=== PATIENT | male | born 1950 | race Caucasian/White ===

== ENCOUNTER 2016-04-26 08:10 | Inpatient (IN) | payer OTHER ==
[2016-04-26] VITALS (9 sets, daily range): BP systolic 84–108; BP diastolic 45–77; PULSE 81–93; TEMP 36.4–36.7; O2SAT 97–100; Ht 180.3 cm; Wt 78.5 kg
[~2016-04-26] VITALS: Ht 180.3 cm; Wt 78.5 kg
[~2016-04-26 08:10] MED LIST: AMOX500T PO; ASCOPOW PO; ASPI81TA28 PO; CARV3.122 PO; DOCU100C31 PO; ESCI10TA17 PO; FERRPOW47 PO; FRS/40 PO; GABA-112 PO; LACT1POW; LISI-461 PO; MORP15TA19 PO; MULT-506 PO; NVLGI7030 SC; PANT40TA PO; RIVA1TAB4 PO; ZINC1CAP PO; [UNRECOGNIZED DRUG - CODE] SQ
[2016-04-26] MEDS ORDERED: SODIUM CHLORIDE 0.9% 1000ML 500 ML IV ONE ×2 (08:19)
[2016-04-26] MEDS ORDERED: PIPERACILLIN/TAZOBACTAM 4.5 GM/100ML D5W IV STA (08:19)
[2016-04-26] MEDS ORDERED: VANCOMYCIN 1GM/270ML NSS IV STA (08:19)
--- NOTE | 2016-04-26 08:34 | EMERGENCY ROOM VISIT NOTE ---
History Report prepared by [place]: Ayse Duque Under the Supervision of: Dr. Kennedy Brewer M.D. First contact with patient: 08:11 Stated Complaint: RESPIRATORY/LETHARGIC History of Present Illness The patient is a 65 year old male who presents to the Emergency Room with complaints of a persistent low oxygen saturation that began this morning. Per nursing staff, the patient arrives via ALS from [facility]. They note that the patient recently had a right above the knee amputation and that is the reason for his rehab at [facility]. Nursing staff reports that the patient has been lethargic, but denies the patient having any fever. Per Dr. Landry, the patient was vomiting yesterday. He notes that when evaluated this morning, the patient appeared somnolent and somewhat lethargic. Dr. Landry states that the patient's oxygen saturation was low, so he was concerned for aspiration pneumonia. Per records, the patient is on Xarelto. The history is limited secondary to altered mental status. Source of History: transfer records, nursing staff, other (Dr. Landry) History Limited By: AMS Onset: this morning Position: other (global) Quality: other (low oxygen saturation) Timing: other (persistent) Associated Symptoms: + vomiting Note: Associated Symptoms: lethargic, somnolent Review of Systems The ROS is unobtainable secondary to altered mental status. Past Medical & Surgical Medical Problems: (1) Atrial fibrillation (2) Chronic anemia (3) Chronic renal disease (4) Congestive heart failure (5) Diabetes (6) Diabetic neuropathy (7) Hypertension Surgical Problems: (1) History of right above knee amputation (2) S/P vascular bypass Family History No pertinent family history stated. Social History Smoking Status: Former Smoker Drug Use: none Marital Status: Occupation Status: disabled Current/Historical Medications Scheduled Ascorbic Acid (Ascorbic Acid Cassave), 500 MG PO DAILY Aspirin (Aspirin Ec), 81 MG PO DAILY Carvedilol (Coreg), 1 TAB PO BID Collagenase (Santyl), 1 APPLN TOP DAILY Darbepoetin (Aranesp Albumin Free), SQ WK Docusate Sodium (Docusate Sodium), 1 CAP PO BID Escitalopram (Lexapro), 10 MG PO DAILY Ferrous Sulfate (Kp Ferrous Sulfate), 1 TAB PO TIDM Furosemide (Lasix), 40 MG PO BID Gabapentin (Neurontin), 100 MG PO TID Insulin Aspart (Novolog Flexpen), SC UD Insulin Lispro 75/25 (Humalog Mix 75/25), 18 UNITS SC QAM Insulin Lispro 75/25 (Humalog Mix 75/25), 15 UNITS SC QPM Lactobacillus Acidophilus (Lactinex), 1 TAB PO TIDM Lisinopril (Zestril), 10 MG PO DAILY Morphine Cont Rel (Ms Contin), 15 MG PO Q12 Multivitamins/Minerals (Mvi With Minerals), 1 TAB PO DAILY Ondasetron Odt (Zofran Odt), 4 MG SL Q6H Pantoprazole (Protonix), 40 MG PO DAILY Zinc Sulfate (Zinc Sulfate), 220 MG PO DAILY Scheduled PRN Acetaminophen Tab (Tylenol), 650 MG PO Q4 PRN for Pain Oxycodone Ir (Roxicodone Ir), 5 MG PO Q6 PRN for Moderate Pain Rivaroxaban (Xarelto), 20 MG PO DAILY PRN for QPM Saline (Sodium Chloride), 2 SPRAYS SHANNON QID PRN for DRYNESS Senna/Docusate Sod (Senokot S), 1 TAB PO Q24H PRN for Constipation Allergies Coded Allergies: No Known Allergies (Unverified , 04/23/16) Physical Exam Vital Signs Date Time Temp Pulse Resp B/P Pulse Ox O2 Delivery O2 Flow Rate FiO2 04/26/16 09:15 91 20 97/37 100 Nasal Cannula 6.0 04/26/16 09:03 95 17 65/38 100 Nasal Cannula 04/26/16 08:39 98 17 88/42 98 Nasal Cannula 6.0 04/26/16 08:38 99 Nasal Cannula 6.0 04/26/16 08:26 37.1 101 21 62/41 77 Room Air 04/26/16 08:19 101 Physical Exam GENERAL: Patient is in no acute distress. HEENT: No acute trauma, normocephalic atraumatic, mucous membranes dry, no nasal congestion, no scleral icterus. NECK: No stridor, no adenopathy, no meningismus, trachea is midline. LUNGS: Clear to auscultation bilaterally when listening anteriorly, no wheeze, no rhonchi, breath sounds equal. HEART: Without murmurs gallops or rubs, regular rate and rhythm. ABDOMEN: Soft, nontender, bowel sounds positive, no hernias, no peritonitis. EXTREMITIES: Right above the knee amputation with sharon still in place, no signs of erythema to suggest infection. Left lower extremity has several areas of skin break down and ulceration over the lateral and posterior foot. There is some erythema and redness to the distal leg. There is some warmth present. NEUROLOGIC: Somnolent but arouses to voice, somewhat confused, moving all extremities SKIN: No rash, no jaundice, no diaphoresis. Medical Decision & Procedures ER Provider Diagnostic Interpretation: X-ray results as stated below per interpretation by me and the radiologist: CHEST ONE VIEW PORTABLE HISTORY: Sepsis COMPARISON: None. FINDINGS: No pneumothorax right basilar densities.. Moderate right pleural effusion. The heart is mildly enlarged. There is interstitial and vascular thickening suggestive of mild congestive change. Probable trace left pleural effusion. IMPRESSION: 1. Moderate right pleural effusion and a trace left pleural effusion. 2. Cardiomegaly with mild congestive change. 3. Right basilar densities favor compressive atelectasis from the pleural fluid. Electronically signed by: Juarez Galvin M.D. 04/26/2016 9:06 AM Dictated Date/Time: 04/26/2016 9:04 AM Laboratory Results 04/26/16 08:25 Red Blood Count 3.11, Mean Corpuscular Volume 83.0, Mean Corpuscular Hemoglobin 26.4, Mean Corpuscular Hemoglobin Concent 31.8, Mean Platelet Volume 10.6, Neutrophils (%) (Auto) 81.4, Lymphocytes (%) (Auto) 12.0, Monocytes (%) (Auto) 5.5, Eosinophils (%) (Auto) 0.5, Basophils (%) (Auto) 0.2, Neutrophils # (Auto) 11.30, Lymphocytes # (Auto) 1.66, Monocytes # (Auto) 0.76, Eosinophils # (Auto) 0.07, Basophils # (Auto) 0.03 04/26/16 08:25 Test 04/26/16 08:25 04/26/16 08:26 04/26/16 08:31 04/26/16 08:35 White Blood Count 13.88 K/uL (4.8-10.8) Red Blood Count 3.11 M/uL (4.7-6.1) Hemoglobin 8.2 g/dL (14.0-18.0) Hematocrit 25.8 % (42-52) Mean Corpuscular Volume 83.0 fL (80-100) Mean Corpuscular Hemoglobin 26.4 pg (25-34) Mean Corpuscular Hemoglobin Concent 31.8 g/dl (32-36) Platelet Count 410 K/uL (130-400) Mean Platelet Volume 10.6 fL (7.4-10.4) Neutrophils (%) (Auto) 81.4 % Lymphocytes (%) (Auto) 12.0 % Monocytes (%) (Auto) 5.5 % Eosinophils (%) (Auto) 0.5 % Basophils (%) (Auto) 0.2 % Neutrophils # (Auto) 11.30 K/uL (1.4-6.5) Lymphocytes # (Auto) 1.66 K/uL (1.2-3.4) Monocytes # (Auto) 0.76 K/uL (0.11-0.59) Eosinophils # (Auto) 0.07 K/uL (0-0.5) Basophils # (Auto) 0.03 K/uL (0-0.2) RDW Standard Deviation 59.8 fL (36.4-46.3) RDW Coefficient of Variation 19.8 % (11.5-14.5) Immature Granulocyte % (Auto) 0.4 % Immature Granulocyte # (Auto) 0.06 K/uL (0.00-0.02) Polychromasia 1+ Anisocytosis PRESENT Prothrombin Time 19.2 SECONDS (9.0-12.0) Prothromb Time International Ratio 1.8 (0.9-1.1) Activated Partial Thromboplast Time 39.1 SECONDS (21.0-31.0) Partial Thromboplastin Ratio 1.5 Est Creatinine Clear Calc Drug Dose 35.8 ml/min Estimated GFR () 36.6 Estimated GFR (Non- 31.6 BUN/Creatinine Ratio 38.6 (10-20) Calcium Level 8.5 mg/dl (8.5-10.1) Magnesium Level 2.1 mg/dl (1.8-2.4) Total Bilirubin 0.6 mg/dl (0.2-1) Aspartate Amino Transf (AST/SGOT) 33 U/L (15-37) Alanine Aminotransferase (ALT/SGPT) 13 U/L (12-78) Alkaline Phosphatase 130 U/L (45-117) Total Protein 7.2 gm/dl (6.4-8.2) Albumin 2.1 gm/dl (3.4-5.0) Globulin 5.1 gm/dl (2.5-4.0) Albumin/Globulin Ratio 0.4 (0.9-2) Thyroid Stimulating Hormone (TSH) 3.700 uIu/ml (0.300-4.500) Bedside Lactic Acid Venous 1.48 mmol/L (0.90-1.70) Bedside Hemoglobin 9.5 g/dl (14.0-18.0) Bedside Hematocrit 28 % (42-52) Bedside Sodium 131 mEq/L (135-144) Bedside Potassium 5.8 mEq/L (3.3-5.0) Bedside Chloride 94 mEq/L (101-112) Bedside Total CO2 28 mEq/l (24-31) Anion Gap 17.0 mmol/L (16-25) Bedside Blood Urea Nitrogen 78 mg/dl (7-18) Bedside Creatinine 2.0 mg/dl (0.6-1.3) Bedside Glucose (other) 148 mg/dl (70-99) Bedside Ionized Calcium (Marisabel) 1.07 mmol/l (1.12-1.32) Urine Color YELLOW Urine Appearance CLEAR (CLEAR) Urine pH 5.0 (4.5-7.5) Urine Specific [place] 1.005 (1.000-1.030) Urine Protein NEG (NEG) Urine Glucose (UA) NEG (NEG) Urine Ketones NEG (NEG) Urine Occult Blood NEG (NEG) Urine Nitrite NEG (NEG) Urine Bilirubin NEG (NEG) Urine Urobilinogen NEG (NEG) Urine Leukocyte Esterase NEG (NEG) Urine WBC (Auto) 0 /hpf (0-5) Urine RBC (Auto) 0-4 /hpf (0-4) Urine Hyaline Casts (Auto) 1-5 /lpf (0-5) Urine Epithelial Cells (Auto) 0-5 /lpf (0-5) Urine Bacteria (Auto) NEG (NEG) Laboratory results reviewed by me. Medications Administered Medications (Trade) Dose Ordered Sig/Abhijit Route Start Time Stop Time Status Last Admin Dose Admin Sodium Chloride 500 ml @ 999 mls/hr Q31M ONCE IV 04/26/16 08:19 04/26/16 08:49 DC 04/26/16 08:25 999 MLS/HR Sodium Chloride (Nss 1000ml) 500 ml @ 999 mls/hr Q31M ONCE IV 04/26/16 08:19 04/26/16 08:49 DC 04/26/16 08:17 999 MLS/HR Piperacillin Sod/ Tazobactam Sod (Zosyn Iv) 4.5 gm ONE STAT IV 04/26/16 08:19 04/26/16 08:23 DC 04/26/16 08:41 4.5 GM Vancomycin HCl 1 gm 1 gm ONE STAT IV 04/26/16 08:19 04/26/16 08:23 DC 04/26/16 09:02 1 GM Sodium Chloride 1,000 ml @ 999 mls/hr Q1H1M STAT IV 04/26/16 09:15 04/26/16 10:15 DC 04/26/16 08:50 999 MLS/HR Sodium Chloride (Nss 1000ml) 1,000 ml @ 999 mls/hr Q1H1M STAT IV 04/26/16 09:15 04/26/16 10:15 DC 04/26/16 09:15 999 MLS/HR ECG Indication: SOB/dyspnea (low oxygen saturation) Rate (beats per minute): 94 Rhythm: atrial fibrillation (vs junctional tachycardia) Findings: ST depression (Anterior, laterally), no ectopy ED Course 0815: The patient was evaluated in room B11B. A complete history and physical exam was performed. 0819: Ordered Vancomycin HCl 1 gm IV, Zosyn IV 4.5 gm IV, Sodium Chloride 500 ml @ 999 mls/hr IV, Sodium Chloride 500 ml @ 999 mls/hr IV. 0914: I reevaluated the patient and he is more awake and feeling better. He is currently receiving his third liter of fluid. The patient will be evaluated for further treatment. 0915: Ordered Sodium Chloride 1000 ml @ 999 mls/hr IV, Sodium Chloride 1000 ml @ 999 mls/hr IV. 0917: I discussed the patients case with Dr. Palomo, Intensive Care. She states that she has nothing to add, and states that I should consult the hospitalist. 0936: I discussed the patients case with Dr. Jarrett [facility]. She is going to evaluate the patient for further treatment. Medical Decision The patient is a 65 year old male who presents to the ED with complaints of a low oxygen saturation. Differential diagnoses considered include sepsis, cellulitis, osteomyelitis, bacteremia, aspiration pneumonia, electrolyte imbalance, dehydration, anemia, UTI.. There is a mild leukocytosis which would be consistent with infection. The patient is anemic but this appears baseline looking back at testing sent with him from [facility]. There is evidence for acute renal failure with dehydration. Sodium slightly low. There was no hepatitis. The patient appeared to be in a euthyroid state. INR was elevated at 1.8. Urinalysis does not show infection. Chest x-ray shows a possible pneumonia or atelectasis at the right base. Blood cultures are pending. Lactic acid level was not elevated making severe sepsis less likely. EKG shows what seems to be A. fib versus a junctional rhythm. There were some ST depressions in the anterior and lateral leads, there were no old EKGs to use for comparison. Cardiac enzyme testing does show a mild troponin elevation-this could be consistent with cardiac strain/injury. The patient was aggressively managed. He was hypotensive and hypoxic. He was somewhat somnolent. The patient received around 3 L of IV saline. With this treatment, his blood pressure is now improved. He received IV Zosyn and IV vancomycin. The patient is more awake and interactive since treatment. He is doing well, he looks improved. Admission/observation is warranted. I am concerned about a possible left lower x-ray cellulitis causing his presentation. Aspiration pneumonia is a consideration as well. Further care in the hospital is warranted. I talked with the patient and his family. I spoke with case management. The on-call hospitalist was consulted. Consults Time Called: 915 Consulting Physician: Dr. Palomo, Intensive Care Returned Call: [phone] I discussed the patients case with Dr. Palomo, Intensive Care. She states that she has nothing to add, and states that I should consult the hospitalist. Additional Consults: Time Called: [phone] Consulted Physician: Leslie Henry Returned Call: [phone] Additional Comments: I discussed the patients case with Leslie Henry. She is going to evaluate the patient for further treatment. Impression Primary Impression: Sepsis Additional Impressions: Hypotension Change in mental status Critical Care I have personally spent greater than 35 minutes of critical care time in the direct management of this patient. This includes bedside care, interpretation of diagnostic studies, and testing, discussion with consultants, patient, and family members, and other required patient management activities. This 35 minutes is in excess of all separately billable procedures. Scribe Attestation The scribe's documentation has been prepared under my direction and personally reviewed by me in its entirety. I confirm that the note above accurately reflects all work, treatment, procedures, and medical decision making performed by me. Departure Information Dispostion Being Evaluated By Hospitalist Referrals Kd Hair M.D. (PCP) Problem Qualifiers
[2016-04-26 08:46] LABS: ISTAT HEMOGLOBIN 9.5 g/dl (14.0-18.0); ISTAT IONIZED CALCIUM 1.07 mmol/l (1.12-1.32)
[2016-04-26 08:49] LABS: HEMATOCRIT 25.8 % (42-52); MEAN CORPUSCULAR HEMOGLOBIN 26.4 pg (25-34); MEAN CORPUSCULAR HGB CONC 31.8 g/dl (32-36); MEAN PLATELET VOLUME 10.6 fL (7.4-10.4); PLATELET COUNT 410 K/uL (130-400); RED BLOOD COUNT 3.11 M/uL (4.7-6.1); WHITE BLOOD COUNT 13.88 K/uL (4.8-10.8)
--- NOTE | 2016-04-26 09:07 | DIAGNOSTIC IMAGING REPORT ---
CHEST ONE VIEW PORTABLE HISTORY: Sepsis COMPARISON: None. FINDINGS: No pneumothorax right basilar densities.. Moderate right pleural effusion. The heart is mildly enlarged. There is interstitial and vascular thickening suggestive of mild congestive change. Probable trace left pleural effusion. IMPRESSION: 1. Moderate right pleural effusion and a trace left pleural effusion. 2. Cardiomegaly with mild congestive change. 3. Right basilar densities favor compressive atelectasis from the pleural fluid. Electronically signed by: Juarez Galvin M.D. 04/26/2016 9:06 AM Dictated Date/Time: 04/26/2016 9:04 AM
[2016-04-26 09:10] LABS: BUN/CREATININE RATIO 38.6 (10-20); CALCIUM 8.5 mg/dl (8.5-10.1); CREATININE 2.1 mg/dl (0.60-1.40); MAGNESIUM 2.1 mg/dl (1.8-2.4); POTASSIUM 5.6 mmol/L (3.5-5.1)
[2016-04-26 09:11] LABS: URINE APPEARANCE CLEAR (CLEAR); URINE BILIRUBIN NEG (NEG); URINE COLOR YELLOW; URINE EPITHELIAL CELL AUTO 0-5 /lpf (0-5); URINE NITRITE NEG (NEG); URINE SPECIFIC GRAVITY 1.005 (1.000-1.030); UROBILINOGEN NEG (NEG); ZZURINE CULT IF INDIC CATH NO
[2016-04-26 09:11] LABS: INR 1.8 (0.9-1.1); PARTIAL THROMBOPLASTIN RATIO 1.5; PROTHROMBIN TIME (PATIENT) 19.2 SECONDS (9.0-12.0)
[2016-04-26 09:14] LABS: MANUAL MICROSCOPIC REQUIRED? NO; REVIEW REQ? NO
[2016-04-26 09:14] LABS: ANISOCYTOSIS PRESENT; BASO % 0.2 %; BASO ABS # 0.03 K/uL (0-0.2); COMPLETE YES; EOS % 0.5 %; IG% 0.4 %; LYMPH ABS # 1.66 K/uL (1.2-3.4); MONO % 5.5 %; NEUT % 81.4 %; POLYCHROMASIA 1+
[2016-04-26] MEDS ORDERED: SODIUM CHLORIDE 0.9% 1000ML 1,000 ML IV STA ×2 (09:15)
[2016-04-26] MEDS ORDERED: RIVA1TAB PO (09:18)
[2016-04-26] MEDS ORDERED: SNTO30 TOP (09:18)
[2016-04-26] MEDS ORDERED: OXYC1TAB3 PO (09:18)
[2016-04-26] MEDS ORDERED: ONDA4TAB10 SL (09:18)
[2016-04-26] MEDS ORDERED: SENN-65 PO (09:18)
[2016-04-26] MEDS ORDERED: MULT-513 PO (09:18)
[2016-04-26] MEDS ORDERED: ACET325T96 PO (09:18)
[2016-04-26] MEDS ORDERED: SALI0.6549 NAE (09:18)
[2016-04-26 09:22] LABS: ALB/GLOB RATIO 0.4 (0.9-2); THYROID STIMULATING HORMONE 3.7 uIu/ml (0.300-4.500)
[2016-04-26] MEDS ORDERED: LCTX PO (09:29)
[2016-04-26] MEDS ORDERED: FERR1TAB13 PO (09:29)
[2016-04-26] MEDS ORDERED: NVLGI/PEN SC (09:33)
[2016-04-26] MEDS ORDERED: HMLI7525 SC ×2 (09:33)
[2016-04-26] MEDS ORDERED: ACETAMINOPHEN 325 MG TAB PO PRN (10:15)
[2016-04-26] MEDS ORDERED: DEXTROSE 50% 50 ML SYR IV PRN (10:15)
[2016-04-26] MEDS ORDERED: NITROGLYCERIN 0.4 MG SL PER TAB CHARGE SL PRN (10:15)
[2016-04-26] MEDS ORDERED: SODIUM CHLORIDE 0.65% NA SOLN 45 ML (OCEAN) NAE PRN (10:15)
[2016-04-26] MEDS ORDERED: GLUCOSE 40% GEL 15 GM TUBE PO PRN (10:15)
[2016-04-26] MEDS ORDERED: POLYETHYLENE (MIRALAX) 17 GM PACK PO PRN (10:15)
[2016-04-26] MEDS ORDERED: GLUCAGON FOR INJ 1 MG VIAL SQ PRN (10:15)
[2016-04-26] MEDS ORDERED: GLUCOSE 10 TABS/TUBE PO PRN (10:15)
[2016-04-26] MEDS ORDERED: ONDANSETRON INJ 2 MG/ML 2 ML VIAL IV PRN (10:15)
[2016-04-26] MEDS ORDERED: VANCOMYCIN CONSULT ACTIVE PRN (10:43)
[2016-04-26] MEDS: INSULIN ASPART 100 UNITS/ML 3 ML PEN SC SCH ×3 (11:00→21:00)
[2016-04-26] MEDS ORDERED: PIPERACILL/TAZOBAC CONSULT ACTIVE PRN (11:00)
--- NOTE | 2016-04-26 11:03 | History and Physical ---
History & Physical Date & Time of Service: Apr 26, 2016 at 10:43 Chief Complaint: Respiratory/Lethargic Primary Care Physician: No Doctor, Assigned History of Present Illness Source: patient, [facility] (records), other (brother) The patient is a 65 year old male with multiple co morbidities, chronically ill , was recently admitted to [facility] from [place], [place] after his recent Right AKA as he had no one to take care of him in [place] and just has 2 brothers in this area, [place]. Patient is a very poor historian and brothers do not known much about his health. Most of his history obtained from medical records and recent wound care visit on 04/23/16. PMH included: CHF, Systolic with EF 15%, Atrial fibrillation on Xarelto, Severe PVD with Right below knee amputation 2 months ago, followed by AKA in 1 month, DM uncontrolled with retinopathy, neuropathy, causing right eye blindness years ago, CKD (Baseline : 1.0 ? not sure), Anemia of chronic disease, COPD, ex smoker , ambulatory dysfunction, debility. Per [facility] records, patient was admitted there on 04/16/16, was at his baseline till 04/23/16 when developed nausea, vomiting- multiple episodes. Today , noted to be hypoxic dropping his saturation, more lethargic- change in mental status and thus brought to ED for evaluation. On my evaluation, patient is lethargic, but arousable and oriented to place, person, knows his . C/o right leg pain at site of amputation. Did have 2 episodes of vomiting today AM, no nausea, abdominal pain associated with it. Does have cough with some sputum x 2 days, no SOB, leg swelling, localized weakness, headaches, numbness, chest pain. In ED, afebrile, BP was 62/41 on arrival, responded to IV Fluids (2 litres so far and 3rd litre going on) --> BP now 100/40s, on 6 L -97%, 80s pulse- NSR BP stable now. Labs - WBC 13k, Hb 8.2, K 5.8, Na 128-->131, Creatinine 2.10, Trop 0.782, Alb 2.1, Lactic acid 1.48, INR 1.8 CXR- Moderate Rt pleural effusion, trace left pleural effusion, mild congestion per reading, but clinically dry. EKG - T wave inversion in I, ST depression in V3-V6, no prior EKG for comparison. Will admit him for acute hypoxic respiratory failure, likely secondary to pneumonia, aspiration, possible sepsis, nausea/vomiting leading to volume depletion/hypotension in setting of CHF on lasix, AMAURI- pre renal for further management. Past Medical/Surgical History Medical Problems: (1) Atrial fibrillation Status: Chronic (2) Chronic anemia Status: Chronic (3) Chronic renal disease Status: Chronic (4) Congestive heart failure Status: Resolved (5) Diabetes Status: Chronic (6) Diabetic neuropathy Status: Chronic (7) Hypertension Status: Chronic Surgical Problems: (1) History of right above knee amputation Status: Resolved (2) S/P vascular bypass Status: Resolved Social History Smoking Status: Former Smoker Drug Use: none Marital Status: Occupational Status: disabled Allergies Coded Allergies: No Known Allergies (Unverified , 04/23/16) Home Medications Scheduled Ascorbic Acid (Ascorbic Acid Cassave), 500 MG PO DAILY Aspirin (Aspirin Ec), 81 MG PO DAILY Carvedilol (Coreg), 1 TAB PO BID Collagenase (Santyl), 1 APPLN TOP DAILY Darbepoetin (Aranesp Albumin Free), SQ WK Docusate Sodium (Docusate Sodium), 1 CAP PO BID Escitalopram (Lexapro), 10 MG PO DAILY Ferrous Sulfate (Kp Ferrous Sulfate), 1 TAB PO TIDM Furosemide (Lasix), 40 MG PO BID Gabapentin (Neurontin), 100 MG PO TID Insulin Aspart (Novolog Flexpen), SC UD Insulin Lispro 75/25 (Humalog Mix 75/25), 18 UNITS SC QAM Insulin Lispro 75/25 (Humalog Mix 75/25), 15 UNITS SC QPM Lactobacillus Acidophilus (Lactinex), 1 TAB PO TIDM Lisinopril (Zestril), 10 MG PO DAILY Morphine Cont Rel (Ms Contin), 15 MG PO Q12 Multivitamins/Minerals (Mvi With Minerals), 1 TAB PO DAILY Ondasetron Odt (Zofran Odt), 4 MG SL Q6H Pantoprazole (Protonix), 40 MG PO DAILY Zinc Sulfate (Zinc Sulfate), 220 MG PO DAILY Scheduled PRN Acetaminophen Tab (Tylenol), 650 MG PO Q4 PRN for Pain Oxycodone Ir (Roxicodone Ir), 5 MG PO Q6 PRN for Moderate Pain Rivaroxaban (Xarelto), 20 MG PO DAILY PRN for QPM Saline (Sodium Chloride), 2 SPRAYS SHANNON QID PRN for DRYNESS Senna/Docusate Sod (Senokot S), 1 TAB PO Q24H PRN for Constipation Review of Systems Constitutional: + fatigue, + weight loss, No chills, No fever Eyes: + problem reported (right eye blindness) ENT: + dental problems (No teeth (couldnt tolerate denture)), No nasal symptoms , No sore throat, No unusual epistaxis Respiratory: + cough, + sputum, No hemoptysis, No shortness of breath, No wheezing Cardiovascular: No chest pain, No edema, No orthopnea, No palpitations Abdomen: + nausea, + vomiting, No GI bleeding, No constipation, No diarrhea, No pain Musculoskeletal: No joint pain Genitourinary - Male: No dysuria, No hematuria, No urinary frequency Neurologic: No numbness/tingling, No paralysis, No vertigo, No weakness Psychiatric: No anxiety Endocrine: + fatigue, No excessive thirst, No excessive urination Integumentary: No rash Physical Exam Vital Signs Date Time Temp Pulse Resp B/P Pulse Ox O2 Delivery O2 Flow Rate FiO2 04/26/16 10:21 89 04/26/16 10:20 86 18 105/61 97 Nasal Cannula 6.0 04/26/16 09:15 91 20 97/37 100 Nasal Cannula 6.0 04/26/16 09:03 95 17 65/38 100 Nasal Cannula 04/26/16 08:39 98 17 88/42 98 Nasal Cannula 6.0 04/26/16 08:38 99 Nasal Cannula 6.0 04/26/16 08:26 37.1 101 21 62/41 77 Room Air 04/26/16 08:19 101 General Appearance: + pertinent finding (Lethargic, Chronically ill appearing, oriented x place, person) Eyes: + pertinent finding (Right eye blindness; Left eye- normal vision) ENT: hearing grossly normal Neck: supple, no JVD Respiratory/Chest: chest non-tender, no respiratory distress, no accessory muscle use, + decreased breath sounds Cardiovascular: regular rate, rhythm, no edema Abdomen/GI: normal bowel sounds, non tender, soft Genitourinary - Male: normal male genitalia Extremities/Musculoskelatal: + pertinent finding (Right AKA, Eliza +, No redness, discharge or signs of infection noted, No edema) Skin: + pertinent finding (Left heel eschar + No signs of infection) Diagnostics Laboratory Results Results Past 24 Hours Test 04/26/16 08:25 04/26/16 08:26 04/26/16 08:31 04/26/16 08:35 Range/Units White Blood Count 13.88 4.8-10.8 K/uL Red Blood Count 3.11 4.7-6.1 M/uL Hemoglobin 8.2 14.0-18.0 g/dL Hematocrit 25.8 42-52 % Mean Corpuscular Volume 83.0 80-100 fL Mean Corpuscular Hemoglobin 26.4 25-34 pg Mean Corpuscular Hemoglobin Concent 31.8 32-36 g/dl Platelet Count 410 130-400 K/uL Mean Platelet Volume 10.6 7.4-10.4 fL Neutrophils (%) (Auto) 81.4 % Lymphocytes (%) (Auto) 12.0 % Monocytes (%) (Auto) 5.5 % Eosinophils (%) (Auto) 0.5 % Basophils (%) (Auto) 0.2 % Neutrophils # (Auto) 11.30 1.4-6.5 K/uL Lymphocytes # (Auto) 1.66 1.2-3.4 K/uL Monocytes # (Auto) 0.76 0.11-0.59 K/uL Eosinophils # (Auto) 0.07 0-0.5 K/uL Basophils # (Auto) 0.03 0-0.2 K/uL RDW Standard Deviation 59.8 36.4-46.3 fL RDW Coefficient of Variation 19.8 11.5-14.5 % Immature Granulocyte % (Auto) 0.4 % Immature Granulocyte # (Auto) 0.06 0.00-0.02 K/uL Polychromasia 1+ Anisocytosis PRESENT Prothrombin Time 19.2 9.0-12.0 SECONDS Prothromb Time International Ratio 1.8 0.9-1.1 Activated Partial Thromboplast Time 39.1 21.0-31.0 SECONDS Partial Thromboplastin Ratio 1.5 Sodium Level 128 136-145 mmol/L Potassium Level 5.6 3.5-5.1 mmol/L Chloride Level 92 98-107 mmol/L Carbon Dioxide Level 27 21-32 mmol/L Anion Gap 9.0 17.0 16-25 mmol/L Blood Urea Nitrogen 81 7-18 mg/dl Creatinine 2.10 0.60-1.40 mg/dl Est Creatinine Clear Calc Drug Dose 35.8 ml/min Estimated GFR () 36.6 Estimated GFR (Non- 31.6 BUN/Creatinine Ratio 38.6 10-20 Random Glucose 136 70-99 mg/dl Calcium Level 8.5 8.5-10.1 mg/dl Magnesium Level 2.1 1.8-2.4 mg/dl Total Bilirubin 0.6 0.2-1 mg/dl Aspartate Amino Transf (AST/SGOT) 33 15-37 U/L Alanine Aminotransferase (ALT/SGPT) 13 12-78 U/L Alkaline Phosphatase 130 45-117 U/L Troponin I 0.782 0-0.045 ng/ml Total Protein 7.2 6.4-8.2 gm/dl Albumin 2.1 3.4-5.0 gm/dl Globulin 5.1 2.5-4.0 gm/dl Albumin/Globulin Ratio 0.4 0.9-2 Thyroid Stimulating Hormone (TSH) 3.700 0.300-4.500 uIu/ml Bedside Lactic Acid Venous 1.48 0.90-1.70 mmol/L Bedside Hemoglobin 9.5 14.0-18.0 g/dl Bedside Hematocrit 28 42-52 % Bedside Sodium 131 135-144 mEq/L Bedside Potassium 5.8 3.3-5.0 mEq/L Bedside Chloride 94 101-112 mEq/L Bedside Total CO2 28 24-31 mEq/l Bedside Blood Urea Nitrogen 78 7-18 mg/dl Bedside Creatinine 2.0 0.6-1.3 mg/dl Bedside Glucose (other) 148 70-99 mg/dl Bedside Ionized Calcium (Marisabel) 1.07 1.12-1.32 mmol/l Urine Color YELLOW Urine Appearance CLEAR CLEAR Urine pH 5.0 4.5-7.5 Urine Specific Knox 1.005 1.000-1.030 Urine Protein NEG NEG Urine Glucose (UA) NEG NEG Urine Ketones NEG NEG Urine Occult Blood NEG NEG Urine Nitrite NEG NEG Urine Bilirubin NEG NEG Urine Urobilinogen NEG NEG Urine Leukocyte Esterase NEG NEG Urine WBC (Auto) 0 0-5 /hpf Urine RBC (Auto) 0-4 0-4 /hpf Urine Hyaline Casts (Auto) 1-5 0-5 /lpf Urine Epithelial Cells (Auto) 0-5 0-5 /lpf Urine Bacteria (Auto) NEG NEG Microbiology Results 04/26/16 Blood Culture, Received Pending 04/26/16 Blood Culture, Received Pending Diagnostic Radiology EKG reviewed- NSR, T wave inversion in Lead I, ST depression in V3-V6 (No prior EKG available for comparison) CXR reviewed- Moderate Right pleural effusion, Left pleural effusion- trace, mild congestion Impression Assessment and Plan Patient with multiple co morbidities, from [place], recently admitted to [facility] after a recent Right AKA 1 month ago in [place] as lived alone and only support he had was 2 brothers in this area. Was sent from [place] for hypoxia, nausea /vomiting x 2 days. ASSESSMENT / PLAN : ACUTE HYPOXIC RESPIRATORY FAILURE : Probable Aspiration pneumonia with recent episodes of nausea/vomiting at x 2 days with B/L Right > Left pleural effusions, hx of COPD, Chronic CHF, Systolic -On 6 L -100%, not in respiratory distress -CXR- Moderate right pleural effusion, trace left pleural effusion, mild congestion (clinically dry) -Incentive spirometry, ABGs ordered POSSIBLE SEPSIS SECONDARY TO PROBABLE ASPIRATION PNEUMONIA -Presented with hypoxia, BP 60s, HR 100s, WBC 13k, Normal lactic acid -S/P IV Vancomycin, IV Zosyn in ED -S/P IV Fluids x 2 L (3rd litre going on). Would avoid IVF as BP stabilized, CHF - EF only 15% -Speech evaluation ordered -Work up - UA neg, Blood cx x 2- pending, CXR- no clear pneumonia, but with aspiration it may not show up right away, No signs of infection of would ulcer- left heel or surgical site Right AKA, eliza + -Monitor closely HYPOTENSION- Improved Likely secondary to volume depletion secondary to inadequate PO intake, Nausea/ Vomiting x 2 days at [facility] and being on lasix for CHF systolic -Responded to IVF- 2 L , 3rd getting now. No more IVF due to CHF with EF 15% -Continue with Coreg 3.125 mg BID with holding parameters, Hold Lisinopril -Monitor closely AMAURI ON CKD -Unknown baseline, but per ED physician known to have baseline of 1.0 -Likely secondary to volume depletion, pre renal -S/P IVF -Monitor HYPERKALEMIA Likely secondary to AMAURI /Lisinopril -Will give Nebs, Insulin 10 units, No EKG changes -Will repeat BMP in 4 hours. ELEVATED TROPONIN Likely demand ischemia secondary to above. No cardiac symptoms per patient Trop-0.782, EKG- Twave inversion in I, ST depression in V3-V6 - no prior EKG for comparison -On ASA, Coreg, Lisinopril (held) -Will trend trop, EKG repeat, Echocardiogram and cardiology consult given EKG changes, multiple cardiac risk factors/history ATRIAL FIBRILLATION, Now NSR -On coreg 3.125 mg PO BID at home- With holding parameters- continue -On xarelto -Echo ordered as none in records CHRONIC CHF, SYSTOLIC WITH EF 15% Per records- [facility]. -Cautious about fluid resuscitation -Hold lasix 40 mg bid. On coreg, Lisinopril at home -Echo ordered SEVERE PERIPHERAL VASCULAR DISEASE RECENT RIGHT BELOW KNEE AMPUTATION FOLLOWED BY ABOVE KNEE AMPUTATION 1 Month ago in [place] Has hx of vascular surgery including balloon angioplasty in past- no records available -Still has eliza - Right AKA site. Eliza +, no signs of infection -On ASA, Not on statin DM-IDDM, WITH COMPLICATIONS- Neuropathy/Retinopathy with right eye blindness -HBA1C ordered -ANGE, Desean Bland -On Gabapentin -Pharmacy consulted COPD -No signs of COPD exacerbation , no wheezing -Continue with nebulizers ANEMIA OF CHRONIC DISEASE HB 8.2, No baseline available -No signs of active GI bleeding -Monitor H & H HYPERTENSION -Mx for hypotension as above PAIN MX -On MS Contin 15 mg q BID, Oxycodone 5 mg prn - home meds-hold due to change in mental status -Likely on it secondary to recent surgeries DEPRESSION -On Escitalopram DVT PROPHYLAXIS High risk, on xarelto GI PROPHYLAXIS\ Protonix daily CODE STATUS- DNR/DNI per brother /patient No advance directives, but verbally confirms that his brother Kraig or 2nd brother make medical decisions on his behalf if he cannot DISPOSITION Prognosis : guarded, high risk of deterioration and low risk of transfer to ICU if deteriorates Brothers aware Discussed at length about his clinical status with poor prognosis. Understands. TOTAL TIME SPENT IN ADMISSION -- 55 MINUTES Level of Care Telemetry Advanced Directives Existing Advance Directive: No Existing Living Will: No Existing Health Care Proxy: Yes (Brother -Kraig per patient) VTE Prophylaxis VTE Risk Assessment Done? Y/N: Yes Risk Level: High Given or contraindicated: Other Anticoagulation (Xarelto) Social Service Consult Lives in [facility] ([facility]
[2016-04-26] MEDS ORDERED: INSULIN HUMAN REGULAR IV ONE (11:30)
[2016-04-26] MEDS ORDERED: DEXTROSE 50% 50 ML SYR IV ONE (11:30)
[2016-04-26] MEDS ORDERED: VANCOMYCIN INJ 900 MG in SODIUM CHLORIDE 0.9% 250ML 250 ML IV SCH (12:00)
[2016-04-26] MEDS: ALBUT/IPRATROP 3MG/0.5MG NEB 3 ML VIAL INH SCH ×2 (12:00→21:11)
[2016-04-26] MEDS ORDERED: ALBUT/IPRATROP 3MG/0.5MG NEB 3 ML VIAL INH PRN (12:30)
[2016-04-26] MEDS ORDERED: SODIUM POLYST. SULF SUSP 15G/60ML PO ONE (12:30)
--- NOTE | 2016-04-26 12:45 | Pharmacy Progress Note ---
Pharmacy Antibiotic Consult Date of Service: Apr 26, 2016. Pharmacy Dosing Scope Pharmacy is consulted to initiate vancomycin and Zosyn IV dosing therapy, order appropriate labs and adjust drug dose/frequency. Subjective The patient is a 65 year old male admitted on Apr 26, 2016 at 10:14. Patient with multiple co morbidities, from [place], recently admitted to [facility] after a recent Right AKA 1 month ago in [place]. He was sent from [place] for hypoxia, nausea/ vomiting x 2 days. He is ordered vanco/Zosyn for probable asp pnx and possible sepsis; hx of COPD, DM, CHF. Objective Height (Feet): 5 Height (Inches): 11.00 Weight (Kilograms): 75.000 Lab Results (24hrs): Laboratory Tests Test 04/26/16 08:25 BUN/Creatinine Ratio 38.6 Blood Urea Nitrogen 81 mg/dl Creatinine 2.10 mg/dl White Blood Count 13.88 K/uL Red Blood Count 3.11 M/uL Hemoglobin 8.2 g/dL Hematocrit 25.8 % Mean Corpuscular Volume 83.0 fL Mean Corpuscular Hemoglobin 26.4 pg Mean Corpuscular Hemoglobin Concent 31.8 g/dl Platelet Count 410 K/uL Mean Platelet Volume 10.6 fL Neutrophils (%) (Auto) 81.4 % Lymphocytes (%) (Auto) 12.0 % Monocytes (%) (Auto) 5.5 % Eosinophils (%) (Auto) 0.5 % Basophils (%) (Auto) 0.2 % Neutrophils # (Auto) 11.30 K/uL Lymphocytes # (Auto) 1.66 K/uL Monocytes # (Auto) 0.76 K/uL Eosinophils # (Auto) 0.07 K/uL Basophils # (Auto) 0.03 K/uL Micro Results: Blood cx x 2 are ordered. Assessment & Plan Vancomycin: * Modified loading dose: 1000 mg IV X 1 dose in ED plus 900mg on admission to make ~25mg/kg load, then: * 1150 mg IV every 24 hours (15mg/kg), based on CrCl today. Baseline SCr 1.0 per ED physician, so will adjust dose if improvement in renal fx. * Goal trough level estimate: between 15 - 20 mcg/mL * Trough level has been ordered for: 04/28 prior to 1200 dose Zosyn: * Zosyn 4.5gm x 1 in ED, then 3.375gm IV q 8h (extended infusion) for CrCl > 20ml/min. Pharmacy will continue to follow and will adjust dose/frequency as necessary. Thank you
[2016-04-26] MEDS ORDERED: PERFLUTREN LIPID MICROSPHERE (DEFINITY) IV ONE (12:47)
[2016-04-26] MEDS: PIPERACILL/TAZOBAC IV 3.375 GM in DEXTROSE 5% 100ML 100 ML IV SCH ×2 (12:49→21:48)
--- NOTE | 2016-04-26 13:56 | ECHOCARDIOGRAM REPORT ---
*NOTICE TO RECEIVING REPUBLICAN AGENCY This information is strictly Confidential and protected under [place] law. [place] law prohibits you from making any further disclosure of this information unless further disclosure is expressly permitted by the written consent of the person to whom it pertains or is authorized by law. A general authorization for the release of medical or other information is not sufficient for this purpose. Hospital accepts no responsibility if the information is made available to any other person, INCLUDING THE PATIENT. Interpretation Summary * Name: KERLINE THOMAS Study Date: 04/26/2016 01:12 PM BP: 105/61 mmHg * Patient Location: .2T\S\E222\S\1 HR: 89 * : 1950 (M/d/yyyy) Gender: Male Height: 70 in * Age: 65 yrs Ethnicity: CA Weight: 165 lb * Ordering Physician: Tammi Jarrett. * [facility] [place] [facility] * Performed By: Whitney Sherman RDCS * * Reason For Study: CHF with known EF 15%, elevated troponin * BSA: 1.9 m2 * The study was technically adequate. * There is no comparison study available. * -- Conclusions -- * Left ventricular systolic function is severely reduced. * Ejection Fraction = 20-25%. * The apical septum is dyskinetic. * The basal anteroseptum is thinned and akinetic. * Otherwise severe global hypokinesis. * The right ventricle is borderline dilated. * The right ventricular systolic function is reduced as assessed by tricuspid annular plane systolic excursion (TAPSE) (TAPSE <1.6 cm). * Aortic valve sclerosis moderate, without significant aortic valvular stenosis. * There is mild mitral regurgitation. * There is trace tricuspid regurgitation. * The estimated systolic PAP is 42mmHg. * Dilated inferior vena cava with reduced collapsability with sniff indicates an elevated right atrial pressure of 15 mmHg Procedure Details * A complete two-dimensional transthoracic echocardiogram was performed (2D, M-mode, Doppler and color flow Doppler). * A contrast injection of Definity was performed to improve assessment for apical thrombus. * Contrast was injected into an intravenous site in the right arm. * One vial of Definity ultrasound contrast was diluted in normal saline to a total volume of 10 ml. A total of '3' ml of solution was administered during imaging. * Lot # [id number] of Definity utilized for procedure. * Expiration date MAR 18. * The attending nurse who injected the contrast agent was Ana Paula Gan RN. Left Ventricle * The left ventricle is normal in size. * There is moderate concentric left ventricular hypertrophy. * Left ventricular systolic function is severely reduced. * Ejection Fraction = 20-25%. * The apical septum is dyskinetic. The basal anteroseptum is thinned and akinetic. Otherwise severe global hypokinesis. Right Ventricle * The right ventricle is borderline dilated. * The right ventricular systolic function is mildly reduced. * The right ventricular systolic function is reduced as assessed by tricuspid annular plane systolic excursion (TAPSE) (TAPSE <1.6 cm). Atria * The left atrium is mildly dilated. * The right atrium is mildly dilated. Mitral Valve * There is moderate mitral annular calcification. * The mitral valve leaflets appear thickened, but open well. * The posterior leaflet is tethered with decreased mobility. * There is no mitral valve stenosis. * There is mild mitral regurgitation. Tricuspid Valve * The tricuspid valve is not well visualized. * There is no tricuspid stenosis. * There is trace tricuspid regurgitation. * The estimated systolic PAP is 42mmHg. Aortic Valve * Aortic valve sclerosis moderate, without significant aortic valvular stenosis. * The aortic valve is trileaflet. * There is no significant aortic regurgitation. Pulmonic Valve * The pulmonary valve is not well seen, but the Doppler examination is normal without significant regurgitation or stenosis. Great Vessels * The aortic root is normal size. Pericardium/Pleural * There is no pericardial effusion. Great Vessels * Dilated inferior vena cava with reduced collapsability with sniff indicates an elevated right atrial pressure of 15 mmHg Left Ventricular Diastolic Function * Diastolic dysfunction, Grade II (pseudonormalization pattern). MMode 2D Measurements and Calculations IVSd 1.5 cm LVIDd 4.8 cm LVIDs 4.2 cm LVPWd 1.5 cm IVS/LVPW 1.0 FS 12.0 % EDV(Teich) 105.6 ml ESV(Teich) 78.1 ml EF(Teich) 26.0 % EDV(cubed) 108.1 ml ESV(cubed) 73.6 ml EF(cubed) 31.9 % LV mass(C)d 295.9 grams LV mass(C)dI 153.8 grams/m\S\2 SV(Teich) 27.5 ml SI(Teich) 14.3 ml/m\S\2 SV(cubed) 34.5 ml SI(cubed) 17.9 ml/m\S\2 Ao root diam 3.3 cm Ao root area 8.4 cm\S\2 ACS 0.95 cm LA dimension 4.0 cm LA/Ao 1.2 LVOT diam 1.7 cm LVOT area 2.3 cm\S\2 LVAd ap4 30.6 cm\S\2 LVLd ap4 7.7 cm EDV(MOD-sp4) 101.1 ml EDV(sp4-el) 103.8 ml LVAs ap4 25.2 cm\S\2 LVLs ap4 6.9 cm ESV(MOD-sp4) 74.9 ml ESV(sp4-el) 78.2 ml EF(MOD-sp4) 25.9 % EF(sp4-el) 24.7 % LVAd ap2 28.8 cm\S\2 LVLd ap2 7.6 cm EDV(MOD-sp2) 92.7 ml EDV(sp2-el) 92.5 ml LVAs ap2 25.5 cm\S\2 LVLs ap2 7.6 cm ESV(MOD-sp2) 71.3 ml ESV(sp2-el) 72.3 ml EF(MOD-sp2) 23.0 % EF(sp2-el) 21.8 % LVLd %diff -0.56 % EDV(MOD-bp) 97.4 ml LVLs %diff 10.1 % ESV(MOD-bp) 75.5 ml EF(MOD-bp) 22.5 % SV(MOD-sp4) 26.2 ml SI(MOD-sp4) 13.6 ml/m\S\2 SV(MOD-sp2) 21.3 ml SI(MOD-sp2) 11.1 ml/m\S\2 SV(MOD-bp) 21.9 ml SI(MOD-bp) 11.4 ml/m\S\2 SV(sp4-el) 25.6 ml SI(sp4-el) 13.3 ml/m\S\2 SV(sp2-el) 20.2 ml SI(sp2-el) 10.5 ml/m\S\2 Doppler Measurements and Calculations MV E max aleah 129.4 cm/sec MV dec time 0.17 sec Ao V2 max 120.4 cm/sec Ao max PG 5.8 mmHg Ao max PG (full) 3.1 mmHg KECIA(V,A) 1.6 cm\S\2 KECIA(V,D) 1.6 cm\S\2 LV V1 max PG 2.7 mmHg LV V1 max 81.4 cm/sec MR max aleah 286.0 cm/sec MR max PG 32.7 mmHg MR mean aleah 235.0 cm/sec MR mean PG 24.0 mmHg MR VTI 95.5 cm PA V2 max 56.6 cm/sec PA max PG 1.3 mmHg PA acc slope 239.0 cm/sec\S\2 PA acc time 0.13 sec TR max aleah 260.0 cm/sec PA pr(Accel) 18.6 mmHg
[2016-04-26] MEDS: LACTOBACILLUS ACIDOPHILUS (FLORANEX) TAB PO SCH (15:36)
[2016-04-26] MEDS: FERROUS SULFATE 325 MG TAB PO SCH (15:36)
[2016-04-26] MEDS: GABAPENTIN 100 MG CAP PO SCH ×2 (15:37→21:48)
--- NOTE | 2016-04-26 16:21 | CARDIOLOGY CONSULTATION ---
DATE OF CONSULTATION: 04/26/2016 REFERRING PHYSICIAN: Dr. Tammi Jarrett. REASON FOR CONSULTATION: Cardiomyopathy, shortness of breath, hypoxia, paroxysmal atrial fibrillation, peripheral vascular disease. CHIEF COMPLAINT ON ADMISSION: Respiratory insufficiency, lethargy. HISTORY OF PRESENT ILLNESS: Mr. Zapien is a complex 65-year-old gentleman with multiple complex medical issues listed below. He is currently residing at [facility]; however, lives in [place], [place]. He had a recent above the knee amputation performed and due to family in the area, he was transferred for postsurgical care and rehabilitation. He is an extremely poor historian. There is no family at the bedside. Most history is gleaned from the medical chart; however, the patient can answer some questions. Overnight, the patient developed episodes of nausea and multiple vomiting episodes. Today, he was noted to be hypoxic, dropping his oxygen saturations and more lethargic. The change in mental status reported by staff at [facility]. In the Emergency Department, the patient was found to be arousable and oriented to place and person. He knows his date of and complains of right leg discomfort near the site of his above the knee amputation. No recurrent vomiting since admission. Chest x-ray concerning for aspiration. The patient was found to be volume depleted and received 3 liters of normal saline. He was initially hypotensive, which has improved. His creatinine is elevated above baseline per review of records. Currently, the patient is resting comfortably. He denies chest discomfort or shortness of breath. Denies a history of coronary artery disease or cerebrovascular accident. 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 No orthopnea at this time. He is hemodynamically stable and satting appropriately with supplemental oxygen. Telemetry reveals sinus rhythm. Offers no other complaints at this time. REVIEW OF SYSTEMS: The pertinent positive noted above. A comprehensive 10-system review was attempted; however, patient is a poor historian. The review is otherwise negative. PAST MEDICAL HISTORY: 1. Cardiomyopathy -- undetermined etiology, the patient denies history of ischemic heart disease or stenting. 2. Paroxysmal atrial fibrillation, currently sinus rhythm. 3. Chronic anemia. 4. Chronic renal disease. 5. Diabetes. 6. Diabetic neuropathy. 7. Diabetic retinopathy. 8. Hypertension. 9. Peripheral vascular disease. PAST SURGICAL HISTORY: 1. Recent right-sided above the knee amputation. 2. History of vascular bypass, undetermined. SOCIAL HISTORY: Former heavy tobacco use, he is . Currently disabled and lives with his 88-year-old girlfriend. ALLERGIES: No known drug allergies. CURRENT OUTPATIENT MEDICATIONS: 1. Aspirin 81 mg daily. 2. Carvedilol 3.125 mg twice daily. 3. Colace twice daily. 4. Lexapro 10 mg daily. 5. Ferrous sulfate 3 times daily. 6. Lasix 40 mg twice daily. 7. Neurontin 100 mg 3 times daily. 8. Insulin sliding scale. 9. Lispro 75/25 18 units in the morning, 15 units at night. 10. Lisinopril 10 mg daily. 11. Protonix 40 mg daily. 12. Xarelto 20 mg daily. 13. Oxycodone 5 mg q. 6 as needed. 14. Tylenol 650 q. 4 as needed. ECG ON ADMISSION: Sinus rhythm with anterolateral T-wave abnormalities, consider ischemia, no prior ECGs available for review. Chest x-ray on admission: Right-sided pleural effusion with right basilar density. LABORATORY DATA: Initial troponin 0.782. Sodium 131, potassium is 5.8, chloride is 94, CO2 is 28, BUN is 78, creatinine 2.10. TSH 3.700. INR is 1.8. White blood cell count is 13.8, hemoglobin is 8.2, platelet count is 410. Telemetry reveals sinus rhythm. PHYSICAL EXAMINATION: VITAL SIGNS: Temperature is 36.5 degrees centigrade, pulse is 90 beats per minute and regular, respiratory rate is 20 breaths per minute, blood pressure is 108/77. SaO2 is 99% on 6 liters. GENERAL: Chronically ill, no acute distress, poor historian. HEENT: Mucous membranes dry. No scleral icterus. Conjunctivae pink. NECK: Supple without JVD or HJR. No carotid bruit. HEART: Regular with a normal S1 and S2. There is a 1-2/6 systolic ejection murmur heard best at the right second intercostal space without radiation. LUNGS: Demonstrate diminished breath sounds at the right base, otherwise no rales, rhonchi or wheeze as examined anteriorly. ABDOMEN: Soft and nontender. No rebound or guarding. EXTREMITIES: Warm and dry. There is a right-sided above the knee amputation. There is +1 left lower extremity edema. NEUROLOGIC: Demonstrates no focal motor deficit; however, cannot be completely assessed due to patient's inability to cooperate. FINAL IMPRESSION: 1. Complex 65-year-old patient admitted through the Emergency Department with lethargy and hypoxemia related to likely aspiration event. 2. The patient clinically volume depleted/dehydrated status post intravenous normal saline x3 liters. 3. Chronic systolic heart failure with underlying cardiomyopathy of undetermined etiology and ejection fraction of 20-25%. 4. Peripheral vascular disease status post recent right-sided above the knee amputation. 5. Acute renal insufficiency superimposed on chronic kidney disease secondary to dehydration. 6. Hyperkalemia secondary to acute renal insufficiency and LEVON inhibitor use. 7. Elevated troponin, likely type 2 event (demand ischemia) secondary to above. 8. History of paroxysmal atrial fibrillation, currently sinus rhythm and chronically anticoagulated with Xarelto. 9. Chronic anemia. 10. 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 11. Former heavy tobacco use. PLAN AND RECOMMENDATIONS: Continue low dose beta-sukhwinder therapy cautiously, carvedilol 3.125 mg twice daily. LEVON inhibitor will be held at this time due to renal insufficiency and hyperkalemia. I would not add further intravenous fluid at this time, given patient's underlying severe cardiomyopathy. Repeat basic metabolic panel and serum potassium level as ordered per the internal medicine service. Trend cardiac enzymes x3 sets. Repeat resting 2D transthoracic echo confirmed the presence of severe cardiomyopathy, no significant valvular disease. We will continue oral anticoagulation with Xarelto, antibiotics per the internal medicine service. Hold diuretic therapy at this time. We will await arrival of records from patient's medical professional in [place]. Further recommendations pending review of those records and clinical course. Thank you for allowing me to take part in the care of your patient.
[2016-04-26] MEDS ORDERED: INSULIN LISPRO 75% / 25% SC SCH (16:45)
[2016-04-26] MEDS ORDERED: RIVAROXABAN 10 MG TAB PO SCH (16:45)
[2016-04-26] MEDS: RIVAROXABAN TAB 15 MG TAB PO SCH (16:57)
[2016-04-26 17:36] LABS: BUN/CREATININE RATIO 42.1 (10-20); CALCIUM 7.5 mg/dl (8.5-10.1); CREATININE 1.8 mg/dl (0.60-1.40); POTASSIUM 4.6 mmol/L (3.5-5.1)
[2016-04-26] MEDS: ACETAMINOPHEN 325 MG TAB PO PRN (17:48)
[2016-04-26] MEDS ORDERED: HEPARIN SOD 5000 UNIT/0.5 ML CARP SQ SCH (21:00)
[2016-04-26] MEDS ORDERED: MoRPHine SULFATE CR 15 MG TAB (MS CONTIN) PO SCH (21:00)
[2016-04-26] MEDS: DOCUSATE SODIUM 100 MG CAP PO SCH (21:48)
[2016-04-26] MEDS: CARVEDILOL 3.125 MG TAB PO SCH (21:51)
[2016-04-27] VITALS (16 sets, daily range): BP systolic 84–151; BP diastolic 45–75; PULSE 74–97; TEMP 36.5–36.8; O2SAT 92–100
[2016-04-27] MEDS ORDERED: SODIUM CHLORIDE 0.9% 500ML 500 ML IV SCH (00:45)
[2016-04-27] MEDS: PIPERACILL/TAZOBAC IV 3.375 GM in DEXTROSE 5% 100ML 100 ML IV SCH ×3 (05:33→22:35)
[2016-04-27 06:31] LABS: HEMATOCRIT 24.4 % (42-52); MEAN CELL VOLUME 82.4 fL (80-100); MEAN CORPUSCULAR HEMOGLOBIN 26.4 pg (25-34); MEAN PLATELET VOLUME 10.1 fL (7.4-10.4); PLATELET COUNT 338 K/uL (130-400); RED BLOOD COUNT 2.96 M/uL (4.7-6.1); WHITE BLOOD COUNT 11.82 K/uL (4.8-10.8)
[2016-04-27 07:02] LABS: BUN/CREATININE RATIO 40.3 (10-20); CALCIUM 7.5 mg/dl (8.5-10.1); CREATININE 1.7 mg/dl (0.60-1.40); POTASSIUM 4.2 mmol/L (3.5-5.1)
[2016-04-27 07:09] LABS: ESTIMATED AVERAGE GLUCOSE 128 mg/dl; HA1C FLAG Normal (Normal)
[2016-04-27 07:14] LABS: ALB/GLOB RATIO 0.4 (0.9-2); CHOLESTEROL/HDL RATIO 5.3
[2016-04-27] MEDS: ALBUT/IPRATROP 3MG/0.5MG NEB 3 ML VIAL INH SCH ×4 (07:26→19:39)
[2016-04-27] MEDS ORDERED: INSULIN LISPRO 75% / 25% SC SCH (07:30)
[2016-04-27] MEDS: FERROUS SULFATE 325 MG TAB PO SCH ×3 (07:51→16:19)
[2016-04-27] MEDS: GABAPENTIN 100 MG CAP PO SCH ×3 (07:51→20:36)
[2016-04-27] MEDS: DOCUSATE SODIUM 100 MG CAP PO SCH ×2 (07:51→20:36)
[2016-04-27] MEDS: LACTOBACILLUS ACIDOPHILUS (FLORANEX) TAB PO SCH ×3 (07:52→16:19)
[2016-04-27] MEDS: ASPIRIN 81 MG ECTAB PO SCH (07:52)
[2016-04-27] MEDS: PANTOprazole SOD 40 MG TAB PO SCH (07:52)
[2016-04-27] MEDS: CEROVITE ADV FORMULA TAB PO SCH (07:52)
[2016-04-27] MEDS: CARVEDILOL 3.125 MG TAB PO SCH ×2 (07:52→20:37)
[2016-04-27] MEDS: ZINC SULFATE 220 MG CAP PO SCH (07:53)
[2016-04-27] MEDS: COLLAGENASE OINT 30 GM TUBE EXT SCH (07:54)
[2016-04-27] MEDS: INSULIN ASPART 100 UNITS/ML 3 ML PEN SC SCH ×5 (07:58→20:43)
[2016-04-27] MEDS: ESCITALOPRAM OXALATE 10 MG TAB PO SCH (08:26)
[2016-04-27] MEDS ORDERED: VANCOMYCIN TROUGH SCH (11:30)
--- NOTE | 2016-04-27 11:31 | Progress Note ---
Internal Med Progress Note Date of Service: Apr 27, 2016. Provider Documentation: SUBJECTIVE: Patient is doing much better than yesterday. Mental status- improved- Awake, alert oriented x 3 today. Tolerating PO well without aspiration signs No more nausea, vomiting since in hospital. Cough + no sputum Denies any chest pain, SOB, fever, chills, abdominal pain, Leg swelling. Tele- No events OBJECTIVE: Vital Signs-as noted below Exam: General Appearance: + pertinent finding (Chronically ill appearing, awake, alert, oriented x time, place, person) Eyes: + pertinent finding (Right eye blindness; Left eye- normal vision) ENT: hearing grossly normal Neck: supple, no JVD Respiratory/Chest: chest non-tender, no respiratory distress, no accessory muscle use, + decreased breath sounds Cardiovascular: regular rate, rhythm, no edema Abdomen/GI: normal bowel sounds, non tender, soft Genitourinary - Male: normal male genitalia Extremities/Musculoskelatal: + pertinent finding (Right AKA, [place] +, No redness, discharge or signs of infection noted, No edema) Skin: + pertinent finding (Left heel eschar + 2 small ulcers- No signs of infection) Lab data as noted below. ASSESSMENT & PLAN: Assessment and Plan Patient with multiple co morbidities, from [place], recently admitted to [facility] after a recent Right AKA 1 month ago in [place] as lived alone and only support he had was 2 brothers in this area. Was sent from OR for hypoxia, nausea /vomiting x 2 days. ACUTE HYPOXIC RESPIRATORY FAILURE : Resolved Probable Aspiration pneumonia with recent episodes of nausea/vomiting at x 2 days with B/L Right > Left pleural effusions, hx of COPD, Chronic CHF, Systolic -On 6 L -100% on admission with no respiratory distress --> On RA now 95% -CXR- Moderate right pleural effusion, trace left pleural effusion, mild congestion (but was clinically dry) -Incentive spirometry encouraged POSSIBLE SEPSIS SECONDARY TO PROBABLE ASPIRATION PNEUMONIA : Improving -Presented with hypoxia, BP 60s, HR 100s, WBC 13k, Normal lactic acid -S/P IV Vancomycin, IV Zosyn in ED. Continue with IV Vanco/Zosyn today (Day 2) and than re evaluate tomorrow after cultures back to narrow down as patient is already improving and should avoid more fluids due to severe cardiomyopathy -S/P IV Fluids x 3 L. No more IVF as BP stable, CHF - EF only 20% -Passed swallow evaluation and tolerating PO well. So likely vomiting caused aspiration -Work up - UA neg, Blood cx x 2- pending, CXR- no clear pneumonia, but with aspiration it may not show up right away, No signs of infection of would ulcer- left heel or surgical site Right AKA, eliza + HYPOTENSION- Resolved Likely secondary to volume depletion secondary to inadequate PO intake, Nausea/ Vomiting x 2 days at [facility] and being on lasix for CHF systolic -Responded to IVF - 3 L. No more IVF due to CHF with EF 20% -Continue with Coreg 3.125 mg BID with holding parameters, Hold Lisinopril, lasix -Monitor closely AMAURI ON CKD (per records) - Improving -Unknown baseline, but per ED physician known to have baseline of 1.0 -Likely secondary to volume depletion, pre renal -S/P IVF. Will continue to hold lasix, but will give a dose of IV lasix with blood today . May consider re starting lasix PO in AM -Monitor ANEMIA OF CHRONIC DISEASE HB 8.2, No baseline available--> today 7.8 -Will transfuse 1 unit today with IV Lasix 40 mg -No signs of active GI bleeding -Monitor H & H ELEVATED TROPONIN Likely Demand ischemia secondary to above. No cardiac symptoms per patient Trop-0.782--1.800, 1.780, EKG- T wave inversion in I, ST depression in V3-V6 - no prior EKG for comparison -Have very limited history from past, denies any CAD, but had cardiac arrest some time in past -On ASA, Coreg, Lisinopril (held) -Echo-EF 20-25%, Apical septum dyskinetic, Basal anteroseptum thin and akinetic , Severe global hypokinesis, RV borderline dilated, Rt ventricular function reduced, Aortic sclerosis with no significant stenosis, Mild M R, Systolic PAP 42 mm Left ventricular systolic function is severely reduced. Lipid panel - normal range ATRIAL FIBRILLATION, Now NSR -On coreg 3.125 mg PO BID at home- With holding parameters- continue -On xarelto -Echo as above CHRONIC CHF, SYSTOLIC WITH EF 20% Per records- [facility]. -Cautious about fluid resuscitation -Hold lasix 40 mg bid. On coreg, Lisinopril at home. Plan is to give IV lasix one dose with blood today and may need to restart PO lasix from tomorrow. Monitor closely for signs of fluid overload. -Echo as above- 20=25% SEVERE PERIPHERAL VASCULAR DISEASE RECENT RIGHT BELOW KNEE AMPUTATION FOLLOWED BY ABOVE KNEE AMPUTATION 1 Month ago in [place] Has hx of vascular surgery including balloon angioplasty in past- no records available -Still has eliza - Right AKA site. Eliza + (likely will need these removed) , no signs of infection -On ASA, Not on statin (Lipid panel - within limits) S/P HYPERKALEMIA - Resolved Likely secondary to AMAURI /Lisinopril -S/P Kayexelate x 1 dose on 04/26/16 DM-IDDM, WITH COMPLICATIONS- Neuropathy/Retinopathy with right eye blindness -HBA1C 6.1 -ISS, Accuchecks, Lantus -On Gabapentin COPD -No signs of COPD exacerbation , no wheezing -Continue with nebulizer HYPERTENSION -Mx for hypotension as above PAIN MX -On MS Contin 15 mg q BID, Oxycodone 5 mg prn - home meds - hold due to change in mental status -Likely on it secondary to recent surgeries DEPRESSION -On Escitalopram DVT PROPHYLAXIS High risk, on xarelto GI PROPHYLAXIS Protonix daily CODE STATUS- DNR/DNI per brother /patient No advance directives, but verbally confirms that his brother Kraig or 2nd brother make medical decisions on his behalf if he cannot MEDICAL RECORDS: Patient was not following up regularly with his PCP. Does not remember PCP name , hospital he was admitted at,. name of hospital in which surgery was done or surgeon name Will try to get records with little information we have DISPOSITION PT/OT Plan will be [facility] after discharge Brother JARRED Vital Signs: Date Time Temp Pulse Resp B/P Pulse Ox O2 Delivery O2 Flow Rate FiO2 04/27/16 11:18 90 14 92 Room Air 04/27/16 11:16 36.5 74 18 116/75 95 Room Air 04/27/16 08:00 Room Air 04/27/16 07:26 86 14 98 Nasal Cannula 2.0 04/27/16 07:22 36.5 86 19 104/61 98 Nasal Cannula 2.0 04/27/16 06:08 87 104/64 04/27/16 05:05 Nasal Cannula 2.0 04/27/16 05:04 82 95/54 04/27/16 04:00 Nasal Cannula 2.0 04/27/16 03:48 36.8 89 20 93/58 94 Nasal Cannula 2.0 04/27/16 02:49 83 113/58 04/27/16 01:51 93 134/75 04/27/16 01:51 Nasal Cannula 2.0 04/27/16 00:25 83 84/45 100 2.0 04/26/16 23:45 85 84/45 04/26/16 23:32 Nasal Cannula 2.0 04/26/16 23:10 36.4 84 16 90/51 99 Nasal Cannula 2.0 04/26/16 21:52 86 90/55 04/26/16 21:11 82 14 100 Nasal Cannula 3.0 04/26/16 20:00 Nasal Cannula 3.0 04/26/16 19:17 36.7 83 17 97/60 98 Nasal Cannula 3.0 04/26/16 16:02 97 Room Air 3.0 04/26/16 15:10 36.7 81 18 107/73 98 Nasal Cannula 3.0 Lab Results: Results Past 24 Hours Test 04/26/16 11:41 04/26/16 14:13 04/26/16 15:51 04/26/16 16:15 Range/Units Bedside Glucose 167 220 70-99 mg/dl Troponin I 1.800 0-0.045 ng/ml Sodium Level 132 136-145 mmol/L Potassium Level 4.6 3.5-5.1 mmol/L Chloride Level 98 98-107 mmol/L Carbon Dioxide Level 28 21-32 mmol/L Anion Gap 6.0 3-11 mmol/L Blood Urea Nitrogen 76 7-18 mg/dl Creatinine 1.80 0.60-1.40 mg/dl Est Creatinine Clear Calc Drug Dose 42.2 ml/min Estimated GFR () 44.2 Estimated GFR (Non- 38.1 BUN/Creatinine Ratio 42.1 10-20 Random Glucose 200 70-99 mg/dl Calcium Level 7.5 8.5-10.1 mg/dl Test 04/26/16 19:52 04/26/16 20:07 04/27/16 05:56 04/27/16 06:44 Range/Units Bedside Glucose 174 93 70-99 mg/dl Troponin I 1.780 0-0.045 ng/ml White Blood Count 11.82 4.8-10.8 K/uL Red Blood Count 2.96 4.7-6.1 M/uL Hemoglobin 7.8 14.0-18.0 g/dL Hematocrit 24.4 42-52 % Mean Corpuscular Volume 82.4 80-100 fL Mean Corpuscular Hemoglobin 26.4 25-34 pg Mean Corpuscular Hemoglobin Concent 32.0 32-36 g/dl RDW Standard Deviation 59.4 36.4-46.3 fL RDW Coefficient of Variation 19.6 11.5-14.5 % Platelet Count 338 130-400 K/uL Mean Platelet Volume 10.1 7.4-10.4 fL Nucleated RBC Absolute Count (auto) 0.02 0-0 K/uL Nucleated Red Blood Cells % 0.1 % Sodium Level 137 136-145 mmol/L Potassium Level 4.2 3.5-5.1 mmol/L Chloride Level 101 98-107 mmol/L Carbon Dioxide Level 26 21-32 mmol/L Anion Gap 10.0 3-11 mmol/L Blood Urea Nitrogen 69 7-18 mg/dl Creatinine 1.70 0.60-1.40 mg/dl Est Creatinine Clear Calc Drug Dose 44.7 ml/min Estimated GFR () 47.3 Estimated GFR (Non- 40.8 BUN/Creatinine Ratio 40.3 10-20 Random Glucose 84 70-99 mg/dl Estimated Average Glucose 128 mg/dl Hemoglobin A1c 6.1 4.5-5.6 % Calcium Level 7.5 8.5-10.1 mg/dl Magnesium Level 2.0 1.8-2.4 mg/dl Total Bilirubin 0.5 0.2-1 mg/dl Aspartate Amino Transf (AST/SGOT) 16 15-37 U/L Alanine Aminotransferase (ALT/SGPT) 11 12-78 U/L Alkaline Phosphatase 106 45-117 U/L Total Protein 5.6 6.4-8.2 gm/dl Albumin 1.6 3.4-5.0 gm/dl Globulin 4.0 2.5-4.0 gm/dl Albumin/Globulin Ratio 0.4 0.9-2 Triglycerides Level 99 0-150 mg/dl Cholesterol Level 96 0-200 mg/dl HDL Cholesterol 18 mg/dl LDL Cholesterol, Calculated 58 mg/dl VLDL Cholesterol, Calculated 20 mg/dl Cholesterol/HDL Ratio 5.3 Test 04/27/16 11:08 Range/Units Bedside Glucose 89 70-99 mg/dl Microbiology Results 04/26/16 MRSA DNA Surveillance Screen - Final, Complete Specimen Positive for MRSA by DNA Probe
[2016-04-27] MEDS ORDERED: FUROSEMIDE INJ 40 MG in SYRINGE 0 ML IV SCH (12:00)
[2016-04-27] MEDS ORDERED: VANCOMYCIN INJ 1,150 MG in SODIUM CHLORIDE 0.9% 250ML 250 ML IV SCH (12:00)
--- NOTE | 2016-04-27 12:09 | Cardiology Follow-Up ---
Subjective General Date of Service: Apr 27, 2016. Pt evaluation today including: conversation w/ patient, physical exam, chart review, lab review, review of studies, review of inpatient medication list History of Present Illness Patient awakens to voice, but continuously falls asleep. Denies acute complaints. Full ROS unreliable. Allergies Coded Allergies: No Known Allergies (Unverified , 04/23/16) Social History Smoking Status: Former Smoker Hx Alcohol Use - Type And Amou: No Hx Substance Use - Type And Am: No Problem List Medical Problems: (1) Change in mental status Status: Acute (2) Hypotension Status: Acute (3) Sepsis Status: Acute Review of Systems Respiratory: + see HPI Cardiac: + see HPI Physical Exam Vital Signs Last Vital Signs Documentation Date Time Temp Pulse Resp B/P Pulse Ox O2 Delivery O2 Flow Rate FiO2 04/27/16 08:00 Room Air 04/27/16 07:26 86 14 98 2.0 04/27/16 07:22 36.5 104/61 Physical Exam Constitutional: Level of Distress: NAD, chronically ill Psychiatric: Mental Status: lethargic Head: normocephalic Neck: supple Lungs: Auscultation: no wheezing, no rales/crackles, deminished air movement Cardiovascular: Heart Auscultation: RRR, normal S1, normal S2, no murmurs Abdomen: Bowel Sounds: normal Inspection & Palpation: soft, non-distended Extremities: edema (trace left LE, AKA right ) Assessment and Plan Assessment and Plan FINAL IMPRESSION: 1. Lethargy - multifactorial -blood cultures pending 2. Dehydration 3. Chronic systolic heart failure with underlying cardiomyopathy of undetermined etiology and ejection fraction of 20-25%. -echo wiht global hypokinesis, EF 20% 4. Peripheral vascular disease status post recent right-sided above the knee amputation. 5. Acute renal insufficiency superimposed on chronic kidney disease secondary to dehydration. 6. Hyperkalemia secondary to acute renal insufficiency and LEVON inhibitor use. 7. Elevated troponin, likely type 2 event (demand ischemia) secondary to above. 8. History of paroxysmal atrial fibrillation, currently sinus rhythm and chronically anticoagulated with Xarelto. 9. Chronic anemia. 10. 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 11. Former heavy tobacco use. PLAN AND RECOMMENDATIONS: Renal function improving with IV hydration. Potassium improved. Monitor anemia. Awaiting records from [place] health care providers. Continue low dose beta sukhwinder - carvedilol. LEVON on hold. Continue Xarelto for anticoagulation given history of afib. Case discussed with Dr. Frankel. Will follow. Cardiology Attending Physician: Patient seen and examined at the bedside. More alert today. No CP or SOB. SR on telemetry. Family present today. PE: VSS. GEN: NAD, chronically ill. Heart: Regular, normal S1S2. Lungs: clear anteriorly. No wheeze. Abd: soft, NT, ND, no rebound or guarding. Ext: Right AKA, Trace LLE edema. A/P: Agree with above [place]-C history, physical exam, assessment and plan. Await records from physician in [place]. Continue lower dose xarelto with reduced GFR. Hold diuretics today. Repeat BMP in AM. José Miguel Frankel DO, [facility] Laboratory Results Last 24 Hours Test 04/26/16 11:41 04/26/16 14:13 04/26/16 15:51 04/26/16 16:15 Bedside Glucose 167 mg/dl 220 mg/dl Troponin I 1.800 ng/ml Sodium Level 132 mmol/L Potassium Level 4.6 mmol/L Chloride Level 98 mmol/L Carbon Dioxide Level 28 mmol/L Anion Gap 6.0 mmol/L Blood Urea Nitrogen 76 mg/dl Creatinine 1.80 mg/dl Est Creatinine Clear Calc Drug Dose 42.2 ml/min Estimated GFR () 44.2 Estimated GFR (Non- 38.1 BUN/Creatinine Ratio 42.1 Random Glucose 200 mg/dl Calcium Level 7.5 mg/dl Test 04/26/16 19:52 04/26/16 20:07 04/27/16 05:56 04/27/16 06:44 Bedside Glucose 174 mg/dl 93 mg/dl Troponin I 1.780 ng/ml White Blood Count 11.82 K/uL Red Blood Count 2.96 M/uL Hemoglobin 7.8 g/dL Hematocrit 24.4 % Mean Corpuscular Volume 82.4 fL Mean Corpuscular Hemoglobin 26.4 pg Mean Corpuscular Hemoglobin Concent 32.0 g/dl RDW Standard Deviation 59.4 fL RDW Coefficient of Variation 19.6 % Platelet Count 338 K/uL Mean Platelet Volume 10.1 fL Nucleated RBC Absolute Count (auto) 0.02 K/uL Nucleated Red Blood Cells % 0.1 % Sodium Level 137 mmol/L Potassium Level 4.2 mmol/L Chloride Level 101 mmol/L Carbon Dioxide Level 26 mmol/L Anion Gap 10.0 mmol/L Blood Urea Nitrogen 69 mg/dl Creatinine 1.70 mg/dl Est Creatinine Clear Calc Drug Dose 44.7 ml/min Estimated GFR () 47.3 Estimated GFR (Non- 40.8 BUN/Creatinine Ratio 40.3 Random Glucose 84 mg/dl Estimated Average Glucose 128 mg/dl Hemoglobin A1c 6.1 % Calcium Level 7.5 mg/dl Magnesium Level 2.0 mg/dl Total Bilirubin 0.5 mg/dl Aspartate Amino Transf (AST/SGOT) 16 U/L Alanine Aminotransferase (ALT/SGPT) 11 U/L Alkaline Phosphatase 106 U/L Total Protein 5.6 gm/dl Albumin 1.6 gm/dl Globulin 4.0 gm/dl Albumin/Globulin Ratio 0.4 Triglycerides Level 99 mg/dl Cholesterol Level 96 mg/dl HDL Cholesterol 18 mg/dl LDL Cholesterol, Calculated 58 mg/dl VLDL Cholesterol, Calculated 20 mg/dl Cholesterol/HDL Ratio 5.3
--- NOTE | 2016-04-27 12:18 | Clinical Documentation Query ---
QUERY 1 OF [address] ZAMUDIO, In your clinical opinion is this patient being managed for: ( + ) Metabolic encephalopathy --resolved ( ) Other explanation of clinical findings (Please Explain) ( ) Unable to determine (Please Define) ( ) Need to Discuss ( ) Not Agree The medical record reflects the following clinical findings, treatment, and risk factors. Clinical Indicators: 65 yo male presenting with somnolence/altered mental status. Documentation reflects that pt's mental status improved. O2 sat 77% on RA, Na 128, Cr 2.1, WBC 13.88. Treatment: IV fluids with boluses, IV vancomycin, IV zosyn, O2 support, blood cultures Risk Factors: possible sepsis due to aspiration pneumonia, acute respiratory failure, AMAURI QUERY 2 OF 2 In your clinical opinion is this patient being managed for: ( + ) Hyponatremia ( ) Other explanation of clinical findings (Please Explain) ( ) Unable to determine (Please Define) ( ) Need to Discuss ( ) Not Agree The medical record reflects the following clinical findings, treatment, and risk factors. Clinical Indicators: Initial Na 128 which has improved to 137. Treatment:IV NSS boluses, serial PRP's Risk Factors: possible sepsis due to aspiration pneumonia, AMAURI, nausea and vomiting episodes, dehydration Please clarify and document your clinical opinion in the progress notes and discharge summary. Terms such as "probable", "suspected", "likely", "questionable", "possible", or "still to be ruled out" are acceptable. IF IN AGREEMENT, YOU MUST DOCUMENT ABOVE DIAGNOSTIC STATEMENT IN DAILY PROGRESS NOTES AND DISCHARGE SUMMARY. This document is not part of the patient's record. Thank You, Herminia Kirby, RN [phone]
[2016-04-27] MEDS: RIVAROXABAN TAB 15 MG TAB PO SCH (16:19)
[2016-04-27] MEDS: ACETAMINOPHEN 325 MG TAB PO PRN (20:41)
[2016-04-28] VITALS (11 sets, daily range): BP systolic 123–151; BP diastolic 52–83; PULSE 86–105; TEMP 36.5–37.1; O2SAT 92–98
[2016-04-28] MEDS ORDERED: NURSING VERBAL MED ORDER ONE (03:45)
[2016-04-28] MEDS: OXYCODONE HCL IR 5 MG TAB (IMMEDIATE RELEASE) PO PRN ×2 (03:48→21:58)
[2016-04-28] MEDS ORDERED: VANCOMYCIN TROUGH SCH ×2 (05:30→11:30)
[2016-04-28] MEDS: PIPERACILL/TAZOBAC IV 3.375 GM in DEXTROSE 5% 100ML 100 ML IV SCH ×3 (05:46→22:01)
[2016-04-28 06:00] LABS: HEMATOCRIT 25.8 % (42-52); MEAN CELL VOLUME 80.6 fL (80-100); MEAN CORPUSCULAR HEMOGLOBIN 25.6 pg (25-34); MEAN CORPUSCULAR HGB CONC 31.8 g/dl (32-36); MEAN PLATELET VOLUME 9.9 fL (7.4-10.4); PLATELET COUNT 358 K/uL (130-400); WHITE BLOOD COUNT 10.68 K/uL (4.8-10.8)
[2016-04-28] MEDS ORDERED: VANCOMYCIN INJ 1,150 MG in SODIUM CHLORIDE 0.9% 250ML 250 ML IV SCH (06:00)
[2016-04-28 06:35] LABS: BUN/CREATININE RATIO 40.4 (10-20); CALCIUM 7.7 mg/dl (8.5-10.1); CREATININE 1.4 mg/dl (0.60-1.40); POTASSIUM 4.1 mmol/L (3.5-5.1)
[2016-04-28] MEDS: ALBUT/IPRATROP 3MG/0.5MG NEB 3 ML VIAL INH SCH ×3 (07:20→16:00)
[2016-04-28] MEDS: INSULIN ASPART 100 UNITS/ML 3 ML PEN SC SCH ×4 (08:21→21:53)
[2016-04-28] MEDS: CEROVITE ADV FORMULA TAB PO SCH (08:27)
[2016-04-28] MEDS: ESCITALOPRAM OXALATE 10 MG TAB PO SCH (08:28)
[2016-04-28] MEDS: PANTOprazole SOD 40 MG TAB PO SCH (08:28)
[2016-04-28] MEDS: CARVEDILOL 3.125 MG TAB PO SCH ×2 (08:28→22:00)
[2016-04-28] MEDS: FERROUS SULFATE 325 MG TAB PO SCH ×3 (08:28→16:11)
[2016-04-28] MEDS: LACTOBACILLUS ACIDOPHILUS (FLORANEX) TAB PO SCH ×3 (08:28→16:11)
[2016-04-28] MEDS: ASPIRIN 81 MG ECTAB PO SCH (08:28)
[2016-04-28] MEDS: COLLAGENASE OINT 30 GM TUBE EXT SCH (08:29)
[2016-04-28] MEDS: GABAPENTIN 100 MG CAP PO SCH ×3 (08:29→21:59)
[2016-04-28] MEDS: ZINC SULFATE 220 MG CAP PO SCH (08:30)
[2016-04-28] MEDS: DOCUSATE SODIUM 100 MG CAP PO SCH ×2 (09:00→22:01)
--- NOTE | 2016-04-28 09:44 | Pharmacy Progress Note ---
Pharmacy Antibiotic Prog Note Date of Service: Apr 28, 2016. Subjective: The patient is currently receiving vancomycin 1150 mg IV every 18 hours. The patient is currently on day # 3 of IV therapy. Objective: Height (Feet): 5 Height (Inches): 11.00 Weight (Kilograms): 74.800 Levels: Item Value Date Time Vancomycin Level Trough 15.7 mcg/ml 04/28/16 0541 Lab Results (24hrs): Laboratory Tests Test 04/28/16 05:41 BUN/Creatinine Ratio 40.4 Blood Urea Nitrogen 57 mg/dl Creatinine 1.40 mg/dl White Blood Count 10.68 K/uL Micro Results: RUN DATE: 04/26/16 [facility] PAGE 1 RUN TIME: 1936 Specimen Inquiry PATIENT: MARTHAROCK Onofre LOC: Carlos U # : [id number] AGE/SX: 65/M ROOM: 22 REG : 04/26/[address]: Pooja. Jarrett S : 1950 BED: 1 DIS : STATUS: ADM IN TLOC: SPEC #: [id number] MEL: 04/26/16 STATUS: ERA SHELDON #: [id number] RECD: 04/26/[address]: Pooja. Jarrett S SOURCE: NASAL ENTR: 04/26/[address]: Mera Palomo MD [facility]: Rock Frankel , No Doctor, Assigned ORDERED: MRSA DNA COMMENTS: Has Specimen Been Obtained/Collected? Y Procedure Result Verified Site MRSA DNA (NASAL SWAB) Final 04/26/16 Specimen Positive for MRSA by DNA Probe RESULTS WERE ALSO CALLED TO [facility] CONTROL ANSWERING MACHINE ON 04/26/16 BY GEOVANNA. Assessment & Plan: Patient is improving significantly. His white count continues to improve and his kidney function improves. This drug level is: Therapeutic BUT IT PRIOR TO 2nd DOSE ON CURRENT REGIMEN Change to vancomycin 1150 mg IV every 14 hours. (Changed the frequency of dosing because the patient's kidney function continues to improve. His half- life now reflects 14.1 hr and an elimination constant 0.049 hr-1). Goal peak level estimate: between 35 - 40 mcg/mL. Goal trough level estimate: between 15 - 20 mcg/mL (sepsis secondary to pulmonary source). Trough has been ordered for: prior to 1400 dose. Pharmacy will continue to follow and will adjust dose/frequency as necessary. Thank you
--- NOTE | 2016-04-28 10:51 | Progress Note ---
Medicine Progress Note Date & Time of Visit: Apr 28, 2016 at 10:39. Subjective seen resting in bed alert, oriented x 3, bright states he feels "a little bit better", "a little bit worse" cough improving, no dyspnea/chest pain feels "needles" on the left foot tolerating diet well no other symptoms Objective Last 8 Hrs Date Time Temp Pulse Resp B/P Pulse Ox O2 Delivery O2 Flow Rate FiO2 04/28/16 08:00 Room Air 04/28/16 07:48 36.6 92 20 149/83 98 Room Air 04/28/16 07:33 92 14 95 Room Air 04/28/16 04:09 92 Room Air 04/28/16 03:28 36.5 86 21 133/71 97 Room Air Physical Exam: General- oriented x 3, not in distress, speaks in sentences with no effort Head- atraumatic Eyes- (+) right eye blindness ENT- oropharynx clear Neck- supple, no JVD, no adenopathy Lungs- clear breath sounds bilaterally, no rales/wheezes Heart- normal rate, regular rhythm; no murmur Abdomen- normal bowel sounds, soft, nontender Extremities- s/p R AKA: wound healing well, no edema/warmth/discharge Left Foot: (+) open ulcer on the 5th metatarsal plantar region- scant yellow discharge; (+) eschar on the lateral plantar aspect and hindfoot Neuro- alert, oriented x 3; right eye blindness, no other gross focal deficits Skin- warm & dry Laboratory Results: Last 24 Hours Test 04/27/16 11:08 04/27/16 15:45 04/27/16 16:22 04/27/16 16:50 Bedside Glucose 89 mg/dl 58 mg/dl 57 mg/dl 73 mg/dl Test 04/27/16 20:01 04/28/16 05:41 04/28/16 06:43 Bedside Glucose 158 mg/dl 177 mg/dl White Blood Count 10.68 K/uL Red Blood Count 3.20 M/uL Hemoglobin 8.2 g/dL Hematocrit 25.8 % Mean Corpuscular Volume 80.6 fL Mean Corpuscular Hemoglobin 25.6 pg Mean Corpuscular Hemoglobin Concent 31.8 g/dl RDW Standard Deviation 57.6 fL RDW Coefficient of Variation 19.4 % Platelet Count 358 K/uL Mean Platelet Volume 9.9 fL Sodium Level 136 mmol/L Potassium Level 4.1 mmol/L Chloride Level 101 mmol/L Carbon Dioxide Level 26 mmol/L Anion Gap 9.0 mmol/L Blood Urea Nitrogen 57 mg/dl Creatinine 1.40 mg/dl Est Creatinine Clear Calc Drug Dose 54.2 ml/min Estimated GFR () 59.8 Estimated GFR (Non- 51.6 BUN/Creatinine Ratio 40.4 Random Glucose 155 mg/dl Calcium Level 7.7 mg/dl Vancomycin Level Trough 15.7 mcg/ml Assessment & Plan 65 year old male with history of Cardiomyopathy EF 15%, A fib on Xarelto, Severe PVD s/p recent Right TKA, DM, CKD, AOCD Was sent from [place] for hypoxia, nausea/vomiting x 2 days. POSSIBLE SEPTIC SHOCK SECONDARY TO PNEUMONIA, RIGHT LOWER LOBE- ASPIRATION VS. COMMUNITY ACQUIRED R/O LEFT FOOT ULCER INFECTION HISTORY OF RECENT RIGHT FOOT OSTEOMYELITIS S/P R AKA - BP stable after IV fluids - afebrile, leukocytosis resolved Blood cultures: negative MRSA Nasal swab: positive - on Vanco and ZOsyn Day 3 will consult ID Speech Therapy evaluated patient, resumed diet ACUTE HYPOXIC RESPIRATORY FAILURE, likely from PNEUMONIA : Resolved -On 6 L -100% on admission with no respiratory distress --> On RA now 99% -CXR- Moderate right pleural effusion, trace left pleural effusion, mild congestion (but was clinically dry) - management as noted above -Incentive spirometry encouraged HYPOTENSION- Resolved Likely secondary to volume depletion secondary to inadequate PO intake, Nausea/ Vomiting, being on lasix for CHF systolic -Continue with Coreg 3.125 mg BID with holding parameters, Hold Lisinopril, lasix -Monitor closely AMAURI ON CKD, Resolved -Likely secondary to volume depletion, pre renal -S/P IVF -Lasix and Lisinopril on hold -Monitor ANEMIA OF CHRONIC DISEASE - Hg 9 as of 04/02/16 per outpatient records - Hg 7.8 given 1 unit of PRBC Hg 8.2 today -No signs of active GI bleeding -Monitor H & H ELEVATED TROPONIN Likely Demand ischemia secondary to above. No cardiac symptoms per patient Trop-0.782--1.800, 1.780, EKG- T wave inversion in I, ST depression in V3-V6 - no prior EKG for comparison -On ASA, Coreg, Lisinopril (held) -Echo-EF 20-25%, Apical septum dyskinetic, Basal anteroseptum thin and akinetic , Severe global hypokinesis, RV borderline dilated, Rt ventricular function reduced, Aortic sclerosis with no significant stenosis, Mild M R, Systolic PAP 42 mm Left ventricular systolic function is severely reduced. Lipid panel - normal range - cardiology consulted ATRIAL FIBRILLATION, Now NSR -On coreg 3.125 mg PO BID -On xarelto -Echo as above CHRONIC CHF, SYSTOLIC WITH EF 20% -Hold lasix 40 mg bid. On coreg, Lisinopril at home. 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 -HBA1C 6.1 -ISS, Accuchecks, Lantus -On Gabapentin - Pharm consult COPD -No signs of COPD exacerbation , no wheezing -Continue with nebulizer HYPERTENSION -Mx for hypotension as above PAIN MX -On MS Contin 15 mg q BID, Oxycodone 5 mg prn - home meds - hold due to change in mental status -Likely on it secondary to recent surgeries DEPRESSION -On Escitalopram DVT PROPHYLAXIS High risk, on xarelto GI PROPHYLAXIS Protonix daily CODE STATUS- DNR/DNI per brother /patient No advance directives, but verbally confirms that his brother Kraig or 2nd brother make medical decisions on his behalf if he cannot MEDICAL RECORDS: Patient was not following up regularly with his PCP. Does not remember PCP name , hospital he was admitted at,. name of hospital in which surgery was done or surgeon name Will try to get records with little information we have DISPOSITION PT/OT Plan will be [facility] after discharge Current Inpatient Medications: Current Inpatient Medications Medications (Trade) Dose Ordered Sig/Abhijit Route Start Time Stop Time Status Last Admin Dose Admin Acetaminophen (Tylenol Tab) 650 mg Q4 PRN PO 04/26/16 10:15 05/26/16 10:14 04/27/16 20:41 650 MG Aspirin (Ecotrin Tab) 81 mg DAILY PO 04/27/16 09:00 05/27/16 08:59 04/28/16 08:28 81 MG Carvedilol (Coreg Tab) 3.125 mg BID PO 04/26/16 21:00 05/26/16 20:59 04/28/16 08:28 3.125 MG Collagenase (Santyl Oint) 1 appln DAILY EXT 04/27/16 09:00 05/27/16 08:59 04/28/16 08:29 1 APPLN Docusate Sodium (coLACE CAP) 100 mg BID PO 04/26/16 21:00 05/26/16 20:59 04/27/16 20:36 100 MG Escitalopram Oxalate (Lexapro Tab) 10 mg DAILY PO 04/27/16 09:00 05/27/16 08:59 04/28/16 08:28 10 MG Gabapentin (Neurontin Cap) 100 mg TID PO 04/26/16 14:00 05/26/16 13:59 04/28/16 08:29 100 MG Insulin Human Lispro (humaLOG MIX 75/ 25) 15 units QDD SC 04/26/16 16:45 05/26/16 16:44 Future Hold 04/26/16 16:56 15 UNITS Insulin Human Lispro (humaLOG MIX 75/ 25) 18 units QDB SC 04/27/16 07:30 05/27/16 07:29 04/27/16 08:26 18 UNITS Lactobacillus Acidophilus (Floranex Tab) 1 tab TIDM PO 04/26/16 16:45 05/26/16 16:44 04/28/16 08:28 1 TAB Morphine Sulfate (Oramorph Sr Tab) 15 mg Q12 PO 04/26/16 21:00 05/10/16 20:59 Future Hold Multivitamins/ Minerals (Multivitamin W/ Minerals Tab) 1 tab DAILY PO 04/27/16 09:00 05/27/16 08:59 04/28/16 08:27 1 TAB Oxycodone HCl (Roxicodone Immediate Rel Tab) 5 mg Q6 PRN PO 04/26/16 10:15 05/10/16 10:14 Future hold 04/28/16 03:48 5 MG Pantoprazole Sodium (Protonix Tab) 40 mg DAILY PO 04/27/16 09:00 05/27/16 08:59 04/28/16 08:28 40 MG Sodium Chloride ([place] Nasal [place]) 2 sprays QID PRN HSANNON 04/26/16 10:15 05/26/16 10:14 Senna/Docusate Sodium (Senokot S Tab) 1 tab Q24H PRN PO 04/26/16 10:15 05/26/16 10:14 Zinc Sulfate (Zinc Sulfate Cap) 220 mg DAILY PO 04/27/16 09:00 05/27/16 08:59 04/28/16 08:30 220 MG Ferrous Sulfate 325 mg 325 mg TIDM PO 04/26/16 16:45 05/26/16 16:44 04/28/16 08:28 325 MG Piperacillin Sod/ Tazobactam Sod/ Dextrose (Zosyn Iv/D5 100ml) 115 ml @ 28.75 mls/ hr Q8 IV 04/26/16 14:00 05/06/16 13:59 04/28/16 05:46 28.75 MLS/HR Vancomycin HCl (Consult) 1 ea UD PRN N/A 04/26/16 10:43 05/26/16 10:42 Ondansetron HCl (Zofran Inj) 4 mg Q6H PRN IV 04/26/16 10:15 05/26/16 10:14 Nitroglycerin (Nitrostat Tab) 0.4 mg UD PRN SL 04/26/16 10:15 05/26/16 10:14 Polyethylene (Miralax Powder Packet) 17 gm DAILY PRN PO 04/26/16 10:15 05/26/16 10:14 Insulin Aspart (novoLOG ASPART) SLIDING SCALE If C... ACHS SC 04/26/16 11:00 05/26/16 10:59 04/26/16 16:15 2 UNITS Glucose (Glucose 40% Gel) 15-30 GRAMS 15 GRAMS... UD PRN PO 04/26/16 10:15 05/26/16 10:14 Glucose (Glucose Chew Tab) 4-8 Tablets 4 Tabl... UD PRN PO 04/26/16 10:15 05/26/16 10:14 Dextrose (Dextrose 50% 50ML Syringe) 25-50ML OF 50% DW IV FOR... UD PRN IV 04/26/16 10:15 05/26/16 10:14 Glucagon (Glucagon Inj) 1 mg UD PRN SQ 04/26/16 10:15 05/26/16 10:14 Piperacillin Sod/ Tazobactam Sod (Consult) 1 ea UD PRN N/A 04/26/16 11:00 05/26/16 10:59 Albuterol/ Ipratropium (Duoneb) 3 ml QIDR INH 04/26/16 12:00 05/26/16 11:59 04/28/16 07:20 3 ML Albuterol/ Ipratropium (Duoneb) 3 ml Q2H PRN INH 04/26/16 12:30 05/26/16 12:29 Rivaroxaban 15 mg 15 mg QDD PO 04/26/16 16:45 05/26/16 16:44 04/27/16 16:19 15 MG Vancomycin HCl/ Sodium Chloride (Vancomycin Inj/ Nss 250ml) 273 ml @ 125 mls/hr Q14H IV 04/28/16 20:00 05/02/16 23:59 Miscellaneous Information (Consult Glycemic Management Pharmacy) 1 ea NOW STAT N/A 04/28/16 10:06 04/28/16 10:07 UNV
--- NOTE | 2016-04-28 10:57 | Medical Consult ---
Consultation Date of Consultation: Apr 28, 2016. Attending Physician: Zachary Wooten MD Reason for Consultation: sepsis, aspiration versus healthcare associated pneumonia History of Present Illness History was obtained from medical record review including wound care note, [facility] records, and other reports. Patient unable to provide adequate history. 65-year-old male with longstanding poorly controlled diabetes mellitus with complications of neuropathy, nephropathy, and severe peripheral arterial disease , who recently underwent right AKA. He was sent to rehab but developed 1 day history of severe nausea and vomiting, and then developed acute hypoxia with respiratory distress and was transferred to the hospital for admission. Chest x -ray, read by me, shows possibility of early aspiration type pneumonia.Patient has been started on broad-spectrum antibiotics with vancomycin and Zosyn. Thus far cultures have been negative. Patient has been afebrile in the hospital, respiratory status has improved. Past Medical/Surgical History Medical Problems: (1) Change in mental status Status: Acute (2) Hypotension Status: Acute (3) Sepsis Status: Acute Medical Problems: (1) Atrial fibrillation (2) Chronic anemia (3) Chronic renal disease (4) Congestive heart failure (5) Diabetes (6) Diabetic neuropathy (7) Hypertension Surgical Problems: (1) History of right above knee amputation (2) S/P vascular bypass Family History Not obtainable Social History Smoking Status: Former Smoker Drug Use: none Marital Status: Occupation Status: disabled Allergies Coded Allergies: No Known Allergies (Unverified , 04/23/16) Current Inpatient Medications Current Inpatient Medications Medications (Trade) Dose Ordered Sig/Abhijit Route Start Time Stop Time Status Last Admin Dose Admin Acetaminophen (Tylenol Tab) 650 mg Q4 PRN PO 04/26/16 10:15 05/26/16 10:14 04/27/16 20:41 650 MG Aspirin (Ecotrin Tab) 81 mg DAILY PO 04/27/16 09:00 05/27/16 08:59 04/28/16 08:28 81 MG Carvedilol (Coreg Tab) 3.125 mg BID PO 04/26/16 21:00 05/26/16 20:59 04/28/16 08:28 3.125 MG Collagenase (Santyl Oint) 1 appln DAILY EXT 04/27/16 09:00 05/27/16 08:59 04/28/16 08:29 1 APPLN Docusate Sodium (coLACE CAP) 100 mg BID PO 04/26/16 21:00 05/26/16 20:59 04/27/16 20:36 100 MG Escitalopram Oxalate (Lexapro Tab) 10 mg DAILY PO 04/27/16 09:00 05/27/16 08:59 04/28/16 08:28 10 MG Gabapentin (Neurontin Cap) 100 mg TID PO 04/26/16 14:00 05/26/16 13:59 04/28/16 08:29 100 MG Insulin Human Lispro (humaLOG MIX 75/ 25) 15 units QDD SC 04/26/16 16:45 05/26/16 16:44 Future Hold 04/26/16 16:56 15 UNITS Insulin Human Lispro (humaLOG MIX 75/ 25) 18 units QDB SC 04/27/16 07:30 05/27/16 07:29 04/27/16 08:26 18 UNITS Lactobacillus Acidophilus (Floranex Tab) 1 tab TIDM PO 04/26/16 16:45 05/26/16 16:44 04/28/16 08:28 1 TAB Morphine Sulfate (Oramorph Sr Tab) 15 mg Q12 PO 04/26/16 21:00 05/10/16 20:59 Future Hold Multivitamins/ Minerals (Multivitamin W/ Minerals Tab) 1 tab DAILY PO 04/27/16 09:00 05/27/16 08:59 04/28/16 08:27 1 TAB Oxycodone HCl (Roxicodone Immediate Rel Tab) 5 mg Q6 PRN PO 04/26/16 10:15 05/10/16 10:14 Future hold 04/28/16 03:48 5 MG Pantoprazole Sodium (Protonix Tab) 40 mg DAILY PO 04/27/16 09:00 05/27/16 08:59 04/28/16 08:28 40 MG Sodium Chloride ([place] Nasal [place]) 2 sprays QID PRN SHANNON 04/26/16 10:15 05/26/16 10:14 Senna/Docusate Sodium (Senokot S Tab) 1 tab Q24H PRN PO 04/26/16 10:15 05/26/16 10:14 Zinc Sulfate (Zinc Sulfate Cap) 220 mg DAILY PO 04/27/16 09:00 05/27/16 08:59 04/28/16 08:30 220 MG Ferrous Sulfate 325 mg 325 mg TIDM PO 04/26/16 16:45 05/26/16 16:44 04/28/16 08:28 325 MG Piperacillin Sod/ Tazobactam Sod/ Dextrose (Zosyn Iv/D5 100ml) 115 ml @ 28.75 mls/ hr Q8 IV 04/26/16 14:00 05/06/16 13:59 04/28/16 05:46 28.75 MLS/HR Vancomycin HCl (Consult) 1 ea UD PRN N/A 04/26/16 10:43 05/26/16 10:42 Ondansetron HCl (Zofran Inj) 4 mg Q6H PRN IV 04/26/16 10:15 05/26/16 10:14 Nitroglycerin (Nitrostat Tab) 0.4 mg UD PRN SL 04/26/16 10:15 05/26/16 10:14 Polyethylene (Miralax Powder Packet) 17 gm DAILY PRN PO 04/26/16 10:15 05/26/16 10:14 Insulin Aspart (novoLOG ASPART) SLIDING SCALE If C... ACHS SC 04/26/16 11:00 05/26/16 10:59 04/26/16 16:15 2 UNITS Glucose (Glucose 40% Gel) 15-30 GRAMS 15 GRAMS... UD PRN PO 04/26/16 10:15 05/26/16 10:14 Glucose (Glucose Chew Tab) 4-8 Tablets 4 Tabl... UD PRN PO 04/26/16 10:15 05/26/16 10:14 Dextrose (Dextrose 50% 50ML Syringe) 25-50ML OF 50% DW IV FOR... UD PRN IV 04/26/16 10:15 05/26/16 10:14 Glucagon (Glucagon Inj) 1 mg UD PRN SQ 04/26/16 10:15 05/26/16 10:14 Piperacillin Sod/ Tazobactam Sod (Consult) 1 ea UD PRN N/A 04/26/16 11:00 05/26/16 10:59 Albuterol/ Ipratropium (Duoneb) 3 ml QIDR INH 04/26/16 12:00 05/26/16 11:59 04/28/16 07:20 3 ML Albuterol/ Ipratropium (Duoneb) 3 ml Q2H PRN INH 04/26/16 12:30 05/26/16 12:29 Rivaroxaban 15 mg 15 mg QDD PO 04/26/16 16:45 05/26/16 16:44 04/27/16 16:19 15 MG Vancomycin HCl/ Sodium Chloride (Vancomycin Inj/ Nss 250ml) 273 ml @ 125 mls/hr Q14H IV 04/28/16 20:00 05/02/16 23:59 Miscellaneous Information (Consult Glycemic Management Pharmacy) 1 ea NOW STAT N/A 04/28/16 10:06 04/28/16 10:07 UNV Review of Systems Not obtainable Physical Exam Date Time Temp Pulse Resp B/P Pulse Ox O2 Delivery O2 Flow Rate FiO2 04/28/16 08:00 Room Air 04/28/16 07:48 36.6 92 20 149/83 98 Room Air 04/28/16 07:33 92 14 95 Room Air 04/28/16 04:09 92 Room Air 04/28/16 03:28 36.5 86 21 133/71 97 Room Air 04/28/16 00:06 36.6 86 24 128/64 98 Room Air 04/28/16 00:00 92 Room Air 04/27/16 20:16 36.7 90 18 151/67 98 Room Air 04/27/16 20:00 92 Room Air 04/27/16 19:40 97 14 92 Room Air 04/27/16 16:25 92 14 93 Room Air 04/27/16 16:08 36.5 90 16 90/55 98 Room Air 04/27/16 16:00 Room Air 04/27/16 15:44 90 98 04/27/16 12:00 Room Air 04/27/16 11:18 90 14 92 Room Air 04/27/16 11:16 36.5 74 18 116/75 95 Room Air General Appearance: no apparent distress, + thin, + pertinent finding ( chronically ill-appearing) Head: normocephalic, atraumatic Eyes: normal inspection, EOMI, sclerae normal ENT: normal ENT inspection, pharynx normal Neck: supple, no adenopathy, thyroid normal, trachea midline Respiratory/Chest: chest non-tender, no respiratory distress, no accessory muscle use, + decreased breath sounds, + rales Cardiovascular: regular rate, rhythm, no gallop, no murmur Abdomen/GI: normal bowel sounds, non tender, soft, no organomegaly Back: normal inspection, no CVA tenderness Extremities/Musculoskelatal: no calf tenderness, + slow capillary refill, + pertinent finding (right AKA) Neurologic/Psych: alert, + pertinent finding (oriented person, place) Skin: normal color, no rash, + pertinent finding (left heel eschar with some erythema) Lymphatic: no adenopathy Laboratory Results RUN DATE: 04/28/16 [facility] PAGE 1 RUN TIME: 722 Specimen Inquiry PATIENT: KERLINE THOMAS LOC: Carlos # : [id number] AGE/SX: 65/M [facility]OM[facility] REG : 04/26/[address]: Pooja. Jarrett S : 1950 BED: 1 DIS : STATUS: ADM IN TLOC: SPEC #: [id number] MEL: 04/26/16 STATUS: RES REQ #: [id number] RECD: 04/26/[address]: Kennedy Brewer M.D. SOURCE: BLOOD ENTR: 04/26/[address] [facility] [address]: Kd Hair M.D. [facility]: ORDERED: BLOOD CULTURE Procedure Result Verified Site BLD CULT Preliminary 04/28/16 NO GROWTH TO DATE. Last 24 Hours Test 04/27/16 11:08 04/27/16 15:45 04/27/16 16:22 04/27/16 16:50 Bedside Glucose 89 mg/dl 58 mg/dl 57 mg/dl 73 mg/dl Test 04/27/16 20:01 04/28/16 05:41 04/28/16 06:43 Bedside Glucose 158 mg/dl 177 mg/dl White Blood Count 10.68 K/uL Red Blood Count 3.20 M/uL Hemoglobin 8.2 g/dL Hematocrit 25.8 % Mean Corpuscular Volume 80.6 fL Mean Corpuscular Hemoglobin 25.6 pg Mean Corpuscular Hemoglobin Concent 31.8 g/dl RDW Standard Deviation 57.6 fL RDW Coefficient of Variation 19.4 % Platelet Count 358 K/uL Mean Platelet Volume 9.9 fL Sodium Level 136 mmol/L Potassium Level 4.1 mmol/L Chloride Level 101 mmol/L Carbon Dioxide Level 26 mmol/L Anion Gap 9.0 mmol/L Blood Urea Nitrogen 57 mg/dl Creatinine 1.40 mg/dl Est Creatinine Clear Calc Drug Dose 54.2 ml/min Estimated GFR () 59.8 Estimated GFR (Non- 51.6 BUN/Creatinine Ratio 40.4 Random Glucose 155 mg/dl Calcium Level 7.7 mg/dl Vancomycin Level Trough 15.7 mcg/ml Patient Name: KERLINE THOMAS Unit Number: [id number] Dictated: 04/26/16903 Transcribed: 04/26/16903 [employer] Printed Date/Time: [~ rep prt dt]/[~ rep prt tm] [~ rep ct labl] - [~ rep ct ivnm] [facility] [place] [address] Dictated: 04/26/16903 Transcribed: 04/26/16903 [place] Printed Date/Time: [~ rep prt dt]/[~ rep prt tm] [~ rep ct labl] - [~ rep ct ivnm] CHEST ONE VIEW PORTABLE HISTORY: Sepsis COMPARISON: None. FINDINGS: No pneumothorax right basilar densities.. Moderate right pleural effusion. The heart is mildly enlarged. There is interstitial and vascular thickening suggestive of mild congestive change. Probable trace left pleural effusion. IMPRESSION: 1. Moderate right pleural effusion and a trace left pleural effusion. 2. Cardiomegaly with mild congestive change. 3. Right basilar densities favor compressive atelectasis from the pleural fluid. Electronically signed by: Juarez Galvin M.D. 04/26/2016 9:06 AM Dictated Date/Time: 04/26/2016 9:04 AM The status of this report is Signed. Draft = Not yet reviewed or approved by Radiologist. Signed = Reviewed and approved by Radiologist. <AttendingPhy></AttendingPhy> <FamilyPhy>No Doctor, Assigned</FamilyPhy> < PrimaryPhy>No Doctor, Assigned</PrimaryPhy> <UnitNumber>[id number]</UnitNumber> <VisitNumber>[id number]</VisitNumber> <PatientName>KERLINE THOMAS</ PatientName> <DateOfBirth>1950</DateOfBirth> <Location>C.ED[facility]</Location> < ServiceDate>04/26/16</ServiceDate> <MNE>ESINDI</MNE> <OrderingPhy>Kennedy Brewer M.D.</OrderingPhy> <OrderingPhyMNE>f rep ord dr giang</OrderingPhyMNE> < DictatingPhyMNE>f rep dict dr giang</DictatingPhyMNE> <CCListMNE>f rep ct mne</ CCListMNE> <AdmittingPhyMNE>f pt admit dr giang</AdmittingPhyMNE> <AttendingPhyMNE >f pt attend dr giang</AttendingPhyMNE> <ConsultingPhyMNE>f pt consult dr giang</ConsultingPhyMNE> <FamilyPhyMNE>f pt fam dr giang</FamilyPhyMNE> <OtherPhyMNE>f pt other dr giang</OtherPhyMNE> < PrimaryPhyMNE>f pt prim care dr giang</PrimaryPhyMNE> <ReferringPhyMNE>f pt referring dr giang</ReferringPhyMNE> Assessment & Plan 65 yo with DM with neuropathy, severe PAD s/p right AKA now worsening hypoxia and possible pneumonia with HCAP and aspiration types possible. Also with possible early infection around left heel wound. For now, vancomycin and Zosyn appropriate pending final culture results and f/u CXR. Wound care seeing patient. Will follow.
[2016-04-28] MEDS ORDERED: PHARMACY GLYCEMIC MGMT CONSULT PRN (12:45)
--- NOTE | 2016-04-28 13:15 | Pharmacy Progress Note ---
Glycemic Control Intl Consult Date of Service Apr 28, 2016. Scope Glycemic Pharmacist consulted by Dr Wooten on 04/28/16 for glycemic control and to write orders per [facility] inpatient glycemic control protocol Objective Weight (Kilograms): 74.800 Accuchecks BSG (last 24hrs): Test 04/27/16 15:45 04/27/16 16:22 04/27/16 16:50 04/27/16 20:01 Bedside Glucose 58 mg/dl (70-99) 57 mg/dl (70-99) 73 mg/dl (70-99) 158 mg/dl (70-99) Test 04/28/16 05:41 04/28/16 06:43 04/28/16 11:07 Random Glucose 155 mg/dl (70-99) Bedside Glucose 177 mg/dl (70-99) 199 mg/dl (70-99) Laboratory Data (last 24hrs) Test 04/28/16 05:41 Anion Gap 9.0 mmol/L BUN/Creatinine Ratio 40.4 Blood Urea Nitrogen 57 mg/dl Creatinine 1.40 mg/dl Potassium Level 4.1 mmol/L Sodium Level 136 mmol/L White Blood Count 10.68 K/uL HbA1c Test 04/27/16 05:56 Hemoglobin A1c 6.1 % (4.5-5.6) H Recent Pertinent Medications Outpatient Anti-diabetic Regimen: * Humalog Mix 75/25 * 18 units SQ in the AM * 15 units SQ in the PM * NovoLog sliding scale * A1c = 6.1 % 04/2016 The patient is currently receiving: * Basal insulin: Humalog Mix 75/25 18 units in the AM, 15 units with dinner * Correctional Insulin: NovoLog Correction per scale AC/HS Goal Range: Low 120 mg/dL - High 180 mg/dL Correction Factor: 25 mg/dL/unit * Prandial insulin: provided by mixed insulin Risk Factors for Insulin Resistance: * Infection: vancomycin and piperacillin/tazobactam for sepsis secondary to pneumonia * Diet: AHA/T2DM/Low Na Assessment & Plan ASSESSMENT: * ADA & AACE recommend a goal blood sugar range 140-180 mg/dl for the majority of critically ill & non-critically ill patients. However, more stringent targets may be selected in individual cases. 04/28/16 * Mr Zapien has been admitted with sepsis 2/2 pneumonia and n/v prior to admission. For this reason, and likely that he is eating less than as an outpatient, his mixed insulin has caused some hypoglycemic episodes. * discontinued mixed insulin as they are not idea for glycemic control while admitted to the hospital * begin basal/bolus insulin with Lantus/NovoLog * A1c shows great control as an outpatient * Sepsis and IV antibiotics may alter insulin sensitivity both secondary to acuity of illness but also because they are mixed in dextrose * Unsure of PO intake at this time * NovoLog with carb ratio should help us determine PO intake PLAN FOR INPATIENT GLYCEMIC CONTROL: * Discontinue Humalog 75/25 insulin at this time * Give Lantus 10 units SQ x1 dose now for BSG 199mg/dL * hesitate to schedule doses since the patient had hypoglycemia in the last 24 hours * Continue NovoLog AC and HS * add 02:00 Accu-check * Correction factor: 30mg/dL/unit * Carb ratio: 1 unit per 10g of CHO consumed * Goal range: 140-180mg/dL per ADA recommendations * A1c - current * added to discharge instructions * Please note that the plan above was derived based on current level of insulin resistance and hospital stress. These recommendations are appropriate for inpatient admission only. Plan of care upon discharge will need to be reassessed to avoid potential outpatient hypo/hyperglycemia. Thank you.
[2016-04-28] MEDS ORDERED: LANTUS PER UNIT CHARGE SQ SCH (13:30)
--- NOTE | 2016-04-28 14:57 | Cardiology Follow-Up ---
Subjective General Date of Service: Apr 28, 2016. Chief Complaint: weakness Pt evaluation today including: conversation w/ patient, physical exam, chart review, lab review, review of studies, conversation w/ customer sales consultant, review of inpatient medication list History of Present Illness Patient much more awake/alert today. Eating lunch. Denies complaints. Feeling better. States he did see cardiology group in [facility] or [place]. Unsure of name of group/hospital. Unsure if he had cardiac cath. They did discuss defib, but not placed. He denies chest pain or SOB. Cough improving. No edema. No palpitations. Allergies Coded Allergies: No Known Allergies (Unverified , 04/23/16) Social History Smoking Status: Former Smoker Hx Alcohol Use - Type And Amou: No Hx Substance Use - Type And Am: No Problem List Medical Problems: (1) Change in mental status Status: Acute (2) Hypotension Status: Acute (3) Sepsis Status: Acute Review of Systems Respiratory: + cough, No dyspnea at rest, No shortness of breath, No sputum, No wheezing Cardiac: No PND, No chest pain, No edema, No orthopnea, No palpitations Physical Exam Vital Signs Last Vital Signs Documentation Date Time Temp Pulse Resp B/P Pulse Ox O2 Delivery O2 Flow Rate FiO2 04/28/16 12:00 Room Air 04/28/16 11:38 36.8 88 20 141/70 98 04/27/16 07:26 2.0 Physical Exam Constitutional: Level of Distress: NAD, chronically ill Psychiatric: Mental Status: active & alert Orientation: to time, to place, to person Head: normocephalic Neck: supple Lungs: Auscultation: no wheezing, no rales/crackles, deminished air movement Cardiovascular: Heart Auscultation: RRR, normal S1, normal S2, no murmurs Abdomen: Bowel Sounds: normal Inspection & Palpation: soft, non-distended Extremities: edema (trace left LE, AKA right ) Assessment and Plan Assessment and Plan FINAL IMPRESSION: 1. Lethargy - multifactorial -blood cultures negative -improved today 2. Dehydration - hold diuretics today. 3. Chronic systolic heart failure with underlying cardiomyopathy of undetermined etiology and ejection fraction of 20-25%. -echo with global hypokinesis, EF 20% -received prior hospital records from [place] - no cardiac records included. Diagnosis of cardiomyopathy in 09/2015. No reports of cardiac cath. 4. Peripheral vascular disease status post recent right-sided above the knee amputation. 5. Acute renal insufficiency superimposed on chronic kidney disease secondary to dehydration. 6. Hyperkalemia secondary to acute renal insufficiency and LEVON inhibitor use. 7. Elevated troponin, likely type 2 event (demand ischemia) secondary to above. 8. History of paroxysmal atrial fibrillation, currently rates and chronically anticoagulated with Xarelto. 9. Chronic anemia. 10. 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 11. Former heavy tobacco use. PLAN AND RECOMMENDATIONS: Renal function improving with IV hydration. Potassium improved. Monitor anemia. Awaiting records from [place] health care providers. Still need cardio records. Continue low dose beta sukhwinder - carvedilol. LEVON on hold. Will likely resume once renal function improved. Continue Xarelto for anticoagulation given history of afib. Rates appropriately controlled. Case discussed with Dr. Frankel. Will follow. Cardiology Attending Physician: Patient seen and examined at the bedside. More alert today. No CP or SOB. SR on telemetry. Some medical records are available for review. There is history of extensive lower extremity angiography and revascularization procedures. I do not see history of cardiac catheterization or CAD. Appears cardiomyopathy was diagnosed this summer 2015. PE: VSS. GEN: NAD, chronically ill. Mucous membranes are dry. Heart: Regular, normal S1S2. Lungs: clear anteriorly. No wheeze. Abd: soft, NT, ND, no rebound or guarding. Ext: Right AKA, Trace LLE edema. A/P: Agree with above PA-C history, physical exam, assessment and plan. Continue evidence base heart failure medical therapy including beta sukhwinder. Plan to restart LEVON inhibitor during hospitalization. Xarelto will be increased to 20 mg daily now that his GFR has recovered (>50) Hold diuretics today. Repeat BMP in AM. José Miguel Frankel DO, [facility] Laboratory Results Last 24 Hours Test 04/27/16 15:45 04/27/16 16:22 04/27/16 16:50 04/27/16 20:01 Bedside Glucose 58 mg/dl 57 mg/dl 73 mg/dl 158 mg/dl Test 04/28/16 05:41 04/28/16 06:43 04/28/16 11:07 White Blood Count 10.68 K/uL Red Blood Count 3.20 M/uL Hemoglobin 8.2 g/dL Hematocrit 25.8 % Mean Corpuscular Volume 80.6 fL Mean Corpuscular Hemoglobin 25.6 pg Mean Corpuscular Hemoglobin Concent 31.8 g/dl RDW Standard Deviation 57.6 fL RDW Coefficient of Variation 19.4 % Platelet Count 358 K/uL Mean Platelet Volume 9.9 fL Sodium Level 136 mmol/L Potassium Level 4.1 mmol/L Chloride Level 101 mmol/L Carbon Dioxide Level 26 mmol/L Anion Gap 9.0 mmol/L Blood Urea Nitrogen 57 mg/dl Creatinine 1.40 mg/dl Est Creatinine Clear Calc Drug Dose 54.2 ml/min Estimated GFR () 59.8 Estimated GFR (Non- 51.6 BUN/Creatinine Ratio 40.4 Random Glucose 155 mg/dl Calcium Level 7.7 mg/dl Vancomycin Level Trough 15.7 mcg/ml Bedside Glucose 177 mg/dl 199 mg/dl
[2016-04-28] MEDS: RIVAROXABAN 20 MG TAB PO SCH (16:50)
[2016-04-28] MEDS: BOOST GLUCOSE CONTROL PO SCH (16:50)
[2016-04-28] MEDS: IPRATROPIUM BROMIDE/ALBUTEROL respimat INH INH SCH ×2 (17:00→21:58)
[2016-04-28] MEDS: METRONIDAZOLE 500 MG TAB PO SCH (19:49)
[2016-04-28] MEDS: VANCOMYCIN INJ 1,150 MG in SODIUM CHLORIDE 0.9% 250ML 250 ML IV SCH (20:08)
[2016-04-29] MEDS ORDERED: INSULIN ASPART 100 UNITS/ML 3 ML PEN SC SCH (02:00)
[2016-04-29 03:44] VITALS: BP 124/72; PULSE 92; TEMP 37.3; O2SAT 91
[2016-04-29] MEDS: PIPERACILL/TAZOBAC IV 3.375 GM in DEXTROSE 5% 100ML 100 ML IV SCH ×3 (06:16→22:01)
[2016-04-29] MEDS: OXYCODONE HCL IR 5 MG TAB (IMMEDIATE RELEASE) PO PRN ×3 (06:16→20:25)
[2016-04-29] MEDS: METRONIDAZOLE 500 MG TAB PO SCH ×3 (06:16→22:01)
[2016-04-29] MEDS: BOOST GLUCOSE CONTROL PO SCH ×2 (07:38→16:58)
[2016-04-29] MEDS: ESCITALOPRAM OXALATE 10 MG TAB PO SCH (07:39)
[2016-04-29] MEDS: LACTOBACILLUS ACIDOPHILUS (FLORANEX) TAB PO SCH ×3 (07:39→16:03)
[2016-04-29] MEDS: FERROUS SULFATE 325 MG TAB PO SCH ×3 (07:39→16:03)
[2016-04-29] MEDS: ASPIRIN 81 MG ECTAB PO SCH (07:39)
[2016-04-29] MEDS: CEROVITE ADV FORMULA TAB PO SCH (07:39)
[2016-04-29] MEDS: GABAPENTIN 100 MG CAP PO SCH ×3 (07:40→20:24)
[2016-04-29] MEDS: CARVEDILOL 3.125 MG TAB PO SCH ×2 (07:40→20:24)
[2016-04-29] MEDS: COLLAGENASE OINT 30 GM TUBE EXT SCH (07:41)
[2016-04-29] MEDS: ZINC SULFATE 220 MG CAP PO SCH (07:41)
[2016-04-29] MEDS: PANTOprazole SOD 40 MG TAB PO SCH (07:41)
[2016-04-29] MEDS: IPRATROPIUM BROMIDE/ALBUTEROL respimat INH INH SCH ×4 (07:41→20:23)
[2016-04-29 07:52] VITALS: BP 124/63; PULSE 89; TEMP 36.9; O2SAT 99
[2016-04-29] MEDS: DOCUSATE SODIUM 100 MG CAP PO SCH ×2 (08:52→20:24)
[2016-04-29] MEDS: INSULIN ASPART 100 UNITS/ML 3 ML PEN SC SCH ×4 (08:52→20:23)
[2016-04-29] MEDS: VANCOMYCIN INJ 1,150 MG in SODIUM CHLORIDE 0.9% 250ML 250 ML IV SCH ×2 (09:12→20:04)
[2016-04-29 09:15] LABS: BUN/CREATININE RATIO 39.5 (10-20); CALCIUM 7.9 mg/dl (8.5-10.1)
[2016-04-29 09:22] LABS: HEMATOCRIT 24.4 % (42-52); MEAN CELL VOLUME 80.3 fL (80-100); MEAN CORPUSCULAR HEMOGLOBIN 25.3 pg (25-34); MEAN CORPUSCULAR HGB CONC 31.6 g/dl (32-36); MEAN PLATELET VOLUME 10.4 fL (7.4-10.4); PLATELET COUNT 405 K/uL (130-400); RED BLOOD COUNT 3.04 M/uL (4.7-6.1); WHITE BLOOD COUNT 13.31 K/uL (4.8-10.8)
[2016-04-29] MEDS ORDERED: LISINOPRIL 5 MG TAB PO ONE (10:24)
--- NOTE | 2016-04-29 10:36 | Cardiology Follow-Up ---
Subjective General Date of Service: Apr 29, 2016. Chief Complaint: weakness Pt evaluation today including: conversation w/ patient, physical exam, chart review, lab review, review of studies, review of inpatient medication list History of Present Illness Patient feeling ok this AM. Out of bed. Awaiting therapy. Denies chest pain or SOB. No dizziness, syncope or near syncope. No orthopnea, PND or LE edema. Allergies Coded Allergies: No Known Allergies (Unverified , 04/23/16) Social History Smoking Status: Former Smoker Hx Alcohol Use - Type And Amou: No Hx Substance Use - Type And Am: No Problem List Medical Problems: (1) Change in mental status Status: Acute (2) Hypotension Status: Acute (3) Sepsis Status: Acute Review of Systems Respiratory: No cough, No dyspnea at rest, No hemoptysis, No shortness of breath, No sputum, No wheezing Cardiac: No PND, No chest pain, No edema, No orthopnea, No palpitations Physical Exam Vital Signs Last Vital Signs Documentation Date Time Temp Pulse Resp B/P Pulse Ox O2 Delivery O2 Flow Rate FiO2 04/29/16 07:52 36.9 89 18 124/63 99 04/29/16 04:00 Room Air 04/27/16 07:26 2.0 Physical Exam Constitutional: Level of Distress: NAD, chronically ill Psychiatric: Mental Status: active & alert Orientation: to time, to place, to person Head: normocephalic Neck: supple Lungs: Auscultation: no wheezing, no rales/crackles, deminished air movement Cardiovascular: Heart Auscultation: RRR, normal S1, normal S2, no murmurs Abdomen: Bowel Sounds: normal Inspection & Palpation: soft, non-distended Extremities: edema (trace left LE, AKA right ) Assessment and Plan Assessment and Plan FINAL IMPRESSION: 1. Lethargy - multifactorial -blood cultures negative -improved today 2. Dehydration - improved. 3. Chronic systolic heart failure with underlying cardiomyopathy of undetermined etiology and ejection fraction of 20-25%. -echo with global hypokinesis, EF 20% -received prior hospital records from [place] - no cardiac records included. Diagnosis of cardiomyopathy in 09/2015. No reports of cardiac cath. 4. Peripheral vascular disease status post recent right-sided above the knee amputation. 5. Acute renal insufficiency superimposed on chronic kidney disease secondary to dehydration. - Improved 6. Hyperkalemia secondary to acute renal insufficiency and LEVON inhibitor use.- Improved 7. Elevated troponin, likely type 2 event (demand ischemia) secondary to above. 8. History of paroxysmal atrial fibrillation, currently rates and chronically anticoagulated with Xarelto. 9. Chronic anemia. 10. 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 11. Former heavy tobacco use. 12. C. Diff + PLAN AND RECOMMENDATIONS: Renal function improved and appears back at baseline Resume lisinopril at 5 mg daily (was previously on 10 mg, but intermittent hypotension noted during hospital stay). Potassium improved. Monitor anemia. Awaiting records from [place] health care providers. Still need cardio records. Patient unsure of physical therapy director group or location in [place]. Having trouble securing records. Continue low dose beta sukhwinder - carvedilol. Will likely resume low dose diuretic as hospital course progresses. Continue Xarelto for anticoagulation given history of afib. Rates appropriately controlled. Case discussed with Dr. Frankel. Will follow. Cardiology Attending Physician: Patient seen and examined at the bedside. More alert today. Sitting in chair. No CP or SOB. Feeling better. +diarrhea. +C-difficile. PE: VSS. GEN: NAD, chronically ill. Mucous membranes are dry. Heart: Regular, normal S1S2. Lungs: clear anteriorly. No wheeze. Abd: soft, NT, ND, no rebound or guarding. Ext: Right AKA, Trace LLE edema. A/P: Agree with above PA-C history, physical exam, assessment and plan. Continue evidence base heart failure medical therapy including beta sukhwinder. Restart LEVON inhibitor at reduced dose today. Continue Xarelto 20 mg daily. Hold diuretics today. Repeat BMP in AM. José Miguel Frankel DO, [facility] Laboratory Results Last 24 Hours Test 04/28/16 11:07 04/28/16 16:05 04/28/16 21:02 04/29/16 02:17 Bedside Glucose 199 mg/dl 159 mg/dl 135 mg/dl 110 mg/dl Test 04/29/16 06:08 04/29/16 06:27 04/29/16 06:28 White Blood Count 13.31 K/uL Red Blood Count 3.04 M/uL Hemoglobin 7.7 g/dL Hematocrit 24.4 % Mean Corpuscular Volume 80.3 fL Mean Corpuscular Hemoglobin 25.3 pg Mean Corpuscular Hemoglobin Concent 31.6 g/dl RDW Standard Deviation 56.5 fL RDW Coefficient of Variation 19.3 % Platelet Count 405 K/uL Mean Platelet Volume 10.4 fL Nucleated RBC Absolute Count (auto) 0.02 K/uL Nucleated Red Blood Cells % 0.1 % Creatinine 1.00 mg/dl 1.00 mg/dl Est Creatinine Clear Calc Drug Dose 76.3 ml/min 76.3 ml/min Estimated GFR () 89.9 89.9 Estimated GFR (Non- 77.5 77.5 Bedside Glucose 91 mg/dl Sodium Level 138 mmol/L Potassium Level 4.0 mmol/L Chloride Level 103 mmol/L Carbon Dioxide Level 24 mmol/L Anion Gap 11.0 mmol/L Blood Urea Nitrogen 40 mg/dl BUN/Creatinine Ratio 39.5 Random Glucose 81 mg/dl Calcium Level 7.9 mg/dl
--- NOTE | 2016-04-29 11:07 | Progress Note ---
Medicine Progress Note Date & Time of Visit: Apr 29, 2016 at 11:01. Subjective patient seen sitting up in bedside chair states he feels ok overall had 2 loose BMs today, non bloody, no abdominal pain/fever/chills no cough denies chest pain, dyspnea, dizziness, nausea no other symptoms Objective Last 8 Hrs Date Time Temp Pulse Resp B/P Pulse Ox O2 Delivery O2 Flow Rate FiO2 04/29/16 08:00 Room Air 04/29/16 07:52 36.9 89 18 124/63 99 04/29/16 04:00 Room Air 04/29/16 03:44 37.3 92 17 124/72 91 Room Air Physical Exam: General- oriented x 3, not in distress, speaks in sentences with no effort Eyes- (+) right eye blindness Neck-no JVD, no adenopathy Lungs- decreased breath sounds right base, clear breath sounds left, no rales/ wheezes Heart- normal rate, regular rhythm; no murmur Abdomen- normal bowel sounds, soft, nontender Extremities- s/p R AKA: wound healing well, no edema/warmth/discharge Left Foot: (+) open ulcer on the 5th metatarsal plantar region- scant yellow discharge; (+) eschar on the lateral plantar aspect and hindfoot Neuro- alert, oriented x 3; right eye blindness, no other gross focal deficits Skin- warm & dry Laboratory Results: Last 24 Hours Test 04/28/16 11:07 04/28/16 16:05 04/28/16 21:02 04/29/16 02:17 Bedside Glucose 199 mg/dl 159 mg/dl 135 mg/dl 110 mg/dl Test 04/29/16 06:08 04/29/16 06:27 04/29/16 06:28 White Blood Count 13.31 K/uL Red Blood Count 3.04 M/uL Hemoglobin 7.7 g/dL Hematocrit 24.4 % Mean Corpuscular Volume 80.3 fL Mean Corpuscular Hemoglobin 25.3 pg Mean Corpuscular Hemoglobin Concent 31.6 g/dl RDW Standard Deviation 56.5 fL RDW Coefficient of Variation 19.3 % Platelet Count 405 K/uL Mean Platelet Volume 10.4 fL Nucleated RBC Absolute Count (auto) 0.02 K/uL Nucleated Red Blood Cells % 0.1 % Creatinine 1.00 mg/dl 1.00 mg/dl Est Creatinine Clear Calc Drug Dose 76.3 ml/min 76.3 ml/min Estimated GFR () 89.9 89.9 Estimated GFR (Non- 77.5 77.5 Bedside Glucose 91 mg/dl Sodium Level 138 mmol/L Potassium Level 4.0 mmol/L Chloride Level 103 mmol/L Carbon Dioxide Level 24 mmol/L Anion Gap 11.0 mmol/L Blood Urea Nitrogen 40 mg/dl BUN/Creatinine Ratio 39.5 Random Glucose 81 mg/dl Calcium Level 7.9 mg/dl Date/Time Source Procedure Growth Status 04/28/16 14:20 Stool C.difficile Toxin B Gene (PCR) - Final Positive for C. difficile toxin B gene Complete Assessment & Plan 65 year old male with history of Cardiomyopathy EF 15%, A fib on Xarelto, Severe PVD s/p recent Right TKA, DM, CKD, AOCD Was sent from [place] for hypoxia, nausea/vomiting x 2 days. POSSIBLE SEPTIC SHOCK SECONDARY TO PNEUMONIA, RIGHT LOWER LOBE- ASPIRATION VS. COMMUNITY ACQUIRED R/O LEFT FOOT ULCER INFECTION HISTORY OF RECENT RIGHT FOOT OSTEOMYELITIS S/P R AKA - BP stable after IV fluids - remains afebrile, leukocytosis resolved Blood cultures: negative MRSA Nasal swab: positive - on Vanco and ZOsyn Day 4 further antibiotic recommendations per ID, appreciate the input ACUTE HYPOXIC RESPIRATORY FAILURE, likely from PNEUMONIA : Resolved -On 6 L -100% on admission with no respiratory distress --> On RA now 99% -CXR- Moderate right pleural effusion, trace left pleural effusion, mild congestion (but was clinically dry) - management as noted above -Incentive spirometry encouraged HYPOTENSION- Resolved Likely secondary to volume depletion secondary to inadequate PO intake, Nausea/ Vomiting, being on lasix for CHF systolic -Continue with Coreg 3.125 mg BID with holding parameters Hold lasix -Monitor closely AMAURI ON CKD, Resolved -Likely secondary to volume depletion, pre renal -S/P IVF - hold lasix -Monitor ANEMIA OF CHRONIC DISEASE - Hg 9 as of 04/02/16 per outpatient records - Hg 7.8 given 1 unit of PRBC Hg 8.2 --> 7.7 -- repeat Hg at 2pm check anemia panel change to protonix IV BID ELEVATED TROPONIN Likely Demand ischemia secondary to above. No cardiac symptoms per patient Trop-0.782--1.800, 1.780, EKG- T wave inversion in I, ST depression in V3-V6 - no prior EKG for comparison -On ASA, Coreg, Lisinopril (held) -Echo-EF 20-25%, Apical septum dyskinetic, Basal anteroseptum thin and akinetic , Severe global hypokinesis, RV borderline dilated, Rt ventricular function reduced, Aortic sclerosis with no significant stenosis, Mild M R, Systolic PAP 42 mm Left ventricular systolic function is severely reduced. Lipid panel - normal range - cardiology consulted ATRIAL FIBRILLATION, Now NSR -On coreg 3.125 mg PO BID -On xarelto -Echo as above CHRONIC CHF, SYSTOLIC WITH EF 20% -Hold lasix 40 mg bid. - On coreg, Lisinopril at home. 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 -HBA1C 6.1 -ISS, Accuchecks, Lantus -On Gabapentin - Pharm consult COPD -No signs of COPD exacerbation , no wheezing -Continue with nebulizer HYPERTENSION -Mx for hypotension as above PAIN MX -On MS Contin 15 mg q BID, Oxycodone 5 mg prn - home meds - hold due to change in mental status -Likely on it secondary to recent surgeries DEPRESSION -On Escitalopram DVT PROPHYLAXIS High risk, on xarelto GI PROPHYLAXIS Protonix CODE STATUS- DNR/DNI per brother /patient No advance directives, but verbally confirms that his brother Kraig or 2nd brother make medical decisions on his behalf if he cannot MEDICAL RECORDS: Patient was not following up regularly with his PCP. Does not remember PCP name , hospital he was admitted at,. name of hospital in which surgery was done or surgeon name Will try to get records with little information we have DISPOSITION PT/OT Plan will be [facility] after discharge Current Inpatient Medications: Current Inpatient Medications Medications (Trade) Dose Ordered Sig/Abhijit Route Start Time Stop Time Status Last Admin Dose Admin Acetaminophen (Tylenol Tab) 650 mg Q4 PRN PO 04/26/16 10:15 05/26/16 10:14 04/27/16 20:41 650 MG Aspirin (Ecotrin Tab) 81 mg DAILY PO 04/27/16 09:00 05/27/16 08:59 04/29/16 07:39 81 MG Carvedilol (Coreg Tab) 3.125 mg BID PO 04/26/16 21:00 05/26/16 20:59 04/29/16 07:40 3.125 MG Collagenase (Santyl Oint) 1 appln DAILY EXT 04/27/16 09:00 05/27/16 08:59 04/29/16 07:41 1 APPLN Docusate Sodium (coLACE CAP) 100 mg BID PO 04/26/16 21:00 05/26/16 20:59 04/27/16 20:36 100 MG Escitalopram Oxalate (Lexapro Tab) 10 mg DAILY PO 04/27/16 09:00 05/27/16 08:59 04/29/16 07:39 10 MG Gabapentin (Neurontin Cap) 100 mg TID PO 04/26/16 14:00 05/26/16 13:59 04/29/16 07:40 100 MG Lactobacillus Acidophilus (Floranex Tab) 1 tab TIDM PO 04/26/16 16:45 05/26/16 16:44 04/29/16 07:39 1 TAB Morphine Sulfate (Oramorph Sr Tab) 15 mg Q12 PO 04/26/16 21:00 05/10/16 20:59 Future Hold Multivitamins/ Minerals (Multivitamin W/ Minerals Tab) 1 tab DAILY PO 04/27/16 09:00 05/27/16 08:59 04/29/16 07:39 1 TAB Oxycodone HCl (Roxicodone Immediate Rel Tab) 5 mg Q6 PRN PO 04/26/16 10:15 05/10/16 10:14 Future hold 04/29/16 06:16 5 MG Pantoprazole Sodium (Protonix Tab) 40 mg DAILY PO 04/27/16 09:00 05/27/16 08:59 04/29/16 07:41 40 MG Sodium Chloride ([place] Nasal [place]) 2 sprays QID PRN SHANNON 04/26/16 10:15 05/26/16 10:14 Senna/Docusate Sodium (Senokot S Tab) 1 tab Q24H PRN PO 04/26/16 10:15 05/26/16 10:14 Zinc Sulfate (Zinc Sulfate Cap) 220 mg DAILY PO 04/27/16 09:00 05/27/16 08:59 04/29/16 07:41 220 MG Ferrous Sulfate 325 mg 325 mg TIDM PO 04/26/16 16:45 05/26/16 16:44 04/29/16 07:39 325 MG Piperacillin Sod/ Tazobactam Sod/ Dextrose (Zosyn Iv/D5 100ml) 115 ml @ 28.75 mls/ hr Q8 IV 04/26/16 14:00 05/06/16 13:59 04/29/16 06:16 28.75 MLS/HR Vancomycin HCl (Consult) 1 ea UD PRN N/A 04/26/16 10:43 05/26/16 10:42 Ondansetron HCl (Zofran Inj) 4 mg Q6H PRN IV 04/26/16 10:15 05/26/16 10:14 Nitroglycerin (Nitrostat Tab) 0.4 mg UD PRN SL 04/26/16 10:15 05/26/16 10:14 Polyethylene (Miralax Powder Packet) 17 gm DAILY PRN PO 04/26/16 10:15 05/26/16 10:14 Insulin Aspart (novoLOG ASPART) SLIDING SCALE If C... ACHS SC 04/26/16 11:00 05/26/16 10:59 04/29/16 08:52 4 UNITS Glucose (Glucose 40% Gel) 15-30 GRAMS 15 GRAMS... UD PRN PO 04/26/16 10:15 05/26/16 10:14 Glucose (Glucose Chew Tab) 4-8 Tablets 4 Tabl... UD PRN PO 04/26/16 10:15 05/26/16 10:14 Dextrose (Dextrose 50% 50ML Syringe) 25-50ML OF 50% DW IV FOR... UD PRN IV 04/26/16 10:15 05/26/16 10:14 Glucagon (Glucagon Inj) 1 mg UD PRN SQ 04/26/16 10:15 05/26/16 10:14 Piperacillin Sod/ Tazobactam Sod (Consult) 1 ea UD PRN N/A 04/26/16 11:00 05/26/16 10:59 Albuterol/ Ipratropium 3 ml 3 ml Q2H PRN INH 04/26/16 12:30 05/26/16 12:29 Vancomycin HCl/ Sodium Chloride (Vancomycin Inj/ Nss 250ml) 273 ml @ 125 mls/hr Q14H IV 04/28/16 20:00 05/02/16 23:59 04/29/16 09:12 125 MLS/HR Miscellaneous Information (Consult Glycemic Management Pharmacy) [facility] [place] PRN N/A 04/28/16 12:45 05/28/16 12:44 Enteral Nutritional Formula (Boost Glucose Control) 1 can BIDM PO 04/28/16 16:45 05/28/16 16:44 04/29/16 07:38 1 CAN Rivaroxaban (Xarelto Tab) 20 mg QDD PO 04/28/16 16:45 05/28/16 16:44 04/28/16 16:50 20 MG Albuterol/ Ipratropium (Combivent Respimat Inh) 1 puffs QID INH 04/28/16 17:00 05/28/16 16:59 04/29/16 07:41 1 PUFFS Metronidazole (Flagyl Tab) 500 mg Q8 PO 04/28/16 19:00 05/12/16 18:59 04/29/16 06:16 500 MG Lisinopril (Zestril Tab) 5 mg QAM PO 04/30/16 09:00 05/30/16 08:59
[2016-04-29 11:55] VITALS: BP 131/62; PULSE 76; TEMP 36.8; O2SAT 98
--- NOTE | 2016-04-29 12:16 | Pharmacy Progress Note ---
Glycemic Control: Progress Nt Date of Service Apr 29, 2016. Scope Glycemic Pharmacist consulted by Dr Wooten on 04/28/16 for glycemic control and to write orders per [facility] inpatient glycemic control protocol. Objective Accuchecks BSG (last 24hrs): Test 04/28/16 16:05 04/28/16 21:02 04/29/16 02:17 04/29/16 06:27 Bedside Glucose 159 mg/dl (70-99) 135 mg/dl (70-99) 110 mg/dl (70-99) 91 mg/dl (70-99) Test 04/29/16 06:28 04/29/16 11:09 Random Glucose 81 mg/dl (70-99) Bedside Glucose 147 mg/dl (70-99) Laboratory Data (last 24hrs) Test 04/29/16 06:08 04/29/16 06:28 Creatinine 1.00 mg/dl 1.00 mg/dl White Blood Count 13.31 K/uL Anion Gap 11.0 mmol/L BUN/Creatinine Ratio 39.5 Blood Urea Nitrogen 40 mg/dl Potassium Level 4.0 mmol/L Sodium Level 138 mmol/L HbA1c: Test 04/27/16 05:56 Hemoglobin A1c 6.1 % (4.5-5.6) H Recent Pertinent Medications Outpatient Anti-diabetic Regimen: * Humalog Mix 75/25 * 18 units SQ in the AM * 15 units SQ in the PM * NovoLog sliding scale * A1c = 6.1 % 04/2016 The patient is currently receiving: * Basal insulin: Humalog Mix 75/25 --> discontinued. Lantus 10 units SQ x1 dose given 04/28 * Correctional Insulin: NovoLog Correction per scale AC/HS Goal Range: Low 140 mg/dL - High 180 mg/dL Correction Factor: 30 mg/dL/unit * Prandial insulin: 1 unit per every 10 g of CHO consumed Risk Factors for Insulin Resistance: * Infection: vancomycin and piperacillin/tazobactam for sepsis secondary to pneumonia, metronidazole PO for C. difficile * Diet: AHA/T2DM/Low Na - clears Assessment & Plan ASSESSMENT: * ADA & AACE recommend a goal blood sugar range 140-180 mg/dl for the majority of critically ill & non-critically ill patients. However, more stringent targets may be selected in individual cases. 04/28/16 * Mr Zapien has been admitted with sepsis 2/2 pneumonia and n/v prior to admission. For this reason, and likely that he is eating less than as an outpatient, his mixed insulin has caused some hypoglycemic episodes. * discontinued mixed insulin as they are not idea for glycemic control while admitted to the hospital * begin basal/bolus insulin with Lantus/NovoLog * A1c shows great control as an outpatient * Sepsis and IV antibiotics may alter insulin sensitivity both secondary to acuity of illness but also because they are mixed in dextrose * Unsure of PO intake at this time * NovoLog with carb ratio should help us determine PO intake 04/29/16 * BSGs well controlled over the last 24 hours with 19 units of insulin administered (range from 135-199mg/dL) * Fasting below goal range today * hold off on any AM Lantus * standing order for Lantus this PM if BSG is >140mg/dL * NovoLog parameters appear to be providing appropriate coverage * no change PLAN FOR INPATIENT GLYCEMIC CONTROL: * Hold Lantus this AM * Lantus 5 units if BSG is > 140mg/dL tonight * Continue NovoLog AC and HS * Correction factor: 30mg/dL/unit * Carb ratio: 1 unit per 10g of CHO consumed * Goal range: 140-180mg/dL per ADA recommendations * A1c - current * added to discharge instructions RECOMMENDATIONS FOR DISCHARGE: * Likely, Mr. Zapien can continue his home regimen at discharge * Please note that the plan above was derived based on current level of insulin resistance and hospital stress. These recommendations are appropriate for inpatient admission only. Plan of care upon discharge will need to be reassessed to avoid potential outpatient hypo/hyperglycemia. Thank you.
--- NOTE | 2016-04-29 12:57 | Clinical Documentation Query ---
CLINICAL DOCUMENTATION QUERY Dr. OVALLE, In your clinical opinion is this patient being managed for: ( ) C diff colitis ( ) Other explanation of clinical findings (Please Explain) ( ) Unable to determine (Please Define) ( ) Need to Discuss ( ) Not Agree The medical record reflects the following clinical findings, treatment, and risk factors. Clinical Indicators: Nursing progress note 04/28 indicates the pt was + for C diff. Treatment: po flagyl Risk Factors: ongoing antibiotic treatment, recent hx osteomyelitis, pneumonia Please clarify and document your clinical opinion in the progress notes and discharge summary. Terms such as "probable", "suspected", "likely", "questionable", "possible", or "still to be ruled out" are acceptable. IF IN AGREEMENT, YOU MUST DOCUMENT ABOVE DIAGNOSTIC STATEMENT IN DAILY PROGRESS NOTES AND DISCHARGE SUMMARY. This document is not part of the patient's record. Thank You, Herminia Kirby, RN [phone]
[2016-04-29 14:27] LABS: HEMATOCRIT 25.8 % (42-52)
[2016-04-29 15:43] VITALS: BP 134/62; PULSE 84; TEMP 37.2; O2SAT 95
[2016-04-29] MEDS: RIVAROXABAN 20 MG TAB PO SCH (16:04)
--- NOTE | 2016-04-29 17:13 | Infectious Disease Progress Nt ---
Progress Note Date of Service Apr 29, 2016. Subjective Pt evaluation today including: conversation w/ patient, physical exam, chart review, lab review, review of studies, conversation w/ family consultant, review of inpatient medication list Patient states that he feels well and offers no new complaints today. Remains afebrile. Cultures remain negative to date. All Other Systems: Reviewed and Negative Medications Current Inpatient Medications Medications (Trade) Dose Ordered Sig/Abhijit Route Start Time Stop Time Status Last Admin Dose Admin Acetaminophen (Tylenol Tab) 650 mg Q4 PRN PO 04/26/16 10:15 05/26/16 10:14 04/27/16 20:41 650 MG Aspirin (Ecotrin Tab) 81 mg DAILY PO 04/27/16 09:00 05/27/16 08:59 04/29/16 07:39 81 MG Carvedilol (Coreg Tab) 3.125 mg BID PO 04/26/16 21:00 05/26/16 20:59 04/29/16 07:40 3.125 MG Collagenase (Santyl Oint) 1 appln DAILY EXT 04/27/16 09:00 05/27/16 08:59 04/29/16 07:41 1 APPLN Docusate Sodium (coLACE CAP) 100 mg BID PO 04/26/16 21:00 05/26/16 20:59 04/27/16 20:36 100 MG Escitalopram Oxalate (Lexapro Tab) 10 mg DAILY PO 04/27/16 09:00 05/27/16 08:59 04/29/16 07:39 10 MG Gabapentin (Neurontin Cap) 100 mg TID PO 04/26/16 14:00 05/26/16 13:59 04/29/16 13:25 100 MG Lactobacillus Acidophilus (Floranex Tab) 1 tab TIDM PO 04/26/16 16:45 05/26/16 16:44 04/29/16 16:03 1 TAB Morphine Sulfate (Oramorph Sr Tab) 15 mg Q12 PO 04/26/16 21:00 05/10/16 20:59 Future Hold Multivitamins/ Minerals (Multivitamin W/ Minerals Tab) 1 tab DAILY PO 04/27/16 09:00 05/27/16 08:59 04/29/16 07:39 1 TAB Oxycodone HCl (Roxicodone Immediate Rel Tab) 5 mg Q6 PRN PO 04/26/16 10:15 05/10/16 10:14 Future hold 04/29/16 12:12 5 MG Sodium Chloride (Gandy Nasal [place]) 2 sprays QID PRN SHANNON 04/26/16 10:15 05/26/16 10:14 Senna/Docusate Sodium (Senokot S Tab) 1 tab Q24H PRN PO 04/26/16 10:15 05/26/16 10:14 Zinc Sulfate (Zinc Sulfate Cap) 220 mg DAILY PO 04/27/16 09:00 05/27/16 08:59 04/29/16 07:41 220 MG Ferrous Sulfate 325 mg 325 mg TIDM PO 04/26/16 16:45 05/26/16 16:44 04/29/16 16:03 325 MG Piperacillin Sod/ Tazobactam Sod/ Dextrose (Zosyn Iv/D5 100ml) 115 ml @ 28.75 mls/ hr Q8 IV 04/26/16 14:00 05/06/16 13:59 04/29/16 13:25 28.75 MLS/HR Vancomycin HCl (Consult) 1 ea UD PRN N/A 04/26/16 10:43 05/26/16 10:42 Ondansetron HCl (Zofran Inj) 4 mg Q6H PRN IV 04/26/16 10:15 05/26/16 10:14 Nitroglycerin (Nitrostat Tab) 0.4 mg UD PRN SL 04/26/16 10:15 05/26/16 10:14 Polyethylene (Miralax Powder Packet) 17 gm DAILY PRN PO 04/26/16 10:15 05/26/16 10:14 Insulin Aspart (novoLOG ASPART) SLIDING SCALE If C... ACHS SC 04/26/16 11:00 05/26/16 10:59 04/29/16 11:42 7 UNITS Glucose (Glucose 40% Gel) 15-30 GRAMS 15 GRAMS... UD PRN PO 04/26/16 10:15 05/26/16 10:14 Glucose (Glucose Chew Tab) 4-8 Tablets 4 Tabl... UD PRN PO 04/26/16 10:15 05/26/16 10:14 Dextrose (Dextrose 50% 50ML Syringe) 25-50ML OF 50% DW IV FOR... UD PRN IV 04/26/16 10:15 05/26/16 10:14 Glucagon (Glucagon Inj) 1 mg UD PRN SQ 04/26/16 10:15 05/26/16 10:14 Piperacillin Sod/ Tazobactam Sod (Consult) 1 ea UD PRN N/A 04/26/16 11:00 05/26/16 10:59 Albuterol/ Ipratropium (Duoneb) 3 ml Q2H PRN INH 04/26/16 12:30 05/26/16 12:29 Miscellaneous Information (Consult Glycemic Management Pharmacy) 1 ea UD PRN N/A 04/28/16 12:45 05/28/16 12:44 Enteral Nutritional Formula (Boost Glucose Control) 1 can BIDM PO 04/28/16 16:45 05/28/16 16:44 04/29/16 16:58 1 CAN Rivaroxaban (Xarelto Tab) 20 mg QDD PO 04/28/16 16:45 05/28/16 16:44 04/29/16 16:04 20 MG Albuterol/ Ipratropium (Combivent Respimat Inh) 1 puffs QID INH 04/28/16 17:00 05/28/16 16:59 04/29/16 16:04 1 PUFFS Metronidazole (Flagyl Tab) 500 mg Q8 PO 04/28/16 19:00 05/12/16 18:59 04/29/16 13:25 500 MG Lisinopril 5 mg 5 mg QAM PO 04/30/16 09:00 05/30/16 08:59 Pantoprazole Sodium/Syringe (Protonix Inj/ Syringe) 10 ml @ 5 mls/min DAILY@09,21 IV 04/29/16 21:00 05/29/16 20:59 Insulin Glargine SEE PROTOCOL PM SC 04/29/16 21:00 05/29/16 20:59 Vancomycin HCl/ Sodium Chloride (Vancomycin Inj/ Nss 250ml) 273 ml @ 125 mls/hr Q12H IV 04/29/16 20:00 05/02/16 23:59 Objective Vital Signs Date Time Temp Pulse Resp B/P Pulse Ox O2 Delivery O2 Flow Rate FiO2 04/29/16 16:00 Room Air 04/29/16 15:43 37.2 84 18 134/62 95 04/29/16 12:00 Room Air 04/29/16 11:55 36.8 76 18 131/62 98 04/29/16 08:00 Room Air 04/29/16 07:52 36.9 89 18 124/63 99 04/29/16 04:00 Room Air 04/29/16 03:44 37.3 92 17 124/72 91 Room Air 04/29/16 00:00 Room Air 04/28/16 23:46 37.1 102 20 143/71 95 Room Air 04/28/16 20:00 Room Air 04/28/16 20:00 36.8 105 24 151/72 96 Room Air Physical Exam General Appearance: WD/WN, no apparent distress, + obese Eyes: normal inspection, sclerae normal ENT: normal ENT inspection, pharynx normal Neck: supple, no adenopathy, trachea midline Respiratory/Chest: chest non-tender, lungs clear, normal breath sounds, no respiratory distress Cardiovascular: regular rate, rhythm, no gallop, no murmur Abdomen: normal bowel sounds, non tender, soft, no organomegaly Extremities: non-tender, no calf tenderness Neurologic/Psychiatric: alert, oriented x 3 Skin: normal color, no rash Lymphatic: no adenopathy Laboratory Results Last 24 Hours Test 04/28/16 21:02 04/29/16 02:17 04/29/16 06:08 04/29/16 06:27 Bedside Glucose 135 mg/dl 110 mg/dl 91 mg/dl White Blood Count 13.31 K/uL Red Blood Count 3.04 M/uL Hemoglobin 7.7 g/dL Hematocrit 24.4 % Mean Corpuscular Volume 80.3 fL Mean Corpuscular Hemoglobin 25.3 pg Mean Corpuscular Hemoglobin Concent 31.6 g/dl RDW Standard Deviation 56.5 fL RDW Coefficient of Variation 19.3 % Platelet Count 405 K/uL Mean Platelet Volume 10.4 fL Nucleated RBC Absolute Count (auto) 0.02 K/uL Nucleated Red Blood Cells % 0.1 % Creatinine 1.00 mg/dl Est Creatinine Clear Calc Drug Dose 76.3 ml/min Estimated GFR () 89.9 Estimated GFR (Non- 77.5 Test 04/29/16 06:28 04/29/16 11:09 04/29/16 14:10 04/29/16 16:16 Sodium Level 138 mmol/L Potassium Level 4.0 mmol/L Chloride Level 103 mmol/L Carbon Dioxide Level 24 mmol/L Anion Gap 11.0 mmol/L Blood Urea Nitrogen 40 mg/dl Creatinine 1.00 mg/dl Est Creatinine Clear Calc Drug Dose 76.3 ml/min Estimated GFR () 89.9 Estimated GFR (Non- 77.5 BUN/Creatinine Ratio 39.5 Random Glucose 81 mg/dl Calcium Level 7.9 mg/dl Bedside Glucose 147 mg/dl 154 mg/dl Hemoglobin 8.5 g/dL Hematocrit 25.8 % Assessment and Plan 65 yo with DM with neuropathy, severe PAD s/p right AKA now worsening hypoxia and possible pneumonia with HCAP and aspiration types possible. Also with possible early infection around left heel wound. For now, vancomycin and Zosyn appropriate pending final culture results and f/u CXR. Wound care seeing patient. Will follow.
[2016-04-29 19:41] VITALS: BP 156/69; PULSE 94; TEMP 36.7; O2SAT 98
[2016-04-29] MEDS: PANTOprazole INJ 40 MG in SYRINGE 0 ML IV SCH (20:24)
[2016-04-29] MEDS: ACETAMINOPHEN 325 MG TAB PO PRN (20:25)
[2016-04-29] MEDS: INSULIN GLARGINE SOLOSTAR 100 UNITS/ML 3 ML PEN SC SCH (21:00)
[2016-04-29 23:37] VITALS: BP 124/68; PULSE 86; TEMP 36.9; O2SAT 95
[2016-04-30] MEDS: OXYCODONE HCL IR 5 MG TAB (IMMEDIATE RELEASE) PO PRN ×3 (02:58→23:17)
[2016-04-30 04:20] VITALS: BP 137/68; PULSE 81; TEMP 36.8; O2SAT 95
[2016-04-30] MEDS: METRONIDAZOLE 500 MG TAB PO SCH (05:27)
[2016-04-30] MEDS: PIPERACILL/TAZOBAC IV 3.375 GM in DEXTROSE 5% 100ML 100 ML IV SCH ×2 (05:27→14:24)
[2016-04-30] MEDS: INSULIN ASPART 100 UNITS/ML 3 ML PEN SC SCH ×4 (07:00→22:13)
[2016-04-30 07:46] VITALS: BP 134/73; PULSE 93; TEMP 36.7; O2SAT 95
[2016-04-30 07:52] LABS: BASO % 0.3 %; BASO ABS # 0.04 K/uL (0-0.2); EOS % 3.1 %; HEMATOCRIT 26.2 % (42-52); IG% 0.3 %; LYMPH % 16.9 %; MEAN CELL VOLUME 80.4 fL (80-100); MEAN CORPUSCULAR HEMOGLOBIN 25.5 pg (25-34); MEAN CORPUSCULAR HGB CONC 31.7 g/dl (32-36); MEAN PLATELET VOLUME 9.7 fL (7.4-10.4); MONO % 6.4 %; PLATELET COUNT 384 K/uL (130-400); RED BLOOD COUNT 3.26 M/uL (4.7-6.1); WHITE BLOOD COUNT 13.05 K/uL (4.8-10.8)
[2016-04-30 08:29] LABS: BUN/CREATININE RATIO 28.6 (10-20); CALCIUM 7.7 mg/dl (8.5-10.1); CREATININE 0.96 mg/dl (0.60-1.40); POTASSIUM 3.7 mmol/L (3.5-5.1)
[2016-04-30 08:35] LABS: FERRITIN 64.4 ng/ml (8.0-388.0)
[2016-04-30] MEDS: DOCUSATE SODIUM 100 MG CAP PO SCH ×2 (09:00→21:00)
[2016-04-30] MEDS: GABAPENTIN 100 MG CAP PO SCH ×3 (09:37→22:09)
[2016-04-30] MEDS: ASPIRIN 81 MG ECTAB PO SCH (09:37)
[2016-04-30] MEDS: LACTOBACILLUS ACIDOPHILUS (FLORANEX) TAB PO SCH ×3 (09:37→16:16)
[2016-04-30] MEDS: FERROUS SULFATE 325 MG TAB PO SCH ×3 (09:37→16:16)
[2016-04-30] MEDS: ZINC SULFATE 220 MG CAP PO SCH (09:38)
[2016-04-30] MEDS: CEROVITE ADV FORMULA TAB PO SCH (09:38)
[2016-04-30] MEDS: ESCITALOPRAM OXALATE 10 MG TAB PO SCH (09:38)
[2016-04-30] MEDS: LISINOPRIL 5 MG TAB PO SCH (09:38)
[2016-04-30] MEDS: CARVEDILOL 3.125 MG TAB PO SCH (09:39)
[2016-04-30] MEDS: IPRATROPIUM BROMIDE/ALBUTEROL respimat INH INH SCH ×4 (09:39→22:07)
[2016-04-30] MEDS: PANTOprazole INJ 40 MG in SYRINGE 0 ML IV SCH ×2 (09:39→22:12)
[2016-04-30] MEDS: COLLAGENASE OINT 30 GM TUBE EXT SCH (09:39)
[2016-04-30] MEDS: VANCOMYCIN INJ 1,150 MG in SODIUM CHLORIDE 0.9% 250ML 250 ML IV SCH ×2 (09:39→22:07)
[2016-04-30] MEDS: BOOST GLUCOSE CONTROL PO SCH ×2 (09:40→16:51)
[2016-04-30 09:54] LABS: COMPLETE YES; ECHINOCYTES 1+; POLYCHROMASIA 1+
--- NOTE | 2016-04-30 10:34 | Pharmacy Progress Note ---
Glycemic Control: Progress Nt Date of Service Apr 30, 2016. Scope Glycemic Pharmacist consulted by Dr Wooten on 04/28/16 for glycemic control and to write orders per [facility] inpatient glycemic control protocol. Objective Accuchecks BSG (last 24hrs): Test 04/29/16 11:09 04/29/16 16:16 04/29/16 20:22 04/30/16 06:49 Bedside Glucose 147 mg/dl (70-99) 154 mg/dl (70-99) 144 mg/dl (70-99) 108 mg/dl (70-99) Test 04/30/16 07:25 Random Glucose 92 mg/dl (70-99) Laboratory Data (last 24hrs) Test 04/30/16 07:25 Anion Gap 10.0 mmol/L BUN/Creatinine Ratio 28.6 Blood Urea Nitrogen 28 mg/dl Creatinine 0.96 mg/dl Potassium Level 3.7 mmol/L Sodium Level 140 mmol/L White Blood Count 13.05 K/uL Red Blood Count 3.26 M/uL Hemoglobin 8.3 g/dL Hematocrit 26.2 % Mean Corpuscular Volume 80.4 fL Mean Corpuscular Hemoglobin 25.5 pg Mean Corpuscular Hemoglobin Concent 31.7 g/dl Platelet Count 384 K/uL Mean Platelet Volume 9.7 fL Neutrophils (%) (Auto) 73.0 % Lymphocytes (%) (Auto) 16.9 % Monocytes (%) (Auto) 6.4 % Eosinophils (%) (Auto) 3.1 % Basophils (%) (Auto) 0.3 % Neutrophils # (Auto) 9.54 K/uL Lymphocytes # (Auto) 2.20 K/uL Monocytes # (Auto) 0.83 K/uL Eosinophils # (Auto) 0.40 K/uL Basophils # (Auto) 0.04 K/uL HbA1c: Test 04/27/16 05:56 Hemoglobin A1c 6.1 % (4.5-5.6) H Recent Pertinent Medications Outpatient Anti-diabetic Regimen: * Humalog Mix 75/25 * 18 units SQ in the AM * 15 units SQ in the PM * NovoLog sliding scale * A1c = 6.1 % 04/2016 The patient is currently receiving: * Basal insulin: Humalog Mix 75/25 --> discontinued. Lantus 5 units SQ q PM if BSG is >140mg/dL * Correctional Insulin: NovoLog Correction per scale AC/HS Goal Range: Low 140 mg/dL - High 180 mg/dL Correction Factor: 30 mg/dL/unit * Prandial insulin: 1 unit per every 10 g of CHO consumed Risk Factors for Insulin Resistance: * Infection: vancomycin and piperacillin/tazobactam for sepsis secondary to pneumonia, metronidazole PO for C. difficile * Diet: AHA/T2DM/Low Na - clears Assessment & Plan ASSESSMENT: * ADA & AACE recommend a goal blood sugar range 140-180 mg/dl for the majority of critically ill & non-critically ill patients. However, more stringent targets may be selected in individual cases. 04/28/16 * Mr Zapien has been admitted with sepsis 2/2 pneumonia and n/v prior to admission. For this reason, and likely that he is eating less than as an outpatient, his mixed insulin has caused some hypoglycemic episodes. * discontinued mixed insulin as they are not idea for glycemic control while admitted to the hospital * begin basal/bolus insulin with Lantus/NovoLog * A1c shows great control as an outpatient * Sepsis and IV antibiotics may alter insulin sensitivity both secondary to acuity of illness but also because they are mixed in dextrose * Unsure of PO intake at this time * NovoLog with carb ratio should help us determine PO intake 04/29/16 * BSGs well controlled over the last 24 hours with 19 units of insulin administered (range from 135-199mg/dL) * Fasting below goal range today * hold off on any AM Lantus * standing order for Lantus this PM if BSG is >140mg/dL * NovoLog parameters appear to be providing appropriate coverage * no change 04/30/16 * Mr. Zapien received 16 units of insulin yesterday with BSGs ranging from 81- 154mg/dL * Fasting BSG 108 and 92mg/dL this AM (POC, PRP, respectively) * though below goal, higher than yesterday's fasting and BSG elevated pre- lunch - continue same Lantus dose * No change to NovoLog PLAN FOR INPATIENT GLYCEMIC CONTROL: * Lantus 5 units SQ q PM * hold if BSG is below 140mg/dL * Continue NovoLog AC and HS * Correction factor: 30mg/dL/unit * Carb ratio: 1 unit per 10g of CHO consumed * Goal range: 140-180mg/dL per ADA recommendations * A1c - current * added to discharge instructions RECOMMENDATIONS FOR DISCHARGE: * Likely, Mr. Zapien can continue his home regimen at discharge * Please note that the plan above was derived based on current level of insulin resistance and hospital stress. These recommendations are appropriate for inpatient admission only. Plan of care upon discharge will need to be reassessed to avoid potential outpatient hypo/hyperglycemia. Thank you.
--- NOTE | 2016-04-30 11:52 | Cardiology Follow-Up ---
Subjective General Date of Service: Apr 30, 2016. Chief Complaint: weakness Pt evaluation today including: conversation w/ patient, physical exam, chart review, lab review, review of studies, review of inpatient medication list History of Present Illness Patient sitting up in chair, feeling ok this AM. Primary complaint is right stump pain. Denies chest pain or SOB. No dizziness, palpitations, syncope or near syncope Allergies Coded Allergies: No Known Allergies (Unverified , 04/23/16) Social History Smoking Status: Former Smoker Hx Alcohol Use - Type And Amou: No Hx Substance Use - Type And Am: No Problem List Medical Problems: (1) Change in mental status Status: Acute (2) Hypotension Status: Acute (3) Sepsis Status: Acute Review of Systems Respiratory: No cough, No dyspnea at rest, No hemoptysis, No shortness of breath, No sputum, No wheezing Cardiac: No PND, No chest pain, No edema, No orthopnea, No palpitations Physical Exam Vital Signs Last Vital Signs Documentation Date Time Temp Pulse Resp B/P Pulse Ox O2 Delivery O2 Flow Rate FiO2 04/30/16 08:00 Room Air 04/30/16 07:46 36.7 93 20 134/73 95 04/27/16 07:26 2.0 Physical Exam Constitutional: Level of Distress: NAD, chronically ill Psychiatric: Mental Status: active & alert Orientation: to time, to place, to person Head: normocephalic Neck: supple Lungs: Auscultation: no wheezing, no rales/crackles, deminished air movement Cardiovascular: Heart Auscultation: RRR, normal S1, normal S2, no murmurs Abdomen: Bowel Sounds: normal Inspection & Palpation: soft, non-distended Extremities: edema (trace left LE, AKA right ) Assessment and Plan Assessment and Plan FINAL IMPRESSION: 1. Lethargy - multifactorial -blood cultures negative -improved today 2. Dehydration - improved. 3. Chronic systolic heart failure with underlying cardiomyopathy of undetermined etiology and ejection fraction of 20-25%. -echo with global hypokinesis, EF 20% -received prior hospital records from [place] - no cardiac records included. Diagnosis of cardiomyopathy in 09/2015. No reports of cardiac cath. 4. Peripheral vascular disease status post recent right-sided above the knee amputation. 5. Acute renal insufficiency superimposed on chronic kidney disease secondary to dehydration. - Improved 6. Hyperkalemia secondary to acute renal insufficiency and LEVON inhibitor use.- Improved 7. Elevated troponin, likely type 2 event (demand ischemia) secondary to above. 8. History of paroxysmal atrial fibrillation, currently well controlled rates and chronically anticoagulated with Xarelto. 9. Chronic anemia. 10. 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 11. Former heavy tobacco use. 12. C. Diff + 13. Non sustained VT noted on telemetry - 5 beat run at 4:39 AM PLAN AND RECOMMENDATIONS: Renal function improved and appears back at baseline lisinopril resumed at 5 mg daily (was previously on 10 mg, but intermittent hypotension noted during hospital stay). Electrolytes stable Increase carvedilol to 6.25 mg BID due to non sustained Vt on monitor. Still need cardio records. Patient unsure of case worker group or location in [place]. Having trouble securing records. Will likely resume low dose diuretic as hospital course progresses. Continue Xarelto for anticoagulation given history of afib. Rates appropriately controlled. Case discussed with Dr. Frankel. Will follow. Cardiology Attending Physician: Patient seen and examined at the bedside. More alert today. Sitting in chair. No CP or SOB. Feeling better. Diarrhea slowing down. +C-difficile. PE: VSS. GEN: NAD, chronically ill. Mucous membranes are dry. Heart: Regular, normal S1S2. Lungs: clear anteriorly. No wheeze. Abd: soft, NT, ND, no rebound or guarding. Ext: Right AKA, Trace LLE edema. A/P: Agree with above PA-C history, physical exam, assessment and plan. Titrate carvedilol to 6.25mg twice daily. Continue evidence base heart failure medical therapy including beta sukhwinder. Continue LEVON inhibitor at reduced dose today with plans to ultimately resume 10mg daily. Continue Xarelto 20 mg daily. Hold diuretics. Repeat BMP in AM. José Miguel Frankel DO, [facility] Laboratory Results Last 24 Hours Test 04/29/16 14:10 04/29/16 16:16 04/29/16 17:10 04/29/16 20:22 Hemoglobin 8.5 g/dL Hematocrit 25.8 % Bedside Glucose 154 mg/dl 144 mg/dl Stool Occult Blood POSITIVE Test 04/30/16 06:49 04/30/16 07:25 Bedside Glucose 108 mg/dl White Blood Count 13.05 K/uL Red Blood Count 3.26 M/uL Hemoglobin 8.3 g/dL Hematocrit 26.2 % Mean Corpuscular Volume 80.4 fL Mean Corpuscular Hemoglobin 25.5 pg Mean Corpuscular Hemoglobin Concent 31.7 g/dl Platelet Count 384 K/uL Mean Platelet Volume 9.7 fL Neutrophils (%) (Auto) 73.0 % Lymphocytes (%) (Auto) 16.9 % Monocytes (%) (Auto) 6.4 % Eosinophils (%) (Auto) 3.1 % Basophils (%) (Auto) 0.3 % Neutrophils # (Auto) 9.54 K/uL Lymphocytes # (Auto) 2.20 K/uL Monocytes # (Auto) 0.83 K/uL Eosinophils # (Auto) 0.40 K/uL Basophils # (Auto) 0.04 K/uL RDW Standard Deviation 57.3 fL RDW Coefficient of Variation 19.4 % Immature Granulocyte % (Auto) 0.3 % Immature Granulocyte # (Auto) 0.04 K/uL Polychromasia 1+ Echinocytes 1+ Sodium Level 140 mmol/L Potassium Level 3.7 mmol/L Chloride Level 104 mmol/L Carbon Dioxide Level 26 mmol/L Anion Gap 10.0 mmol/L Blood Urea Nitrogen 28 mg/dl Creatinine 0.96 mg/dl Est Creatinine Clear Calc Drug Dose 79.5 ml/min Estimated GFR () 94.4 Estimated GFR (Non- 81.5 BUN/Creatinine Ratio 28.6 Random Glucose 92 mg/dl Calcium Level 7.7 mg/dl Iron Level 14 mcg/dl Total Iron Binding Capacity 165 mcg/dl Transferrin 125 mg/dl Transferrin % Saturation 8 % Ferritin 64.4 ng/ml Vitamin B12 Level 946 pg/mL Folate 22.99 ng/mL
[2016-04-30] MEDS ORDERED: CARVEDILOL 3.125 MG TAB PO ONE (11:53)
[2016-04-30 12:00] VITALS: BP 143/77; PULSE 91; TEMP 36.7; O2SAT 96
--- NOTE | 2016-04-30 12:00 | Progress Note ---
Medicine Progress Note Date & Time of Visit: Apr 30, 2016 at 11:54. Subjective seen sitting up in bedside chair in good spirits diarrhea and abdominal pain improving no melena/hematochezia would like diet to be advanced denies dyspnea, cough, chest pain no foot pain no other symptoms Objective Last 8 Hrs Date Time Temp Pulse Resp B/P Pulse Ox O2 Delivery O2 Flow Rate FiO2 04/30/16 08:00 Room Air 04/30/16 07:46 36.7 93 20 134/73 95 Room Air 04/30/16 04:20 36.8 81 18 137/68 95 Room Air 04/30/16 04:00 Room Air Physical Exam: General- oriented x 3, not in distress, speaks in sentences with no effort Eyes- (+) right eye blindness Neck-no JVD, no adenopathy Lungs- clear breath sounds bilaterally no rales/wheezes Heart- normal rate, regular rhythm; no murmur Abdomen- normal bowel sounds, soft, nontender Extremities- s/p R AKA: wound healing well, no edema/warmth/discharge Left Foot: (+) open ulcer on the 5th metatarsal plantar region- mild bleeding, no discharge; (+) eschar on the lateral plantar aspect and hindfoot Neuro- alert, oriented x 3; right eye blindness, no other gross focal deficits Skin- warm & dry Laboratory Results: Last 24 Hours Test 04/29/16 14:10 04/29/16 16:16 04/29/16 17:10 04/29/16 20:22 Hemoglobin 8.5 g/dL Hematocrit 25.8 % Bedside Glucose 154 mg/dl 144 mg/dl Stool Occult Blood POSITIVE Test 04/30/16 06:49 04/30/16 07:25 Bedside Glucose 108 mg/dl White Blood Count 13.05 K/uL Red Blood Count 3.26 M/uL Hemoglobin 8.3 g/dL Hematocrit 26.2 % Mean Corpuscular Volume 80.4 fL Mean Corpuscular Hemoglobin 25.5 pg Mean Corpuscular Hemoglobin Concent 31.7 g/dl Platelet Count 384 K/uL Mean Platelet Volume 9.7 fL Neutrophils (%) (Auto) 73.0 % Lymphocytes (%) (Auto) 16.9 % Monocytes (%) (Auto) 6.4 % Eosinophils (%) (Auto) 3.1 % Basophils (%) (Auto) 0.3 % Neutrophils # (Auto) 9.54 K/uL Lymphocytes # (Auto) 2.20 K/uL Monocytes # (Auto) 0.83 K/uL Eosinophils # (Auto) 0.40 K/uL Basophils # (Auto) 0.04 K/uL RDW Standard Deviation 57.3 fL RDW Coefficient of Variation 19.4 % Immature Granulocyte % (Auto) 0.3 % Immature Granulocyte # (Auto) 0.04 K/uL Polychromasia 1+ Echinocytes 1+ Sodium Level 140 mmol/L Potassium Level 3.7 mmol/L Chloride Level 104 mmol/L Carbon Dioxide Level 26 mmol/L Anion Gap 10.0 mmol/L Blood Urea Nitrogen 28 mg/dl Creatinine 0.96 mg/dl Est Creatinine Clear Calc Drug Dose 79.5 ml/min Estimated GFR () 94.4 Estimated GFR (Non- 81.5 BUN/Creatinine Ratio 28.6 Random Glucose 92 mg/dl Calcium Level 7.7 mg/dl Iron Level 14 mcg/dl Total Iron Binding Capacity 165 mcg/dl Transferrin 125 mg/dl Transferrin % Saturation 8 % Ferritin 64.4 ng/ml Vitamin B12 Level 946 pg/mL Folate 22.99 ng/mL Assessment & Plan 65 year old male with history of Cardiomyopathy EF 15%, A fib on Xarelto, Severe PVD s/p recent Right TKA, DM, CKD, AOCD Was sent from [place] for hypoxia, nausea/vomiting x 2 days. POSSIBLE SEPTIC SHOCK SECONDARY TO PNEUMONIA, RIGHT LOWER LOBE- ASPIRATION VS. COMMUNITY ACQUIRED R/O LEFT FOOT ULCER INFECTION HISTORY OF RECENT RIGHT FOOT OSTEOMYELITIS S/P R AKA - BP stable after IV fluids - remains afebrile, leukocytosis resolved Blood cultures: negative MRSA Nasal swab: positive - on Vanco and ZOsyn Day 5 further antibiotic recommendations per ID, appreciate the input ACUTE HYPOXIC RESPIRATORY FAILURE, likely from PNEUMONIA : Resolved -On 6 L -100% on admission with no respiratory distress --> On RA now 99% -CXR- Moderate right pleural effusion, trace left pleural effusion, mild congestion (but was clinically dry) - management as noted above AMAURI ON CKD, Resolved -Likely secondary to volume depletion, pre renal -S/P IVF - hold lasix - Monitor ANEMIA OF CHRONIC DISEASE - Hg 9 as of 04/02/16 per outpatient records - Hg remaining stable ~8 FOBT positive but also has C diff Colitis - Iron Low - monitor Hg continue protonix IV BID for now on Iron supplement C Diff colitis - diarrhea improving - continue Flagyl Day 3 ATRIAL FIBRILLATION -- Now NSR -On coreg 3.125 mg PO BID -On xarelto -Echo as above CHRONIC CHF, SYSTOLIC WITH EF 20% - lasix 40 mg bid on HOLD - On coreg, Lisinopril at home. - compensated at present ELEVATED TROPONIN Likely Demand ischemia secondary to above. No cardiac symptoms per patient Trop-0.782--1.800, 1.780, EKG- T wave inversion in I, ST depression in V3-V6 - no prior EKG for comparison -On ASA, Coreg, Lisinopril (held) -Echo-EF 20-25%, Apical septum dyskinetic, Basal anteroseptum thin and akinetic , Severe global hypokinesis, RV borderline dilated, Rt ventricular function reduced, Aortic sclerosis with no significant stenosis, Mild M R, Systolic PAP 42 mm Left ventricular systolic function is severely reduced. 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 -HBA1C 6.1 -ISS, Accuchecks, Lantus - Pharm consult COPD -No signs of COPD exacerbation , no wheezing -Continue with nebulizer HYPERTENSION -Mx for hypotension as above PAIN MX -On MS Contin 15 mg q BID, Oxycodone 5 mg prn - home meds - hold due to change in mental status -Likely on it secondary to recent surgeries DEPRESSION -On Escitalopram DVT PROPHYLAXIS High risk, on xarelto GI PROPHYLAXIS Protonix CODE STATUS- DNR/DNI per brother /patient No advance directives, but verbally confirms that his brother Kraig or 2nd brother make medical decisions on his behalf if he cannot DISPOSITION PT/OT Plan will be [facility] after discharge Current Inpatient Medications: Current Inpatient Medications Medications (Trade) Dose Ordered Sig/Abhijit Route Start Time Stop Time Status Last Admin Dose Admin Acetaminophen (Tylenol Tab) 650 mg Q4 PRN PO 04/26/16 10:15 05/26/16 10:14 04/29/16 20:25 650 MG Aspirin (Ecotrin Tab) 81 mg DAILY PO 04/27/16 09:00 05/27/16 08:59 04/30/16 09:37 81 MG Carvedilol (Coreg Tab) 3.125 mg BID PO 04/26/16 21:00 05/26/16 20:59 04/30/16 09:39 3.125 MG Collagenase (Santyl Oint) 1 appln DAILY EXT 04/27/16 09:00 05/27/16 08:59 04/30/16 09:39 1 APPLN Docusate Sodium (coLACE CAP) 100 mg BID PO 04/26/16 21:00 05/26/16 20:59 04/29/16 20:24 100 MG Escitalopram Oxalate (Lexapro Tab) 10 mg DAILY PO 04/27/16 09:00 05/27/16 08:59 04/30/16 09:38 10 MG Gabapentin (Neurontin Cap) 100 mg TID PO 04/26/16 14:00 05/26/16 13:59 04/30/16 09:37 100 MG Lactobacillus Acidophilus (Floranex Tab) 1 tab TIDM PO 04/26/16 16:45 05/26/16 16:44 04/30/16 09:37 1 TAB Morphine Sulfate (Oramorph Sr Tab) 15 mg Q12 PO 04/26/16 21:00 05/10/16 20:59 Future Hold Multivitamins/ Minerals (Multivitamin W/ Minerals Tab) 1 tab DAILY PO 04/27/16 09:00 05/27/16 08:59 04/30/16 09:38 1 TAB Oxycodone HCl (Roxicodone Immediate Rel Tab) 5 mg Q6 PRN PO 04/26/16 10:15 05/10/16 10:14 Future hold 04/30/16 09:38 5 MG Sodium Chloride ([place] Nasal [place]) 2 sprays QID PRN SHANNON 04/26/16 10:15 05/26/16 10:14 Senna/Docusate Sodium (Senokot S Tab) 1 tab Q24H PRN PO 04/26/16 10:15 05/26/16 10:14 Zinc Sulfate (Zinc Sulfate Cap) 220 mg DAILY PO 04/27/16 09:00 05/27/16 08:59 04/30/16 09:38 220 MG Ferrous Sulfate 325 mg 325 mg TIDM PO 04/26/16 16:45 05/26/16 16:44 04/30/16 09:37 325 MG Piperacillin Sod/ Tazobactam Sod/ Dextrose (Zosyn Iv/D5 100ml) 115 ml @ 28.75 mls/ hr Q8 IV 04/26/16 14:00 05/06/16 13:59 04/30/16 05:27 28.75 MLS/HR Vancomycin HCl (Consult) 1 ea UD PRN N/A 04/26/16 10:43 05/26/16 10:42 Ondansetron HCl (Zofran Inj) 4 mg Q6H PRN IV 04/26/16 10:15 05/26/16 10:14 04/30/16 11:49 4 MG Nitroglycerin (Nitrostat Tab) 0.4 mg UD PRN SL 04/26/16 10:15 05/26/16 10:14 Polyethylene (Miralax Powder Packet) 17 gm DAILY PRN PO 04/26/16 10:15 05/26/16 10:14 Insulin Aspart (novoLOG ASPART) SLIDING SCALE If C... ACHS SC 04/26/16 11:00 05/26/16 10:59 04/29/16 11:42 7 UNITS Glucose (Glucose 40% Gel) 15-30 GRAMS 15 GRAMS... UD PRN PO 04/26/16 10:15 05/26/16 10:14 Glucose (Glucose Chew Tab) 4-8 Tablets 4 Tabl... UD PRN PO 04/26/16 10:15 05/26/16 10:14 Dextrose (Dextrose 50% 50ML Syringe) 25-50ML OF 50% DW IV FOR... UD PRN IV 04/26/16 10:15 05/26/16 10:14 Glucagon (Glucagon Inj) 1 mg UD PRN SQ 04/26/16 10:15 05/26/16 10:14 Piperacillin Sod/ Tazobactam Sod (Consult) 1 ea UD PRN N/A 04/26/16 11:00 05/26/16 10:59 Albuterol/ Ipratropium (Duoneb) 3 ml Q2H PRN INH 04/26/16 12:30 05/26/16 12:29 Miscellaneous Information (Consult Glycemic Management Pharmacy) 1 ea UD PRN N/A 04/28/16 12:45 05/28/16 12:44 Enteral Nutritional Formula (Boost Glucose Control) 1 can BIDM PO 04/28/16 16:45 05/28/16 16:44 04/30/16 09:40 1 CAN Rivaroxaban (Xarelto Tab) 20 mg QDD PO 04/28/16 16:45 05/28/16 16:44 04/29/16 16:04 20 MG Albuterol/ Ipratropium (Combivent Respimat Inh) 1 puffs QID INH 04/28/16 17:00 05/28/16 16:59 04/30/16 09:39 1 PUFFS Metronidazole (Flagyl Tab) 500 mg Q8 PO 04/28/16 19:00 05/12/16 18:59 04/30/16 05:27 500 MG Lisinopril 5 mg 5 mg QAM PO 04/30/16 09:00 05/30/16 08:59 04/30/16 09:38 5 MG Pantoprazole Sodium/Syringe (Protonix Inj/ Syringe) 10 ml @ 5 mls/min DAILY@09,21 IV 04/29/16 21:00 05/29/16 20:59 04/30/16 09:39 5 MLS/MIN Insulin Glargine SEE PROTOCOL PM SC 04/29/16 21:00 05/29/16 20:59 Future Hold 04/29/16 21:00 5 UNIT Vancomycin HCl/ Sodium Chloride (Vancomycin Inj/ Nss 250ml) 273 ml @ 125 mls/hr Q12H IV 04/29/16 20:00 05/02/16 23:59 04/30/16 09:39 125 MLS/HR
[2016-04-30] MEDS ORDERED: VANCOMYCIN TROUGH SCH (13:30)
--- NOTE | 2016-04-30 15:52 | DIAGNOSTIC IMAGING REPORT ---
CHEST ONE VIEW PORTABLE CLINICAL HISTORY: Hypotension, sepsis, abnormal chest x-ray. COMPARISON STUDY: 04/26/2016 FINDINGS: The heart remains enlarged. There is resolving pulmonary vascular congestion. There is a persistent right pleural effusion with right basilar atelectasis/consolidation. There are persistent airspace opacities at the left medial lung base.[ IMPRESSION: 1. Resolving pulmonary vascular congestion 2. Persistent right pleural effusion with persistent right basilar airspace opacities likely atelectatic 3. Persistent left basilar airspace opacities Electronically signed by: Adolfo Sims M.D. 04/30/2016 3:51 PM Dictated Date/Time: 04/30/2016 3:50 PM
[2016-04-30 16:00] VITALS: BP 149/93; PULSE 94; TEMP 36.7; O2SAT 98
[2016-04-30] MEDS: RIVAROXABAN 20 MG TAB PO SCH (16:16)
[2016-04-30] MEDS: RASPBERRY SYRUP 5 ML UDP PO SCH ×2 (16:17→22:10)
[2016-04-30] MEDS: VANCOMYCIN HCL 125 MG/2.5ML SOLN PO SCH ×2 (16:17→22:10)
[2016-04-30 18:48] VITALS: BP 124/72; PULSE 91; TEMP 37; O2SAT 97
--- NOTE | 2016-04-30 21:03 | Infectious Disease Progress Nt ---
Progress Note Date of Service Apr 30, 2016. Subjective Pt evaluation today including: conversation w/ patient, physical exam, chart review, lab review, review of studies, conversation w/ data management consultant, review of inpatient medication list Denies any new complaints. Feeling better. No fever. Tolerating antibiotic without apparent difficulty. All Other Systems: Reviewed and Negative Medications Current Inpatient Medications Medications (Trade) Dose Ordered Sig/Abhijit Route Start Time Stop Time Status Last Admin Dose Admin Acetaminophen (Tylenol Tab) 650 mg Q4 PRN PO 04/26/16 10:15 05/26/16 10:14 04/29/16 20:25 650 MG Aspirin (Ecotrin Tab) 81 mg DAILY PO 04/27/16 09:00 05/27/16 08:59 04/30/16 09:37 81 MG Collagenase (Santyl Oint) 1 appln DAILY EXT 04/27/16 09:00 05/27/16 08:59 04/30/16 09:39 1 APPLN Docusate Sodium (coLACE CAP) 100 mg BID PO 04/26/16 21:00 05/26/16 20:59 04/29/16 20:24 100 MG Escitalopram Oxalate (Lexapro Tab) 10 mg DAILY PO 04/27/16 09:00 05/27/16 08:59 04/30/16 09:38 10 MG Gabapentin (Neurontin Cap) 100 mg TID PO 04/26/16 14:00 05/26/16 13:59 04/30/16 14:26 100 MG Lactobacillus Acidophilus (Floranex Tab) 1 tab TIDM PO 04/26/16 16:45 05/26/16 16:44 04/30/16 16:16 1 TAB Morphine Sulfate (Oramorph Sr Tab) 15 mg Q12 PO 04/26/16 21:00 05/10/16 20:59 Future Hold Multivitamins/ Minerals (Multivitamin W/ Minerals Tab) 1 tab DAILY PO 04/27/16 09:00 05/27/16 08:59 04/30/16 09:38 1 TAB Oxycodone HCl (Roxicodone Immediate Rel Tab) 5 mg Q6 PRN PO 04/26/16 10:15 05/10/16 10:14 Future hold 04/30/16 09:38 5 MG Sodium Chloride ([place] Nasal [place]) 2 sprays QID PRN SHANNON 04/26/16 10:15 05/26/16 10:14 Senna/Docusate Sodium (Senokot S Tab) 1 tab Q24H PRN PO 04/26/16 10:15 05/26/16 10:14 Zinc Sulfate (Zinc Sulfate Cap) 220 mg DAILY PO 04/27/16 09:00 05/27/16 08:59 04/30/16 09:38 220 MG Ferrous Sulfate 325 mg 325 mg TIDM PO 04/26/16 16:45 05/26/16 16:44 04/30/16 16:16 325 MG Piperacillin Sod/ Tazobactam Sod/ Dextrose (Zosyn Iv/D5 100ml) 115 ml @ 28.75 mls/ hr Q8 IV 04/26/16 14:00 05/06/16 13:59 04/30/16 14:24 28.75 MLS/HR Vancomycin HCl (Consult) 1 ea UD PRN N/A 04/26/16 10:43 05/26/16 10:42 Ondansetron HCl (Zofran Inj) 4 mg Q6H PRN IV 04/26/16 10:15 05/26/16 10:14 04/30/16 11:49 4 MG Nitroglycerin (Nitrostat Tab) 0.4 mg UD PRN SL 04/26/16 10:15 05/26/16 10:14 Polyethylene (Miralax Powder Packet) 17 gm DAILY PRN PO 04/26/16 10:15 05/26/16 10:14 Insulin Aspart (novoLOG ASPART) SLIDING SCALE If C... ACHS SC 04/26/16 11:00 05/26/16 10:59 04/30/16 17:14 7 UNITS Glucose (Glucose 40% Gel) 15-30 GRAMS 15 GRAMS... UD PRN PO 04/26/16 10:15 05/26/16 10:14 Glucose (Glucose Chew Tab) 4-8 Tablets 4 Tabl... UD PRN PO 04/26/16 10:15 05/26/16 10:14 Dextrose (Dextrose 50% 50ML Syringe) 25-50ML OF 50% DW IV FOR... UD PRN IV 04/26/16 10:15 05/26/16 10:14 Glucagon (Glucagon Inj) 1 mg UD PRN SQ 04/26/16 10:15 05/26/16 10:14 Piperacillin Sod/ Tazobactam Sod (Consult) 1 ea UD PRN N/A 04/26/16 11:00 05/26/16 10:59 Albuterol/ Ipratropium (Duoneb) 3 ml Q2H PRN INH 04/26/16 12:30 05/26/16 12:29 Miscellaneous Information (Consult Glycemic Management Pharmacy) 1 ea UD PRN N/A 04/28/16 12:45 05/28/16 12:44 Enteral Nutritional Formula (Boost Glucose Control) 1 can BIDM PO 04/28/16 16:45 05/28/16 16:44 04/30/16 16:51 1 CAN Rivaroxaban (Xarelto Tab) 20 mg QDD PO 04/28/16 16:45 05/28/16 16:44 04/30/16 16:16 20 MG Albuterol/ Ipratropium (Combivent Respimat Inh) 1 puffs QID INH 04/28/16 17:00 05/28/16 16:59 04/30/16 16:16 1 PUFFS Lisinopril 5 mg 5 mg QAM PO 04/30/16 09:00 05/30/16 08:59 04/30/16 09:38 5 MG Pantoprazole Sodium/Syringe (Protonix Inj/ Syringe) 10 ml @ 5 mls/min DAILY@09,21 IV 04/29/16 21:00 05/29/16 20:59 04/30/16 09:39 5 MLS/MIN Insulin Glargine SEE PROTOCOL PM SC 04/29/16 21:00 05/29/16 20:59 Future hold 04/29/16 21:00 5 UNIT Vancomycin HCl/ Sodium Chloride (Vancomycin Inj/ Nss 250ml) 273 ml @ 125 mls/hr Q12H IV 04/29/16 20:00 05/02/16 23:59 04/30/16 09:39 125 MLS/HR Carvedilol (Coreg Tab) 6.25 mg BID PO 04/30/16 21:00 05/30/16 20:59 Vancomycin HCl (Vancomycin Oral Soln) 125 mg QID PO 04/30/16 17:00 05/14/16 16:59 04/30/16 16:17 125 MG Raspberry (Raspberry Syrup 5ml Cup) 5 ml QID PO 04/30/16 17:00 05/14/16 16:59 04/30/16 16:17 5 ML Objective Vital Signs Date Time Temp Pulse Resp B/P Pulse Ox O2 Delivery O2 Flow Rate FiO2 04/30/16 18:48 37.0 91 20 124/72 97 Room Air 04/30/16 16:00 Room Air 04/30/16 16:00 36.7 94 18 149/93 98 Room Air 04/30/16 15:55 Room Air 04/30/16 12:00 Room Air 04/30/16 12:00 Room Air 04/30/16 12:00 36.7 91 18 143/77 96 Room Air 04/30/16 08:00 Room Air 04/30/16 07:46 36.7 93 20 134/73 95 Room Air 04/30/16 04:20 36.8 81 18 137/68 95 Room Air 04/30/16 04:00 Room Air 04/30/16 00:00 Room Air 04/29/16 23:37 36.9 86 18 124/68 95 Room Air Physical Exam General Appearance: WD/WN, no apparent distress Eyes: normal inspection, sclerae normal ENT: normal ENT inspection, pharynx normal Neck: supple, no adenopathy, trachea midline Respiratory/Chest: chest non-tender, lungs clear, normal breath sounds, no respiratory distress Cardiovascular: regular rate, rhythm, no gallop, no murmur Abdomen: normal bowel sounds, non tender, soft, no organomegaly Extremities: non-tender, no calf tenderness Neurologic/Psychiatric: alert, oriented x 3 Skin: normal color, no rash, + pertinent finding ( Left foot lateral ulceration) Lymphatic: no adenopathy Laboratory Results Last 24 Hours Test 04/30/16 06:49 04/30/16 07:25 04/30/16 12:12 04/30/16 15:36 Bedside Glucose 108 mg/dl 175 mg/dl 201 mg/dl White Blood Count 13.05 K/uL Red Blood Count 3.26 M/uL Hemoglobin 8.3 g/dL Hematocrit 26.2 % Mean Corpuscular Volume 80.4 fL Mean Corpuscular Hemoglobin 25.5 pg Mean Corpuscular Hemoglobin Concent 31.7 g/dl Platelet Count 384 K/uL Mean Platelet Volume 9.7 fL Neutrophils (%) (Auto) 73.0 % Lymphocytes (%) (Auto) 16.9 % Monocytes (%) (Auto) 6.4 % Eosinophils (%) (Auto) 3.1 % Basophils (%) (Auto) 0.3 % Neutrophils # (Auto) 9.54 K/uL Lymphocytes # (Auto) 2.20 K/uL Monocytes # (Auto) 0.83 K/uL Eosinophils # (Auto) 0.40 K/uL Basophils # (Auto) 0.04 K/uL RDW Standard Deviation 57.3 fL RDW Coefficient of Variation 19.4 % Immature Granulocyte % (Auto) 0.3 % Immature Granulocyte # (Auto) 0.04 K/uL Polychromasia 1+ Echinocytes 1+ Sodium Level 140 mmol/L Potassium Level 3.7 mmol/L Chloride Level 104 mmol/L Carbon Dioxide Level 26 mmol/L Anion Gap 10.0 mmol/L Blood Urea Nitrogen 28 mg/dl Creatinine 0.96 mg/dl Est Creatinine Clear Calc Drug Dose 79.5 ml/min Estimated GFR () 94.4 Estimated GFR (Non- 81.5 BUN/Creatinine Ratio 28.6 Random Glucose 92 mg/dl Calcium Level 7.7 mg/dl Iron Level 14 mcg/dl Total Iron Binding Capacity 165 mcg/dl Transferrin 125 mg/dl Transferrin % Saturation 8 % Ferritin 64.4 ng/ml Vitamin B12 Level 946 pg/mL Folate 22.99 ng/mL Test 04/30/16 20:15 Bedside Glucose 194 mg/dl Assessment and Plan 65 yo with DM with neuropathy, severe PAD s/p right AKA now worsening hypoxia and possible pneumonia with HCAP and aspiration types possible. Also with possible early infection around left heel wound. For now, vancomycin and Zosyn appropriate pending final culture results and f/u CXR. Wound care seeing patient. Will follow.
[2016-04-30] MEDS: CARVEDILOL 6.25 MG TAB PO SCH (22:09)
[2016-04-30] MEDS: INSULIN GLARGINE SOLOSTAR 100 UNITS/ML 3 ML PEN SC SCH (22:14)
[2016-04-30] MEDS: ACETAMINOPHEN 325 MG TAB PO PRN (23:17)
[2016-04-30 23:18] VITALS: BP 130/79; PULSE 95; TEMP 36.7; O2SAT 97
[2016-05-01] VITALS (7 sets, daily range): BP systolic 115–139; BP diastolic 65–76; PULSE 86–91; TEMP 36.4–36.7; O2SAT 95–100
[2016-05-01] MEDS: PIPERACILL/TAZOBAC IV 3.375 GM in DEXTROSE 5% 100ML 100 ML IV SCH ×4 (00:38→22:03)
[2016-05-01] MEDS: OXYCODONE HCL IR 5 MG TAB (IMMEDIATE RELEASE) PO PRN ×2 (05:39→20:47)
[2016-05-01] MEDS: BOOST GLUCOSE CONTROL PO SCH ×2 (07:30→16:26)
[2016-05-01] MEDS ORDERED: VANCOMYCIN TROUGH SCH (07:30)
[2016-05-01 08:13] LABS: BASO % 0.2 %; BASO ABS # 0.03 K/uL (0-0.2); EOS % 2.8 %; HEMATOCRIT 27.2 % (42-52); IG% 0.4 %; LYMPH % 18.7 %; LYMPH ABS # 2.41 K/uL (1.2-3.4); MEAN CELL VOLUME 80.2 fL (80-100); MEAN CORPUSCULAR HEMOGLOBIN 25.1 pg (25-34); MEAN CORPUSCULAR HGB CONC 31.3 g/dl (32-36); MEAN PLATELET VOLUME 9.4 fL (7.4-10.4); MONO % 6.6 %; NEUT % 71.3 %; PLATELET COUNT 426 K/uL (130-400); RED BLOOD COUNT 3.39 M/uL (4.7-6.1); WHITE BLOOD COUNT 12.89 K/uL (4.8-10.8)
[2016-05-01] MEDS: INSULIN ASPART 100 UNITS/ML 3 ML PEN SC SCH ×4 (08:29→20:40)
[2016-05-01] MEDS: INSULIN GLARGINE SOLOSTAR 100 UNITS/ML 3 ML PEN SC SCH (08:30)
[2016-05-01 08:45] LABS: CALCIUM 7.7 mg/dl (8.5-10.1); POTASSIUM 3.6 mmol/L (3.5-5.1)
[2016-05-01] MEDS: LACTOBACILLUS ACIDOPHILUS (FLORANEX) TAB PO SCH ×3 (08:59→16:28)
[2016-05-01] MEDS: LISINOPRIL 5 MG TAB PO SCH (09:00)
[2016-05-01] MEDS: ASPIRIN 81 MG ECTAB PO SCH (09:00)
[2016-05-01] MEDS: DOCUSATE SODIUM 100 MG CAP PO SCH ×2 (09:00→20:41)
[2016-05-01] MEDS: CEROVITE ADV FORMULA TAB PO SCH (09:00)
[2016-05-01] MEDS: FERROUS SULFATE 325 MG TAB PO SCH ×3 (09:01→16:28)
[2016-05-01] MEDS: GABAPENTIN 100 MG CAP PO SCH ×3 (09:01→20:46)
[2016-05-01] MEDS: ESCITALOPRAM OXALATE 10 MG TAB PO SCH (09:01)
[2016-05-01] MEDS: CARVEDILOL 6.25 MG TAB PO SCH ×2 (09:02→20:46)
[2016-05-01] MEDS: ZINC SULFATE 220 MG CAP PO SCH (09:02)
[2016-05-01] MEDS: RASPBERRY SYRUP 5 ML UDP PO SCH ×4 (09:03→20:46)
[2016-05-01] MEDS: VANCOMYCIN HCL 125 MG/2.5ML SOLN PO SCH ×4 (09:06→20:46)
[2016-05-01] MEDS: COLLAGENASE OINT 30 GM TUBE EXT SCH (09:08)
[2016-05-01] MEDS: PANTOprazole INJ 40 MG in SYRINGE 0 ML IV SCH (09:08)
[2016-05-01] MEDS: IPRATROPIUM BROMIDE/ALBUTEROL respimat INH INH SCH ×4 (09:08→20:46)
[2016-05-01 09:43] LABS: COMPLETE YES; HYPOCHROMIA PRESENT
--- NOTE | 2016-05-01 10:12 | Pharmacy Progress Note ---
Glycemic Control: Progress Nt Date of Service May 01, 2016. Scope Glycemic Pharmacist consulted by Dr [] on [date] for glycemic control and to write orders per [facility] inpatient glycemic control protocol. Objective Accuchecks BSG (last 24hrs): Test 04/30/16 12:12 04/30/16 15:36 04/30/16 20:15 05/01/16 06:58 Bedside Glucose 175 mg/dl (70-99) 201 mg/dl (70-99) 194 mg/dl (70-99) 171 mg/dl (70-99) Test 05/01/16 07:40 Random Glucose 144 mg/dl (70-99) Laboratory Data (last 24hrs) Test 05/01/16 07:40 Anion Gap 9.0 mmol/L BUN/Creatinine Ratio 22.0 Blood Urea Nitrogen 22 mg/dl Creatinine 1.00 mg/dl Potassium Level 3.6 mmol/L Sodium Level 137 mmol/L White Blood Count 12.89 K/uL Red Blood Count 3.39 M/uL Hemoglobin 8.5 g/dL Hematocrit 27.2 % Mean Corpuscular Volume 80.2 fL Mean Corpuscular Hemoglobin 25.1 pg Mean Corpuscular Hemoglobin Concent 31.3 g/dl Platelet Count 426 K/uL Mean Platelet Volume 9.4 fL Neutrophils (%) (Auto) 71.3 % Lymphocytes (%) (Auto) 18.7 % Monocytes (%) (Auto) 6.6 % Eosinophils (%) (Auto) 2.8 % Basophils (%) (Auto) 0.2 % Neutrophils # (Auto) 9.19 K/uL Lymphocytes # (Auto) 2.41 K/uL Monocytes # (Auto) 0.85 K/uL Eosinophils # (Auto) 0.36 K/uL Basophils # (Auto) 0.03 K/uL HbA1c: Test 04/27/16 05:56 Hemoglobin A1c 6.1 % (4.5-5.6) H Recent Pertinent Medications Outpatient Anti-diabetic Regimen: * Humalog Mix 75/25 * 18 units SQ in the AM * 15 units SQ in the PM * NovoLog sliding scale * A1c = 6.1 % 04/2016 The patient is currently receiving: * Basal insulin: Humalog Mix 75/25 --> discontinued. Lantus 5 units SQ q PM if BSG is >140mg/dL * Correctional Insulin: NovoLog Correction per scale AC/HS Goal Range: Low 140 mg/dL - High 180 mg/dL Correction Factor: 30 mg/dL/unit * Prandial insulin: 1 unit per every 10 g of CHO consumed Risk Factors for Insulin Resistance: * Infection: vancomycin and piperacillin/tazobactam for sepsis secondary to pneumonia, vancomycin PO for C. difficile * Diet: AHA/T2DM/Low Na Assessment & Plan ASSESSMENT: * ADA & AACE recommend a goal blood sugar range 140-180 mg/dl for the majority of critically ill & non-critically ill patients. However, more stringent targets may be selected in individual cases. 04/28/16 * Mr Zapien has been admitted with sepsis 2/2 pneumonia and n/v prior to admission. For this reason, and likely that he is eating less than as an outpatient, his mixed insulin has caused some hypoglycemic episodes. * discontinued mixed insulin as they are not idea for glycemic control while admitted to the hospital * begin basal/bolus insulin with Lantus/NovoLog * A1c shows great control as an outpatient * Sepsis and IV antibiotics may alter insulin sensitivity both secondary to acuity of illness but also because they are mixed in dextrose * Unsure of PO intake at this time * NovoLog with carb ratio should help us determine PO intake 04/29/16 * BSGs well controlled over the last 24 hours with 19 units of insulin administered (range from 135-199mg/dL) * Fasting below goal range today * hold off on any AM Lantus * standing order for Lantus this PM if BSG is >140mg/dL * NovoLog parameters appear to be providing appropriate coverage * no change 04/30/16 * Mr. Zapien received 16 units of insulin yesterday with BSGs ranging from 81- 154mg/dL * Fasting BSG 108 and 92mg/dL this AM (POC, PRP, respectively) * though below goal, higher than yesterday's fasting and BSG elevated pre- lunch - continue same Lantus dose * No change to NovoLog 05/01/16 * Rock received 13 units of insulin yesterday with BSGs ranging from 92-201mg/ dL (slight higher than yesterday) * noted that no carbs consumed with breakfast/lunch yesterday * Rise in BSGs throughout the day and drop in BSGs overnight * change dosing of Lantus from PM to AM * increase dose as fasting is much higher than the prior two days (likely Humalog has completely worn off) PLAN FOR INPATIENT GLYCEMIC CONTROL: * Lantus SQ q AM * BSG below 140mg/dL - give 5 units * BSG above 140mg/dL - give 10 units * Continue NovoLog AC and HS * Correction factor: 30mg/dL/unit * Carb ratio: 1 unit per 10g of CHO consumed * Goal range: 140-180mg/dL per ADA recommendations * A1c - current * added to discharge instructions RECOMMENDATIONS FOR DISCHARGE: * Likely, Mr. Zapien can continue his home regimen at discharge * Please note that the plan above was derived based on current level of insulin resistance and hospital stress. These recommendations are appropriate for inpatient admission only. Plan of care upon discharge will need to be reassessed to avoid potential outpatient hypo/hyperglycemia. Thank you.
--- NOTE | 2016-05-01 11:06 | Cardiology Follow-Up ---
Subjective General Date of Service: May 01, 2016. Chief Complaint: weakness Pt evaluation today including: conversation w/ patient, physical exam, chart review, lab review, review of studies, review of inpatient medication list History of Present Illness Patient feeling ok. Didn't sleep well. Tired this AM. Denies chest pain or SOB. Diarrhea improving. Denies palpitations or dizziness. Allergies Coded Allergies: No Known Allergies (Unverified , 04/23/16) Social History Smoking Status: Former Smoker Hx Alcohol Use - Type And Amou: No Hx Substance Use - Type And Am: No Problem List Medical Problems: (1) Change in mental status Status: Acute (2) Hypotension Status: Acute (3) Sepsis Status: Acute Review of Systems Respiratory: No cough, No dyspnea at rest, No dyspnea on exertion, No hemoptysis, No shortness of breath, No sputum, No wheezing Cardiac: No PND, No chest pain, No edema, No orthopnea, No palpitations Physical Exam Vital Signs Last Vital Signs Documentation Date Time Temp Pulse Resp B/P Pulse Ox O2 Delivery O2 Flow Rate FiO2 05/01/16 10:30 36.4 86 18 119/65 97 Room Air 04/27/16 07:26 2.0 Physical Exam Constitutional: Level of Distress: NAD, chronically ill Psychiatric: Mental Status: active & alert Orientation: to time, to place, to person Head: normocephalic Neck: supple Lungs: Auscultation: no wheezing, no rales/crackles, deminished air movement Cardiovascular: Heart Auscultation: RRR, normal S1, normal S2, no murmurs Abdomen: Bowel Sounds: normal Inspection & Palpation: soft, non-distended Extremities: edema (trace left LE, AKA right ) Assessment and Plan Assessment and Plan FINAL IMPRESSION: 1. Lethargy - multifactorial -blood cultures negative -improved 2. Dehydration - improved. 3. Chronic systolic heart failure with underlying cardiomyopathy of undetermined etiology and ejection fraction of 20-25%. -echo with global hypokinesis, EF 20% -received prior hospital records from [place] - no cardiac records included. Diagnosis of cardiomyopathy in 09/2015. No reports of cardiac cath. 4. Peripheral vascular disease status post recent right-sided above the knee amputation. 5. Acute renal insufficiency superimposed on chronic kidney disease secondary to dehydration. - Improved 6. Hyperkalemia secondary to acute renal insufficiency and LEVON inhibitor use.- Improved 7. Elevated troponin, likely type 2 event (demand ischemia) secondary to above. 8. History of paroxysmal atrial fibrillation/flutter, currently well controlled rates and chronically anticoagulated with Xarelto. 9. Chronic anemia. 10. 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 11. Former heavy tobacco use. 12. C. Diff + 13. Non sustained VT noted on telemetry - 5 beat run at 4:39 AM - No recurrence PLAN AND RECOMMENDATIONS: Renal function improved and appears back at baseline. lisinopril resumed at 5 mg daily (was previously on 10 mg, but intermittent hypotension noted during hospital stay). Electrolytes stable Carvedilol to 6.25 mg BID due to non sustained Vt on monitor. No recurrence. Still need cardio records. Patient unsure of housing manager group or location in [place]. Having trouble securing records. Will likely resume low dose diuretic as hospital course progresses. Continue Xarelto for anticoagulation given history of afib/flutter. Rates appropriately controlled. Monitor anemia given +FOBT on anticoagulation. Case discussed with Dr. Frankel. Will follow. Cardiology Attending Physician: Patient seen and examined at the bedside. More alert today. Sitting in chair. Family present at bedside. No CP or SOB. Feeling better. Rate controlled atrial flutter on telemetry. PE: VSS. GEN: NAD, chronically ill. Mucous membranes are dry. Heart: Irregular , normal S1S2. Lungs: clear anteriorly. No wheeze. Abd: soft, NT, ND, no rebound or guarding. Ext: Right AKA, Trace LLE edema. A/P: Agree with above PA-C history, physical exam, assessment and plan. Add low dose statin today. Continue carvedilol to 6.25mg twice daily. Continue LEVON inhibitor at reduced dose today with plans to ultimately resume 10mg daily. Continue Xarelto 20 mg daily. Hold diuretics today, however, will likely resume during hospitalization. José Miguel Frankel DO, [facility] Laboratory Results Last 24 Hours Test 04/30/16 12:12 04/30/16 15:36 04/30/16 20:15 05/01/16 06:58 Bedside Glucose 175 mg/dl 201 mg/dl 194 mg/dl 171 mg/dl Test 05/01/16 07:40 White Blood Count 12.89 K/uL Red Blood Count 3.39 M/uL Hemoglobin 8.5 g/dL Hematocrit 27.2 % Mean Corpuscular Volume 80.2 fL Mean Corpuscular Hemoglobin 25.1 pg Mean Corpuscular Hemoglobin Concent 31.3 g/dl Platelet Count 426 K/uL Mean Platelet Volume 9.4 fL Neutrophils (%) (Auto) 71.3 % Lymphocytes (%) (Auto) 18.7 % Monocytes (%) (Auto) 6.6 % Eosinophils (%) (Auto) 2.8 % Basophils (%) (Auto) 0.2 % Neutrophils # (Auto) 9.19 K/uL Lymphocytes # (Auto) 2.41 K/uL Monocytes # (Auto) 0.85 K/uL Eosinophils # (Auto) 0.36 K/uL Basophils # (Auto) 0.03 K/uL RDW Standard Deviation 57.0 fL RDW Coefficient of Variation 19.2 % Immature Granulocyte % (Auto) 0.4 % Immature Granulocyte # (Auto) 0.05 K/uL Hypochromasia PRESENT Sodium Level 137 mmol/L Potassium Level 3.6 mmol/L Chloride Level 105 mmol/L Carbon Dioxide Level 23 mmol/L Anion Gap 9.0 mmol/L Blood Urea Nitrogen 22 mg/dl Creatinine 1.00 mg/dl Est Creatinine Clear Calc Drug Dose 76.3 ml/min Estimated GFR () 89.9 Estimated GFR (Non- 77.5 BUN/Creatinine Ratio 22.0 Random Glucose 144 mg/dl Calcium Level 7.7 mg/dl Vancomycin Level Trough 30.7 mcg/ml
[2016-05-01] MEDS ORDERED: ATORVASTATIN 20 MG TAB PO ONE (11:51)
--- NOTE | 2016-05-01 16:15 | Pharmacy Progress Note ---
Pharmacy Antibiotic Prog Note Date of Service: May 01, 2016. Subjective: The patient is currently receiving vancomycin, zosyn and flagyl The patient is currently on day # 6 of IV therapy. Objective: Height (Feet): 5 Height (Inches): 11.00 Weight (Kilograms): 78.000 Levels: Item Value Date Time Vancomycin Level Trough 30.7 mcg/ml 05/01/16 0740 Lab Results (24hrs): Laboratory Tests Test 05/01/16 07:40 BUN/Creatinine Ratio 22.0 Blood Urea Nitrogen 22 mg/dl Creatinine 1.00 mg/dl White Blood Count 12.89 K/uL Red Blood Count 3.39 M/uL Hemoglobin 8.5 g/dL Hematocrit 27.2 % Mean Corpuscular Volume 80.2 fL Mean Corpuscular Hemoglobin 25.1 pg Mean Corpuscular Hemoglobin Concent 31.3 g/dl Platelet Count 426 K/uL Mean Platelet Volume 9.4 fL Neutrophils (%) (Auto) 71.3 % Lymphocytes (%) (Auto) 18.7 % Monocytes (%) (Auto) 6.6 % Eosinophils (%) (Auto) 2.8 % Basophils (%) (Auto) 0.2 % Neutrophils # (Auto) 9.19 K/uL Lymphocytes # (Auto) 2.41 K/uL Monocytes # (Auto) 0.85 K/uL Eosinophils # (Auto) 0.36 K/uL Basophils # (Auto) 0.03 K/uL Assessment & Plan: Patient on vancomycin and zosyn for possible pneumonia. Also on flagyl po for C diff infection. ID is following the patient. Of note patient with right AKA Vancomycin: * Trough level this am was supratherapeutic at ~30 mcg/ml (goal 15-20 mcg/ml) * Will hold doses today and get a random level in the am to assist with further dosing. * Estimated level tomorrow am still > 15 mcg/ml * Scr remains stable today, Scr 1.0 mg/dL (CrCl ~76 ml/min) Pharmacy will continue to follow and will adjust dose/frequency as necessary. Thank you
[2016-05-01] MEDS: RIVAROXABAN 20 MG TAB PO SCH (16:28)
--- NOTE | 2016-05-01 19:18 | Progress Note ---
Medicine Progress Note Date & Time of Visit: May 01, 2016 at 19:15. Subjective resting in bed in good spirits denies dyspnea, cough leg pain well controlled still has diarrhea but less no abdominal pain no other symptoms Objective Last 8 Hrs Date Time Temp Pulse Resp B/P Pulse Ox O2 Delivery O2 Flow Rate FiO2 05/01/16 16:00 Room Air 05/01/16 15:17 36.7 91 18 133/67 97 Room Air 05/01/16 12:01 36.4 86 18 119/65 97 Room Air 05/01/16 12:00 Room Air Physical Exam: General- oriented x 3, not in distress, speaks in sentences with no effort Eyes- (+) right eye blindness Neck-no JVD, no adenopathy Lungs- clear breath sounds bilaterally no rales/wheezes Heart- normal rate, regular rhythm; no murmur Abdomen- normal bowel sounds, soft, nontender Extremities- s/p R AKA: wound healing well, no edema/warmth/discharge Left Foot: (+) open ulcer on the 5th metatarsal plantar region- mild bleeding, no discharge; (+) eschar on the lateral plantar aspect and hindfoot Neuro- alert, oriented x 3; right eye blindness, no other gross focal deficits Skin- warm & dry Laboratory Results: Last 24 Hours Test 04/30/16 20:15 05/01/16 06:58 05/01/16 07:40 05/01/16 11:13 Bedside Glucose 194 mg/dl 171 mg/dl 122 mg/dl White Blood Count 12.89 K/uL Red Blood Count 3.39 M/uL Hemoglobin 8.5 g/dL Hematocrit 27.2 % Mean Corpuscular Volume 80.2 fL Mean Corpuscular Hemoglobin 25.1 pg Mean Corpuscular Hemoglobin Concent 31.3 g/dl Platelet Count 426 K/uL Mean Platelet Volume 9.4 fL Neutrophils (%) (Auto) 71.3 % Lymphocytes (%) (Auto) 18.7 % Monocytes (%) (Auto) 6.6 % Eosinophils (%) (Auto) 2.8 % Basophils (%) (Auto) 0.2 % Neutrophils # (Auto) 9.19 K/uL Lymphocytes # (Auto) 2.41 K/uL Monocytes # (Auto) 0.85 K/uL Eosinophils # (Auto) 0.36 K/uL Basophils # (Auto) 0.03 K/uL RDW Standard Deviation 57.0 fL RDW Coefficient of Variation 19.2 % Immature Granulocyte % (Auto) 0.4 % Immature Granulocyte # (Auto) 0.05 K/uL Hypochromasia PRESENT Sodium Level 137 mmol/L Potassium Level 3.6 mmol/L Chloride Level 105 mmol/L Carbon Dioxide Level 23 mmol/L Anion Gap 9.0 mmol/L Blood Urea Nitrogen 22 mg/dl Creatinine 1.00 mg/dl Est Creatinine Clear Calc Drug Dose 76.3 ml/min Estimated GFR () 89.9 Estimated GFR (Non- 77.5 BUN/Creatinine Ratio 22.0 Random Glucose 144 mg/dl Calcium Level 7.7 mg/dl Vancomycin Level Trough 30.7 mcg/ml Test 05/01/16 16:25 Bedside Glucose 83 mg/dl Assessment & Plan 65 year old male with history of Cardiomyopathy EF 15%, A fib on Xarelto, Severe PVD s/p recent Right TKA, DM, CKD, AOCD Was sent from [place] for hypoxia, nausea/vomiting x 2 days. POSSIBLE SEPTIC SHOCK SECONDARY TO PNEUMONIA, RIGHT LOWER LOBE- ASPIRATION VS. COMMUNITY ACQUIRED R/O LEFT FOOT ULCER INFECTION HISTORY OF RECENT RIGHT FOOT OSTEOMYELITIS S/P R AKA - BP stable after IV fluids - remains afebrile, leukocytosis resolved Blood cultures: negative MRSA Nasal swab: positive - on Vanco and ZOsyn Day 6 further antibiotic recommendations per ID, appreciate the input ACUTE HYPOXIC RESPIRATORY FAILURE, likely from PNEUMONIA : Resolved -On 6 L -100% on admission with no respiratory distress --> On RA now 99% -CXR- Moderate right pleural effusion, trace left pleural effusion, mild congestion (but was clinically dry) - management as noted above AMAURI ON CKD, Resolved -Likely secondary to volume depletion, pre renal -S/P IVF - hold lasix - Monitor ANEMIA OF CHRONIC DISEASE - Hg 9 as of 04/02/16 per outpatient records - Hg remaining stable ~8 FOBT positive but also has C diff Colitis - Iron Low - monitor Hg continue protonix daily on Iron supplement C Diff colitis - diarrhea improving - on Vanco PO ATRIAL FIBRILLATION -- Now NSR -On coreg 3.125 mg PO BID -On xarelto -Echo as above CHRONIC CHF, SYSTOLIC WITH EF 20% - lasix 40 mg bid on HOLD - On coreg, Lisinopril at home. - compensated at present ELEVATED TROPONIN Likely Demand ischemia secondary to above. No cardiac symptoms per patient Trop-0.782--1.800, 1.780, EKG- T wave inversion in I, ST depression in V3-V6 - no prior EKG for comparison -On ASA, Coreg, Lisinopril (held) -Echo-EF 20-25%, Apical septum dyskinetic, Basal anteroseptum thin and akinetic , Severe global hypokinesis, RV borderline dilated, Rt ventricular function reduced, Aortic sclerosis with no significant stenosis, Mild M R, Systolic PAP 42 mm Left ventricular systolic function is severely reduced. Lipid panel - normal range - cardiology consulted SEVERE PERIPHERAL VASCULAR DISEASE LEFT FOOT ULCER, ESCHAR RECENT RIGHT BELOW KNEE AMPUTATION FOLLOWED BY ABOVE KNEE AMPUTATION 1 Month ago in [place] Has hx of vascular surgery including balloon angioplasty/stent LLE - sharon removed ID consulted re: L foot wound -On ASA, statin started DM-IDDM, WITH COMPLICATIONS- Neuropathy/Retinopathy with right eye blindness -HBA1C 6.1 -ISS, Accuchecks, Lantus - Pharm consult COPD -No signs of COPD exacerbation , no wheezing -Continue with nebulizer HYPERTENSION -Mx for hypotension as above PAIN MX -On MS Contin 15 mg q BID, Oxycodone 5 mg prn - home meds - hold due to change in mental status -Likely on it secondary to recent surgeries DEPRESSION -On Escitalopram DVT PROPHYLAXIS High risk, on xarelto GI PROPHYLAXIS Protonix CODE STATUS- DNR/DNI per brother /patient No advance directives, but verbally confirms that his brother Kraig or 2nd brother make medical decisions on his behalf if he cannot DISPOSITION PT/OT Plan will be [facility] after discharge Current Inpatient Medications: Current Inpatient Medications Medications (Trade) Dose Ordered Sig/Abhijit Route Start Time Stop Time Status Last Admin Dose Admin Acetaminophen (Tylenol Tab) 650 mg Q4 PRN PO 04/26/16 10:15 05/26/16 10:14 04/30/16 23:17 650 MG Aspirin (Ecotrin Tab) 81 mg DAILY PO 04/27/16 09:00 05/27/16 08:59 05/01/16 09:00 81 MG Collagenase (Santyl Oint) 1 appln DAILY EXT 04/27/16 09:00 05/27/16 08:59 05/01/16 09:08 1 APPLN Docusate Sodium (coLACE CAP) 100 mg BID PO 04/26/16 21:00 05/26/16 20:59 04/29/16 20:24 100 MG Escitalopram Oxalate (Lexapro Tab) 10 mg DAILY PO 04/27/16 09:00 05/27/16 08:59 05/01/16 09:01 10 MG Gabapentin (Neurontin Cap) 100 mg TID PO 04/26/16 14:00 05/26/16 13:59 05/01/16 14:00 100 MG Lactobacillus Acidophilus (Floranex Tab) 1 tab TIDM PO 04/26/16 16:45 05/26/16 16:44 05/01/16 16:28 1 TAB Morphine Sulfate (Oramorph Sr Tab) 15 mg Q12 PO 04/26/16 21:00 05/10/16 20:59 Future Hold Multivitamins/ Minerals (Multivitamin W/ Minerals Tab) 1 tab DAILY PO 04/27/16 09:00 05/27/16 08:59 05/01/16 09:00 1 TAB Oxycodone HCl (Roxicodone Immediate Rel Tab) 5 mg Q6 PRN PO 04/26/16 10:15 05/10/16 10:14 Future hold 05/01/16 05:39 5 MG Sodium Chloride ([place] Nasal [place]) 2 sprays QID PRN SHANNON 04/26/16 10:15 05/26/16 10:14 Senna/Docusate Sodium (Senokot S Tab) 1 tab Q24H PRN PO 04/26/16 10:15 05/26/16 10:14 Zinc Sulfate (Zinc Sulfate Cap) 220 mg DAILY PO 04/27/16 09:00 05/27/16 08:59 05/01/16 09:02 220 MG Ferrous Sulfate 325 mg 325 mg TIDM PO 04/26/16 16:45 05/26/16 16:44 05/01/16 16:28 325 MG Piperacillin Sod/ Tazobactam Sod/ Dextrose (Zosyn Iv/D5 100ml) 115 ml @ 28.75 mls/ hr Q8 IV 04/26/16 14:00 05/06/16 13:59 05/01/16 14:00 28.75 MLS/HR Vancomycin HCl (Consult) 1 ea UD PRN N/A 04/26/16 10:43 05/26/16 10:42 Ondansetron HCl (Zofran Inj) 4 mg Q6H PRN IV 04/26/16 10:15 05/26/16 10:14 04/30/16 11:49 4 MG Nitroglycerin (Nitrostat Tab) 0.4 mg UD PRN SL 04/26/16 10:15 05/26/16 10:14 Polyethylene (Miralax Powder Packet) 17 gm DAILY PRN PO 04/26/16 10:15 05/26/16 10:14 Insulin Aspart (novoLOG ASPART) SLIDING SCALE If C... ACHS SC 04/26/16 11:00 05/26/16 10:59 05/01/16 17:28 4 UNITS Glucose (Glucose 40% Gel) 15-30 GRAMS 15 GRAMS... UD PRN PO 04/26/16 10:15 05/26/16 10:14 Glucose (Glucose Chew Tab) 4-8 Tablets 4 Tabl... UD PRN PO 04/26/16 10:15 05/26/16 10:14 Dextrose (Dextrose 50% 50ML Syringe) 25-50ML OF 50% DW IV FOR... UD PRN IV 04/26/16 10:15 05/26/16 10:14 Glucagon (Glucagon Inj) 1 mg UD PRN SQ 04/26/16 10:15 05/26/16 10:14 Piperacillin Sod/ Tazobactam Sod (Consult) 1 ea UD PRN N/A 04/26/16 11:00 05/26/16 10:59 Albuterol/ Ipratropium (Duoneb) 3 ml Q2H PRN INH 04/26/16 12:30 05/26/16 12:29 Miscellaneous Information (Consult Glycemic Management Pharmacy) 1 ea UD PRN N/A 04/28/16 12:45 05/28/16 12:44 Enteral Nutritional Formula (Boost Glucose Control) 1 can BIDM PO 04/28/16 16:45 05/28/16 16:44 05/01/16 16:26 1 CAN Rivaroxaban (Xarelto Tab) 20 mg QDD PO 04/28/16 16:45 05/28/16 16:44 05/01/16 16:28 20 MG Albuterol/ Ipratropium (Combivent Respimat Inh) 1 puffs QID INH 04/28/16 17:00 05/28/16 16:59 05/01/16 16:28 1 PUFFS Lisinopril 5 mg 5 mg QAM PO 04/30/16 09:00 05/30/16 08:59 05/01/16 09:00 5 MG Pantoprazole Sodium/Syringe (Protonix Inj/ Syringe) 10 ml @ 5 mls/min DAILY@ IV 04/29/16 21:00 05/29/16 20:59 05/01/16 09:08 5 MLS/MIN Carvedilol (Coreg Tab) 6.25 mg BID PO 04/30/16 21:00 05/30/16 20:59 05/01/16 09:02 6.25 MG Vancomycin HCl (Vancomycin Oral Soln) 125 mg QID PO 04/30/16 17:00 05/14/16 16:59 05/01/16 16:28 125 MG Raspberry (Raspberry Syrup 5ml Cup) 5 ml QID PO 04/30/16 17:00 05/14/16 16:59 05/01/16 16:28 5 ML Insulin Glargine (Lantus Solostar Pen) SEE PROTOCOL QAM SC 05/01/16 09:00 05/31/16 08:59 05/01/16 08:30 10 UNIT Atorvastatin Calcium (Lipitor Tab) 20 mg QAM PO 05/02/16 09:00 06/01/16 08:59 Metronidazole (Flagyl Tab) 500 mg TID PO 05/01/16 21:00 05/15/16 20:59
--- NOTE | 2016-05-01 20:00 | Infectious Disease Progress Nt ---
Progress Note Date of Service May 01, 2016. Subjective Pt evaluation today including: conversation w/ patient, physical exam, chart review, lab review, review of studies, conversation w/ sap pp consultant, review of inpatient medication list patient offers no new complaints today. Diarrhea improving. Remains afebrile. All Other Systems: Reviewed and Negative Medications Current Inpatient Medications Medications (Trade) Dose Ordered Sig/Abhijit Route Start Time Stop Time Status Last Admin Dose Admin Acetaminophen (Tylenol Tab) 650 mg Q4 PRN PO 04/26/16 10:15 05/26/16 10:14 04/30/16 23:17 650 MG Aspirin (Ecotrin Tab) 81 mg DAILY PO 04/27/16 09:00 05/27/16 08:59 05/01/16 09:00 81 MG Collagenase (Santyl Oint) 1 appln DAILY EXT 04/27/16 09:00 05/27/16 08:59 05/01/16 09:08 1 APPLN Docusate Sodium (coLACE CAP) 100 mg BID PO 04/26/16 21:00 05/26/16 20:59 04/29/16 20:24 100 MG Escitalopram Oxalate (Lexapro Tab) 10 mg DAILY PO 04/27/16 09:00 05/27/16 08:59 05/01/16 09:01 10 MG Gabapentin (Neurontin Cap) 100 mg TID PO 04/26/16 14:00 05/26/16 13:59 05/01/16 14:00 100 MG Lactobacillus Acidophilus (Floranex Tab) 1 tab TIDM PO 04/26/16 16:45 05/26/16 16:44 05/01/16 16:28 1 TAB Morphine Sulfate (Oramorph Sr Tab) 15 mg Q12 PO 04/26/16 21:00 05/10/16 20:59 Future Hold Multivitamins/ Minerals (Multivitamin W/ Minerals Tab) 1 tab DAILY PO 04/27/16 09:00 05/27/16 08:59 05/01/16 09:00 1 TAB Oxycodone HCl (Roxicodone Immediate Rel Tab) 5 mg Q6 PRN PO 04/26/16 10:15 05/10/16 10:14 Future hold 05/01/16 05:39 5 MG Sodium Chloride ([place] Nasal [place]) 2 sprays QID PRN SHANNON 04/26/16 10:15 05/26/16 10:14 Senna/Docusate Sodium (Senokot S Tab) 1 tab Q24H PRN PO 04/26/16 10:15 05/26/16 10:14 Zinc Sulfate (Zinc Sulfate Cap) 220 mg DAILY PO 04/27/16 09:00 05/27/16 08:59 05/01/16 09:02 220 MG Ferrous Sulfate 325 mg 325 mg TIDM PO 04/26/16 16:45 05/26/16 16:44 05/01/16 16:28 325 MG Piperacillin Sod/ Tazobactam Sod/ Dextrose (Zosyn Iv/D5 100ml) 115 ml @ 28.75 mls/ hr Q8 IV 04/26/16 14:00 05/06/16 13:59 05/01/16 14:00 28.75 MLS/HR Vancomycin HCl (Consult) 1 ea UD PRN N/A 04/26/16 10:43 05/26/16 10:42 Ondansetron HCl (Zofran Inj) 4 mg Q6H PRN IV 04/26/16 10:15 05/26/16 10:14 04/30/16 11:49 4 MG Nitroglycerin (Nitrostat Tab) 0.4 mg UD PRN SL 04/26/16 10:15 05/26/16 10:14 Polyethylene (Miralax Powder Packet) 17 gm DAILY PRN PO 04/26/16 10:15 05/26/16 10:14 Insulin Aspart (novoLOG ASPART) SLIDING SCALE If C... ACHS SC 04/26/16 11:00 05/26/16 10:59 05/01/16 17:28 4 UNITS Glucose (Glucose 40% Gel) 15-30 GRAMS 15 GRAMS... UD PRN PO 04/26/16 10:15 05/26/16 10:14 Glucose (Glucose Chew Tab) 4-8 Tablets 4 Tabl... UD PRN PO 04/26/16 10:15 05/26/16 10:14 Dextrose (Dextrose 50% 50ML Syringe) 25-50ML OF 50% DW IV FOR... UD PRN IV 04/26/16 10:15 05/26/16 10:14 Glucagon (Glucagon Inj) 1 mg UD PRN SQ 04/26/16 10:15 05/26/16 10:14 Piperacillin Sod/ Tazobactam Sod (Consult) 1 ea UD PRN N/A 04/26/16 11:00 05/26/16 10:59 Albuterol/ Ipratropium (Duoneb) 3 ml Q2H PRN INH 04/26/16 12:30 05/26/16 12:29 Miscellaneous Information (Consult Glycemic Management Pharmacy) 1 ea UD PRN N/A 04/28/16 12:45 05/28/16 12:44 Enteral Nutritional Formula (Boost Glucose Control) 1 can BIDM PO 04/28/16 16:45 05/28/16 16:44 05/01/16 16:26 1 CAN Rivaroxaban (Xarelto Tab) 20 mg QDD PO 04/28/16 16:45 05/28/16 16:44 05/01/16 16:28 20 MG Albuterol/ Ipratropium (Combivent Respimat Inh) 1 puffs QID INH 04/28/16 17:00 05/28/16 16:59 05/01/16 16:28 1 PUFFS Lisinopril (Zestril Tab) 5 mg QAM PO 04/30/16 09:00 05/30/16 08:59 05/01/16 09:00 5 MG Carvedilol (Coreg Tab) 6.25 mg BID PO 04/30/16 21:00 05/30/16 20:59 05/01/16 09:02 6.25 MG Vancomycin HCl (Vancomycin Oral Soln) 125 mg QID PO 04/30/16 17:00 05/14/16 16:59 05/01/16 16:28 125 MG Raspberry (Raspberry Syrup 5ml Cup) 5 ml QID PO 04/30/16 17:00 05/14/16 16:59 05/01/16 16:28 5 ML Insulin Glargine (Lantus Solostar Pen) SEE PROTOCOL QAM SC 05/01/16 09:00 05/31/16 08:59 05/01/16 08:30 10 UNIT Atorvastatin Calcium 20 mg 20 mg QAM PO 05/02/16 09:00 06/01/16 08:59 Pantoprazole Sodium/Syringe (Protonix Inj/ Syringe) 10 ml @ 5 mls/min DAILY IV 05/02/16 09:00 06/01/16 08:59 Objective Vital Signs Date Time Temp Pulse Resp B/P Pulse Ox O2 Delivery O2 Flow Rate FiO2 05/01/16 19:39 36.6 88 20 139/73 100 Room Air 05/01/16 16:00 Room Air 05/01/16 15:17 36.7 91 18 133/67 97 Room Air 05/01/16 12:01 36.4 86 18 119/65 97 Room Air 05/01/16 12:00 Room Air 05/01/16 10:30 36.4 86 18 119/65 97 Room Air 05/01/16 08:03 36.7 88 18 133/76 96 Room Air 05/01/16 08:00 Room Air 05/01/16 04:20 36.7 86 18 115/69 95 Room Air 05/01/16 04:00 Room Air 05/01/16 00:00 Room Air 04/30/16 23:18 36.7 95 20 130/79 97 Room Air 04/30/16 20:00 Room Air Physical Exam General Appearance: WD/WN, no apparent distress Eyes: sclerae normal ENT: normal ENT inspection, pharynx normal Neck: supple, trachea midline Respiratory/Chest: chest non-tender, lungs clear, normal breath sounds Cardiovascular: regular rate, rhythm, no gallop, no murmur Abdomen: normal bowel sounds, non tender, soft, no organomegaly Extremities: non-tender, no calf tenderness Neurologic/Psychiatric: alert, oriented x 3 Skin: normal color, no rash, + pertinent finding ( AKA site and foot ulcers healing) Lymphatic: no adenopathy Laboratory Results Last 24 Hours Test 04/30/16 20:15 05/01/16 06:58 05/01/16 07:40 05/01/16 11:13 Bedside Glucose 194 mg/dl 171 mg/dl 122 mg/dl White Blood Count 12.89 K/uL Red Blood Count 3.39 M/uL Hemoglobin 8.5 g/dL Hematocrit 27.2 % Mean Corpuscular Volume 80.2 fL Mean Corpuscular Hemoglobin 25.1 pg Mean Corpuscular Hemoglobin Concent 31.3 g/dl Platelet Count 426 K/uL Mean Platelet Volume 9.4 fL Neutrophils (%) (Auto) 71.3 % Lymphocytes (%) (Auto) 18.7 % Monocytes (%) (Auto) 6.6 % Eosinophils (%) (Auto) 2.8 % Basophils (%) (Auto) 0.2 % Neutrophils # (Auto) 9.19 K/uL Lymphocytes # (Auto) 2.41 K/uL Monocytes # (Auto) 0.85 K/uL Eosinophils # (Auto) 0.36 K/uL Basophils # (Auto) 0.03 K/uL RDW Standard Deviation 57.0 fL RDW Coefficient of Variation 19.2 % Immature Granulocyte % (Auto) 0.4 % Immature Granulocyte # (Auto) 0.05 K/uL Hypochromasia PRESENT Sodium Level 137 mmol/L Potassium Level 3.6 mmol/L Chloride Level 105 mmol/L Carbon Dioxide Level 23 mmol/L Anion Gap 9.0 mmol/L Blood Urea Nitrogen 22 mg/dl Creatinine 1.00 mg/dl Est Creatinine Clear Calc Drug Dose 76.3 ml/min Estimated GFR () 89.9 Estimated GFR (Non- 77.5 BUN/Creatinine Ratio 22.0 Random Glucose 144 mg/dl Calcium Level 7.7 mg/dl Vancomycin Level Trough 30.7 mcg/ml Test 05/01/16 16:25 Bedside Glucose 83 mg/dl Assessment and Plan 65 yo with DM with neuropathy, severe PAD s/p right AKA now worsening hypoxia and possible pneumonia with HCAP and aspiration types possible. Also with possible early infection around left heel wound. For now, vancomycin and Zosyn appropriate, likely in range of 7 days if continues to improve. Will follow.
[2016-05-01] MEDS ORDERED: METRONIDAZOLE 500 MG TAB PO SCH (21:00)
[2016-05-02] MEDS: ACETAMINOPHEN 325 MG TAB PO PRN (01:53)
[2016-05-02] MEDS: OXYCODONE HCL IR 5 MG TAB (IMMEDIATE RELEASE) PO PRN ×2 (03:08→22:19)
[2016-05-02 04:15] VITALS: BP 137/73; PULSE 89; TEMP 36.8; O2SAT 97
[2016-05-02] MEDS: PIPERACILL/TAZOBAC IV 3.375 GM in DEXTROSE 5% 100ML 100 ML IV SCH ×3 (05:26→22:13)
[2016-05-02 06:55] LABS: BASO % 0.5 %; BASO ABS # 0.05 K/uL (0-0.2); HEMATOCRIT 27.3 % (42-52); IG% 0.6 %; LYMPH ABS # 2.26 K/uL (1.2-3.4); MEAN CELL VOLUME 80.8 fL (80-100); MEAN CORPUSCULAR HEMOGLOBIN 25.1 pg (25-34); MEAN CORPUSCULAR HGB CONC 31.1 g/dl (32-36); MEAN PLATELET VOLUME 9.4 fL (7.4-10.4); NEUT % 66.9 %; PLATELET COUNT 409 K/uL (130-400); RED BLOOD COUNT 3.38 M/uL (4.7-6.1); WHITE BLOOD COUNT 10.26 K/uL (4.8-10.8)
[2016-05-02 07:14] VITALS: BP 130/75; PULSE 93; TEMP 36.3; O2SAT 97
[2016-05-02 07:23] LABS: BUN/CREATININE RATIO 19.6 (10-20); CALCIUM 7.6 mg/dl (8.5-10.1); COMPLETE YES; CREATININE 1.1 mg/dl (0.60-1.40); POLYCHROMASIA 1+; POTASSIUM 3.4 mmol/L (3.5-5.1)
[2016-05-02] MEDS: BOOST GLUCOSE CONTROL PO SCH ×2 (07:30→18:52)
[2016-05-02] MEDS: DOCUSATE SODIUM 100 MG CAP PO SCH (08:13)
[2016-05-02] MEDS: RASPBERRY SYRUP 5 ML UDP PO SCH ×4 (08:21→22:13)
[2016-05-02] MEDS: VANCOMYCIN HCL 125 MG/2.5ML SOLN PO SCH ×4 (08:21→22:13)
[2016-05-02] MEDS: ATORVASTATIN 20 MG TAB PO SCH (08:21)
[2016-05-02] MEDS: IPRATROPIUM BROMIDE/ALBUTEROL respimat INH INH SCH ×4 (08:22→22:14)
[2016-05-02] MEDS: LISINOPRIL 5 MG TAB PO SCH (08:22)
[2016-05-02] MEDS: LACTOBACILLUS ACIDOPHILUS (FLORANEX) TAB PO SCH ×3 (08:23→18:54)
[2016-05-02] MEDS: CEROVITE ADV FORMULA TAB PO SCH (08:23)
[2016-05-02] MEDS: ASPIRIN 81 MG ECTAB PO SCH (08:23)
[2016-05-02] MEDS: ZINC SULFATE 220 MG CAP PO SCH (08:23)
[2016-05-02] MEDS: FERROUS SULFATE 325 MG TAB PO SCH ×3 (08:23→18:54)
[2016-05-02] MEDS: ESCITALOPRAM OXALATE 10 MG TAB PO SCH (08:23)
[2016-05-02] MEDS: GABAPENTIN 100 MG CAP PO SCH ×3 (08:23→22:15)
[2016-05-02] MEDS: CARVEDILOL 6.25 MG TAB PO SCH ×2 (08:24→22:14)
[2016-05-02] MEDS: INSULIN ASPART 100 UNITS/ML 3 ML PEN SC SCH ×5 (08:28→22:18)
[2016-05-02] MEDS: INSULIN GLARGINE SOLOSTAR 100 UNITS/ML 3 ML PEN SC SCH (08:29)
[2016-05-02] MEDS ORDERED: PANTOprazole INJ 40 MG in SYRINGE 0 ML IV SCH (09:00)
[2016-05-02 11:11] VITALS: BP 120/65; PULSE 90; TEMP 36.4; O2SAT 97
--- NOTE | 2016-05-02 11:47 | CARDIOLOGY PROGRESS NOTE ---
DATE: 05/02/2016 DATE: 05/02/2016. The patient seen and examined. Chart, medications, telemetry reviewed. SUBJECTIVE: Overall, patient feels clinically stable. Notes no dizziness or lightheadedness, is having frequent diarrhea in association with C. difficile infection. Notes no chest pain or discomfort. Notes no worsening edema. I's and O's are notable for stability, though with patient was frequent bowel movements weight has been stable. OBJECTIVE: VITAL SIGNS: Heart rate is 86, blood pressure is 120/65. NECK: Thin. There is no jugular venous distention. LUNGS: Reveal diminished breath sounds but are predominantly clear. CARDIOVASCULAR EXAMINATION: Regular. There is no S3 gallop. EXTREMITIES: Notable for right AKA, mild ischemic changes left lower extremity. LABORATORY STUDIES: White cell count 10.2, hemoglobin 8.5. Sodium is 139, potassium 3.4, chloride is 104, bicarbonate 25, BUN is 22, creatinine is 1.1. IMPRESSION: A 65-year-old male with complex history of mixed cardiomyopathy with likely underlying ischemic coronary artery disease, severe LV dysfunction with compensated systolic heart failure, atherosclerotic peripheral vascular disease status post recent above-knee amputation. He is currently receiving antibiotic therapies for wound infection with complex issues including C. difficile superinfection. PLAN: Continue current medical therapies. Continue to hold diuretics,given bowel losses. Would supplement potassium. Will follow up patient as clinical course proceeds. MADISOND
[2016-05-02] MEDS: COLLAGENASE OINT 30 GM TUBE EXT SCH (13:00)
--- NOTE | 2016-05-02 13:25 | Progress Note ---
Medicine Progress Note Date & Time of Visit: May 02, 2016 at 13:22. Subjective states he feels fine overall diarrhea improving, no abdominal pain no dyspnea, cough, chest pain denies other symptoms Objective Last 8 Hrs Date Time Temp Pulse Resp B/P Pulse Ox O2 Delivery O2 Flow Rate FiO2 05/02/16 11:11 36.4 90 18 120/65 97 Room Air 05/02/16 07:30 Room Air 05/02/16 07:14 36.3 93 20 130/75 97 Room Air Physical Exam: General- oriented x 3, not in distress, speaks in sentences with no effort Eyes- (+) right eye blindness Neck-no JVD Lungs- clear breath sounds bilaterally no rales/wheezes Heart- normal rate, regular rhythm; no murmur Abdomen- normal bowel sounds, soft, nontender Extremities- s/p R AKA: wound healing well, no edema/warmth/discharge Left Foot: (+) open ulcer on the 5th metatarsal plantar region- no bleeding, no discharge; (+) eschar on the lateral plantar aspect and hindfoot Neuro- alert, oriented x 3; right eye blindness, no other gross focal deficits Skin- warm & dry Laboratory Results: Last 24 Hours Test 05/01/16 16:25 05/01/16 20:19 05/02/16 06:30 05/02/16 06:54 Bedside Glucose 83 mg/dl 194 mg/dl 177 mg/dl White Blood Count 10.26 K/uL Red Blood Count 3.38 M/uL Hemoglobin 8.5 g/dL Hematocrit 27.3 % Mean Corpuscular Volume 80.8 fL Mean Corpuscular Hemoglobin 25.1 pg Mean Corpuscular Hemoglobin Concent 31.1 g/dl Platelet Count 409 K/uL Mean Platelet Volume 9.4 fL Neutrophils (%) (Auto) 66.9 % Lymphocytes (%) (Auto) 22.0 % Monocytes (%) (Auto) 6.0 % Eosinophils (%) (Auto) 4.0 % Basophils (%) (Auto) 0.5 % Neutrophils # (Auto) 6.86 K/uL Lymphocytes # (Auto) 2.26 K/uL Monocytes # (Auto) 0.62 K/uL Eosinophils # (Auto) 0.41 K/uL Basophils # (Auto) 0.05 K/uL RDW Standard Deviation 56.8 fL RDW Coefficient of Variation 19.2 % Immature Granulocyte % (Auto) 0.6 % Immature Granulocyte # (Auto) 0.06 K/uL Polychromasia 1+ Sodium Level 139 mmol/L Potassium Level 3.4 mmol/L Chloride Level 104 mmol/L Carbon Dioxide Level 25 mmol/L Anion Gap 10.0 mmol/L Blood Urea Nitrogen 22 mg/dl Creatinine 1.10 mg/dl Est Creatinine Clear Calc Drug Dose 69.4 ml/min Estimated GFR () 80.1 Estimated GFR (Non- 69.1 BUN/Creatinine Ratio 19.6 Random Glucose 175 mg/dl Calcium Level 7.6 mg/dl Random Vancomycin Level 19.3 mcg/ml Test 05/02/16 11:33 Bedside Glucose 214 mg/dl Assessment & Plan 65 year old male with history of Cardiomyopathy EF 15%, A fib on Xarelto, Severe PVD s/p recent Right TKA, DM, CKD, AOCD Was sent from [place] for hypoxia, nausea/vomiting x 2 days. POSSIBLE SEPTIC SHOCK SECONDARY TO PNEUMONIA, RIGHT LOWER LOBE- ASPIRATION VS. COMMUNITY ACQUIRED R/O LEFT FOOT ULCER INFECTION HISTORY OF RECENT RIGHT FOOT OSTEOMYELITIS S/P R AKA - BP stable after IV fluids - remains afebrile, leukocytosis resolved Blood cultures: negative MRSA Nasal swab: positive - on Vanco and ZOsyn Day 09/04 possible d/c Zosyn tomorrow ACUTE HYPOXIC RESPIRATORY FAILURE, likely from PNEUMONIA : Resolved -On 6 L -100% on admission with no respiratory distress --> On RA now 99% -CXR- Moderate right pleural effusion, trace left pleural effusion, mild congestion (but was clinically dry) - management as noted above AMAURI ON CKD, Resolved -Likely secondary to volume depletion, pre renal -S/P IVF - hold lasix - Monitor ANEMIA OF CHRONIC DISEASE - Hg 9 as of 04/02/16 per outpatient records - Hg remaining stable ~8 FOBT positive but also has C diff Colitis - Iron Low - monitor Hg- stable ~8 continue protonix daily on Iron supplement C Diff colitis - diarrhea improving - on Vanco PO ATRIAL FIBRILLATION -- Now NSR -On coreg 3.125 mg PO BID -On xarelto -Echo as above CHRONIC CHF, SYSTOLIC WITH EF 20% - lasix 40 mg bid on HOLD - On coreg, Lisinopril at home. - compensated at present ELEVATED TROPONIN Likely Demand ischemia secondary to above. No cardiac symptoms per patient Trop-0.782--1.800, 1.780, EKG- T wave inversion in I, ST depression in V3-V6 - no prior EKG for comparison -On ASA, Coreg, Lisinopril (held) -Echo-EF 20-25%, Apical septum dyskinetic, Basal anteroseptum thin and akinetic , Severe global hypokinesis, RV borderline dilated, Rt ventricular function reduced, Aortic sclerosis with no significant stenosis, Mild M R, Systolic PAP 42 mm Left ventricular systolic function is severely reduced. 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 -HBA1C 6.1 -ISS, Accuchecks, Lantus - Pharm consult COPD -No signs of COPD exacerbation , no wheezing -Continue with nebulizer HYPERTENSION -Mx for hypotension as above PAIN MX -On MS Contin 15 mg q BID, Oxycodone 5 mg prn - home meds - hold due to change in mental status -Likely on it secondary to recent surgeries DEPRESSION -On Escitalopram DVT PROPHYLAXIS High risk, on xarelto GI PROPHYLAXIS Protonix CODE STATUS- DNR/DNI per brother /patient No advance directives, but verbally confirms that his brother Kraig or 2nd brother make medical decisions on his behalf if he cannot DISPOSITION PT/OT Plan will be [facility] after discharge Current Inpatient Medications: Current Inpatient Medications Medications (Trade) Dose Ordered Sig/Abhijit Route Start Time Stop Time Status Last Admin Dose Admin Acetaminophen (Tylenol Tab) 650 mg Q4 PRN PO 04/26/16 10:15 05/26/16 10:14 05/02/16 01:53 650 MG Aspirin (Ecotrin Tab) 81 mg DAILY PO 04/27/16 09:00 05/27/16 08:59 05/02/16 08:23 81 MG Collagenase (Santyl Oint) 1 appln DAILY EXT 04/27/16 09:00 05/27/16 08:59 05/01/16 09:08 1 APPLN Escitalopram Oxalate (Lexapro Tab) 10 mg DAILY PO 04/27/16 09:00 05/27/16 08:59 05/02/16 08:23 10 MG Gabapentin (Neurontin Cap) 100 mg TID PO 04/26/16 14:00 05/26/16 13:59 05/02/16 08:23 100 MG Lactobacillus Acidophilus (Floranex Tab) 1 tab TIDM PO 04/26/16 16:45 05/26/16 16:44 05/02/16 12:09 1 TAB Morphine Sulfate (Oramorph Sr Tab) 15 mg Q12 PO 04/26/16 21:00 05/10/16 20:59 Future Hold Multivitamins/ Minerals (Multivitamin W/ Minerals Tab) 1 tab DAILY PO 04/27/16 09:00 05/27/16 08:59 05/02/16 08:23 1 TAB Oxycodone HCl (Roxicodone Immediate Rel Tab) 5 mg Q6 PRN PO 04/26/16 10:15 05/10/16 10:14 Future hold 05/02/16 03:08 5 MG Sodium Chloride ([place] Nasal [place]) 2 sprays QID PRN SHANNON 04/26/16 10:15 05/26/16 10:14 Senna/Docusate Sodium (Senokot S Tab) 1 tab Q24H PRN PO 04/26/16 10:15 05/26/16 10:14 Zinc Sulfate (Zinc Sulfate Cap) 220 mg DAILY PO 04/27/16 09:00 05/27/16 08:59 05/02/16 08:23 220 MG Ferrous Sulfate 325 mg 325 mg TIDM PO 04/26/16 16:45 05/26/16 16:44 05/02/16 12:09 325 MG Piperacillin Sod/ Tazobactam Sod/ Dextrose (Zosyn Iv/D5 100ml) 115 ml @ 28.75 mls/ hr Q8 IV 04/26/16 14:00 05/06/16 13:59 05/02/16 05:26 28.75 MLS/HR Vancomycin HCl (Consult) 1 ea UD PRN N/A 04/26/16 10:43 05/26/16 10:42 Ondansetron HCl (Zofran Inj) 4 mg Q6H PRN IV 04/26/16 10:15 05/26/16 10:14 04/30/16 11:49 4 MG Nitroglycerin (Nitrostat Tab) 0.4 mg UD PRN SL 04/26/16 10:15 05/26/16 10:14 Polyethylene (Miralax Powder Packet) 17 gm DAILY PRN PO 04/26/16 10:15 05/26/16 10:14 Insulin Aspart (novoLOG ASPART) SLIDING SCALE If C... ACHS SC 04/26/16 11:00 05/26/16 10:59 05/02/16 12:13 8 UNITS Glucose (Glucose 40% Gel) 15-30 GRAMS 15 GRAMS... UD PRN PO 04/26/16 10:15 05/26/16 10:14 Glucose (Glucose Chew Tab) 4-8 Tablets 4 Tabl... UD PRN PO 04/26/16 10:15 05/26/16 10:14 Dextrose (Dextrose 50% 50ML Syringe) 25-50ML OF 50% DW IV FOR... UD PRN IV 04/26/16 10:15 05/26/16 10:14 Glucagon (Glucagon Inj) 1 mg UD PRN SQ 04/26/16 10:15 05/26/16 10:14 Piperacillin Sod/ Tazobactam Sod (Consult) 1 ea UD PRN N/A 04/26/16 11:00 05/26/16 10:59 Albuterol/ Ipratropium (Duoneb) 3 ml Q2H PRN INH 04/26/16 12:30 05/26/16 12:29 Miscellaneous Information (Consult Glycemic Management Pharmacy) 1 ea UD PRN N/A 04/28/16 12:45 05/28/16 12:44 Enteral Nutritional Formula (Boost Glucose Control) 1 can BIDM PO 04/28/16 16:45 05/28/16 16:44 05/02/16 07:30 1 CAN Rivaroxaban (Xarelto Tab) 20 mg QDD PO 04/28/16 16:45 05/28/16 16:44 05/01/16 16:28 20 MG Albuterol/ Ipratropium (Combivent Respimat Inh) 1 puffs QID INH 04/28/16 17:00 05/28/16 16:59 05/02/16 12:09 1 PUFFS Lisinopril (Zestril Tab) 5 mg QAM PO 04/30/16 09:00 05/30/16 08:59 05/02/16 08:22 5 MG Carvedilol (Coreg Tab) 6.25 mg BID PO 04/30/16 21:00 05/30/16 20:59 05/02/16 08:24 6.25 MG Vancomycin HCl (Vancomycin Oral Soln) 125 mg QID PO 04/30/16 17:00 05/14/16 16:59 05/02/16 08:21 125 MG Raspberry (Raspberry Syrup 5ml Cup) 5 ml QID PO 04/30/16 17:00 05/14/16 16:59 05/02/16 08:21 5 ML Insulin Glargine (Lantus Solostar Pen) SEE PROTOCOL QAM SC 05/01/16 09:00 05/31/16 08:59 05/02/16 08:29 10 UNIT Atorvastatin Calcium 20 mg 20 mg QAM PO 05/02/16 09:00 06/01/16 08:59 05/02/16 08:21 20 MG Pantoprazole Sodium/Syringe (Protonix Inj/ Syringe) 10 ml @ 5 mls/min DAILY IV 05/02/16 09:00 06/01/16 08:59 05/02/16 08:24 5 MLS/MIN Potassium Chloride (Klor-Con Tab) 40 meq ONE PO 05/02/16 13:15 06/01/16 13:14 UNV
[2016-05-02] MEDS ORDERED: POTASSIUM CHLORIDE 20 MEQ TABCR PO ONE (14:15)
[2016-05-02 15:16] VITALS: BP 120/65; PULSE 90; TEMP 36.4; O2SAT 97
[2016-05-02 16:33] VITALS: BP 154/76; PULSE 90; TEMP 36.7; O2SAT 100
[2016-05-02 16:55] VITALS: O2SAT 100
[2016-05-02] MEDS: RIVAROXABAN 20 MG TAB PO SCH (18:53)
[2016-05-03 00:20] VITALS: BP 150/71; PULSE 93; TEMP 36.5; O2SAT 97
[2016-05-03] MEDS: PIPERACILL/TAZOBAC IV 3.375 GM in DEXTROSE 5% 100ML 100 ML IV SCH ×2 (06:20→13:39)
[2016-05-03 07:28] LABS: BASO % 0.3 %; BASO ABS # 0.03 K/uL (0-0.2); HEMATOCRIT 27.4 % (42-52); IG% 0.7 %; LYMPH % 18.2 %; MEAN CELL VOLUME 80.4 fL (80-100); MEAN CORPUSCULAR HEMOGLOBIN 24.6 pg (25-34); MEAN CORPUSCULAR HGB CONC 30.7 g/dl (32-36); MEAN PLATELET VOLUME 9.6 fL (7.4-10.4); MONO % 7.2 %; NEUT % 70.6 %; PLATELET COUNT 434 K/uL (130-400); RED BLOOD COUNT 3.41 M/uL (4.7-6.1); WHITE BLOOD COUNT 11.56 K/uL (4.8-10.8)
[2016-05-03 08:00] VITALS: O2SAT 97
[2016-05-03] MEDS: ASPIRIN 81 MG ECTAB PO SCH (08:02)
[2016-05-03] MEDS: FERROUS SULFATE 325 MG TAB PO SCH ×3 (08:02→16:20)
[2016-05-03] MEDS: ATORVASTATIN 20 MG TAB PO SCH (08:02)
[2016-05-03] MEDS: CEROVITE ADV FORMULA TAB PO SCH (08:03)
[2016-05-03] MEDS: CARVEDILOL 6.25 MG TAB PO SCH ×2 (08:03→21:04)
[2016-05-03] MEDS: ESCITALOPRAM OXALATE 10 MG TAB PO SCH (08:03)
[2016-05-03] MEDS: LACTOBACILLUS ACIDOPHILUS (FLORANEX) TAB PO SCH ×3 (08:03→16:20)
[2016-05-03] MEDS: ZINC SULFATE 220 MG CAP PO SCH (08:04)
[2016-05-03] MEDS: GABAPENTIN 100 MG CAP PO SCH ×3 (08:04→21:05)
[2016-05-03] MEDS: PANTOprazole SOD 40 MG TAB PO SCH (08:04)
[2016-05-03] MEDS: RASPBERRY SYRUP 5 ML UDP PO SCH ×4 (08:05→21:05)
[2016-05-03] MEDS: VANCOMYCIN HCL 125 MG/2.5ML SOLN PO SCH ×4 (08:05→21:05)
[2016-05-03] MEDS: LISINOPRIL 5 MG TAB PO SCH (08:05)
[2016-05-03] MEDS: BOOST GLUCOSE CONTROL PO SCH ×2 (08:05→17:00)
[2016-05-03] MEDS: IPRATROPIUM BROMIDE/ALBUTEROL respimat INH INH SCH ×4 (08:06→21:04)
[2016-05-03 08:11] LABS: COMPLETE YES; HYPOCHROMIA PRESENT
[2016-05-03] MEDS: INSULIN ASPART 100 UNITS/ML 3 ML PEN SC SCH ×4 (08:14→21:00)
[2016-05-03] MEDS: INSULIN GLARGINE SOLOSTAR 100 UNITS/ML 3 ML PEN SC SCH ×2 (08:14→09:00)
[2016-05-03 08:16] LABS: BUN/CREATININE RATIO 21.2 (10-20); CALCIUM 7.7 mg/dl (8.5-10.1); POTASSIUM 4.1 mmol/L (3.5-5.1)
[2016-05-03] MEDS ORDERED: INSULIN GLARGINE SOLOSTAR 100 UNITS/ML 3 ML PEN SC ONE ×2 (09:00→09:15)
[2016-05-03] MEDS: COLLAGENASE OINT 30 GM TUBE EXT SCH (09:00)
--- NOTE | 2016-05-03 11:11 | Pharmacy Progress Note ---
Glycemic Control: Progress Nt Date of Service May 03, 2016. Scope Glycemic Pharmacist consulted by on 04/28/16 for glycemic control and to write orders per [facility] inpatient glycemic control protocol. Objective Accuchecks BSG (last 24hrs): Test 05/02/16 11:33 05/02/16 16:33 05/02/16 20:09 05/03/16 06:30 Bedside Glucose 214 mg/dl (70-99) 117 mg/dl (70-99) 243 mg/dl (70-99) Random Glucose 182 mg/dl (70-99) Test 05/03/16 07:48 Bedside Glucose 196 mg/dl (70-99) Laboratory Data (last 24hrs) Test 05/03/16 06:30 Anion Gap 11.0 mmol/L BUN/Creatinine Ratio 21.2 Blood Urea Nitrogen 21 mg/dl Creatinine 1.00 mg/dl Potassium Level 4.1 mmol/L Sodium Level 138 mmol/L White Blood Count 11.56 K/uL Red Blood Count 3.41 M/uL Hemoglobin 8.4 g/dL Hematocrit 27.4 % Mean Corpuscular Volume 80.4 fL Mean Corpuscular Hemoglobin 24.6 pg Mean Corpuscular Hemoglobin Concent 30.7 g/dl Platelet Count 434 K/uL Mean Platelet Volume 9.6 fL Neutrophils (%) (Auto) 70.6 % Lymphocytes (%) (Auto) 18.2 % Monocytes (%) (Auto) 7.2 % Eosinophils (%) (Auto) 3.0 % Basophils (%) (Auto) 0.3 % Neutrophils # (Auto) 8.17 K/uL Lymphocytes # (Auto) 2.10 K/uL Monocytes # (Auto) 0.83 K/uL Eosinophils # (Auto) 0.35 K/uL Basophils # (Auto) 0.03 K/uL HbA1c: Test 04/27/16 05:56 Hemoglobin A1c 6.1 % (4.5-5.6) H Recent Pertinent Medications Outpatient Anti-diabetic Regimen: * Humalog Mix 75/25 * 18 units SQ in the AM * 15 units SQ in the PM * NovoLog sliding scale * A1c = 6.1 % 04/2016 Risk Factors for Insulin Resistance: * Infection: vancomycin and piperacillin/tazobactam for sepsis secondary to pneumonia, vancomycin PO for C. difficile * Diet: AHA/T2DM/Low Na Assessment & Plan ASSESSMENT: * ADA & AACE recommend a goal blood sugar range 140-180 mg/dl for the majority of critically ill & non-critically ill patients. However, more stringent targets may be selected in individual cases. 04/28/16 * Mr Zapien has been admitted with sepsis 2/2 pneumonia and n/v prior to admission. For this reason, and likely that he is eating less than as an outpatient, his mixed insulin has caused some hypoglycemic episodes. * discontinued mixed insulin as they are not idea for glycemic control while admitted to the hospital * begin basal/bolus insulin with Lantus/NovoLog * A1c shows great control as an outpatient * Sepsis and IV antibiotics may alter insulin sensitivity both secondary to acuity of illness but also because they are mixed in dextrose * Unsure of PO intake at this time * NovoLog with carb ratio should help us determine PO intake 04/29/16 * BSGs well controlled over the last 24 hours with 19 units of insulin administered (range from 135-199mg/dL) * Fasting below goal range today * hold off on any AM Lantus * standing order for Lantus this PM if BSG is >140mg/dL * NovoLog parameters appear to be providing appropriate coverage * no change 04/30/16 * Mr. Zapien received 16 units of insulin yesterday with BSGs ranging from 81- 154mg/dL * Fasting BSG 108 and 92mg/dL this AM (POC, PRP, respectively) * though below goal, higher than yesterday's fasting and BSG elevated pre- lunch - continue same Lantus dose * No change to NovoLog 05/01/16 * Rock received 13 units of insulin yesterday with BSGs ranging from 92-201mg/ dL (slight higher than yesterday) * noted that no carbs consumed with breakfast/lunch yesterday * Rise in BSGs throughout the day and drop in BSGs overnight * change dosing of Lantus from PM to AM * increase dose as fasting is much higher than the prior two days (likely Humalog has completely worn off) 05/03/16 * BSGs ranging 117 - 243 mg/dl during the past 24 hours. FBG this morning was elevated above goal at 196 mg/dl. * TDD of insulin yesterday was 38 units. Basal vs prandial needs equally distributed. * Will increase Lantus dose by ~30% with parameter to give lower dose if BSG below 110 mg/dl. * Tighten Novolog parameters for additional prandial coverage through the day. * Will also narrow goal BSG range for improve glycemic control. PLAN FOR INPATIENT GLYCEMIC CONTROL: * Increase - Lantus SQ q AM * BSG below 110mg/dL - give 10 units * BSG above 110mg/dL - give 15 units * Tighten - NovoLog AC and HS * Correction factor: 25mg/dL/unit * Carb ratio: 1 unit per 8g of CHO consumed * Goal range: 120-160mg/dL * A1c - current * added to discharge instructions RECOMMENDATIONS FOR DISCHARGE: * Likely, Mr. Zapien can continue his home regimen at discharge * Please note that the plan above was derived based on current level of insulin resistance and hospital stress. These recommendations are appropriate for inpatient admission only. Plan of care upon discharge will need to be reassessed to avoid potential outpatient hypo/hyperglycemia. Thank you.
[2016-05-03] MEDS: DOCUSATE SODIUM/SENNA 50/8.6MG TAB PO PRN (13:34)
[2016-05-03 15:33] VITALS: BP 149/75; PULSE 97; TEMP 37.1; O2SAT 100
[2016-05-03] MEDS: OXYCODONE HCL IR 5 MG TAB (IMMEDIATE RELEASE) PO PRN (16:20)
[2016-05-03] MEDS: RIVAROXABAN 20 MG TAB PO SCH (16:20)
--- NOTE | 2016-05-03 18:20 | Progress Note ---
Medicine Progress Note Date & Time of Visit: May 03, 2016 at 18:13. Subjective patient states he feels fine overall leg pain under control denies dyspnea, cough diarrhea improving denies other symptoms Objective Last 8 Hrs Date Time Temp Pulse Resp B/P Pulse Ox O2 Delivery O2 Flow Rate FiO2 05/03/16 15:33 37.1 97 18 149/75 100 Room Air Physical Exam: General- oriented x 3, not in distress, speaks in sentences with no effort Eyes- (+) right eye blindness Neck-no JVD Lungs- clear breath sounds no rales/wheezes b/l Heart- normal rate, regular rhythm; no murmur Abdomen- normal bowel sounds, soft, nontender Extremities- s/p R AKA: wound healing well, no edema/warmth/discharge Left Foot: bandage in place Neuro- alert, oriented x 3; right eye blindness, no other gross focal deficits Skin- warm & dry Laboratory Results: Last 24 Hours Test 05/02/16 20:09 05/03/16 06:30 05/03/16 07:48 05/03/16 11:54 Bedside Glucose 243 mg/dl 196 mg/dl 202 mg/dl White Blood Count 11.56 K/uL Red Blood Count 3.41 M/uL Hemoglobin 8.4 g/dL Hematocrit 27.4 % Mean Corpuscular Volume 80.4 fL Mean Corpuscular Hemoglobin 24.6 pg Mean Corpuscular Hemoglobin Concent 30.7 g/dl Platelet Count 434 K/uL Mean Platelet Volume 9.6 fL Neutrophils (%) (Auto) 70.6 % Lymphocytes (%) (Auto) 18.2 % Monocytes (%) (Auto) 7.2 % Eosinophils (%) (Auto) 3.0 % Basophils (%) (Auto) 0.3 % Neutrophils # (Auto) 8.17 K/uL Lymphocytes # (Auto) 2.10 K/uL Monocytes # (Auto) 0.83 K/uL Eosinophils # (Auto) 0.35 K/uL Basophils # (Auto) 0.03 K/uL RDW Standard Deviation 56.5 fL RDW Coefficient of Variation 19.2 % Immature Granulocyte % (Auto) 0.7 % Immature Granulocyte # (Auto) 0.08 K/uL Hypochromasia PRESENT Sodium Level 138 mmol/L Potassium Level 4.1 mmol/L Chloride Level 105 mmol/L Carbon Dioxide Level 22 mmol/L Anion Gap 11.0 mmol/L Blood Urea Nitrogen 21 mg/dl Creatinine 1.00 mg/dl Est Creatinine Clear Calc Drug Dose 76.3 ml/min Estimated GFR () 89.9 Estimated GFR (Non- 77.5 BUN/Creatinine Ratio 21.2 Random Glucose 182 mg/dl Calcium Level 7.7 mg/dl Test 05/03/16 16:34 Bedside Glucose 165 mg/dl Assessment & Plan 65 year old male with history of Cardiomyopathy EF 15%, A fib on Xarelto, Severe PVD s/p recent Right TKA, DM, CKD, AOCD Was sent from [place] for hypoxia, nausea/vomiting x 2 days. POSSIBLE SEPTIC SHOCK SECONDARY TO PNEUMONIA, RIGHT LOWER LOBE- ASPIRATION VS. COMMUNITY ACQUIRED R/O LEFT FOOT ULCER INFECTION HISTORY OF RECENT RIGHT FOOT OSTEOMYELITIS S/P R AKA - BP stable after IV fluids - remains afebrile, leukocytosis resolved Blood cultures: negative MRSA Nasal swab: positive - completed Vanco IV 5 days and Zosyn x 7 days ACUTE HYPOXIC RESPIRATORY FAILURE, likely from PNEUMONIA : Resolved -On 6 L -100% on admission with no respiratory distress --> On RA now 99% -CXR- Moderate right pleural effusion, trace left pleural effusion, mild congestion (but was clinically dry) - management as noted above AMAURI ON CKD, Resolved -Likely secondary to volume depletion, pre renal -S/P IVF - hold lasix - Monitor ANEMIA OF CHRONIC DISEASE - Hg 9 as of 04/02/16 per outpatient records - Hg remaining stable ~8 FOBT positive but also has C diff Colitis - Iron Low - monitor Hg- stable ~8 continue protonix daily on Iron supplement C Diff colitis - diarrhea improving - on Vanco PO Day 4 ATRIAL FIBRILLATION -- Now NSR -On coreg 3.125 mg PO BID -On xarelto -Echo as above CHRONIC CHF, SYSTOLIC WITH EF 20% - lasix 40 mg bid on HOLD - On coreg, Lisinopril at home. - compensated at present ELEVATED TROPONIN Likely Demand ischemia secondary to above. No cardiac symptoms per patient Trop-0.782--1.800, 1.780, EKG- T wave inversion in I, ST depression in V3-V6 - no prior EKG for comparison -On ASA, Coreg, Lisinopril (held) -Echo-EF 20-25%, Apical septum dyskinetic, Basal anteroseptum thin and akinetic , Severe global hypokinesis, RV borderline dilated, Rt ventricular function reduced, Aortic sclerosis with no significant stenosis, Mild M R, Systolic PAP 42 mm Left ventricular systolic function is severely reduced. 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 -HBA1C 6.1 -ISS, Accuchecks, Lantus - Pharm consult COPD -No signs of COPD exacerbation , no wheezing -Continue with nebulizer HYPERTENSION -Mx for hypotension as above PAIN MX -On MS Contin 15 mg q BID, Oxycodone 5 mg prn - home meds - hold due to change in mental status -Likely on it secondary to recent surgeries DEPRESSION -On Escitalopram DVT PROPHYLAXIS High risk, on xarelto GI PROPHYLAXIS Protonix CODE STATUS- DNR/DNI per brother /patient No advance directives, but verbally confirms that his brother Kraig or 2nd brother make medical decisions on his behalf if he cannot DISPOSITION PT/OT possible d/c tomorrow to [facility] Current Inpatient Medications: Current Inpatient Medications Medications (Trade) Dose Ordered Sig/Abhijit Route Start Time Stop Time Status Last Admin Dose Admin Acetaminophen (Tylenol Tab) 650 mg Q4 PRN PO 04/26/16 10:15 05/26/16 10:14 05/02/16 01:53 650 MG Aspirin (Ecotrin Tab) 81 mg DAILY PO 04/27/16 09:00 05/27/16 08:59 05/03/16 08:02 81 MG Collagenase (Santyl Oint) 1 appln DAILY EXT 04/27/16 09:00 05/27/16 08:59 05/03/16 09:00 1 APPLN Escitalopram Oxalate (Lexapro Tab) 10 mg DAILY PO 04/27/16 09:00 05/27/16 08:59 05/03/16 08:03 10 MG Gabapentin (Neurontin Cap) 100 mg TID PO 04/26/16 14:00 05/26/16 13:59 05/03/16 13:39 100 MG Lactobacillus Acidophilus (Floranex Tab) 1 tab TIDM PO 04/26/16 16:45 05/26/16 16:44 05/03/16 16:20 1 TAB Morphine Sulfate (Oramorph Sr Tab) 15 mg Q12 PO 04/26/16 21:00 05/10/16 20:59 Future Hold Multivitamins/ Minerals (Multivitamin W/ Minerals Tab) 1 tab DAILY PO 04/27/16 09:00 05/27/16 08:59 05/03/16 08:03 1 TAB Oxycodone HCl (Roxicodone Immediate Rel Tab) 5 mg Q6 PRN PO 04/26/16 10:15 05/10/16 10:14 Future hold 05/03/16 16:20 5 MG Sodium Chloride ([place] Nasal [place]) 2 sprays QID PRN SHANNON 04/26/16 10:15 05/26/16 10:14 Senna/Docusate Sodium (Senokot S Tab) 1 tab Q24H PRN PO 04/26/16 10:15 05/26/16 10:14 05/03/16 13:34 1 TAB Zinc Sulfate (Zinc Sulfate Cap) 220 mg DAILY PO 04/27/16 09:00 05/27/16 08:59 05/03/16 08:04 220 MG Ferrous Sulfate (Feosol Tab) 325 mg TIDM PO 04/26/16 16:45 05/26/16 16:44 05/03/16 16:20 325 MG Ondansetron HCl (Zofran Inj) 4 mg Q6H PRN IV 04/26/16 10:15 05/26/16 10:14 04/30/16 11:49 4 MG Nitroglycerin (Nitrostat Tab) 0.4 mg UD PRN SL 04/26/16 10:15 05/26/16 10:14 Polyethylene (Miralax Powder Packet) 17 gm DAILY PRN PO 04/26/16 10:15 05/26/16 10:14 Insulin Aspart (novoLOG ASPART) SLIDING SCALE If C... ACHS SC 04/26/16 11:00 05/26/16 10:59 05/03/16 18:01 12 UNITS Glucose (Glucose 40% Gel) 15-30 GRAMS 15 GRAMS... UD PRN PO 04/26/16 10:15 05/26/16 10:14 Glucose (Glucose Chew Tab) 4-8 Tablets 4 Tabl... UD PRN PO 04/26/16 10:15 05/26/16 10:14 Dextrose (Dextrose 50% 50ML Syringe) 25-50ML OF 50% DW IV FOR... UD PRN IV 04/26/16 10:15 05/26/16 10:14 Glucagon (Glucagon Inj) 1 mg UD PRN SQ 04/26/16 10:15 05/26/16 10:14 Albuterol/ Ipratropium (Duoneb) 3 ml Q2H PRN INH 04/26/16 12:30 05/26/16 12:29 Miscellaneous Information (Consult Glycemic Management Pharmacy) 1 ea UD PRN N/A 04/28/16 12:45 05/28/16 12:44 Enteral Nutritional Formula (Boost Glucose Control) 1 can BIDM PO 04/28/16 16:45 05/28/16 16:44 05/03/16 17:00 1 CAN Rivaroxaban (Xarelto Tab) 20 mg QDD PO 04/28/16 16:45 05/28/16 16:44 05/03/16 16:20 20 MG Albuterol/ Ipratropium (Combivent Respimat Inh) 1 puffs QID INH 04/28/16 17:00 05/28/16 16:59 05/03/16 16:20 1 PUFFS Lisinopril (Zestril Tab) 5 mg QAM PO 04/30/16 09:00 05/30/16 08:59 05/03/16 08:05 5 MG Carvedilol (Coreg Tab) 6.25 mg BID PO 04/30/16 21:00 05/30/16 20:59 05/03/16 08:03 6.25 MG Vancomycin HCl (Vancomycin Oral Soln) 125 mg QID PO 04/30/16 17:00 05/14/16 16:59 05/03/16 16:20 125 MG Raspberry (Raspberry Syrup 5ml Cup) 5 ml QID PO 04/30/16 17:00 05/14/16 16:59 05/03/16 16:20 5 ML Atorvastatin Calcium (Lipitor Tab) 20 mg QAM PO 05/02/16 09:00 06/01/16 08:59 05/03/16 08:02 20 MG Pantoprazole Sodium (Protonix Tab) 40 mg QAM PO 05/03/16 09:00 06/02/16 08:59 05/03/16 08:04 40 MG Insulin Glargine (Lantus Solostar Pen) SEE PROTOCOL DAILY SC 05/03/16 09:00 06/02/16 08:59
[2016-05-03 21:09] VITALS: BP 161/72; PULSE 96
[2016-05-04] VITALS: O2SAT 97
[2016-05-04 00:42] VITALS: BP 145/82; PULSE 94; TEMP 37.1; O2SAT 97
[2016-05-04] MEDS: OXYCODONE HCL IR 5 MG TAB (IMMEDIATE RELEASE) PO PRN ×2 (02:33→10:54)
[2016-05-04 07:42] VITALS: BP 153/85; PULSE 93; TEMP 36.6; O2SAT 97
[2016-05-04 08:04] LABS: BASO % 0.6 %; BASO ABS # 0.06 K/uL (0-0.2); COMPLETE YES; EOS % 3.9 %; IG% 0.6 %; LYMPH % 25.1 %; MEAN CELL VOLUME 82.4 fL (80-100); MEAN CORPUSCULAR HGB CONC 30.3 g/dl (32-36); MEAN PLATELET VOLUME 9.9 fL (7.4-10.4); MONO % 8.2 %; NEUT % 61.6 %; PLATELET COUNT 435 K/uL (130-400); RED BLOOD COUNT 3.64 M/uL (4.7-6.1); WHITE BLOOD COUNT 10.34 K/uL (4.8-10.8)
[2016-05-04] MEDS: BOOST GLUCOSE CONTROL PO SCH ×2 (08:09→18:15)
[2016-05-04] MEDS: IPRATROPIUM BROMIDE/ALBUTEROL respimat INH INH SCH ×3 (08:11→18:15)
[2016-05-04] MEDS: RASPBERRY SYRUP 5 ML UDP PO SCH ×4 (08:12→20:29)
[2016-05-04] MEDS: VANCOMYCIN HCL 125 MG/2.5ML SOLN PO SCH ×4 (08:12→20:32)
[2016-05-04] MEDS: ASPIRIN 81 MG ECTAB PO SCH (08:13)
[2016-05-04] MEDS: LACTOBACILLUS ACIDOPHILUS (FLORANEX) TAB PO SCH ×3 (08:13→18:20)
[2016-05-04] MEDS: FERROUS SULFATE 325 MG TAB PO SCH ×3 (08:13→18:20)
[2016-05-04] MEDS: ESCITALOPRAM OXALATE 10 MG TAB PO SCH (08:13)
[2016-05-04] MEDS: ZINC SULFATE 220 MG CAP PO SCH (08:13)
[2016-05-04] MEDS: CEROVITE ADV FORMULA TAB PO SCH (08:14)
[2016-05-04] MEDS: ATORVASTATIN 20 MG TAB PO SCH (08:14)
[2016-05-04] MEDS: CARVEDILOL 6.25 MG TAB PO SCH ×2 (08:14→20:30)
[2016-05-04] MEDS: GABAPENTIN 100 MG CAP PO SCH ×3 (08:14→20:30)
[2016-05-04] MEDS: DOCUSATE SODIUM/SENNA 50/8.6MG TAB PO PRN (08:14)
[2016-05-04] MEDS: LISINOPRIL 5 MG TAB PO SCH (08:15)
[2016-05-04] MEDS: PANTOprazole SOD 40 MG TAB PO SCH (08:15)
[2016-05-04 08:32] LABS: BUN/CREATININE RATIO 23.2 (10-20); CALCIUM 8.2 mg/dl (8.5-10.1); CREATININE 0.98 mg/dl (0.60-1.40); POTASSIUM 4.3 mmol/L (3.5-5.1)
[2016-05-04] MEDS: INSULIN ASPART 100 UNITS/ML 3 ML PEN SC SCH ×4 (08:43→20:28)
[2016-05-04] MEDS: INSULIN GLARGINE SOLOSTAR 100 UNITS/ML 3 ML PEN SC SCH (08:44)
[2016-05-04] MEDS: COLLAGENASE OINT 30 GM TUBE EXT SCH (10:56)
--- NOTE | 2016-05-04 11:30 | Infectious Disease Progress Nt ---
Progress Note Date of Service May 04, 2016. Subjective Pt evaluation today including: conversation w/ patient, physical exam, chart review, lab review, review of studies, review of inpatient medication list WBC count 10.34. Creatinine 0.98. C. Diff toxin was positive and patient is on day 4 of PO Vancomycin. His diarrhea is slowing down. His breathing is improved. He is anticipating D/C today. Completed 5 days of IV Vanco and 7 days of IV Zosyn. All Other Systems: Reviewed and Negative Medications Current Inpatient Medications Medications (Trade) Dose Ordered Sig/Abhijit Route Start Time Stop Time Status Last Admin Dose Admin Acetaminophen (Tylenol Tab) 650 mg Q4 PRN PO 04/26/16 10:15 05/26/16 10:14 05/02/16 01:53 650 MG Aspirin (Ecotrin Tab) 81 mg DAILY PO 04/27/16 09:00 05/27/16 08:59 05/04/16 08:13 81 MG Collagenase (Santyl Oint) 1 appln DAILY EXT 04/27/16 09:00 05/27/16 08:59 05/04/16 10:56 1 APPLN Escitalopram Oxalate (Lexapro Tab) 10 mg DAILY PO 04/27/16 09:00 05/27/16 08:59 05/04/16 08:13 10 MG Gabapentin (Neurontin Cap) 100 mg TID PO 04/26/16 14:00 05/26/16 13:59 05/04/16 08:14 100 MG Lactobacillus Acidophilus (Floranex Tab) 1 tab TIDM PO 04/26/16 16:45 05/26/16 16:44 05/04/16 08:13 1 TAB Morphine Sulfate (Oramorph Sr Tab) 15 mg Q12 PO 04/26/16 21:00 05/10/16 20:59 Future Hold Multivitamins/ Minerals (Multivitamin W/ Minerals Tab) 1 tab DAILY PO 04/27/16 09:00 05/27/16 08:59 05/04/16 08:14 1 TAB Oxycodone HCl (Roxicodone Immediate Rel Tab) 5 mg Q6 PRN PO 04/26/16 10:15 05/10/16 10:14 Future hold 05/04/16 10:54 5 MG Sodium Chloride ([place] Nasal [place]) 2 sprays QID PRN SHANNON 04/26/16 10:15 05/26/16 10:14 Senna/Docusate Sodium (Senokot S Tab) 1 tab Q24H PRN PO 04/26/16 10:15 05/26/16 10:14 05/04/16 08:14 1 TAB Zinc Sulfate (Zinc Sulfate Cap) 220 mg DAILY PO 04/27/16 09:00 05/27/16 08:59 05/04/16 08:13 220 MG Ferrous Sulfate (Feosol Tab) 325 mg TIDM PO 04/26/16 16:45 05/26/16 16:44 05/04/16 08:13 325 MG Ondansetron HCl (Zofran Inj) 4 mg Q6H PRN IV 04/26/16 10:15 05/26/16 10:14 04/30/16 11:49 4 MG Nitroglycerin (Nitrostat Tab) 0.4 mg UD PRN SL 04/26/16 10:15 05/26/16 10:14 Polyethylene (Miralax Powder Packet) 17 gm DAILY PRN PO 04/26/16 10:15 05/26/16 10:14 Insulin Aspart (novoLOG ASPART) SLIDING SCALE If C... ACHS SC 04/26/16 11:00 05/26/16 10:59 05/04/16 08:43 12 UNITS Glucose (Glucose 40% Gel) 15-30 GRAMS 15 GRAMS... UD PRN PO 04/26/16 10:15 05/26/16 10:14 Glucose (Glucose Chew Tab) 4-8 Tablets 4 Tabl... UD PRN PO 04/26/16 10:15 05/26/16 10:14 Dextrose (Dextrose 50% 50ML Syringe) 25-50ML OF 50% DW IV FOR... UD PRN IV 04/26/16 10:15 05/26/16 10:14 Glucagon (Glucagon Inj) 1 mg UD PRN SQ 04/26/16 10:15 05/26/16 10:14 Albuterol/ Ipratropium (Duoneb) 3 ml Q2H PRN INH 04/26/16 12:30 05/26/16 12:29 Miscellaneous Information (Consult Glycemic Management Pharmacy) 1 ea UD PRN N/A 04/28/16 12:45 05/28/16 12:44 Enteral Nutritional Formula (Boost Glucose Control) 1 can BIDM PO 04/28/16 16:45 05/28/16 16:44 05/04/16 08:09 1 CAN Rivaroxaban (Xarelto Tab) 20 mg QDD PO 04/28/16 16:45 05/28/16 16:44 05/03/16 16:20 20 MG Albuterol/ Ipratropium (Combivent Respimat Inh) 1 puffs QID INH 04/28/16 17:00 05/28/16 16:59 05/04/16 08:11 1 PUFFS Lisinopril (Zestril Tab) 5 mg QAM PO 04/30/16 09:00 05/30/16 08:59 05/04/16 08:15 5 MG Carvedilol (Coreg Tab) 6.25 mg BID PO 04/30/16 21:00 05/30/16 20:59 05/04/16 08:14 6.25 MG Vancomycin HCl (Vancomycin Oral Soln) 125 mg QID PO 04/30/16 17:00 05/14/16 16:59 05/04/16 08:12 125 MG Raspberry (Raspberry Syrup 5ml Cup) 5 ml QID PO 04/30/16 17:00 05/14/16 16:59 05/04/16 08:12 5 ML Atorvastatin Calcium (Lipitor Tab) 20 mg QAM PO 05/02/16 09:00 06/01/16 08:59 05/04/16 08:14 20 MG Pantoprazole Sodium (Protonix Tab) 40 mg QAM PO 05/03/16 09:00 06/02/16 08:59 05/04/16 08:15 40 MG Insulin Glargine (Lantus Solostar Pen) SEE PROTOCOL DAILY SC 05/03/16 09:00 06/02/16 08:59 05/04/16 08:44 10 UNIT Objective Vital Signs Date Time Temp Pulse Resp B/P Pulse Ox O2 Delivery O2 Flow Rate FiO2 05/04/16 08:00 Room Air 05/04/16 07:42 36.6 93 18 153/85 97 05/04/16 00:42 37.1 94 20 145/82 97 Room Air 05/04/16 00:00 97 Room Air 05/03/16 21:09 96 161/72 05/03/16 16:00 Room Air 05/03/16 15:33 37.1 97 18 149/75 100 Room Air Physical Exam General Appearance: WD/WN, no apparent distress Eyes: normal inspection, sclerae normal ENT: hearing grossly normal Neck: supple, trachea midline Respiratory/Chest: no respiratory distress, no accessory muscle use Cardiovascular: regular rate, rhythm Extremities: normal range of motion Neurologic/Psychiatric: alert, normal mood/affect Skin: normal color, warm/dry, no rash Laboratory Results Item Value Date Time C.difficile Toxin B Gene (PCR) - Final Complete 04/28/16 1420 Stool Positive for C. difficile toxin B gene Last 24 Hours Test 05/03/16 11:54 05/03/16 16:34 05/03/16 20:41 05/04/16 07:20 Bedside Glucose 202 mg/dl 165 mg/dl 132 mg/dl White Blood Count 10.34 K/uL Red Blood Count 3.64 M/uL Hemoglobin 9.1 g/dL Hematocrit 30.0 % Mean Corpuscular Volume 82.4 fL Mean Corpuscular Hemoglobin 25.0 pg Mean Corpuscular Hemoglobin Concent 30.3 g/dl Platelet Count 435 K/uL Mean Platelet Volume 9.9 fL Neutrophils (%) (Auto) 61.6 % Lymphocytes (%) (Auto) 25.1 % Monocytes (%) (Auto) 8.2 % Eosinophils (%) (Auto) 3.9 % Basophils (%) (Auto) 0.6 % Neutrophils # (Auto) 6.37 K/uL Lymphocytes # (Auto) 2.60 K/uL Monocytes # (Auto) 0.85 K/uL Eosinophils # (Auto) 0.40 K/uL Basophils # (Auto) 0.06 K/uL RDW Standard Deviation 59.1 fL RDW Coefficient of Variation 19.5 % Immature Granulocyte % (Auto) 0.6 % Immature Granulocyte # (Auto) 0.06 K/uL Sodium Level 139 mmol/L Potassium Level 4.3 mmol/L Chloride Level 105 mmol/L Carbon Dioxide Level 25 mmol/L Anion Gap 9.0 mmol/L Blood Urea Nitrogen 23 mg/dl Creatinine 0.98 mg/dl Est Creatinine Clear Calc Drug Dose 77.9 ml/min Estimated GFR () 92.1 Estimated GFR (Non- 79.5 BUN/Creatinine Ratio 23.2 Random Glucose 145 mg/dl Calcium Level 8.2 mg/dl Test 05/04/16 07:37 Bedside Glucose 149 mg/dl Assessment and Plan 65 yo with DM with neuropathy, severe PAD s/p right AKA now worsening hypoxia and possible pneumonia with HCAP and aspiration types possible. He completed 5 days of IV Vancomycin and 7 days of IV Zosyn. He is also on PO Vancomycin for C. Diff diarrhea. Recommend completing 14 days of PO Vancomycin for C. Diff. OK for D/C otherwise from ID perspective. Thanks Plan: 1. Continue PO Vancomycin for 14 days Case reviewed and agree with above assessment.
--- NOTE | 2016-05-04 12:14 | PROGRESS NOTE ---
DATE: 05/04/2016 DATE: 05/04/2016. The patient seen and examined. Chart, medications, telemetry reviewed. SUBJECTIVE: The patient feels improved today, notes diarrhea has improved. Notes no chest pains or worsening shortness of breath. Notes no dizziness or lightheadedness. Is anxious to be discharged to rehab so he can continue physical therapies and activities. OBJECTIVE: VITAL SIGNS: Heart rate is 84, blood pressure is 153/85. HEAD, EYES, EARS, NOSE, AND THROAT EXAMINATION: Normocephalic, atraumatic. Nares without discharge. Throat was clear. NECK: Supple without thyromegaly, lymphadenopathy, JVD or bruit. LUNGS: Clear to auscultation. CARDIOVASCULAR EXAMINATION: Regular. There is no S3 gallop. ABDOMEN: Soft. EXTREMITIES: Right AKA is healing well. DATA: Laboratory studies -- white cell count 10.3, hemoglobin 9.1. Sodium is 139, potassium is 4.3, chloride is 105, bicarbonate 25, BUN is 23, creatinine 0.98. IMPRESSION: Complex 65-year-old male admitted with issues including acute renal insufficiency, hypovolemia, possible sepsis, now clinically improving. His underlying issue is notable for atherosclerotic peripheral vascular disease and ischemic cardiomyopathy. PLAN: The patient anticipates discharge to rehab. Will continue carvedilol at 6.25 mg twice per day. We will increase lisinopril to 10 mg p.o. every day. The patient prior to hospitalization was on furosemide on a daily dosing. Currently, no signs of volume overload or fluid excess. Would resume furosemide at lower dosing at 20 mg per day now that oral intake and appetite has improved. He will require followup through [facility] cardiology clinic in the next 2-3 weeks' time.
--- NOTE | 2016-05-04 13:33 | Progress Note ---
Medicine Progress Note Date & Time of Visit: May 04, 2016 at 13:19. Subjective sitting up in chair, comfortable states he feels much better overall diarrhea resolving, no abdominal pain denies chest pain, dyspnea, cough denies other symptoms states he is ready and would like to be discharged today Objective Last 8 Hrs Date Time Temp Pulse Resp B/P Pulse Ox O2 Delivery O2 Flow Rate FiO2 05/04/16 08:00 Room Air 05/04/16 07:42 36.6 93 18 153/85 97 Physical Exam: General- oriented x 3, not in distress, speaks in sentences with no effort Eyes- (+) right eye blindness Lungs- clear breath sounds no rales/wheezes b/l Heart- normal rate, regular rhythm; no murmur Abdomen- normal bowel sounds, soft, nontender Extremities- s/p R AKA: wound healing well, no edema/warmth/discharge Left Foot: bandage in place Neuro- alert, oriented x 3; right eye blindness, no other gross focal deficits Skin- warm & dry Laboratory Results: Last 24 Hours Test 05/03/16 16:34 05/03/16 20:41 05/04/16 07:20 05/04/16 07:37 Bedside Glucose 165 mg/dl 132 mg/dl 149 mg/dl White Blood Count 10.34 K/uL Red Blood Count 3.64 M/uL Hemoglobin 9.1 g/dL Hematocrit 30.0 % Mean Corpuscular Volume 82.4 fL Mean Corpuscular Hemoglobin 25.0 pg Mean Corpuscular Hemoglobin Concent 30.3 g/dl Platelet Count 435 K/uL Mean Platelet Volume 9.9 fL Neutrophils (%) (Auto) 61.6 % Lymphocytes (%) (Auto) 25.1 % Monocytes (%) (Auto) 8.2 % Eosinophils (%) (Auto) 3.9 % Basophils (%) (Auto) 0.6 % Neutrophils # (Auto) 6.37 K/uL Lymphocytes # (Auto) 2.60 K/uL Monocytes # (Auto) 0.85 K/uL Eosinophils # (Auto) 0.40 K/uL Basophils # (Auto) 0.06 K/uL RDW Standard Deviation 59.1 fL RDW Coefficient of Variation 19.5 % Immature Granulocyte % (Auto) 0.6 % Immature Granulocyte # (Auto) 0.06 K/uL Sodium Level 139 mmol/L Potassium Level 4.3 mmol/L Chloride Level 105 mmol/L Carbon Dioxide Level 25 mmol/L Anion Gap 9.0 mmol/L Blood Urea Nitrogen 23 mg/dl Creatinine 0.98 mg/dl Est Creatinine Clear Calc Drug Dose 77.9 ml/min Estimated GFR () 92.1 Estimated GFR (Non- 79.5 BUN/Creatinine Ratio 23.2 Random Glucose 145 mg/dl Calcium Level 8.2 mg/dl Test 05/04/16 11:18 Bedside Glucose 150 mg/dl Assessment & Plan 65 year old male with history of Cardiomyopathy EF 15%, A fib on Xarelto, Severe PVD s/p recent Right TKA, DM, CKD, AOCD Was sent from [place] for hypoxia, nausea/vomiting x 2 days. POSSIBLE SEPTIC SHOCK SECONDARY TO PNEUMONIA, RIGHT LOWER LOBE- ASPIRATION VS. COMMUNITY ACQUIRED LEFT FOOT ULCER INFECTION HISTORY OF RECENT RIGHT FOOT OSTEOMYELITIS S/P R AKA - BP stable after IV fluids - remained afebrile, leukocytosis resolved Blood cultures: negative MRSA Nasal swab: POSITIVE - completed Vanco IV 5 days and Zosyn x 7 days - ID evaluated patient, cleared for discharge - monitor respiratory status, and daily wound care for left foot ulcers ACUTE HYPOXIC RESPIRATORY FAILURE, likely from PNEUMONIA : Resolved -On 6 L -100% on admission with no respiratory distress --> On RA now 99% -CXR- Moderate right pleural effusion, trace left pleural effusion, mild congestion (but was clinically dry) - management as noted above ACUTE RENAL FAILURE ON CKD, Resolved -Likely secondary to volume depletion, pre renal - Lasix held, IV fluids given crea back to baseline ANEMIA OF CHRONIC DISEASE - Hg 9 as of 04/02/16 per outpatient records - Hg remaining stable ~8 as inpatient FOBT positive but also has C diff Colitis - Iron Low - monitor Hg as outpatient continue protonix daily for now on Iron supplement C DIFF COLITIS - diarrhea improving - on Vanco PO Day 5 continue 9 more days of Vancomycin 125mg PO qid x 9 days to complete 14 days therapy ATRIAL FIBRILLATION -- presently on sinus rhythm - evaluated by [facility] Dr. Frankel/Alex - discharge plan: Coreg 6.25mg BID continue Xarelto - [facility] in 2-3 weeks CHRONIC CHF, SYSTOLIC WITH EF 20% - Lasix held for acute renal failure - on discharge, decrease Lasix to 20mg po daily - maintain fluid restriction, 2g Na diet - monitor volume status daily ELEVATED TROPONIN - Likely Demand ischemia secondary to above. No cardiac symptoms per patient - Trop-0.782--1.800, 1.780, EKG- T wave inversion in I, ST depression in V3-V6 - no prior EKG for comparison -Echo-EF 20-25%, Apical septum dyskinetic, Basal anteroseptum thin and akinetic , Severe global hypokinesis, RV borderline dilated, Rt ventricular function reduced, Aortic sclerosis with no significant stenosis, Mild M R, Systolic PAP 42 mm Left ventricular systolic function is severely reduced. 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 -HBA1C 6.1 - continue outpatient Insulin regimen COPD -No signs of COPD exacerbation HYPERTENSION - medication management as noted above PAIN CONTROL -On MS Contin 15 mg q BID, Oxycodone 5 mg prn - home meds - held due to change in mental status - was given PRN Percocet DEPRESSION stable -On Escitalopram DVT PROPHYLAXIS High risk, on xarelto GI PROPHYLAXIS Protonix CODE STATUS- DNR/DNI per brother /patient No advance directives, but verbally confirms that his brother Kraig or 2nd brother make medical decisions on his behalf if he cannot DISPOSITION d/c to [facility] today ff up with PCP in 1 week ff up with [facility] Dr. Frankel or Dr. Mcbride in 2-3 weeks Current Inpatient Medications: Current Inpatient Medications Medications (Trade) Dose Ordered Sig/Abhijit Route Start Time Stop Time Status Last Admin Dose Admin Acetaminophen (Tylenol Tab) 650 mg Q4 PRN PO 04/26/16 10:15 05/26/16 10:14 05/02/16 01:53 650 MG Aspirin (Ecotrin Tab) 81 mg DAILY PO 04/27/16 09:00 05/27/16 08:59 05/04/16 08:13 81 MG Collagenase (Santyl Oint) 1 appln DAILY EXT 04/27/16 09:00 05/27/16 08:59 05/04/16 10:56 1 APPLN Escitalopram Oxalate (Lexapro Tab) 10 mg DAILY PO 04/27/16 09:00 05/27/16 08:59 05/04/16 08:13 10 MG Gabapentin (Neurontin Cap) 100 mg TID PO 04/26/16 14:00 05/26/16 13:59 05/04/16 12:48 100 MG Lactobacillus Acidophilus (Floranex Tab) 1 tab TIDM PO 04/26/16 16:45 05/26/16 16:44 05/04/16 08:13 1 TAB Morphine Sulfate (Oramorph Sr Tab) 15 mg Q12 PO 04/26/16 21:00 05/10/16 20:59 Future Hold Multivitamins/ Minerals (Multivitamin W/ Minerals Tab) 1 tab DAILY PO 04/27/16 09:00 05/27/16 08:59 05/04/16 08:14 1 TAB Oxycodone HCl (Roxicodone Immediate Rel Tab) 5 mg Q6 PRN PO 04/26/16 10:15 05/10/16 10:14 Future hold 05/04/16 10:54 5 MG Sodium Chloride ([place] Nasal [place]) 2 sprays QID PRN SHANNON 04/26/16 10:15 05/26/16 10:14 Senna/Docusate Sodium (Senokot S Tab) 1 tab Q24H PRN PO 04/26/16 10:15 05/26/16 10:14 05/04/16 08:14 1 TAB Zinc Sulfate (Zinc Sulfate Cap) 220 mg DAILY PO 04/27/16 09:00 05/27/16 08:59 05/04/16 08:13 220 MG Ferrous Sulfate (Feosol Tab) 325 mg TIDM PO 04/26/16 16:45 05/26/16 16:44 05/04/16 12:46 325 MG Ondansetron HCl (Zofran Inj) 4 mg Q6H PRN IV 04/26/16 10:15 05/26/16 10:14 04/30/16 11:49 4 MG Nitroglycerin (Nitrostat Tab) 0.4 mg UD PRN SL 04/26/16 10:15 05/26/16 10:14 Polyethylene (Miralax Powder Packet) 17 gm DAILY PRN PO 04/26/16 10:15 05/26/16 10:14 Insulin Aspart (novoLOG ASPART) SLIDING SCALE If C... ACHS SC 04/26/16 11:00 05/26/16 10:59 05/04/16 12:49 2 UNITS Glucose (Glucose 40% Gel) 15-30 GRAMS 15 GRAMS... UD PRN PO 04/26/16 10:15 05/26/16 10:14 Glucose (Glucose Chew Tab) 4-8 Tablets 4 Tabl... UD PRN PO 04/26/16 10:15 05/26/16 10:14 Dextrose (Dextrose 50% 50ML Syringe) 25-50ML OF 50% DW IV FOR... UD PRN IV 04/26/16 10:15 05/26/16 10:14 Glucagon (Glucagon Inj) 1 mg UD PRN SQ 04/26/16 10:15 05/26/16 10:14 Albuterol/ Ipratropium (Duoneb) 3 ml Q2H PRN INH 04/26/16 12:30 05/26/16 12:29 Miscellaneous Information (Consult Glycemic Management Pharmacy) 1 ea UD PRN N/A 04/28/16 12:45 05/28/16 12:44 Enteral Nutritional Formula (Boost Glucose Control) 1 can BIDM PO 04/28/16 16:45 05/28/16 16:44 05/04/16 08:09 1 CAN Rivaroxaban (Xarelto Tab) 20 mg QDD PO 04/28/16 16:45 05/28/16 16:44 05/03/16 16:20 20 MG Albuterol/ Ipratropium (Combivent Respimat Inh) 1 puffs QID INH 04/28/16 17:00 05/28/16 16:59 05/04/16 12:47 1 PUFFS Carvedilol (Coreg Tab) 6.25 mg BID PO 04/30/16 21:00 05/30/16 20:59 05/04/16 08:14 6.25 MG Vancomycin HCl (Vancomycin Oral Soln) 125 mg QID PO 04/30/16 17:00 05/14/16 16:59 05/04/16 12:46 125 MG Raspberry (Raspberry Syrup 5ml Cup) 5 ml QID PO 04/30/16 17:00 05/14/16 16:59 05/04/16 12:46 5 ML Atorvastatin Calcium (Lipitor Tab) 20 mg QAM PO 05/02/16 09:00 06/01/16 08:59 05/04/16 08:14 20 MG Pantoprazole Sodium (Protonix Tab) 40 mg QAM PO 05/03/16 09:00 06/02/16 08:59 05/04/16 08:15 40 MG Insulin Glargine (Lantus Solostar Pen) SEE PROTOCOL DAILY SC 05/03/16 09:00 06/02/16 08:59 05/04/16 08:44 10 UNIT Lisinopril (Zestril Tab) 10 mg QAM PO 05/05/16 09:00 06/04/16 08:59 Furosemide (Lasix Tab) 20 mg QAM PO 05/05/16 09:00 06/04/16 08:59
[2016-05-04] MEDS ORDERED: LPT20 PO (13:42)
[2016-05-04] MEDS ORDERED: OXYC1TAB3 PO (13:42)
[2016-05-04] MEDS ORDERED: RSPS5 PO (13:42)
[2016-05-04] MEDS ORDERED: LSX20 PO (13:42)
[2016-05-04] MEDS ORDERED: RIVA1TAB PO (13:42)
[2016-05-04] MEDS ORDERED: CRG625 PO (13:42)
[2016-05-04] MEDS ORDERED: ONDA4TAB10 SL (13:42)
[2016-05-04] MEDS ORDERED: VNCS125 PO (13:42)
[2016-05-04] MEDS ORDERED: NUTR-7 PO (13:42)
[2016-05-04] MEDS ORDERED: IPRA1AER2 INH (13:42)
--- NOTE | 2016-05-04 13:51 | Discharge Instructions ---
Discharge Instructions Date of Service May 04, 2016. Admission Reason for Admission: Change In Mental Status,Hypotension,Sepsis Discharge Discharge Diagnosis / Problem: SEPSIS SECONDARY TO PNEUMONIA, LEFT FOOT INFECTED ULCER Discharge Goals Goal(s): Diagnostic testing, Therapeutic intervention Activity Recommendations Activity Level: Assistance Required Therapies: Physical Therapy (SEPSIS SECONDARY TO PNEUMONIA, LEFT FOOT INFECTED ULCER), Occupational Therapy FALL PRECAUTIONS, ALWAYS AMBULATE WITH ASSISTANCE . Additional Information Patient informed of condition: Yes Advance Directives: No (UNKNOWN) DNR: Yes Level of Care: Acute Rehab Communicable Disease: Yes (POSITIVE FOR C DIFF COLITIS, AND MRSA BY NASAL SWAB) Prognosis: Stable Instructions / Follow-Up Instructions / Follow-Up MONITOR VOLUME STATUS CLOSELY (RE: CHF). MAINTAIN FLUID RESTRICTION AND 2G NA DIET. DAILY WOUND CARE OF LEFT FOOT ULCERS. MONITOR BSG'S AC AND HS. MONITOR HEMOGLOBIN AND RENAL FUNCTION REGULARLY. (RE: ANEMIA, CKD ON LASIX). MONITOR LIVER FUNCTION TEST (RE: STATIN STARTED.) PLEASE WEAN OFF NARCOTIC MEDICATIONS ACCORDINGLY. PLEASE REFER TO ACCOMPANYING DISCHARGE SUMMARY FOR FURTHER DETAILS. PATIENT NEEDS TO BE ESTABLISHED WITH A PRIMARY CARE PROVIDER. FOLLOW UP WITH [facility] DR. PHAN/TEO IN 2-3 WEEKS. Current Hospital Diet Patient's current hospital diet: AHA Diet (Heart Healthy), Low Sodium Diet (2gm Na), Diabetes Type 2 Diet Discharge Diet Recommended Diet: AHA Diet (Heart Healthy), Diabetes Type 2 Diet Fluid Restriction: 1500 ml (6 cups) Pending Studies Studies pending at discharge: yes List of pending studies: REPEAT CBC AND PRP REGULARLY Physician Orders On Transfer Special Precautions: MONITOR VOLUME STATUS CLOSELY (RE: CHF). MAINTAIN FLUID RESTRICTION AND 2G NA DIET. DAILY WOUND CARE OF LEFT FOOT ULCERS. MONITOR BSG'S AC AND HS. MONITOR HEMOGLOBIN AND RENAL FUNCTION REGULARLY. (RE: ANEMIA, CKD ON LASIX). MONITOR LIVER FUNCTION TEST (RE: STATIN STARTED.) PLEASE WEAN OFF NARCOTIC MEDICATIONS ACCORDINGLY. PLEASE REFER TO ACCOMPANYING DISCHARGE SUMMARY FOR FURTHER DETAILS. PATIENT NEEDS TO BE ESTABLISHED WITH A PRIMARY CARE PROVIDER. FOLLOW UP WITH [facility] [facility] DR. PHAN/TEO IN 2-3 WEEKS. Laboratory Results Hemoglobin A1c Test 04/27/16 05:56 Range/Units Estimated Average Glucose 128 mg/dl Hemoglobin A1c 6.1 H 4.5-5.6 % Lipid Panel Test 2/27/17 05:56 Range/Units Triglycerides Level 99 0-150 mg/dl Cholesterol Level 96 0-200 mg/dl HDL Cholesterol 18 mg/dl Cholesterol/HDL Ratio 5.3 LDL Cholesterol, Calculated 58 mg/dl Medical Emergencies . Who to Call and When: Medical Emergencies: If at any time you feel your situation is an emergency, please call 911 immediately. . Non-Emergent Contact Non-Emergency issues call your: Primary Care Provider Call Non-Emergent contact if: you have a fever, your pain is not controlled, wound has increased drainage, wound has increased redness, wound has increased pain, you have any medication questions . Past History Medical & Surgical History: (1) Diabetes (2) Diabetic neuropathy (3) Atrial fibrillation (4) Chronic renal disease (5) Chronic anemia (6) Hypertension . "Provider Documentation" section prepared by Zachary Wooten. Core Measure Problem Core Measures: None [place] Drug Monitoring Program Search Results: patient reviewed within database, see additional documentation (no matching patient identified)
--- NOTE | 2016-05-04 13:56 | Discharge Summary ---
Discharge Summary Date of Service May 04, 2016. Discharge Summary Admission Date: Apr 26, 2016 at 10:14 Discharge Date: May 04, 2016 Discharge Disposition: Rehab Principal Diagnosis: POSSIBLE SEPTIC SHOCK SECONDARY TO PNEUMONIA, RIGHT LOWER LOBE- ASPIRATION VS. COMMUNITY ACQUIRED LEFT FOOT ULCER INFECTION Secondary Diagnoses/Problems: PLEASE REFER TO HOSPITAL COURSE BELOW. Consultations: E COMMERCE SOLUTION ARCHITECT DR. PHAN/DR. MCBRIDE, ID DR. LONDON Pending Studies/Follow-Up: MONITOR VOLUME STATUS CLOSELY (RE: CHF). MAINTAIN FLUID RESTRICTION AND 2G NA DIET. DAILY WOUND CARE OF LEFT FOOT ULCERS. MONITOR BSG'S AC AND HS. MONITOR HEMOGLOBIN AND RENAL FUNCTION REGULARLY. (RE: ANEMIA, CKD ON LASIX). MONITOR LIVER FUNCTION TEST (RE: STATIN STARTED.) PLEASE WEAN OFF NARCOTIC MEDICATIONS ACCORDINGLY. PLEASE REFER TO ACCOMPANYING DISCHARGE SUMMARY FOR FURTHER DETAILS. PATIENT NEEDS TO BE ESTABLISHED WITH A PRIMARY CARE PROVIDER. FOLLOW UP WITH [facility] E COMMERCE SOLUTION ARCHITECT DR. PHAN/TEO IN 2-3 WEEKS. Medication Reconciliation New Medications: Atorvastatin (Atorvastatin Calcium) 20 Mg Tab 20 MG PO QAM for 30 Days, #30 TAB Carvedilol (Carvedilol) 6.25 Mg Tab 6.25 MG PO BID for 30 Days, #60 TAB Furosemide (Furosemide) 20 Mg Tab 20 MG PO QAM for 30 Days, #30 TAB Ipratropium-Albuterol (Combivent Respimat) 1 Aer Aer 1 PUFFS INH Q4H PRN for Shortness of Breath for 30 Days Nutritional Supplements (Boost) 1 Liq Liq 1 CAN PO BIDM for 30 Days Raspberry (Raspberry Syrup) 5 Ml/Cup Syrp 5 ML PO QID for 9 Days Vancomycin HCl (Vancomycin HCl) 125 Mg/2.5 Ml Susp 125 MG PO QID for 9 Days, #4500 MG 0 Refills Changed Medications: Ondasetron Odt (Zofran Odt) 4 Mg Tab 4 MG SL Q6H PRN for Nausea or Vomiting for 10 Days (Changed from: Removed Quantity) Continued Medications: Acetaminophen Tab (Tylenol) 325 Mg Tab 650 MG PO Q4 PRN for Pain, TAB Ascorbic Acid (Ascorbic Acid Cassave) 1 Pow Pow 500 MG PO DAILY Aspirin (Aspirin Ec) 81 Mg Tab 81 MG PO DAILY Collagenase (Santyl) 250 Unit/Gm Oin 1 APPLN TOP DAILY Darbepoetin (Aranesp Albumin Free) 100 Mcg/0.5 Ml Inj SQ WK Escitalopram (Lexapro) 10 Mg Tab 10 MG PO DAILY, TAB Ferrous Sulfate (Kp Ferrous Sulfate) 325 Mg Tab 1 TAB PO TIDM for 30 Days, TAB 3 Refills Gabapentin (Neurontin) 100 Mg Cap 100 MG PO TID, CAP Insulin Aspart (Novolog Flexpen) 100 Units/Ml Inj SC UD *SS* <70 HYPOGLYCEMIA PROTOCOL 70-130 = 0 UNITS 131-180 = 2 UNITS 181-240 = 4 UNITS 241-300 = 6 UNITS 301-350 = 8 UNITS 351-400 = 10 UNITS > 400 = 12 UNITS AND CALL Insulin Lispro 75/25 (Humalog Mix 75/25) 100 Units/ Inj 18 UNITS SC QAM Insulin Lispro 75/25 (Humalog Mix 75/25) 100 Units/ Inj 15 UNITS SC QPM, VIAL Lactobacillus Acidophilus (Lactinex) Tab 1 TAB PO TIDM, TAB Lisinopril (Zestril) 10 Mg Tab 10 MG PO DAILY Morphine Cont Rel (Ms Contin) 15 Mg Tabcr 15 MG PO Q12, TAB Multivitamins/Minerals (Mvi With Minerals) Tab 1 TAB PO DAILY, TAB Oxycodone Ir (Roxicodone Ir) 5 Mg Tab 5 MG PO Q6 PRN for Moderate Pain, #10 TAB 0 Refills (This prescription has been renewed) Pantoprazole (Protonix) 40 Mg Tab 40 MG PO DAILY, #30 TAB Rivaroxaban (Xarelto) 10 Mg Tab 20 MG PO DAILY for 30 Days, #60 TAB (This prescription has been renewed) Saline (Sodium Chloride) 0.65 % Spr 2 SPRAYS SHANNON QID PRN for DRYNESS Senna/Docusate Sod (Senokot S) 1 Tab Tab 1 TAB PO Q24H PRN for Constipation, TAB Zinc Sulfate (Zinc Sulfate) 220 Mg Cap 220 MG PO DAILY, CAP Discontinued Medications: Carvedilol (Coreg) 3.125 Mg Tab 1 TAB PO BID for 30 Days, #60 TAB 3 Refills Docusate Sodium (Docusate Sodium) 100 Mg Cap 1 CAP PO BID for 15 Days, #30 CAP Furosemide (Lasix) 40 Mg Tab 40 MG PO BID, TAB Admission Information HPI (per Admitting provider): The patient is a 65 year old male with multiple co morbidities, chronically ill , was recently admitted to [facility] from [place], [place] after his recent Right AKA as he had no one to take care of him in [place] and just has 2 brothers in this area, [place]. Patient is a very poor historian and brothers do not known much about his health. Most of his history obtained from medical records and recent wound care visit on 04/23/16. PMH included: CHF, Systolic with EF 15%, Atrial fibrillation on Xarelto, Severe PVD with Right below knee amputation 2 months ago, followed by AKA in 1 month, DM uncontrolled with retinopathy, neuropathy, causing right eye blindness years ago, CKD (Baseline : 1.0 ? not sure), Anemia of chronic disease, COPD, ex smoker , ambulatory dysfunction, debility. Per [facility] records, patient was admitted there on 04/16/16, was at his baseline till 04/23/16 when developed nausea, vomiting- multiple episodes. Today , noted to be hypoxic dropping his saturation, more lethargic- change in mental status and thus brought to ED for evaluation. On my evaluation, patient is lethargic, but arousable and oriented to place, person, knows his . C/o right leg pain at site of amputation. Did have 2 episodes of vomiting today AM, no nausea, abdominal pain associated with it. Does have cough with some sputum x 2 days, no SOB, leg swelling, localized weakness, headaches, numbness, chest pain. In ED, afebrile, BP was 62/41 on arrival, responded to IV Fluids (2 litres so far and 3rd litre going on) --> BP now 100/40s, on 6 L -97%, 80s pulse- NSR BP stable now. Labs - WBC 13k, Hb 8.2, K 5.8, Na 128-->131, Creatinine 2.10, Trop 0.782, Alb 2.1, Lactic acid 1.48, INR 1.8 CXR- Moderate Rt pleural effusion, trace left pleural effusion, mild congestion per reading, but clinically dry. EKG - T wave inversion in I, ST depression in V3-V6, no prior EKG for comparison. Will admit him for acute hypoxic respiratory failure, likely secondary to pneumonia, aspiration, possible sepsis, nausea/vomiting leading to volume depletion/hypotension in setting of CHF on lasix, AMAURI- pre renal for further management. Physical Exam (per Admitting): General Appearance: + pertinent finding (Lethargic, Chronically ill appearing, oriented x place, person) Eyes: + pertinent finding (Right eye blindness; Left eye- normal vision) ENT: hearing grossly normal Neck: supple, no JVD Respiratory/Chest: chest non-tender, no respiratory distress, no accessory muscle use, + decreased breath sounds Cardiovascular: regular rate, rhythm, no edema Abdomen/GI: normal bowel sounds, non tender, soft Genitourinary - Male: normal male genitalia Extremities/Musculoskelatal: + pertinent finding (Right AKA, [place] +, No redness, discharge or signs of infection noted, No edema) Skin: + pertinent finding (Left heel eschar + No signs of infection) Hospital Course 65 year old male with history of Cardiomyopathy EF 15%, A fib on Xarelto, Severe PVD s/p recent Right TKA, DM, CKD, AOCD Was sent from [place] for hypoxia, nausea/vomiting x 2 days. POSSIBLE SEPTIC SHOCK SECONDARY TO PNEUMONIA, RIGHT LOWER LOBE- ASPIRATION VS. COMMUNITY ACQUIRED LEFT FOOT ULCER INFECTION HISTORY OF RECENT RIGHT FOOT OSTEOMYELITIS S/P R AKA - BP stable after IV fluids - remained afebrile, leukocytosis resolved Blood cultures: negative MRSA Nasal swab: POSITIVE - completed Vanco IV 5 days and Zosyn x 7 days - ID evaluated patient, cleared for discharge - monitor respiratory status, and daily wound care for left foot ulcers ACUTE HYPOXIC RESPIRATORY FAILURE, likely from PNEUMONIA : Resolved -On 6 L -100% on admission with no respiratory distress --> On RA now 99% -CXR- Moderate right pleural effusion, trace left pleural effusion, mild congestion (but was clinically dry) - management as noted above ACUTE RENAL FAILURE ON CKD, Resolved -Likely secondary to volume depletion, pre renal - Lasix held, IV fluids given crea back to baseline ANEMIA OF CHRONIC DISEASE - Hg 9 as of 04/02/16 per outpatient records - Hg remaining stable ~8 as inpatient FOBT positive but also has C diff Colitis - Iron Low - monitor Hg as outpatient continue protonix daily for now on Iron supplement C DIFF COLITIS - diarrhea improving - on Vanco PO Day 5 continue 9 more days of Vancomycin 125mg PO qid x 9 days to complete 14 days therapy ATRIAL FIBRILLATION -- presently on sinus rhythm - evaluated by [facility] Manager Roofing Dr. Phan/Alex - discharge plan: Coreg 6.25mg BID continue Xarelto - follow up with [facility] in [facility] in 2-3 weeks CHRONIC CHF, SYSTOLIC WITH EF 20% - Lasix held for acute renal failure - on discharge, decrease Lasix to 20mg po daily - maintain fluid restriction, 2g Na diet - monitor volume status daily ELEVATED TROPONIN - Likely Demand ischemia secondary to above. No cardiac symptoms per patient - Trop-0.782--1.800, 1.780, EKG- T wave inversion in I, ST depression in V3-V6 - no prior EKG for comparison -Echo-EF 20-25%, Apical septum dyskinetic, Basal anteroseptum thin and akinetic , Severe global hypokinesis, RV borderline dilated, Rt ventricular function reduced, Aortic sclerosis with no significant stenosis, Mild M R, Systolic PAP 42 mm Left ventricular systolic function is severely reduced. Lipid panel - normal range - cardiology consulted - recommend continue medical therapy; Aspirin, Statin, Coreg, Lisinopril SEVERE PERIPHERAL VASCULAR DISEASE LEFT FOOT ULCER, ESCHAR RECENT RIGHT BELOW KNEE AMPUTATION FOLLOWED BY ABOVE KNEE AMPUTATION 1 Month ago in [place] - Has hx of vascular surgery including balloon angioplasty/stent LLE - sharon removed - completed Vanco and Zosyn IV treatment course - On ASA statin started DM-IDDM, WITH COMPLICATIONS- Neuropathy/Retinopathy with right eye blindness -HBA1C 6.1 - continue outpatient Insulin regimen COPD -No signs of COPD exacerbation HYPERTENSION - medication management as noted above PAIN CONTROL -On MS Contin 15 mg q BID, Oxycodone 5 mg prn - home meds - held due to change in mental status - was given PRN Percocet DEPRESSION stable -On Escitalopram DVT PROPHYLAXIS High risk, on xarelto GI PROPHYLAXIS Protonix CODE STATUS- DNR/DNI per brother /patient No advance directives, but verbally confirms that his brother Kraig or 2nd brother make medical decisions on his behalf if he cannot DISPOSITION d/c to [facility] today ff up with PCP in 1 week, needs to establish with Primary Care Physician ff up with [facility] Manager Roofing Dr. Phan or Dr. Mcbride in 2-3 weeks Total time spent on discharge = 55 minutes This includes examination of the patient, discharge planning, medication reconciliation, and communication with other providers. Discharge Instructions Discharge Instructions Date of Service May 04, 2016. Admission Reason for Admission: Change In Mental Status,Hypotension,Sepsis Discharge Discharge Diagnosis / Problem: SEPSIS SECONDARY TO PNEUMONIA, LEFT FOOT INFECTED ULCER Discharge Goals Goal(s): Diagnostic testing, Therapeutic intervention Activity Recommendations Activity Level: Assistance Required Therapies: Physical Therapy (SEPSIS SECONDARY TO PNEUMONIA, LEFT FOOT INFECTED ULCER), Occupational Therapy FALL PRECAUTIONS, ALWAYS AMBULATE WITH ASSISTANCE . Additional Information Patient informed of condition: Yes Advance Directives: No (UNKNOWN) DNR: Yes Level of Care: Acute Rehab Communicable Disease: Yes (POSITIVE FOR C DIFF COLITIS, AND MRSA BY NASAL SWAB) Prognosis: Stable Instructions / Follow-Up Instructions / Follow-Up MONITOR VOLUME STATUS CLOSELY (RE: CHF). MAINTAIN FLUID RESTRICTION AND 2G NA DIET. DAILY WOUND CARE OF LEFT FOOT ULCERS. MONITOR BSG'S AC AND HS. MONITOR HEMOGLOBIN AND RENAL FUNCTION REGULARLY. (RE: ANEMIA, CKD ON LASIX). MONITOR LIVER FUNCTION TEST (RE: STATIN STARTED.) PLEASE WEAN OFF NARCOTIC MEDICATIONS ACCORDINGLY. PLEASE REFER TO ACCOMPANYING DISCHARGE SUMMARY FOR FURTHER DETAILS. PATIENT NEEDS TO BE ESTABLISHED WITH A PRIMARY CARE PROVIDER. FOLLOW UP WITH [facility] SOLUTION ARCHITECT DR. PHAN/TEO IN 2-3 WEEKS. Current Hospital Diet Patient's current hospital diet: AHA Diet (Heart Healthy), Low Sodium Diet (2gm Na), Diabetes Type 2 Diet Discharge Diet Recommended Diet: AHA Diet (Heart Healthy), Diabetes Type 2 Diet Fluid Restriction: 1500 ml (6 cups) Pending Studies Studies pending at discharge: yes List of pending studies: REPEAT CBC AND PRP REGULARLY Physician Orders On Transfer Special Precautions: MONITOR VOLUME STATUS CLOSELY (RE: CHF). MAINTAIN FLUID RESTRICTION AND 2G NA DIET. DAILY WOUND CARE OF LEFT FOOT ULCERS. MONITOR BSG'S AC AND HS. MONITOR HEMOGLOBIN AND RENAL FUNCTION REGULARLY. (RE: ANEMIA, CKD ON LASIX). MONITOR LIVER FUNCTION TEST (RE: STATIN STARTED.) PLEASE WEAN OFF NARCOTIC MEDICATIONS ACCORDINGLY. PLEASE REFER TO ACCOMPANYING DISCHARGE SUMMARY FOR FURTHER DETAILS. PATIENT NEEDS TO BE ESTABLISHED WITH A PRIMARY CARE PROVIDER. FOLLOW UP WITH [facility] SOLUTION ARCHITECT DR. PHAN/TEO IN 2-3 WEEKS. Laboratory Results Hemoglobin A1c Test 04/27/16 05:56 Range/Units Estimated Average Glucose 128 mg/dl Hemoglobin A1c 6.1 H 4.5-5.6 % Lipid Panel Test 04/27/16 05:56 Range/Units Triglycerides Level 99 0-150 mg/dl Cholesterol Level 96 0-200 mg/dl HDL Cholesterol 18 mg/dl Cholesterol/HDL Ratio 5.3 LDL Cholesterol, Calculated 58 mg/dl Medical Emergencies . Who to Call and When: Medical Emergencies: If at any time you feel your situation is an emergency, please call 911 immediately. . Non-Emergent Contact Non-Emergency issues call your: Primary Care Provider Call Non-Emergent contact if: you have a fever, your pain is not controlled, wound has increased drainage, wound has increased redness, wound has increased pain, you have any medication questions . Past History Medical & Surgical History: (1) Diabetes (2) Diabetic neuropathy (3) Atrial fibrillation (4) Chronic renal disease (5) Chronic anemia (6) Hypertension . "Provider Documentation" section prepared by Zachary Wooten. Core Measure Problem Core Measures: None [place] Drug Monitoring Program Search Results: patient reviewed within database, see additional documentation (no matching patient identified)
[2016-05-04 13:57] VITALS: BP 153/85; PULSE 93; TEMP 36.6; O2SAT 97
[2016-05-04] MEDS: RIVAROXABAN 20 MG TAB PO SCH (18:19)
[2016-05-04 20:00] VITALS: O2SAT 97
[2016-05-05] MEDS ORDERED: LISINOPRIL 10 MG TAB PO SCH (09:00)
[2016-05-05] MEDS ORDERED: FUROSEMIDE 20 MG TAB PO SCH (09:00)
--- NOTE | 2016-05-08 13:28 | Progress Note ---
Progress Note Date of Service May 08, 2016. Progress Note An medical assistant dermatology consult was ordered on this patient but I did not see him. I do not believe he was ever in the ICU and if he was, he left before I could see him. The consult should have been cancelled but unfortunately was not. Please do not charge this patient for an medical assistant dermatology consult.
[2016-05-18] MEDS ORDERED: DOXY100C2 PO (07:55)
[2016-06-08] MEDS ORDERED: AMOX500C3 PO (15:04)
[2016-07-18] MEDS ORDERED: LSX40 PO (09:49)
[2016-07-18] MEDS ORDERED: ACET325T96 PO (09:49)
[2016-07-18] MEDS ORDERED: ECRCR EXT (09:49)
[2016-07-18] MEDS ORDERED: ESCI10TA17 PO (09:49)
[2016-07-18] MEDS ORDERED: PANT40TA PO (09:49)
[2016-07-18] MEDS ORDERED: NRN300 PO (09:49)
[2016-07-18] MEDS ORDERED: LACT1TAB4 PO (09:49)
[2016-07-18] MEDS ORDERED: ASPI81TA28 PO (09:49)
[2016-07-18] MEDS ORDERED: CARV25TA PO (09:49)
[2016-07-18] MEDS ORDERED: SENN-65 PO (09:49)
[2016-07-18] MEDS ORDERED: XRL15 PO (09:49)
[2016-07-18] MEDS ORDERED: ATOR-26 PO (09:49)
[2016-07-18] MEDS ORDERED: FLM4 PO (09:49)
[2016-07-18] MEDS ORDERED: NVLGIPEN SC (09:49)
[2016-07-18] MEDS ORDERED: SALI0.6549 NAE (09:49)
[2016-07-18] MEDS ORDERED: OXYC-57 PO (09:49)
[2016-07-18] MEDS ORDERED: FERR1TAB13 PO (09:49)
[2016-07-18] MEDS ORDERED: INSDGIPEN SC (09:49)
[2016-07-18] MEDS ORDERED: MULT-513 PO (09:49)
[2016-07-18] MEDS ORDERED: ASCOPOW PO (09:49)
[2016-07-18] MEDS ORDERED: IPRA1AER2 INH (09:49)
[2016-07-30] MEDS ORDERED: INSDGI SC (07:33)
[2016-07-30] MEDS ORDERED: FLUD0.1T10 PO (13:02)
[2016-08-14] MEDS ORDERED: ASPCH81X PO (07:14)
[2016-08-14] MEDS ORDERED: LACT1TAB4 PO (07:14)
[2016-08-14] MEDS ORDERED: FLM4 PO (07:14)
[2016-08-14] MEDS ORDERED: MULT-513 PO (07:14)
[2016-08-14] MEDS ORDERED: FERR1TAB13 PO (07:14)
[2016-08-14] MEDS ORDERED: NRN300 PO (07:14)
[2016-08-14] MEDS ORDERED: SENN-65 PO (07:14)
[2016-08-14] MEDS ORDERED: ACET-1311 PO (07:14)
[2016-08-14] MEDS ORDERED: CARV25TA PO (07:14)
[2016-08-14] MEDS ORDERED: IPRA1AER2 INH (07:14)
[2016-08-14] MEDS ORDERED: ESCI10TA17 PO (07:14)
[2016-08-14] MEDS ORDERED: NVLG SC (07:14)
[2016-08-14] MEDS ORDERED: NUTR-7 PO (07:15)
[2016-08-14] MEDS ORDERED: PRNJ PO (07:15)
[2016-08-14] MEDS ORDERED: BUME2TAB3 PO (07:15)
[2016-08-14] MEDS ORDERED: ONDA4TAB46 PO (07:15)
[2016-08-14] MEDS ORDERED: HYDR-5688 PO (07:15)
== END 2016-05-04 21:13 | DRG 871 ==
LOC: ENRESERVTM → ENRESERVDT → EDBD 08:10 → C.EDB 08:11 → C.2T 10:14 → UNDOADMIN 10:14 → C.MS2W 05-02 16:21
PROVIDERS: ADMIT Internal Medicine; ATTEND Internal Medicine
DX: A41.9 Sepsis, unspecified organism (principal); J96.01 Acute respiratory failure with hypoxia; R65.21 Severe sepsis with septic shock; J69.0 Pneumonitis due to inhalation of food and vomit; N17.9 Acute kidney failure, unspecified; I50.22 Chronic systolic (congestive) heart failure; A04.7 Enterocolitis due to Clostridium difficile; I48.92 Unspecified atrial flutter; I13.0 Hypertensive heart and chronic kidney disease with heart failure and stage 1 through stage 4 chronic kidney disease, or unspecified chronic kidney disease; I42.9 Cardiomyopathy, unspecified; I24.8 Other forms of acute ischemic heart disease; E86.0 Dehydration; I48.2 Chronic atrial fibrillation; I48.0 Paroxysmal atrial fibrillation; I73.9 Peripheral vascular disease, unspecified; Z89.511 Acquired absence of right leg below knee; E87.5 Hyperkalemia; N18.9 Chronic kidney disease, unspecified; E10.319 Type 1 diabetes mellitus with unspecified diabetic retinopathy without macular edema; E10.40 Type 1 diabetes mellitus with diabetic neuropathy, unspecified; H54.41 Blindness, right eye, normal vision left eye; F32.9 Major depressive disorder, single episode, unspecified; D63.8 Anemia in other chronic diseases classified elsewhere; Z87.891 Personal history of nicotine dependence; Z66 Do not resuscitate; Z79.4 Long term (current) use of insulin; E86.1 Hypovolemia; E10.621 Type 1 diabetes mellitus with foot ulcer; L97.529 Non-pressure chronic ulcer of other part of left foot with unspecified severity; B95.62 Methicillin resistant Staphylococcus aureus infection as the cause of diseases classified elsewhere

== ENCOUNTER → 2016-05-25 | Outpatient (CLI) | payer OTHER ==
[~2016-05-25] MED LIST changes: +ACET-1311 PO; +ACET325T96 PO; +AMOX500C3 PO; -AMOX500T PO; +ASPCH81X PO; +ATOR-26 PO; +BISA10SU38 PR; +BUME2TAB3 PO; +CARV25TA PO; -CARV3.122 PO; +CRG625 PO; -DOCU100C31 PO; +DOXY100C2 PO; +ECRCR EXT; +FERR1TAB13 PO; -FERRPOW47 PO; +FLM4 PO; +FLUD0.1T10 PO; +FURO80TA63 PO; +GLUC0.8I INJ; +HMLI7525 SC; +HYDR-5688 PO; +INSDGI SC; +INSDGIPEN SC; +IPRA1AER2 INH; -LACT1POW; +LACT1TAB4 PO; +LCTX PO; +LPT20 PO; +LSX20 PO; +LSX40 PO; +MOML PO; -MORP15TA19 PO; -MULT-506 PO; +MULT-513 PO; +NRN300 PO; +NUTR-7 PO; +NVLG SC; +NVLGI/PEN SC; -NVLGI7030 SC; +NVLGIPEN SC; +ONDA4TAB10 SL; +ONDA4TAB46 PO; +OXYC-57 PO; +OXYC1TAB3 PO; +PRNJ PO; +PROTEIN PO; +RIVA1TAB PO; -RIVA1TAB4 PO; +RSPS5 PO; +SALI0.6549 NAE; +SENN-65 PO; +SENN1TAB65 PO; +SNTO30 TOP; +SODIENE PR; +VNCS125 PO; +XRL15 PO
[2016-05-25 18:11] LABS: BASO % 0.3 %; BASO ABS # 0.02 K/uL (0-0.2); EOS % 5.1 %; HEMATOCRIT 31.3 % (42-52); IG% 0.3 %; LYMPH % 24.4 %; LYMPH ABS # 1.62 K/uL (1.2-3.4); MEAN CELL VOLUME 84.8 fL (80-100); MEAN CORPUSCULAR HEMOGLOBIN 25.5 pg (25-34); MEAN PLATELET VOLUME 11.1 fL (7.4-10.4); MONO % 7.8 %; NEUT % 62.1 %; PLATELET COUNT 236 K/uL (130-400); RED BLOOD COUNT 3.69 M/uL (4.7-6.1); WHITE BLOOD COUNT 6.64 K/uL (4.8-10.8)
[2016-05-25 18:19] LABS: BLOOD UREA NITROGEN 46 mg/dl (7-18); BUN/CREATININE RATIO 50.7 (10-20); CREATININE 0.91 mg/dl (0.60-1.40); GLUCOSE 83 mg/dl (70-99)
[2016-05-25 18:20] LABS: ALT/SGPT 25 U/L (12-78); AST/SGOT 23 U/L (15-37); CALCIUM 8.5 mg/dl (8.5-10.1); CARBON DIOXIDE 28 mmol/L (21-32); CHLORIDE 106 mmol/L (98-107); CHOLESTEROL 95 mg/dl (0-200); INR 1.2 (0.9-1.1); PARTIAL THROMBOPLASTIN RATIO 1.2; POTASSIUM 5.2 mmol/L (3.5-5.1); PROTHROMBIN TIME (PATIENT) 12.8 SECONDS (9.0-12.0); SODIUM 139 mmol/L (136-145)
[2016-05-25 18:22] LABS: ALB/GLOB RATIO 0.6 (0.9-2); ALKALINE PHOSPHATASE 256 U/L (45-117); CHOLESTEROL/HDL RATIO 2.1; HDL CHOLESTEROL 46 mg/dl; TRIGLYCERIDES 46 mg/dl (0-150); VERY LOW DENSITY LIPOPROT CALC 9 mg/dl
[2016-05-25 19:14] LABS: ANISOCYTOSIS PRESENT; COMPLETE YES; LARGE PLATELETS 1+; POLYCHROMASIA 1+
[2016-05-26 10:22] LABS: ESTIMATED AVERAGE GLUCOSE 117 mg/dl; HA1C FLAG Normal (Normal)
--- NOTE | 2016-05-29 11:49 | CODING QUERY MEDICAL NECESSITY ---
SUPPORTING DIAGNOSIS NEEDED A supporting diagnosis is required for the test/procedure performed on this patient in order for us to be reimbursed by the patient's insurance. Please provide a supporting diagnosis for the following test/procedure listed below next to the test name along with your signature. *If there is no additional diagnosis for this patient that would support the following test/procedure please document that below next to the test/procedure. Test(s)/Procedure(s) that require a supporting diagnosis: DOS 05/25 * Hba1c DIAGNOSIS: Provider Signature: Date: Thank you Kateryna Bello Health Information Management Once completed, please kindly fax back to [phone] For questions please call [phone]
== END | disposition home or self-care (01) ==
LOC: C.LABSPEC 17:34
PROVIDERS: ATTEND Internal Medicine
DX: I50.9 Heart failure, unspecified (principal); I48.91 Unspecified atrial fibrillation; I42.9 Cardiomyopathy, unspecified; E11.9 Type 2 diabetes mellitus without complications

== ENCOUNTER → 2016-06-22 | Outpatient (CLI) | payer OTHER ==
[~2016-06-22] MED LIST changes: -AMOX500C3 PO; -DOXY100C2 PO; -SNTO30 TOP; -VNCS125 PO
[2016-06-22 12:40] LABS: BLOOD UREA NITROGEN 37 mg/dl (7-18); BUN/CREATININE RATIO 39.9 (10-20); CALCIUM 8.5 mg/dl (8.5-10.1); CARBON DIOXIDE 29 mmol/L (21-32); CHLORIDE 106 mmol/L (98-107); CREATININE 0.94 mg/dl (0.60-1.40); GLUCOSE 112 mg/dl (70-99); POTASSIUM 4.5 mmol/L (3.5-5.1); SODIUM 142 mmol/L (136-145)
[2016-06-22 12:45] LABS: FERRITIN 41.8 ng/ml (8.0-388.0); TOTAL IRON BINDING CAPACITY 292 mcg/dl (250-450)
[2016-06-24 06:25] LABS: ALBUMIN 2.9 G/DL (3.8-4.8); ALBUMIN % 59.64 %; ALPHA-2-GLOBULIN % 6.39 %; BETA GLOBULIN % 14.53 %; CREATININE UR 65 MG/DL (20-370); GAMMA GLOBULIN 1.5 G/DL (0.8-1.7); MONOCLONAL PROTEIN BAND 1 0.6 G/DL (NOT DETECTED); TOTAL PROTEIN 6.8 G/DL (6.2-8.3)
== END | disposition home or self-care (01) ==
LOC: C.LAB1850 10:10
PROVIDERS: ATTEND Internal Medicine Cardiovascular Disease
DX: I73.9 Peripheral vascular disease, unspecified (principal); I50.22 Chronic systolic (congestive) heart failure; E78.5 Hyperlipidemia, unspecified; I48.91 Unspecified atrial fibrillation; I42.9 Cardiomyopathy, unspecified; E87.5 Hyperkalemia; I48.92 Unspecified atrial flutter; I10 Essential (primary) hypertension

== ENCOUNTER 2016-06-26 07:28 | Day surgery (SDC) | payer OTHER ==
[2016-06-26] VITALS (7 sets, daily range): BP systolic 155–169; BP diastolic 32–52; PULSE 84–103; TEMP 36.5–36.7; O2SAT 94–99; Ht 177.8 cm; Wt 82.6 kg
[~2016-06-26] VITALS: Ht 177.8 cm; Wt 82.6 kg
[~2016-06-26 07:28] MED LIST changes: -ACET-1311 PO; -ASPCH81X PO; -ATOR-26 PO; -BISA10SU38 PR; -BUME2TAB3 PO; -CARV25TA PO; +CEFAZOLIN 1000MG/55 ML D5W IV SCH; +CEFAZOLIN 2000 MG/60 ML D5W IV SCH; -ECRCR EXT; -FLM4 PO; -FLUD0.1T10 PO; -FRS/40 PO; -FURO80TA63 PO; -GLUC0.8I INJ; -HYDR-5688 PO; -INSDGI SC; -INSDGIPEN SC; -LACT1TAB4 PO; -LSX40 PO; -MOML PO; -NRN300 PO; -NVLG SC; -NVLGIPEN SC; -ONDA4TAB46 PO; -OXYC-57 PO; -PRNJ PO; -PROTEIN PO; -SENN1TAB65 PO; -SODIENE PR; +SODIUM CHLORIDE 0.9% 1000ML 1,000 ML IV SCH; -XRL15 PO
--- NOTE | 2016-06-26 08:19 | History and Physical ---
History & Physical Date of Service Jun 26, 2016. History & Physical CC: PAD with non healing ulcer. HPI: Mr. Zapien states that he had severe arterial disease and has been in the hospital for multiple medical problems since September 2015. At that time, he was living in [place] and had entered a local hospital there for care. Due to wounds on his right foot, he had undergone multiple attempts at amputation and revascularization; however, these were unsuccessful and resulted in a right leg [id number] amputation which was performed in March of 2016 in a [place] hospital. The patient states that he has since relocated to the [place] area because his family is close by. He states he has 2 brothers that live within a short distance of [place] and that he is currently residing at [facility] for therapy. He states he has only been transferring himself for the last 2 weeks or so due to severe weakness from his multiple medical problems. The patient is a poor historian and the accuracy of the information he gives is questionable; however, his records that were sent from the hospital in [place] do state that he had angiography of his bilateral lower extremities. His left leg is status post NAPPING MACHINE OPERATOR and stenting of his distal sfa left lower extremity with atherectomy, NAPPING MACHINE OPERATOR and drug-eluting distal SFA stent and proximal peroneal artery NAPPING MACHINE OPERATOR as well as anterior tibial artery atherectomy and angioplasty. The patient states that he denies any pain in his left leg or foot. He does state that he has 3 wounds to that foot which have been slow in healing, but have been healing according to him. He denies other complaints at this time including headaches, fevers, chills, dizziness, chest pain, shortness of breath , abdominal pain, nausea, vomiting, diarrhea, constipation, rest pain or other complaints. There is no imaging currently available on this patient. ALLERGIES: Include no known medication allergies. HOME MEDICATIONS: Reconciled on the chart and include the following: Acidophilus oral capsules, Ancef, Aranesp, aspirin, Coreg, Desitin, ferrous sulfate, furosemide, heparin, insulin, lisinopril, MiraLax, morphine extended tabs, multivitamins, NovoLog 70/30, oxycodone, Protonix, and Tylenol extended release. 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 His surgical history is positive for eye surgery in the right eye for retinal detachment, right foot amputation with revision and I&D, bilateral lower extremity angiography, history of right SFA atherectomy and angioplasty as well as TP trunk and popliteal segment angioplasty. His left leg is status post angiography with atherectomy and NAPPING MACHINE OPERATOR and drug-eluting stent in the distal SFA and NAPPING MACHINE OPERATOR of his peroneal and atherectomy and angioplasty of his anterior tibial artery. FAMILY HISTORY: Positive for cancer in his mother, [place] in his father, a brother with liver cancer. SOCIAL HISTORY: Positive for past history of tobacco use as well as previously drinking a 6-pack of beer daily. No illicit drug use. REVIEW OF SYSTEMS: Positive for generalized weakness per patient and some mild discomfort in his left heel wound, but he denies headaches, fevers, chills, abnormal moles or rashes, vision changes, cough, shortness of breath, hemoptysis or wheezing, chest pain, palpitations or syncope. He does have some edema of his left lower extremity. He denies abdominal pain, nausea, vomiting, dysuria, hematuria, dizziness, numbness or seizures. PHYSICAL EXAMINATION: His vital signs are as follows: Blood pressure of systolic 148 in the right arm, his left arm blood pressure is 162/92, heart rate of 93 and oxygenation of 96% on room air. Constitutional: In general, patient is a chronically ill-appearing, vmydc-wgnf-fqhhss-age-appearing middle- aged male in no acute distress. He is not ambulatory and on the litter currently due to his right leg AKA. He is awake alert and oriented x3. His memory is vague and his head is normocephalic and atraumatic. Eyes were EOMI in the left; his right eye is closed and blind. His neck is supple, nontender with a midline trachea without masses or crepitus. Lung exam demonstrates no dyspnea. They are decreased significantly throughout, but clear. Cardiovascular exam demonstrates a nondisplaced apical impulse. His rhythm is regular. He does not seem to have an obvious murmur or gallop. Peripheral pulses are full and equal in all extremities, unless otherwise noted. Specifically they were+2 on his carotid. His brachial is +2. His radial is + 1. His ulnar is nonpalpable. His right femoral is +1. His left femoral is + 3. His right leg distal pulses are unable to be palpated due to surgical absence of the right leg. His left foot distal pulses are nonpalpable, although they appear to be biphasic by Doppler. The patient demonstrates no bruit in his carotid or abdominal area. Abdomen is soft and nontender with normoactive bowel sounds in all 4 quadrants. He does have an umbilical hernia, which is soft and reducible. Musculoskeletal exam demonstrates normal tone, but decreased strength and bilateral upper extremities demonstrate no cyanosis, edema, clubbing, varicosities or ulcers. The patient's right lower extremity AKA site appears to be well approximated, healing appropriately. There is only minimally tender at this point as he is 6 weeks from surgery. It appears to be well-healed. There are no open areas or erythema noted. His left leg demonstrates +2 edema. He does have 3 ulcerations to his left foot, 2 in the lateral portion, 1 of which appears to have excellent granulation at the distal portion of his foot and is approximately the size of a nickel. He has a more proximal one as well which is about the size of a nickel as well and is covered with a black eschar without any significant erythema. There is no odor or drainage noted. His heel has a larger black eschar which appears to be dry and without sign of obvious infection. Neurologically, patient has grossly intact cranial nerves and grossly intact sensation. ASSESSMENT AND PLAN: Severe peripheral arterial disease with right leg above- the-knee amputation and left leg open ulcerations. Plan: Patient admitted for arteriography with possible intervention. I have discussed the risks options and benefits of the procedure with the patient. The patient understands the risks options and benefits and agrees to the procedure.
[2016-06-26] MEDS ORDERED: FRS/40 PO (08:55)
[2016-06-26] MEDS ORDERED: FURO80TA63 PO (08:55)
[2016-06-26] MEDS ORDERED: CARV25TA PO (08:55)
[2016-06-26] MEDS ORDERED: ATOR-26 PO (08:55)
[2016-06-26 08:59] LABS: BLOOD UREA NITROGEN 34 mg/dl (7-18); CREATININE 0.96 mg/dl (0.60-1.40)
[2016-06-26] MEDS ORDERED: LACT1TAB4 PO (08:59)
--- NOTE | 2016-06-26 09:42 | Procedure Note ---
Pre-Mod Sedation Assessment General Date of Moderate Sedation: Jun 26, 2016. Vital Signs: Vital Signs Past 12 Hours Date Time Temp Pulse Resp B/P Pulse Ox O2 Delivery O2 Flow Rate FiO2 06/26/16 09:03 36.7 84 20 164/32 94 Room Air Pre-Sedation Airway Assessment Oral Cavity: Dentures Hx of Sleep Apnea: No Smoking Status: Former Smoker Mallampati Classification: Class I ASA Classification: Class II Notes The planned sedation has been discussed with the patient and consent obtained. I have identified the patient, determined the appropriateness of sedation and have assessed the patient immediately prior to the procedure. All medicine(s) and interventions are by my order.
[2016-06-26] MEDS ORDERED: MIDAZOLAM HCL 1 MG/ML 2ML VIAL ONE (09:49)
[2016-06-26] MEDS ORDERED: FENTANYL CITRATE INJ 50 MCG/1 ML 2 ML VIAL ONE (09:49)
[2016-06-26] MEDS ORDERED: FENTANYL CITRATE INJ 50 MCG/1 ML 2 ML VIAL IV ONE (10:29)
[2016-06-26] MEDS ORDERED: MIDAZOLAM HCL 1 MG/ML 2ML VIAL IV ONE (10:29)
[2016-06-26] MEDS ORDERED: LIDOCAINE HCL 1% 20 ML VIAL SQ ONE (10:36)
[2016-06-26] MEDS ORDERED: IODIXANOL (VISIPAQUE) 270 MG/ML 150ML XX ONE (10:58)
[2016-06-26] MEDS ORDERED: HYDROCODONE/ACETAMOPHEN 5/325MG TAB PO PRN (11:00)
--- NOTE | 2016-06-26 11:04 | [facility] Post Operative Brief Note ---
Immediate Operative Summary Operative Date Jun 26, 2016. Pre-Operative Diagnosis PAD with Non Healing Ulcer Post-Operative Diagnosis Same Procedure(s) Performed Arteriogram, Left Lower Extremity Mechanical Closure of Left Femoral Artery, Moderate Sedation from 1029 - 1132 USN localization of femoral artery Surgeon Dr. Murry Gauge And Weigh Machine Operator Surgeon(s) Dr. Mcclellan Estimated Blood Loss 10 Findings small vessel disease and infrapop occlusive disease Specimens None Anesthesia Local with conscious sedation Complication(s) None Disposition
--- NOTE | 2016-06-26 11:05 | Procedure Note ---
Post-Moderate Sedation Plan General Date of Moderate Sedation Jun 26, 2016. Vital Signs: Vital Signs Past 12 Hours Date Time Temp Pulse Resp B/P Pulse Ox O2 Delivery O2 Flow Rate FiO2 06/26/16 09:36 36.7 20 164/32 94 Room Air 06/26/16 09:03 36.7 84 20 164/32 94 Room Air Review - Discharge Plan Post Moderate Sedation Plan: On clinical assessment, the patient appears to have tolerated the conscious sedation without complications. Patient is recovering as anticipated. Patient will continue to be monitored by nursing and may be discharged when conscious sedation discharge criteria are met.
--- NOTE | 2016-06-26 11:06 | Discharge Instructions ---
Discharge Instructions Date of Service Jun 26, 2016. Visit Reason for Visit: Peripheral Arter Disease -Lt Lower Extremity Ulcer Discharge Discharge Diagnosis / Problem: Peripheral vascular occlusive disease with non healing ulcer left foot Discharge Goals Goal(s): Diagnostic testing Activity Recommendations Activity Limitations: per Instructions/Follow-up section Anesthesia . Post Anesthesia Instructions: If you have had General Anesthesia or IV Sedation: * Do not drive today. * Resume driving when surgeon permits. * Do not make important decisions or sign legal documents today. * Call surgeon for: 1. Temperature elevations greater than 101 degrees F. 2. Uncontrollable pain. 3. Excessive bleeding. 4. Persistent nausea and vomiting. 5. Medication intolerance (nausea, vomiting or rash). * For nausea and vomiting use only clear liquids such as: tea, soda, bouillon until nausea subsides, then gradually increase diet as tolerated. * If you have any concerns or questions, call your surgeon's office. If physician is unavailable and it is an emergency, call 911 or go to the nearest emergency room. . Instructions / Follow-Up Instructions / Follow-Up Call [phone] to schedule a follow up appointment if one not already scheduled. SPECIAL CARE INSTRUCTIONS: Medications: * Continue to take your medications as directed. If you have been given a prescription for Plavix, please fill it immediately and take as directed. Incision Care: * Your puncture site may have some bruising and minor swelling for about one week. * You will have a small dressing covering your puncture site. You may remove the dressing after 24 hours and shower. You may let the warm soapy water run over it, but be sure to dry the puncture site well and keep it dry. * DO NOT IMMERSE THE INCISION IN A TUB/POOL/etc. UNTIL HEALED. * Puncture sites should be kept covered with a band-aid until it begins to heal. Restrictions: * Depending on whether you leg or arm was punctured to access the arteries, you will be required to lay flat, hold your arm still, or both, for about 4 hours after the procedure to prevent bleeding. * Limit your activity for the first 48 hours. You may walk and go up and down steps. Avoid excessive bending or movement at the puncture site. Possible Complications: * Excessive Swelling - after blood flow is improved you may notice increased swelling in the lower legs. This is a normal response. This usually depends on the amount of blockages in the leg, how long they have been there prior to your procedure and how much blood flow was restored. Elevating your legs will help to improve this. Please notify our office ([phone] ) if the swelling does not go away after lying in bed overnight. * Infection/Drainage/Bleeding - Drainage or bleeding from the puncture site should be minimal. If you have excessive bleeding or drainage, call our office ([phone]) right away. * Pain - You may experience some mild pain or soreness at your puncture site. If your pain does not improve, please contact our office ([phone]). Call your doctor and seek emergent treatment if you develop: * Temperature above 101 degrees * Any fever or chills * Any redness or purulent drainage from the puncture site * Any new dusky/blue colored toes or feet with coolness or sharp or aching pain. SKIN IRRITATION: * You may experience some redness and/or swelling in the area where radiation was administered. If any skin irritation occurs, please contact your family physician. FOLLOW UP VISIT: Keep any scheduled doctor appointments. Diet Recommendations Recommended Home Diet: resume previous diet Procedures Procedures Performed: Arteriogram, Left Lower Extremity Mechanical Closure of Left Femoral Artery, Moderate Sedation from 1029 - 1132 USN localization of femoral artery Pending Studies Studies pending at discharge: no Medical Emergencies . Who to Call and When: Medical Emergencies: If at any time you feel your situation is an emergency, please call 911 immediately. . Non-Emergent Contact Non-Emergency issues call your: Surgeon . . "Provider Documentation" section prepared by Preston Murry. .
--- NOTE | 2016-06-26 11:29 | DIAGNOSTIC IMAGING REPORT ---
DATE OF PROCEDURE: 06/26/2016 PREOPERATIVE DIAGNOSIS: Left lower extremity critical limb ischemia with tissue loss. POSTOPERATIVE DIAGNOSIS: Same. PROCEDURE: Ultrasound-guided access of left femoral artery, aortogram and left lower extremity diagnostic angiogram. SURGEON: Dr. Preston Murry. DIESEL ENGINE MECHANIC: Dr. Ofe Mcclellan. ANESTHESIA: Local plus conscious sedation for 32 minutes. ESTIMATED BLOOD LOSS: 10 mL URINE OUTPUT: Not recorded. COMPLICATIONS: None apparent. FLUOROSCOPY TIME: 0.7 minutes. MILLIGRAYS: 58. CONTRAST: 65 mL COMPLICATIONS: None apparent. CONDITION: Stable to PACU. INDICATIONS: Mr. Zapien is a 65-year-old male who has peripheral arterial disease. He previously underwent left above-knee amputation and now comes in with tissue loss and ulceration of his left foot. He was advised of the risks and benefits of angiogram and agreed to undergo the procedure. PROCEDURE IN DETAIL: The patient was brought into the operative suite. A timeout occurred. He was prepped and draped in usual fashion. Ultrasound-guided access of the femoral vein was obtained. The femoral artery was then stuck just lateral to this site. A 5-Urdu sheath was inserted and Glidewire was inserted into the aorta. A pigtail was placed over this wire. An aortogram was obtained. This demonstrated patent aorta, bilateral iliac arteries and bilateral hypogastric arteries. The pigtail was withdrawn into the common iliac artery and diagnostic angiogram was obtained of the left lower extremity. This demonstrated patent common femoral artery, SFA, and profunda artery. He had previous SFA stents which are patent. His popliteal is patent. His AT is patent with some distal stenosis in the mid AT. His PT is completely occluded. His peroneal is open to the ankle. His AT does fill his DP artery. At this time, it was decided that there were no endovascular options available and the case was terminated. A Star closure was used in the artery; however, this only partially deployed and pressure was held until hemostasis was obtained. The sheath in the femoral vein was removed as well and pressure was held until hemostasis was obtained. Dr. Preston Murry was present for the entirety of this case. I, Dr. Murry was present and scurbbed for the entire procedure. [facility]INVIEW HOSPITALAlejandro
[2016-07-18] MEDS ORDERED: ESCI10TA17 PO (09:49)
[2016-07-18] MEDS ORDERED: CARV25TA PO (09:49)
[2016-07-18] MEDS ORDERED: FLM4 PO (09:49)
[2016-07-18] MEDS ORDERED: OXYC-57 PO (09:49)
[2016-07-18] MEDS ORDERED: FERR1TAB13 PO (09:49)
[2016-07-18] MEDS ORDERED: LACT1TAB4 PO (09:49)
[2016-07-18] MEDS ORDERED: ECRCR EXT (09:49)
[2016-07-18] MEDS ORDERED: ASCOPOW PO (09:49)
[2016-07-18] MEDS ORDERED: ASPI81TA28 PO (09:49)
[2016-07-18] MEDS ORDERED: LSX40 PO (09:49)
[2016-07-18] MEDS ORDERED: NRN300 PO (09:49)
[2016-07-18] MEDS ORDERED: XRL15 PO (09:49)
[2016-07-18] MEDS ORDERED: SENN-65 PO (09:49)
[2016-07-18] MEDS ORDERED: NVLGIPEN SC (09:49)
[2016-07-18] MEDS ORDERED: PANT40TA PO (09:49)
[2016-07-18] MEDS ORDERED: MULT-513 PO (09:49)
[2016-07-18] MEDS ORDERED: IPRA1AER2 INH (09:49)
[2016-07-18] MEDS ORDERED: ATOR-26 PO (09:49)
[2016-07-18] MEDS ORDERED: ACET325T96 PO (09:49)
[2016-07-18] MEDS ORDERED: SALI0.6549 NAE (09:49)
[2016-07-18] MEDS ORDERED: INSDGIPEN SC (09:49)
[2016-07-30] MEDS ORDERED: INSDGI SC (07:33)
[2016-07-30] MEDS ORDERED: FLUD0.1T10 PO (13:02)
[2016-08-14] MEDS ORDERED: FLM4 PO (07:14)
[2016-08-14] MEDS ORDERED: MULT-513 PO (07:14)
[2016-08-14] MEDS ORDERED: ESCI10TA17 PO (07:14)
[2016-08-14] MEDS ORDERED: NVLG SC (07:14)
[2016-08-14] MEDS ORDERED: CARV25TA PO (07:14)
[2016-08-14] MEDS ORDERED: LACT1TAB4 PO (07:14)
[2016-08-14] MEDS ORDERED: FERR1TAB13 PO (07:14)
[2016-08-14] MEDS ORDERED: ASPCH81X PO (07:14)
[2016-08-14] MEDS ORDERED: ACET-1311 PO (07:14)
[2016-08-14] MEDS ORDERED: NRN300 PO (07:14)
[2016-08-14] MEDS ORDERED: IPRA1AER2 INH (07:14)
[2016-08-14] MEDS ORDERED: SENN-65 PO (07:14)
[2016-08-14] MEDS ORDERED: HYDR-5688 PO (07:15)
[2016-08-14] MEDS ORDERED: NUTR-7 PO (07:15)
[2016-08-14] MEDS ORDERED: ONDA4TAB46 PO (07:15)
[2016-08-14] MEDS ORDERED: PRNJ PO (07:15)
[2016-08-14] MEDS ORDERED: BUME2TAB3 PO (07:15)
== END 2016-06-26 14:53 | disposition home or self-care (01) ==
LOC: C.ACU 07:28
PROVIDERS: ATTEND Surgery Vascular Surgery
DX: I99.8 Other disorder of circulatory system (principal); I73.9 Peripheral vascular disease, unspecified; L97.529 Non-pressure chronic ulcer of other part of left foot with unspecified severity; Z89.611 Acquired absence of right leg above knee; Z98.890 Other specified postprocedural states; Z79.4 Long term (current) use of insulin; Z79.899 Other long term (current) drug therapy; I12.9 Hypertensive chronic kidney disease with stage 1 through stage 4 chronic kidney disease, or unspecified chronic kidney disease; E11.22 Type 2 diabetes mellitus with diabetic chronic kidney disease; H54.42 Blindness, left eye, normal vision right eye; N18.3 Chronic kidney disease, stage 3 (moderate); I48.91 Unspecified atrial fibrillation; I50.9 Heart failure, unspecified; Z80.3 Family history of malignant neoplasm of breast; Z82.49 Family history of ischemic heart disease and other diseases of the circulatory system; F17.200 Nicotine dependence, unspecified, uncomplicated

== ENCOUNTER 2016-06-29 14:42 | Inpatient (IN) | payer OTHER ==
[~2016-06-29] VITALS: Ht 177.8 cm; Wt 84.4 kg
[~2016-06-29 14:42] MED LIST changes: +ATOR-26 PO; +CARV25TA PO; -CEFAZOLIN 1000MG/55 ML D5W IV SCH; -CEFAZOLIN 2000 MG/60 ML D5W IV SCH; -CRG625 PO; +FRS/40 PO; +FURO80TA63 PO; +LACT1TAB4 PO; -LCTX PO; -LPT20 PO; -LSX20 PO; -NUTR-7 PO; -NVLGI/PEN SC; -ONDA4TAB10 SL; -RSPS5 PO; -SODIUM CHLORIDE 0.9% 1000ML 1,000 ML IV SCH; -[UNRECOGNIZED DRUG - CODE] SQ
--- NOTE | 2016-06-29 15:49 | EMERGENCY ROOM VISIT NOTE ---
History Report prepared by [place]: Gage Abdullahi Under the Supervision of: Dr. Otoniel Fraire D.O. First contact with patient: 15:39 Chief Complaint: WOUND INFECTION Stated Complaint: WOUND CHECK,SEEPING AND BLEEDING Nursing Triage Summary: pt has diabetic ulcers on let leg, knees to toes. have been there prior to april ( pt moved her at that time) has been seeing wound since then. since the weekend pt has been having increased drainage. family states they have been changing it more frequently. currently saturated. was dressed with aquacell and kerlex.family stated they called wound clinic and they were told there is nothing more they could do for him. History of Present Illness The patient is a 65 year old male who presents to the Emergency Room with complaints of worsening left leg diabetic ulcers that started around 3 days ago. The patient was seen here 3 days ago, and had some dye pumped into his left leg. The patient was told that he has blood flow down to his ankles, but none into his foot. The patient has been seeing wound clinic for his left leg, and the drainage has worsened over the past few days. He denies any left leg pain. The patient's wound is being dressed with Aquacel and Kerlix. The wound clinic told the patient that there was not much more they could do for him. He has a history of a right leg amputation, and there is some concern that the same would have to happen to the left leg. Source of History: patient, nursing staff Onset: 3 days ago Position: leg (left) Quality: other (diabetic ulcers) Timing: worsening Note: Associated symptoms: Worsening left leg drainage. Denies left leg pain. Review of Systems See HPI for pertinent positives & negatives. A total of 10 systems reviewed and were otherwise negative. Past Medical & Surgical Medical Problems: (1) Atrial fibrillation (2) CELLULITIS AND ULCERS LEFT LEG (3) Chronic anemia (4) Chronic renal disease (5) Congestive heart failure (6) Diabetes (7) Diabetic neuropathy (8) Hypertension Surgical Problems: (1) History of right above knee amputation (2) S/P vascular bypass Family History Cancer Heart disease Social History Smoking Status: Never Smoker Drug Use: none Marital Status: Occupation Status: disabled Current/Historical Medications Scheduled Ascorbic Acid (Ascorbic Acid Cassave), 500 MG PO DAILY Aspirin (Aspirin Ec), 81 MG PO DAILY Atorvastatin (Lipitor), 80 MG PO DAILY Carvedilol (Coreg), 25 MG PO BID Escitalopram (Lexapro), 10 MG PO DAILY Ferrous Sulfate (Kp Ferrous Sulfate), 1 TAB PO TIDM Furosemide (Lasix), 80 MG PO QAM Furosemide (Lasix), 40 MG PO QD Gabapentin (Neurontin), 200 MG PO TID Insulin Lispro 75/25 (Humalog Mix 75/25), 35 UNITS SC QAM Insulin Lispro 75/25 (Humalog Mix 75/25), 25 UNITS SC QPM Lactobacillus (Floranex), 1 TAB PO TID Lisinopril (Zestril), 20 MG PO DAILY Multivitamins/Minerals (Mvi With Minerals), 1 TAB PO DAILY Pantoprazole (Protonix), 40 MG PO DAILY Rivaroxaban (Xarelto), 20 MG PO DAILY Zinc Sulfate (Zinc Sulfate), 220 MG PO DAILY Scheduled PRN Acetaminophen Tab (Tylenol), 650 MG PO Q4 PRN for Pain Ipratropium-Albuterol (Combivent Respimat), 1 PUFFS INH Q4H PRN for Shortness of Breath Oxycodone Ir (Roxicodone Ir), 5 MG PO Q6 PRN for Moderate Pain Saline (Sodium Chloride), 2 SPRAYS SHANNON QID PRN for DRYNESS Senna/Docusate Sod (Senokot S), 1 TAB PO Q24H PRN for Constipation Allergies Coded Allergies: No Known Allergies (Unverified , 06/29/16) Physical Exam Vital Signs Date Time Temp Pulse Resp B/P Pulse Ox O2 Delivery O2 Flow Rate FiO2 06/29/16 18:28 85 18 119/75 98 Room Air 06/29/16 17:56 84 17 159/88 97 06/29/16 16:43 84 18 145/81 94 Room Air 06/29/16 16:10 93 Room Air 06/29/16 15:12 36.5 85 18 121/60 92 Room Air Physical Exam GENERAL: Patient is awake, alert, somewhat uncomfortable appearing. EYES: Right eye was surgically absent. Left eye was normal in appearance. EARS, NOSE, MOUTH AND THROAT: The nose is without any evidence of any deformity. Mucous membranes are moist tongue is midline NECK: The neck is nontender and supple. RESPIRATORY: Normal respiratory effort is noted there is no evidence of wheezing rhonchi or rales CARDIOVASCULAR: Regular rate and rhythm noted there no murmurs rubs or gallops normal S1 normal S2 GASTROINTESTINAL: The abdomen is soft. Bowel sounds are present in all quadrants. Abdomen is nontender MUSCULOSKELETAL/EXTREMITIES: Right leg amputation noted. Left leg had no deformity. SKIN: Left leg was symmetrically swollen with multiple ulcerations noted along the left lower extremity. There was erythema and drainage noted. NEUROLOGIC: Patient is awake alert and oriented x3. Medical Decision & Procedures ER Provider Diagnostic Interpretation: X-ray results as stated below per interpretation by me and the radiologist. SINGLE VIEW CHEST CLINICAL HISTORY: Sepsis. FINDINGS: An AP, portable, upright chest radiograph is compared to study dated 04/30/2016. The examination is degraded by portable technique and patient rotation. The heart is enlarged and there is atherosclerotic calcification of the thoracic aorta. There is pulmonary vascular congestion. There is a moderate right pleural effusion with associated right basilar consolidation. Mild airspace opacities are seen at the left lung base. No pneumothorax is seen. The skeletal structures are osteopenic. The bony thorax is grossly intact. Calcific tendinopathy is noted in the left shoulder. IMPRESSION: 1. Cardiomegaly with evidence of congestive failure. 2. Moderate right pleural effusion and bibasilar consolidation. This likely represents atelectasis. Clinical correlation will be required Electronically signed by: Kennedy Mathur M.D. 06/29/2016 4:23 PM Dictated Date/Time: 06/29/2016 4:21 PM Laboratory Results 06/29/16 15:46 Red Blood Count 3.81, Mean Corpuscular Volume 81.1, Mean Corpuscular Hemoglobin 25.2, Mean Corpuscular Hemoglobin Concent 31.1, Mean Platelet Volume 11.2, Neutrophils (%) (Auto) 60.7, Lymphocytes (%) (Auto) 22.4, Monocytes (%) (Auto) 7.9, Eosinophils (%) (Auto) 8.5, Basophils (%) (Auto) 0.5, Neutrophils # (Auto) 3.36, Lymphocytes # (Auto) 1.24, Monocytes # (Auto) 0.44, Eosinophils # (Auto) 0.47, Basophils # (Auto) 0.03 06/29/16 15:46 Test 06/29/16 15:46 06/29/16 15:54 06/29/16 17:45 White Blood Count 5.54 K/uL (4.8-10.8) Red Blood Count 3.81 M/uL (4.7-6.1) Hemoglobin 9.6 g/dL (14.0-18.0) Hematocrit 30.9 % (42-52) Mean Corpuscular Volume 81.1 fL (80-100) Mean Corpuscular Hemoglobin 25.2 pg (25-34) Mean Corpuscular Hemoglobin Concent 31.1 g/dl (32-36) Platelet Count 175 K/uL (130-400) Mean Platelet Volume 11.2 fL (7.4-10.4) Neutrophils (%) (Auto) 60.7 % Lymphocytes (%) (Auto) 22.4 % Monocytes (%) (Auto) 7.9 % Eosinophils (%) (Auto) 8.5 % Basophils (%) (Auto) 0.5 % Neutrophils # (Auto) 3.36 K/uL (1.4-6.5) Lymphocytes # (Auto) 1.24 K/uL (1.2-3.4) Monocytes # (Auto) 0.44 K/uL (0.11-0.59) Eosinophils # (Auto) 0.47 K/uL (0-0.5) Basophils # (Auto) 0.03 K/uL (0-0.2) RDW Standard Deviation 49.2 fL (36.4-46.3) RDW Coefficient of Variation 16.5 % (11.5-14.5) Immature Granulocyte % (Auto) 0.0 % Immature Granulocyte # (Auto) 0.00 K/uL (0.00-0.02) Erythrocyte Sedimentation Rate 69 mm/hr (0-14) Prothrombin Time 13.4 SECONDS (9.0-12.0) Prothromb Time International Ratio 1.2 (0.9-1.1) Activated Partial Thromboplast Time 31.2 SECONDS (21.0-31.0) Partial Thromboplastin Ratio 1.2 Anion Gap 5.0 mmol/L (3-11) Est Creatinine Clear Calc Drug Dose 74.8 ml/min Estimated GFR () 91.0 Estimated GFR (Non- 78.5 BUN/Creatinine Ratio 37.3 (10-20) Calcium Level 8.4 mg/dl (8.5-10.1) Magnesium Level 1.8 mg/dl (1.8-2.4) Total Bilirubin 0.4 mg/dl (0.2-1) Aspartate Amino Transf (AST/SGOT) 44 U/L (15-37) Alanine Aminotransferase (ALT/SGPT) 28 U/L (12-78) Alkaline Phosphatase 285 U/L (45-117) Total Creatine Kinase 88 U/L (39-308) Creatine Kinase MB 2.8 ng/ml (0.5-3.6) Creatine Kinase MB Ratio 3.2 (0-3.0) C-Reactive Protein 2.34 mg/dl (0-0.29) Total Protein 7.1 gm/dl (6.4-8.2) Albumin 2.6 gm/dl (3.4-5.0) Globulin 4.5 gm/dl (2.5-4.0) Albumin/Globulin Ratio 0.6 (0.9-2) Lipase 77 U/L (73-393) Bedside Lactic Acid Venous 0.96 mmol/L (0.90-1.70) Urine Color YELLOW Urine Appearance CLEAR (CLEAR) Urine pH 6.5 (4.5-7.5) Urine Specific [place] 1.015 (1.000-1.030) Urine Protein 1+ (NEG) Urine Glucose (UA) NEG (NEG) Urine Ketones NEG (NEG) Urine Occult Blood NEG (NEG) Urine Nitrite NEG (NEG) Urine Bilirubin NEG (NEG) Urine Urobilinogen NEG (NEG) Urine Leukocyte Esterase NEG (NEG) Urine WBC (Auto) 1-5 /hpf (0-5) Urine RBC (Auto) 0-4 /hpf (0-4) Urine Hyaline Casts (Auto) 1-5 /lpf (0-5) Urine Epithelial Cells (Auto) 20-30 /lpf (0-5) Urine Bacteria (Auto) NEG (NEG) Laboratory results per my review. ED Course 1541: The patient was evaluated in room A10. A complete history and physical examination were performed. 1754: I reevaluated the patient and he is resting comfortably. The patient verbally expressed understanding and agreement with the treatment plan. The patient will be evaluated for further treatment. 1756: I discussed the patient with Dr. Whitney - fisher. He will evaluate the patient for further treatment. Medical Decision Prior records reviewed and summarized as above. Triage Nursing notes reviewed. Additional history obtained from family. Differential diagnosis: Etiologies such as cellulitis, abscess, MRSA infection, DVT, necrotizing fasciitis, dermatitis, drug eruption, as well as others were entertained.. The patient is a 65-year-old male who has a history of peripheral vascular disease. The patient presented to the emergent department with family members for swelling and ulceration in his left leg. The patient doesn't a history of peripheral vascular disease as well as diabetes. His overall exam appears to be consistent with cellulitis. The patient's inflammatory markers were elevated. I discussed the patient's laboratory and radiographic studies with him and his family members. I also reviewed his recent vascular workup of this left leg. I discussed his case with the patient's primary care physician and he is agreed to evaluate the patient in emergency department for further management and disposition. Likely the patient will require some antibiotic treatment and possibly a referral for determination if the patient's lower extremity is salvageable. The patient has had amputation in the past on his right lower extremity for similar complaints. Consults Time Called: 175 Consulting Physician: Dr. Whitney - fisher Returned Call: [phone] I discussed the patient with Dr. Whitney - fisher. He will evaluate the patient for further treatment. Impression Primary Impression: Cellulitis of left lower extremity Additional Impression: Peripheral vascular disease Scribe Attestation The scribe's documentation has been prepared under my direction and personally reviewed by me in its entirety. I confirm that the note above accurately reflects all work, treatment, procedures, and medical decision making performed by me. Departure Information Dispostion Being Evaluated By Hospitalist Referrals Kd Hair M.D. (PCP) Patient Instructions My [facility] Problem Qualifiers
[2016-06-29 15:57] LABS: BASO % 0.5 %; BASO ABS # 0.03 K/uL (0-0.2); COMPLETE YES; EOS % 8.5 %; HEMATOCRIT 30.9 % (42-52); LYMPH % 22.4 %; LYMPH ABS # 1.24 K/uL (1.2-3.4); MEAN CELL VOLUME 81.1 fL (80-100); MEAN CORPUSCULAR HEMOGLOBIN 25.2 pg (25-34); MEAN CORPUSCULAR HGB CONC 31.1 g/dl (32-36); MEAN PLATELET VOLUME 11.2 fL (7.4-10.4); MONO % 7.9 %; NEUT % 60.7 %; PLATELET COUNT 175 K/uL (130-400); RED BLOOD COUNT 3.81 M/uL (4.7-6.1); WHITE BLOOD COUNT 5.54 K/uL (4.8-10.8)
[2016-06-29 16:07] LABS: INR 1.2 (0.9-1.1); PARTIAL THROMBOPLASTIN RATIO 1.2; PROTHROMBIN TIME (PATIENT) 13.4 SECONDS (9.0-12.0)
[2016-06-29 16:24] LABS: ALB/GLOB RATIO 0.6 (0.9-2); BUN/CREATININE RATIO 37.3 (10-20); C-REACTIVE PROTEIN 2.34 mg/dl (0-0.29); CALCIUM 8.4 mg/dl (8.5-10.1); CKMB/CK RATIO 3.2 (0-3.0); CREATININE 0.99 mg/dl (0.60-1.40); MAGNESIUM 1.8 mg/dl (1.8-2.4); POTASSIUM 4.4 mmol/L (3.5-5.1)
--- NOTE | 2016-06-29 16:24 | DIAGNOSTIC IMAGING REPORT ---
SINGLE VIEW CHEST CLINICAL HISTORY: Sepsis. FINDINGS: An AP, portable, upright chest radiograph is compared to study dated 04/30/2016. The examination is degraded by portable technique and patient rotation. The heart is enlarged and there is atherosclerotic calcification of the thoracic aorta. There is pulmonary vascular congestion. There is a moderate right pleural effusion with associated right basilar consolidation. Mild airspace opacities are seen at the left lung base. No pneumothorax is seen. The skeletal structures are osteopenic. The bony thorax is grossly intact. Calcific tendinopathy is noted in the left shoulder. IMPRESSION: 1. Cardiomegaly with evidence of congestive failure. 2. Moderate right pleural effusion and bibasilar consolidation. This likely represents atelectasis. Clinical correlation will be required Electronically signed by: Kennedy Mathur M.D. 06/29/2016 4:23 PM Dictated Date/Time: 06/29/2016 4:21 PM
[2016-06-29 18:09] LABS: URINE APPEARANCE CLEAR (CLEAR); URINE BILIRUBIN NEG (NEG); URINE COLOR YELLOW; URINE EPITHELIAL CELL AUTO 20-30 /lpf (0-5); URINE NITRITE NEG (NEG); URINE PH 6.5 (4.5-7.5); URINE SPECIFIC GRAVITY 1.015 (1.000-1.030); UROBILINOGEN NEG (NEG); ZZUR CULT IF INDIC CLEAN CATCH NO
[2016-06-29 18:11] LABS: MANUAL MICROSCOPIC REQUIRED? NO; REVIEW REQ? NO
[2016-06-29] MEDS ORDERED: DOCUSATE SODIUM/SENNA 50/8.6MG TAB PO PRN (19:15)
[2016-06-29] MEDS ORDERED: IPRATROPIUM BROMIDE/ALBUTEROL respimat INH INH PRN (19:15)
[2016-06-29] MEDS ORDERED: ONDANSETRON INJ 2 MG/ML 2 ML VIAL IV PRN (19:15)
[2016-06-29] MEDS ORDERED: PIPERACILL/TAZOBAC IV 3.375 GM in DEXTROSE 5% 100ML IV ONE (20:10)
[2016-06-29] MEDS ORDERED: VANCOMYCIN INJ 2,000 MG in SODIUM CHLORIDE 0.9% 500ML 500 ML IV ONE (20:15)
[2016-06-29 20:25] VITALS: BP 170/67; PULSE 89; TEMP 36.9; BMI 26.7
[2016-06-29] MEDS ORDERED: PIPERACILL/TAZOBAC CONSULT ACTIVE PRN (21:15)
[2016-06-29] MEDS ORDERED: VANCOMYCIN CONSULT ACTIVE PRN (21:15)
--- NOTE | 2016-06-29 21:27 | Pharmacy Progress Note ---
Pharmacy Antibiotic Consult Date of Service: June 29, 2016. Pharmacy Dosing Scope Pharmacy is consulted to initiate vancomycin and Zosyn IV dosing therapy, order appropriate labs and adjust drug dose/frequency. Subjective The patient is a 65 year old male admitted on June 29, 2016 at 19:16 for wound infection. Objective Height (Feet): 5 Height (Inches): 10.00 Weight (Kilograms): 84.400 Lab Results (24hrs): Laboratory Tests Test 06/29/16 15:46 BUN/Creatinine Ratio 37.3 Blood Urea Nitrogen 37 mg/dl Creatinine 0.99 mg/dl White Blood Count 5.54 K/uL Red Blood Count 3.81 M/uL Hemoglobin 9.6 g/dL Hematocrit 30.9 % Mean Corpuscular Volume 81.1 fL Mean Corpuscular Hemoglobin 25.2 pg Mean Corpuscular Hemoglobin Concent 31.1 g/dl Platelet Count 175 K/uL Mean Platelet Volume 11.2 fL Neutrophils (%) (Auto) 60.7 % Lymphocytes (%) (Auto) 22.4 % Monocytes (%) (Auto) 7.9 % Eosinophils (%) (Auto) 8.5 % Basophils (%) (Auto) 0.5 % Neutrophils # (Auto) 3.36 K/uL Lymphocytes # (Auto) 1.24 K/uL Monocytes # (Auto) 0.44 K/uL Eosinophils # (Auto) 0.47 K/uL Basophils # (Auto) 0.03 K/uL Assessment & Plan ASSESSMENT: * Pt admitted w/ wound infection of leg - H&P not available at time of this note * Pertinent PMH includes type 2 diabetes * PK parameters: Vd 0.7 L/kg, Chidi 0.066 hr-1, t1/2 10.5 hrs PLAN: * Vancomycin 2 gm (~25 mg/kg) IV x 1, then * Vancomycin 1250 mg (~15 mg/kg) IV q12h * Trough level prior to the 4th overall dose Pharmacy will continue to follow and will adjust dose/frequency as necessary. Thank you
[2016-06-29 22:49] VITALS: BP 164/74; PULSE 97
[2016-06-29] MEDS: GABAPENTIN 100 MG CAP PO SCH (22:50)
[2016-06-29] MEDS: LACTOBACILLUS ACIDOPHILUS (FLORANEX) TAB PO SCH (22:50)
[2016-06-29] MEDS: CARVEDILOL 25 MG TAB PO SCH (22:51)
[2016-06-29 23:14] VITALS: BP 157/70; PULSE 103; TEMP 36.8; O2SAT 93
[2016-06-29] MEDS: INSULIN ASPART 100 UNITS/ML 3 ML PEN SC SCH (23:24)
[2016-06-29] MEDS: INSULIN GLARGINE SOLOSTAR 100 UNITS/ML 3 ML PEN SC SCH (23:26)
[2016-06-29] MEDS: ACETAMINOPHEN 500 MG TAB PO PRN (23:33)
--- NOTE | 2016-06-30 02:13 | HISTORY & PHYSICAL EXAMINATION ---
DATE OF ADMISSION: 06/29/2016 A 65-year-old male, admitted through the Emergency Room with severe cellulitis of his left leg with multiple ulcers of his left lower leg and left foot. HISTORY OF PRESENT ILLNESS: A patient with an extensive medical history. He has type 2 diabetes mellitus, not adequately controlled. He has been on insulin for many years. 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 The patient is now living at home with his brothers. Up until recently, he was living in [place]. He did not have anybody to take care of him over there. He was hospitalized multiple times. He was in a rehab facility. He was by himself. So, arrangements were made with the extensive efforts of his brothers and he was transferred to [facility]. He did have one hospitalization at [facility] with sepsis. From [facility], he went to his brother's home. His 2 brothers and other family members have been trying to take care of him at home. He has home health nursing. He has been going to the wound care clinic. He sees Dr. Boyer in cardiology. He saw Dr. Murry in vascular surgery. The patient just had an angiogram of his left leg. No intervention was feasible. On the day of admission, patient was having more problem with his left leg. There was a large amount of seepage from the ulcerated areas. His brother called the wound care center and he was told that if he thought the problem was getting worse, that they should bring him to the Emergency Room. The patient was evaluated by Dr. Fraire. Multiple tests were ordered. The condition of his left lower leg was alarming. He has multiple ulcers. Seepage of fluid. Swelling. He also has a moderate right pleural effusion. I saw the patient in the Emergency Room and he was admitted for further treatment. PAST MEDICAL HISTORY: 1. Type 2 diabetes mellitus, first diagnosed in 1984. He is on insulin. His diabetes has not been controlled over the years. He admitted to me when I first saw him in the office he did not really accept what he had and always had a problem with dietary and medication compliance. He developed multiple complications related to his diabetes, including retinopathy, ended up with blindness in the right eye. He has severe neuropathy, nephropathy and vasculopathy. 2. 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 He had detached retina and had multiple interventions. He lost his vision in the right eye in 2007. 3. Cardiomyopathy. He was hospitalized in the past with congestive heart failure and irregular heartbeat. He had edema all over, as he described it. At one time, his echocardiogram showed an ejection fraction of 15%. An echocardiogram done during his hospitalization in April at [facility] showed an ejection fraction of 20%-25%. 4. Atrial fibrillation. He is anticoagulated. Rate controlled. 5. Right oaiuz-ezn-qxkh amputation on 02/21/2016. Prior to the amputation, he had multiple surgeries and amputations of some of his toes. 6. Peripheral arterial disease with prior stenting procedures. 7. Hyperlipidemia. Treated for many years. 8. He did have a Clostridium difficile infection when he was hospitalized in [place]. 9. Left heel ulcer for which he has been treated at the wound care clinic. 10. Peripheral arterial disease. Severe. SOCIAL HISTORY: He is . He was in a relationship in [place] with a friend, who was 80 years old. She had to go into a nursing facility. He had no one to take care of him. He stopped smoking in 1984. He also stopped drinking alcohol in 1984. He used to drink and smoke excessively, as he describes it. He is on disability. He worked in the [employer] for 11 years and after that, he worked for the [employer] for 28 years. FAMILY HISTORY: His mother of cancer, possibly lung or breast. His father of a stroke. He had coronary artery disease and myocardial infarction. He had 3 brothers. One brother of urinary bladder cancer. One brother has coronary artery disease. He is diabetic and has had a prior coronary artery bypass graft. One brother is also diabetic. ALLERGIES: None. CURRENT MEDICATIONS: On admission included: 1. Lasix 80 mg in the morning and 40 mg in the evening. 2. Gabapentin 200 mg 3 times a day. 3. Carvedilol 25 mg twice a day. 4. Lisinopril 20 mg daily. 5. Ferrous sulfate 325 mg twice a day. 6. Celexa 10 mg daily. 7. Pantoprazole 40 mg daily. 8. Xarelto 20 mg daily. 9. Atorvastatin 80 mg daily. 10. Aspirin 81 mg daily. 11. Multivitamin 1 daily. 12. Vitamin C 500 mg daily. 13. Zinc 220 mg daily. 14. Floranex daily. 15. Stool softener daily. REVIEW OF SYSTEMS: The patient was resting comfortably. He was not in any distress. He denied any headache or dizziness or lightheadedness. No chest pain. He denied any shortness of breath, but his activity is quite limited. No abdominal pain, no nausea, no vomiting. No problem with his bowel movements. No problem urinating. No pain in his back. He is complaining of pain, mostly phantom pain in the right leg. Also complaining of pain in his left leg. PHYSICAL EXAMINATION: GENERAL: Well developed, in no distress. His recorded weight is 84.4 kg, height 177.8 cm, BMI 26.7. VITAL SIGNS: Blood pressure 121/60, pulse 85, respiration 18, temperature 36.5, oxygen saturation 92% on room air. SKIN: Warm and dry. Multiple ecchymotic areas noted. HEENT: Blindness in the right eye. Markedly decreased vision in the left eye. He has upper dentures. Edentulous lower gum. NECK: Supple. Nontender. No adenopathy, no thyromegaly. No JVD. Normal carotid pulses. No evident carotid bruit. CHEST: Normal. HEART: irregular heart sounds. No evident murmur, rub or gallop. LUNGS: Markedly decreased breath sounds on the right side. No wheezing. No rhonchi. ABDOMEN: Soft, nontender, without organomegaly or masses. He does have an umbilical hernia. BACK: No spinal tenderness. EXTREMITIES: Status post right azwjg-enr-mzyg amputation. The stump looked healed very nicely. He has multiple ulcers on his left lower leg, seeping clear fluid. He does have a large ulcer on his left heel. Absent pedal pulses. NEUROLOGIC: He is alert and oriented. He does have severe neuropathy, related to his diabetes, in his legs. LABORATORY TESTS: WBC count 5540, hemoglobin 9.6, hematocrit 30.9, platelet count 175,000. Prothrombin time 13.4, INR 1.2, PTT 31.2. Sodium 142, potassium 4.4, chloride 106, CO2 31, BUN 37, creatinine 0.99, glucose 181, lactic acid 0.96, calcium 8.4, magnesium 1.8, total bilirubin 0.4, AST 44, ALT 28, alkaline phosphatase 285, total CK 88, MB fraction 2.8. C-reactive protein 2.34, total protein 7.1, albumin 2.6, globulin 4.5, lipase 77. His chest x-ray showed evidence of moderate right pleural effusion. He had evidence of cardiomegaly and congestive changes. Bibasilar consolidation. ASSESSMENT: 1. Multiple ulcers of his left lower leg and foot and heel. 2. Cellulitis. 3. Severe peripheral neuropathy. 4. Severe peripheral arterial disease. 5. Type 2 diabetes mellitus; multiple complications. 6. Cardiomyopathy. 7. Paroxysmal atrial fibrillation. 8. Congestive heart failure. 9. Moderate right pleural effusion. 10. Blindness in the right eye. PLAN: The patient was admitted to medical bed. Resuscitation level 5, as discussed with the patient in the presence of his 2 brothers. All his laboratory tests were ordered. He was continued on his oral medications. Cultures were done. He was started on IV Zosyn and vancomycin. He was placed on coverage for his diabetes with insulin and Lantus. Wound care consultation was requested. As noted, the patient just had an angiogram of his left leg done by Dr. Murry this past Wednesday and no intervention was feasible. PLAN: The plan at this time is to control his infection. Treat his ulcers. Monitor his multiple other problems. Diurese him with Lasix. Thoracic surgery consultation was requested for consideration of a right thoracentesis. ANALY
[2016-06-30] MEDS: PIPERACILL/TAZOBAC IV 3.375 GM in DEXTROSE 5% 100ML 100 ML IV SCH ×3 (02:16→18:22)
[2016-06-30] MEDS: ACETAMINOPHEN 500 MG TAB PO PRN (04:15)
[2016-06-30 06:23] LABS: BASO % 0.6 %; BASO ABS # 0.04 K/uL (0-0.2); COMPLETE YES; HEMATOCRIT 32.5 % (42-52); IG% 0.2 %; LYMPH % 18.8 %; MEAN CORPUSCULAR HEMOGLOBIN 24.9 pg (25-34); MEAN CORPUSCULAR HGB CONC 30.8 g/dl (32-36); MEAN PLATELET VOLUME 10.4 fL (7.4-10.4); MONO % 10.3 %; NEUT % 60.1 %; PLATELET COUNT 191 K/uL (130-400); RED BLOOD COUNT 4.01 M/uL (4.7-6.1); WHITE BLOOD COUNT 6.39 K/uL (4.8-10.8)
[2016-06-30] MEDS: FUROSEMIDE INJ 60 MG in SYRINGE 0 ML IV SCH ×2 (06:23→14:03)
[2016-06-30 06:57] LABS: BUN/CREATININE RATIO 33.8 (10-20); CALCIUM 8.4 mg/dl (8.5-10.1); CREATININE 0.96 mg/dl (0.60-1.40)
[2016-06-30 07:12] VITALS: BP 144/71; PULSE 79; TEMP 36.6; O2SAT 96
--- NOTE | 2016-06-30 08:27 | Clinical Documentation Query ---
Dr. ADDY LEBLANC ROBERT : CLINICAL DOCUMENTATION QUERIES QUERY 1 OF 2 Patient is a 65 year old male admitted with multiple ulcers of left lower extremity and cellulitis. As able, please clarify the pathologic etiology of these wounds as this affects code assignment. Wound clinic notes from 06/19/16 include the following: "1. Stable unstageable pressure ulcer, left heel. 2. Stable diabetic foot ulcers, Blackmon grade 1, left foot, stable. 3. Traumatic wound, left knee. 4. Stable venous stasis ulcerations, left lower . 5. New stage II pressure ulcer, buttocks." Lynn Sidhu PA-C In your clinical opinion is this patient being managed for: x Pressure ulcer of left heel, unstageable, Blackmon grade 1 diabetic foot ulcers, traumatic left knee wound, left lower leg venous stasis ulcers, and ?stage II pressure ulcer of the buttocks. ( ) Other explanation of clinical findings (Please Explain) ( ) Unable to determine (Please Define) ( ) Need to Discuss ( ) Not Agree The medical record reflects the following clinical findings, treatment, and risk factors. Clinical Indicators: As above Treatment: IV Zosyn, IV Vancomycin, Wound care consultation Risk Factors: Uncontrolled diabetes, PVD, CHF QUERY 2 OF 2 Documentation includes "Cardiomyopathy. He was hospitalized in the past with congestive heart failure and irregular heartbeat. He had edema all over, as he described it. At one time, his echocardiogram showed an ejection fraction of 15%. An echocardiogram done during his hospitalization in April at [facility] showed an ejection fraction of 20%-25%." Historical EMR documentation includes a diagnosis of "chronic systolic CHF". As appropriate, consider documentation as suggested below. Thank you. In your clinical opinion is this patient being managed for: (x ) Chronic systolic CHF ( ) Other explanation of clinical findings (Please Explain) ( ) Unable to determine (Please Define) ( ) Need to Discuss ( ) Not Agree The medical record reflects the following clinical findings, treatment, and risk factors. Clinical Indicators: As above Treatment: Coreg, Lasix, Lisinopril Risk Factors: Age, atrial fibrillation, DM, hypertension Please clarify and document your clinical opinion in the progress notes and discharge summary. Terms such as "probable", "suspected", "likely", "questionable", "possible", or "still to be ruled out" are acceptable. IF IN AGREEMENT, YOU MUST DOCUMENT ABOVE DIAGNOSTIC STATEMENT IN DAILY PROGRESS NOTES AND DISCHARGE SUMMARY. This document is not part of the patient's record. Thank You, Roel Horton RN [phone]
[2016-06-30] MEDS: INSULIN ASPART 100 UNITS/ML 3 ML PEN SC SCH ×4 (08:39→21:41)
[2016-06-30] MEDS: CARVEDILOL 25 MG TAB PO SCH ×2 (08:41→21:37)
[2016-06-30] MEDS: LISINOPRIL 20 MG TAB PO SCH (08:41)
[2016-06-30] MEDS: INSULIN GLARGINE SOLOSTAR 100 UNITS/ML 3 ML PEN SC SCH ×2 (08:41→21:42)
[2016-06-30] MEDS: GABAPENTIN 100 MG CAP PO SCH ×3 (08:42→21:35)
[2016-06-30] MEDS: ESCITALOPRAM OXALATE 10 MG TAB PO SCH (08:42)
[2016-06-30] MEDS: ASPIRIN 81 MG ECTAB PO SCH (08:42)
[2016-06-30] MEDS: PANTOprazole SOD 40 MG TAB PO SCH (08:42)
[2016-06-30] MEDS: ATORVASTATIN 40 MG TAB PO SCH (08:42)
[2016-06-30] MEDS: CEROVITE ADV FORMULA TAB PO SCH (08:42)
[2016-06-30] MEDS: LACTOBACILLUS ACIDOPHILUS (FLORANEX) TAB PO SCH ×3 (08:42→21:36)
[2016-06-30] MEDS ORDERED: FUROSEMIDE 80 MG TAB PO SCH (09:00)
--- NOTE | 2016-06-30 10:33 | OPERATIVE REPORT ---
DATE OF OPERATION: 06/30/2016 PREOPERATIVE DIAGNOSIS: Right pleural effusion. POSTOPERATIVE DIAGNOSIS: Same. PROCEDURE: Right thoracentesis under ultrasound guidance. SURGEON: Dr. Eldridge. ALUMNI RELATIONS MANAGER: SHMUEL Vazquez. ANESTHESIA: Local. DESCRIPTION OF PROCEDURE: The patient was seated upright. His right chest was evaluated with a bedside ultrasound. A nice window was seen at the 7th interspace, a bit lateral to the posterior axillary line. After appropriate timeout had been called, the patient was prepped and draped in usual sterile fashion. A skin wheal was raised with a 25-gauge needle, 1% Xylocaine. A larger bore needle was used to anesthetize skin and subcutaneous tissues under this and down into the pleural cavity. Free flowing fluid was obtained and a guidewire was inserted through this large bore needle and needle removed. Introducer sheath was slid over the guidewire and then removed. This was done to dilate this up slightly. Triple lumen catheter was slid in 17 cm and guidewire removed. Approximately 1400 mL of a serous rust-colored fluid was drained. We stopped when he had some reexpansion coughing. The patient has a very poor heart and I did not want to risk reexpansion pulmonary edema. He tolerated it very well. A chest x-ray is pending. I attest to the content of the Intraoperative Record and any orders documented therein. Any exceptio ns are noted below.
[2016-06-30] MEDS: VANCOMYCIN INJ 1,250 MG in SODIUM CHLORIDE 0.9% 250ML 250 ML IV SCH ×2 (10:35→22:52)
--- NOTE | 2016-06-30 10:53 | SURGICAL CONSULTATION ---
DATE OF CONSULTATION: 06/30/2016 REASON FOR CONSULTATION: Right pleural effusion. HISTORY OF PRESENT ILLNESS: This is a 65-year-old male who is a patient of Dr. Whitney who is from [place] who lived at here to be with his brother. He has multiple medical issues including peripheral vascular disease. He has wounds on his left lower extremity and has been worked up by Dr. Murry and is un-reconstructable. He also has a history of right pleural effusion and underwent a thoracentesis in [place] a few months ago. He is not a very good historian but states that he was not told this was infected or malignant. He also has a history of atrial fibrillation. He had a right above knee amputation several months ago for peripheral vascular disease. He has a poor LV function with ejection fraction between 15% and 25%. He has diabetes mellitus for many years. He has a history of cigarette smoking, but quit smoking and drinking over 30 years ago. I have been asked to evaluate him from a thoracic surgery standpoint. PAST MEDICAL HISTORY: 1. Diabetes mellitus. 2. Peripheral arterial disease. 3. History of Clostridium difficile infection. 4. Hyperlipidemia. 5. Atrial fibrillation. 6. Cardiomyopathy with congestive heart failure. 7. He has right eye blindness due to a detached retina. 8. History of cigarette smoking. 9. History of alcohol abuse. PAST SURGICAL HISTORY: 1. Right above knee amputation (this followed a below knee amputation and multiple debridements). 2. History of a percutaneous transluminal angioplasty and stent to left lower extremity. MEDICATIONS: Please see chart that includes: 1. Flonase. 2. Lasix. 3. Zinc. 4. Gabapentin. 5. Vitamin C. 6. Aspirin. 7. Atorvastatin. 8. Pantoprazole. 9. Xarelto. 10. Iron. 11. Lisinopril. 12. Celexa. 13. Carvedilol. ALLERGIES: No known drug allergies. SOCIAL HISTORY: The patient was in the [employer] for 11 years. He is . He has a significant other who is several years older than him and unable to care for himself, which is one of the reasons he moved to be with his brother now. His significant other had to be moved into a nursing facility. He heavily used alcohol and smoked heavily until 1984 when he quit both. 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 FAMILY MEDICAL HISTORY: The patient has no children. His father of a cerebrovascular accident. His father also had coronary artery disease. He had a brother with coronary artery disease. Two brothers with diabetes and another brother from bladder cancer. His mother from a cancer of unknown origin. REVIEW OF SYSTEMS: The patient states his weight has been relatively stable. He states that it did go up several pounds and came down after he was drained. He denies any nausea, vomiting or diarrhea. He has had difficulties with his left leg, although has no pain with it. He does complain of phantom pain in his right foot. He does have ulcers of his left heel and on his lower leg. He also has edema. He really does not have pain due to his neuropathy. He is blind in his right eye. He denies any changes in his vision in his left eye. His hearing is "okay." He has orthopnea. He does not really exert himself because he is in a wheelchair most of the day and so does not get shortness of breath at rest. PHYSICAL EXAMINATION: GENERAL: This is an elderly appearing male who appears older than his stated age. He is awake, alert and sitting up a wheelchair, just ate his breakfast. HEENT: His left eye has intact eye movements where there his pupil is small but reactive. He has had some scleral injection. His right eye is retracted. He has no nasolabial flattening. His tongue is midline. His oral mucosa is moist. He has upper denture plates. He is edentulous. NECK: Supple. He has no carotid bruits, lymphadenopathy or neck vein distention. LUNGS: He has decreased breath sounds in the right side. I detect no wheezing. He has no rales. HEART: He has an irregular heart rate. ABDOMEN: Obese, soft, nontender. He does have an umbilical hernia. It is difficult for me to say if he has any organomegaly. He has a well-healed right above knee amputation stump. EXTREMITIES: He has multiple ulcers on his lower leg and his foot. He is followed at the wound center for this. I cannot palpate pedal pulses. He has a large ulcer on his heel. He really does not have any tenderness along his left foot. He has edema and has brawny edema from the proximal lower leg down to his toes. He has multiple areas of skin breakdown. NEUROLOGIC: He is awake, alert, oriented. Other than the fact that he has a dense neuropathy on the left and has blindness in his right eye, I detect no other focal deficits. ASSESSMENT AND PLAN: Large right pleural effusion. This was tapped in the past. I discussed this with Dr. Whitney. He has not received Xarelto today. We are going to go ahead and offer him a right thoracentesis under ultrasound guidance. We will send this off and plan accordingly. ANALY
--- NOTE | 2016-06-30 11:14 | DIAGNOSTIC IMAGING REPORT ---
CHEST CT WITHOUT CONTRAST CT DOSE: 584.83 mGy.cm HISTORY: pleural effusion TECHNIQUE: Multiaxial CT images of the chest were performed without contrast. COMPARISON: None. FINDINGS: Compromise exam due to the absence of intravenous contrast enhancement. Right pleural effusion. Atelectatic change versus bronchiectasis of components of the right lower lobe. Minimal dependent atelectasis left base with the left lung otherwise clear. No evidence pneumothorax. Hilar and mediastinal regions show no significant adenopathy. There is calcification of the coronary arterial vasculature. IMPRESSION: 1. Right pleural effusion. 2. Atelectatic change right lower lobe with possible superimposed bronchiectatic change. 3. Left lung is grossly clear. Electronically signed by: Markel More M.D. 06/30/2016 11:13 AM Dictated Date/Time: 06/30/2016 11:10 AM
[2016-06-30 12:08] LABS: PLEURAL FLUID TOTAL PROTEIN 2.5 g/dl
[2016-06-30 13:21] LABS: PLEURAL FLUID APPEARANCE HAZY; PLEURAL FLUID COLOR YELLOW; PLEURAL FLUID MONONUC RELAT 86.6 %; PLEURAL FLUID POLYNUC 13.4 %; PLEURAL FLUID SOURCE RIGHT LUNG; PLEURAL FLUID WBC (A) 143 /uL
[2016-06-30] MEDS: OXYCODONE HCL IR 5 MG TAB (IMMEDIATE RELEASE) PO PRN ×2 (13:57→19:58)
[2016-06-30 14:26] VITALS: BMI 26.7
[2016-06-30 16:14] VITALS: BP 142/69; PULSE 87; TEMP 36.3; O2SAT 97
[2016-06-30] MEDS ORDERED: FUROSEMIDE 40 MG TAB PO SCH (17:00)
[2016-06-30] MEDS: RIVAROXABAN 10 MG TAB PO SCH (18:23)
--- NOTE | 2016-06-30 19:58 | PROGRESS NOTE ---
DATE: 06/30/2016 A 65-year-old male, admitted with severe cellulitis of his left lower leg with multiple ulcers. He has peripheral arterial disease, type 2 diabetes mellitus with multiple complications including vasculopathy, neuropathy, retinopathy and nephropathy. The patient was admitted. Cultures were done. He was started on IV Zosyn and vancomycin. He also has moderate right pleural effusion. He remains afebrile. He denied any headache. No dizziness. No lightheadedness. No chest pain, no shortness of breath. No abdominal pain, no nausea, no vomiting. No problem with urination. He does have seepage from his left lower leg at the level of the ulcers. PHYSICAL EXAMINATION: GENERAL: Well-developed, in no distress. VITAL SIGNS: Blood pressure 144/71, pulse 79, respirations 18, temperature 36.6 and oxygen saturation 96% on room air. SKIN: Warm and dry. No rash. HEENT: Upper dentures. Edentulous lower gum. Blindness in right eye. NECK: No JVD, no adenopathy. HEART: Irregular heart sounds. LUNGS: Decreased breath sounds at the right base. ABDOMEN: Soft and nontender. EXTREMITIES: Multiple ulcers, left lower leg. Evidence of cellulitis. Dry scaly skin. Absent pedal pulses. TODAY'S LABORATORY TESTS: WBC count 6390, hemoglobin 10, hematocrit 32.5 and platelet count 191,000. Sodium 142, potassium 4.0, chloride 105, CO2 31, BUN 32, creatinine 0.96, glucose 75 and calcium 8.4. One blood culture was reported today to be growing gram positive cocci. ASSESSMENT: 1. Severe cellulitis of the left lower leg. 2. Multiple ulcers, left lower leg, heel and foot. 3. Coronary artery disease. 4. Ischemic cardiomyopathy. 5. Systolic congestive heart failure. 6. Right pleural effusion. 7. Type 2 diabetes mellitus with multiple complications. 8. History of amputation above the knee, right leg. PLAN: 1. The patient was seen by Dr. Eldridge this morning. He had a thoracentesis done. He evacuated 1400 mL. The fluid was sent for analysis. 2. Continuing the same medications. 3. We will wait for the final report on his blood cultures. 4. Physical and occupational therapies were ordered. 5. I changed him to IV Lasix today. We will continue with the diuresis.
[2016-06-30 21:32] VITALS: BP 130/77; PULSE 93
[2016-06-30 23:04] VITALS: BP 149/54; PULSE 87; TEMP 36.8; O2SAT 97
[2016-07-01] MEDS: PIPERACILL/TAZOBAC IV 3.375 GM in DEXTROSE 5% 100ML 100 ML IV SCH ×3 (01:20→19:06)
[2016-07-01] MEDS: OXYCODONE HCL IR 5 MG TAB (IMMEDIATE RELEASE) PO PRN ×4 (01:20→22:22)
[2016-07-01] MEDS: FUROSEMIDE INJ 60 MG in SYRINGE 0 ML IV SCH (06:10)
[2016-07-01 06:22] LABS: BASO % 0.4 %; BASO ABS # 0.02 K/uL (0-0.2); COMPLETE YES; EOS % 9.9 %; HEMATOCRIT 31.2 % (42-52); IG% 0.2 %; LYMPH % 18.4 %; MEAN CELL VOLUME 80.8 fL (80-100); MEAN CORPUSCULAR HEMOGLOBIN 24.6 pg (25-34); MEAN CORPUSCULAR HGB CONC 30.4 g/dl (32-36); MEAN PLATELET VOLUME 10.7 fL (7.4-10.4); MONO % 10.5 %; NEUT % 60.6 %; PLATELET COUNT 171 K/uL (130-400); RED BLOOD COUNT 3.86 M/uL (4.7-6.1); WHITE BLOOD COUNT 5.44 K/uL (4.8-10.8)
[2016-07-01 07:04] LABS: BUN/CREATININE RATIO 28.8 (10-20); CALCIUM 8.2 mg/dl (8.5-10.1); CREATININE 1.3 mg/dl (0.60-1.40); POTASSIUM 3.7 mmol/L (3.5-5.1)
--- NOTE | 2016-07-01 07:25 | DIAGNOSTIC IMAGING REPORT ---
CHEST ONE VIEW PORTABLE CLINICAL HISTORY: pleural effusion dyspnea COMPARISON STUDY: 06/29/2016 FINDINGS: Heart is mildly enlarged. There is right pleural effusion. This is similar as compared to the prior study. No evidence pneumothorax. Persistent prominence of pulmonary vasculature. IMPRESSION: Right pleural effusion versus right basilar consolidative change similar to the prior exam. Unchanging mild congestive failure Electronically signed by: Markel More M.D. 07/01/2016 7:23 AM Dictated Date/Time: 07/01/2016 7:22 AM
[2016-07-01 07:57] VITALS: BP 145/56; PULSE 84; TEMP 36.7; O2SAT 97
[2016-07-01] MEDS: LISINOPRIL 20 MG TAB PO SCH (09:12)
[2016-07-01] MEDS: LACTOBACILLUS ACIDOPHILUS (FLORANEX) TAB PO SCH ×3 (09:14→22:15)
[2016-07-01] MEDS: GABAPENTIN 100 MG CAP PO SCH ×2 (09:15→13:18)
[2016-07-01] MEDS: ATORVASTATIN 40 MG TAB PO SCH (09:15)
[2016-07-01] MEDS: ESCITALOPRAM OXALATE 10 MG TAB PO SCH (09:16)
[2016-07-01] MEDS: CARVEDILOL 25 MG TAB PO SCH ×2 (09:16→22:16)
[2016-07-01] MEDS: ASPIRIN 81 MG ECTAB PO SCH (09:16)
[2016-07-01] MEDS: CEROVITE ADV FORMULA TAB PO SCH (09:17)
[2016-07-01] MEDS: PANTOprazole SOD 40 MG TAB PO SCH (09:17)
[2016-07-01 09:30] VITALS: BP 152/75; PULSE 87
[2016-07-01] MEDS ORDERED: VANCOMYCIN TROUGH ONE (09:30)
[2016-07-01] MEDS: INSULIN GLARGINE SOLOSTAR 100 UNITS/ML 3 ML PEN SC SCH ×2 (09:44→22:16)
[2016-07-01] MEDS: INSULIN ASPART 100 UNITS/ML 3 ML PEN SC SCH ×4 (09:46→22:21)
--- NOTE | 2016-07-01 11:12 | Pharmacy Progress Note ---
Pharmacy Antibiotic Prog Note Date of Service July 01, 2016. Subjective The patient is currently receiving vancomycin 1250 mg IV every 12 hours. The patient is currently on day # 3 of IV therapy. Objective Height (Feet): 5 Height (Inches): 10.00 Weight (Kilograms): 84.400 Levels: Item Value Date Time Vancomycin Level Trough 24.5 mcg/ml 07/01/16 0955 Lab Results (24hrs): Laboratory Tests Test 07/01/16 06:11 BUN/Creatinine Ratio 28.8 Blood Urea Nitrogen 37 mg/dl Creatinine 1.30 mg/dl White Blood Count 5.44 K/uL Red Blood Count 3.86 M/uL Hemoglobin 9.5 g/dL Hematocrit 31.2 % Mean Corpuscular Volume 80.8 fL Mean Corpuscular Hemoglobin 24.6 pg Mean Corpuscular Hemoglobin Concent 30.4 g/dl Platelet Count 171 K/uL Mean Platelet Volume 10.7 fL Neutrophils (%) (Auto) 60.6 % Lymphocytes (%) (Auto) 18.4 % Monocytes (%) (Auto) 10.5 % Eosinophils (%) (Auto) 9.9 % Basophils (%) (Auto) 0.4 % Neutrophils # (Auto) 3.30 K/uL Lymphocytes # (Auto) 1.00 K/uL Monocytes # (Auto) 0.57 K/uL Eosinophils # (Auto) 0.54 K/uL Basophils # (Auto) 0.02 K/uL Micro Results: RUN DATE: 07/01/16 [facility] PAGE 1 RUN TIME: 804 Specimen Inquiry PATIENT: KERLINE THOMAS LOC: [facility] U # : [id number] AGE/SX: 65/M ROOM: [facility] REG : 06/29/[address]: Kd Hair M. : 1950 BED: 1 DIS : STATUS: ADM IN TLOC: SPEC #: [id number] MEL: 06/29/16 STATUS: RES REQ #: [id number] RECD: 06/29/[address]: Otoniel Fraire DO SOURCE: BLOOD ENTR: 06/29/[address] [facility] [address]: Kd Hair M.D. SPDES: ORDERED: BLOOD CULTURE Procedure Result Verified Site BLD CULT Preliminary 07/01/16 Organism 1 STAPH SPECIES SENS SENSITIVITY TO FOLLOW Phoned Positive Blood Culture Gram Stain Report to LAITH DC 3W on 06/30/16 At 1248 By ISABEL. Results were verbalized back to ISABEL. Assessment & Plan ASSESSMENT * Mr Thomas was admitted on 06/29/16 for a diabetic foot infection/ulceration. He has numerous risk factors for drug-resistant organisms including recent hospital admission, recent [facility] stay, PAD, and poorly controlled type 2 diabetes. His white count remains stable and the patient is afebrile. * Currently, he has an acute worsening in kidney function which may be due to the combination of vancomycin and Zosyn. Patient could potentially be switched to daptomycin. PLAN This drug level is: Supratherapeutic. Change to vancomycin 1250 mg IV every 16 hours starting at 1600. Goal peak level estimate: between 35 - 40 mcg/mL. Goal trough level estimate: between 15 - 20 mcg/mL (indication: cellulitis plus bacteremia). Trough has been ordered for: prior to 1600 dose. Pharmacy will continue to follow and will adjust dose/frequency as necessary. Thank you
--- NOTE | 2016-07-01 11:18 | SURGERY PROGRESS NOTE ---
DATE: 07/01/2016 Mr. Zapien was seen this morning. He felt much better last night. His orthopnea was much improved. He slept well. He states his breathing is much better and his aeration is better. Unfortunately, his x-ray has not changed a great deal. I reviewed his CT scan, I see no evidence of any malignancies or lymphadenopathy. This effusion is transudative. This is more likely related to his heart failure. There is a body of evidence that indwelling pleural catheters improve symptoms from congestive heart failure with recalcitrant pleural effusions. As this has now been drained twice, I would feel that we are indeed dealing with a recalcitrant effusion. Having said that, I am not eager to leave a catheter in this patient with open wounds of his leg. I want to see how he does over the next few days. If he is discharged, I will see him back in the office in a week or so with a chest x-ray to see if he is reaccumulating the fluid. I have to say I think his chest x-ray today shows a bit more fluid than his CT scan did yesterday. I will discuss this with Dr. Whitney.
[2016-07-01 14:06] VITALS: BP 107/84
[2016-07-01 14:50] VITALS: BP 103/50; PULSE 77; TEMP 36.8; O2SAT 95
[2016-07-01] MEDS: VANCOMYCIN INJ 1,250 MG in SODIUM CHLORIDE 0.9% 250ML 250 ML IV SCH (16:10)
[2016-07-01] MEDS: RIVAROXABAN 10 MG TAB PO SCH (19:13)
--- NOTE | 2016-07-01 22:34 | PROGRESS NOTE ---
DATE: 07/01/2016 A 65-year-old male, admitted with severe cellulitis of his left lower leg and foot with multiple ulcers. The patient has diabetes with multiple complications. He has severe neuropathy, retinopathy, vasculopathy and nephropathy. He is already status post right AKA amputation. The patient was admitted. Cultures were done. He has multiple problems including congestive heart failure, moderate right pleural effusions, cardiomyopathy and paroxysmal atrial fibrillation. He was started on IV Zosyn and vancomycin. He was seen in consultation by Dr. Eldridge. He had a thoracentesis on the right side. 1400 mL of transudates were evacuated. Repeat chest x-ray is still showing evidence of pleural effusion. For his congestive heart failure, he has been diuresed with IV Lasix. He denied any headache or dizziness. He denied any chest pain. No shortness of breath. No abdominal pain. Good appetite. No nausea, no vomiting. He did have a bowel movement yesterday. No urinary problem. No pain in his back. He is complaining of pain in his left lower leg and also has phantom pain on the right side. PHYSICAL EXAMINATION: GENERAL: Well-developed, in no distress. VITAL SIGNS: Blood pressure 145/56, pulse 84, respirations 16 and temperature 36.7. SKIN: Warm and dry. HEENT: Blindness, right eye. He has upper dentures, they keep falling off. They do not fit him very well since he lost a lot of weight. NECK: Supple. Nontender. No adenopathy, no JVD. HEART: Irregular heart sounds. LUNGS: Markedly decreased breath sounds on the right base. ABDOMEN: Soft and nontender. EXTREMITIES: Status post right AKA. Left lower leg is dressed because of the ulcers that he has, involving his entire left lower leg and foot and also he has an eschar on his heel. TODAY'S LABORATORY TESTS: WBC count 5440, hemoglobin 9.5, hematocrit 31.2 and platelet 171,000. Sodium 142, potassium 3.7, chloride 105, CO2 29, BUN 37, creatinine 1.3, glucose 105 and calcium 8.2. One blood culture grew gram positive cocci identified as a staph species. The final report is still pending. ASSESSMENT: 1. Severe cellulitis of the left lower leg and left foot with multiple ulcers. 2. Peripheral arterial disease. 3. Type 2 diabetes mellitus with multiple complications. 4. Cardiomyopathy. 5. Atrial fibrillation. 6. Status post right above knee amputation. 7. Congestive heart failure. PLAN: 1. Continuing the same medications. 2. Continuing to monitor his electrolytes and his renal function. 3. Continue with his therapies. 4. We will repeat his chest x-ray PA and lateral tomorrow for better appreciation of the amount of fluid that is still remaining on the right side in his chest. 5. We will start working on getting him to rehabilitation if possible.
[2016-07-01] MEDS: GABAPENTIN 300 MG CAP PO SCH (23:01)
[2016-07-02 00:12] VITALS: BP 139/70; PULSE 88; TEMP 36.7; O2SAT 97
[2016-07-02] MEDS: PIPERACILL/TAZOBAC IV 3.375 GM in DEXTROSE 5% 100ML 100 ML IV SCH ×3 (02:00→17:57)
[2016-07-02] MEDS: OXYCODONE HCL IR 5 MG TAB (IMMEDIATE RELEASE) PO PRN ×4 (02:08→23:43)
[2016-07-02 06:39] LABS: BASO % 0.4 %; BASO ABS # 0.02 K/uL (0-0.2); EOS % 9.7 %; HEMATOCRIT 28.1 % (42-52); IG% 0.2 %; LYMPH % 22.6 %; LYMPH ABS # 1.28 K/uL (1.2-3.4); MEAN CELL VOLUME 80.3 fL (80-100); MEAN CORPUSCULAR HEMOGLOBIN 24.3 pg (25-34); MEAN CORPUSCULAR HGB CONC 30.2 g/dl (32-36); MEAN PLATELET VOLUME 10.5 fL (7.4-10.4); MONO % 11.7 %; NEUT % 55.4 %; PLATELET COUNT 162 K/uL (130-400); WHITE BLOOD COUNT 5.66 K/uL (4.8-10.8)
[2016-07-02 07:15] LABS: BUN/CREATININE RATIO 32.8 (10-20); CREATININE 1.5 mg/dl (0.60-1.40); POTASSIUM 4.3 mmol/L (3.5-5.1)
[2016-07-02 07:21] LABS: COMPLETE YES; HYPOCHROMIA PRESENT
--- NOTE | 2016-07-02 07:49 | DIAGNOSTIC IMAGING REPORT ---
CHEST 2 VIEWS ROUTINE CLINICAL HISTORY: R PLEURAL EFFUSION, CHF COMPARISON STUDY: 07/01/2016 FINDINGS: The cardiac and sternal contours remain stable. There is a persistent right pleural effusion with associated right basilar airspace opacities. There is mild central pulmonary vascular congestion.[ IMPRESSION: No significant change. Persistent right pleural effusion with associated right basilar airspace opacities Electronically signed by: Adolfo Sims M.D. 07/02/2016 7:47 AM Dictated Date/Time: 07/02/2016 7:47 AM
[2016-07-02] MEDS: GABAPENTIN 300 MG CAP PO SCH ×3 (08:02→21:25)
[2016-07-02] MEDS: VANCOMYCIN INJ 1,250 MG in SODIUM CHLORIDE 0.9% 250ML 250 ML IV SCH (08:02)
[2016-07-02] MEDS: PANTOprazole SOD 40 MG TAB PO SCH (08:03)
[2016-07-02] MEDS: FUROSEMIDE INJ 60 MG in SYRINGE 0 ML IV SCH (08:03)
[2016-07-02] MEDS: CARVEDILOL 25 MG TAB PO SCH ×2 (08:03→21:25)
[2016-07-02] MEDS: ATORVASTATIN 40 MG TAB PO SCH (08:04)
[2016-07-02] MEDS: LACTOBACILLUS ACIDOPHILUS (FLORANEX) TAB PO SCH ×3 (08:04→21:56)
[2016-07-02] MEDS: LISINOPRIL 20 MG TAB PO SCH (08:04)
[2016-07-02] MEDS: CEROVITE ADV FORMULA TAB PO SCH (08:04)
[2016-07-02] MEDS: ASPIRIN 81 MG ECTAB PO SCH (08:04)
[2016-07-02] MEDS: ESCITALOPRAM OXALATE 10 MG TAB PO SCH (08:04)
[2016-07-02 08:12] VITALS: BP 123/58; PULSE 87; TEMP 36.2; O2SAT 97
[2016-07-02] MEDS ORDERED: NURSING VERBAL MED ORDER ONE ×2 (08:15→09:00)
[2016-07-02] MEDS: INSULIN ASPART 100 UNITS/ML 3 ML PEN SC SCH ×4 (08:44→21:33)
[2016-07-02] MEDS: INSULIN GLARGINE SOLOSTAR 100 UNITS/ML 3 ML PEN SC SCH ×2 (08:51→21:34)
[2016-07-02] MEDS ORDERED: DiphenhydrAMINE HCL 50 MG/ML VIAL IV SCH (09:00)
[2016-07-02] MEDS ORDERED: DiphenhydrAMINE HCL 50 MG/ML VIAL IV PRN (09:15)
--- NOTE | 2016-07-02 13:56 | Clinical Documentation Query ---
Dr. ADDY LEBLANC ROBERT : CLINICAL DOCUMENTATION QUERY Patient is a 65 year old male admitted with multiple ulcers of left lower extremity and cellulitis. He was seen in consultation by Dr. Eldridge for a right sided pleural effusion associated with chronic systolic CHF. In addition to the thoracentesis performed on that side, patient has received IV Furosemide. He has been monitored with serial radiographic images, I/O, daily weights. As appropriate, please specify in your documentation the acuity and type. Thank you. In your clinical opinion is this patient being managed for: (x ) Acute on chronic systolic congestive heart failure ( ) Other explanation of clinical findings (Please Explain) ( ) Unable to determine (Please Define) ( ) Need to Discuss ( ) Not Agree The medical record reflects the following clinical findings, treatment, and risk factors. Clinical Indicators: As above Treatment:He was seen in consultation by Dr. Eldridge for a right sided pleural effusion associated with chronic systolic CHF. In addition to the thoracentesis performed on that side, patient has received IV Furosemide, Coreg, Lisinopril Risk Factors: Chronic systolic CHF, IVF administration, infection Please clarify and document your clinical opinion in the progress notes and discharge summary. Terms such as "probable", "suspected", "likely", "questionable", "possible", or "still to be ruled out" are acceptable. IF IN AGREEMENT, YOU MUST DOCUMENT ABOVE DIAGNOSTIC STATEMENT IN DAILY PROGRESS NOTES AND DISCHARGE SUMMARY. This document is not part of the patient's record. Thank You, Roel Horton, ROBINA [phone]
[2016-07-02 15:27] VITALS: BP 102/44; PULSE 74; TEMP 36.6; O2SAT 96
[2016-07-02] MEDS: DAPTOmycin IV 350 MG in SODIUM CHLORIDE 0.9% 50ML 50 ML IV SCH (17:57)
[2016-07-02] MEDS: RIVAROXABAN 10 MG TAB PO SCH (17:57)
[2016-07-02 21:00] VITALS: BP 161/84; PULSE 74
--- NOTE | 2016-07-02 21:22 | PROGRESS NOTE ---
DATE: 07/02/2016 A 65-year-old male admitted with severe cellulitis of his left lower leg and foot and heel and multiple ulcers in the same areas. He has an extensive medical history including type 2 diabetes mellitus, uncontrolled. It is complicated by nephropathy, retinopathy, neuropathy and vasculopathy. He has had a prior right [id number] amputation. He has severe vascular disease of the left leg. He has cardiomyopathy. Atrial fibrillation. The patient was admitted. Cultures were done. He was started on IV Zosyn and vancomycin. He also has congestive heart failure and he had a moderate right-sided pleural effusion. He has been diuresed with IV Lasix, but his BUN and creatinine started to rise, so I did cut down on the dose of his Lasix. He was seen in consultation by Dr. Greyson Eldridge. He had a thoracentesis done. 1400 mL of fluid evacuated. He still has evidence of significant amount of right-sided pleural effusion noted on his CT scan of the chest and on his repeat chest x-ray. He is resting comfortably. Denied any headache. No dizziness. Denied any chest pain. No shortness of breath. Good appetite. He has been improving. No nausea, no vomiting. No problem urinating. He has had a bowel movement. PHYSICAL EXAMINATION: GENERAL: Well developed, in no distress. VITAL SIGNS: Blood pressure 123/58, pulse 87, respirations 16, temperature 36.2, oxygen saturation 97% on room air. SKIN: Warm and dry. No rash. HEENT: Blindness in the right eye. Upper denture, keeps falling out of place. NECK: Supple. No adenopathy, no thyromegaly. No JVD. HEART: Irregular heart sounds. LUNGS: Decreased breath sounds right lower lung grimm. ABDOMEN: Soft, nontender. BACK: No spinal tenderness. EXTREMITIES: His entire left lower leg and foot are wrapped with a dressing. He is status post right AKA. GENITALIA: He does have edema of the scrotum and the penis. ASSESSMENT: 1. Severe cellulitis of his left lower leg and foot. 2. Multiple ulcers. 3. Right pleural effusion. 4. Acute and chronic congestive heart failure, systolic. 5. Arterial hypertension. 6. Hyperlipidemia. 7. Status post right twrzy-pis-yjie amputation. 8. Peripheral arterial disease. PLAN: 1. We will continue the same medications. 2. BUN and creatinine are rising. I did cut down his Lasix dose. 3. Also changed him from vancomycin to daptomycin. 4. Continue dressings to his left lower leg. 5. Continue with his therapies. 6. He will need rehab prior to him being able to go back home. He is currently living with his brother.
[2016-07-02 23:53] VITALS: PULSE 104; TEMP 36.9; O2SAT 97
[2016-07-03 00:08] VITALS: BP_SYST 146; BP_SYST 147; BP_DIAS 61; BP_DIAS 82
[2016-07-03] MEDS: PIPERACILL/TAZOBAC IV 3.375 GM in DEXTROSE 5% 100ML 100 ML IV SCH ×3 (01:45→18:42)
[2016-07-03] MEDS: OXYCODONE HCL IR 5 MG TAB (IMMEDIATE RELEASE) PO PRN ×3 (06:17→21:22)
[2016-07-03 07:13] LABS: BASO % 0.3 %; BASO ABS # 0.02 K/uL (0-0.2); EOS % 6.6 %; HEMATOCRIT 27.4 % (42-52); IG% 0.1 %; LYMPH % 18.6 %; LYMPH ABS # 1.32 K/uL (1.2-3.4); MEAN CELL VOLUME 80.1 fL (80-100); MEAN CORPUSCULAR HEMOGLOBIN 24.9 pg (25-34); MEAN PLATELET VOLUME 11.2 fL (7.4-10.4); MONO % 11.1 %; NEUT % 63.3 %; PLATELET COUNT 163 K/uL (130-400); RED BLOOD COUNT 3.42 M/uL (4.7-6.1)
[2016-07-03 07:36] VITALS: BP 117/44; PULSE 83; TEMP 37; O2SAT 90
[2016-07-03 07:36] LABS: COMPLETE YES
[2016-07-03 07:41] LABS: BUN/CREATININE RATIO 36.1 (10-20); CALCIUM 8.4 mg/dl (8.5-10.1); CREATININE 1.4 mg/dl (0.60-1.40); POTASSIUM 4.2 mmol/L (3.5-5.1)
--- NOTE | 2016-07-03 09:27 | SURGERY PROGRESS NOTE ---
DATE: 07/03/2016 DATE: 07/03/2016. Mr. Zapien was seen today. It has now been a total of 3 days since we tapped him. He remains on room air 97% saturation last night but I got 96% today. He states he feels much better since we drained him. He has multiple issues. At this point, I feel we could insert a PleurX catheter if it recurs, but I would not be in a hurry. I will discuss with Dr. Whitney and when Dr. Whitney feels this patient's needs it we will discuss inserting a PleurX and letting him go home.
[2016-07-03] MEDS: FUROSEMIDE INJ 60 MG in SYRINGE 0 ML IV SCH (09:43)
[2016-07-03 09:51] VITALS: BP 122/70; PULSE 84
[2016-07-03] MEDS: GABAPENTIN 300 MG CAP PO SCH ×3 (09:56→21:10)
[2016-07-03] MEDS: ESCITALOPRAM OXALATE 10 MG TAB PO SCH (09:56)
[2016-07-03] MEDS: ASPIRIN 81 MG ECTAB PO SCH (09:57)
[2016-07-03] MEDS: ATORVASTATIN 40 MG TAB PO SCH (09:57)
[2016-07-03] MEDS: PANTOprazole SOD 40 MG TAB PO SCH (09:58)
[2016-07-03] MEDS: LISINOPRIL 20 MG TAB PO SCH (09:59)
[2016-07-03] MEDS: CEROVITE ADV FORMULA TAB PO SCH (09:59)
[2016-07-03] MEDS: LACTOBACILLUS ACIDOPHILUS (FLORANEX) TAB PO SCH ×3 (10:00→21:22)
[2016-07-03] MEDS: INSULIN ASPART 100 UNITS/ML 3 ML PEN SC SCH ×4 (10:02→21:00)
[2016-07-03] MEDS: INSULIN GLARGINE SOLOSTAR 100 UNITS/ML 3 ML PEN SC SCH ×2 (10:03→21:15)
[2016-07-03] MEDS: CARVEDILOL 25 MG TAB PO SCH ×2 (11:00→21:21)
--- NOTE | 2016-07-03 14:03 | Medical Consult ---
Consultation Date of Consultation: July 03, 2016. Attending Physician: Kd Hair M.D. Reason for Consultation: Ordered daptomycin History of Present Illness 65-year-old male with longstanding poorly controlled diabetes mellitus with multiple complications including nephropathy, neuropathy, and severe arterial disease, status post right BKA, who was admitted to the hospital stop with worsening shortness of breath, as well as multiple left leg ulcerations with increasing redness, swelling, and pain. he was found to have large right pleural effusion is undergone drainage by thoracic surgery. He was noted to have severe cellulitis of his left leg, and has been started empirically on daptomycin and Zosyn. Single bottle of blood cultures drawn at admission now growing coagulase negative Staph. Patient has been afebrile, still complaining of severe, 7/10 pain in his left leg. Tolerating his antibiotics so far. He has been hemodynamically stable, awaiting decision regarding need for further intervention for his pleural effusion. Past Medical/Surgical History Medical Problems: (1) Cellulitis of left lower extremity Status: Acute (2) Change in mental status Status: Acute (3) Hypotension Status: Acute (4) Peripheral vascular disease Status: Acute (5) Sepsis Status: Acute Medical Problems: (1) Atrial fibrillation (2) CELLULITIS AND ULCERS LEFT LEG (3) Chronic anemia (4) Chronic renal disease (5) Congestive heart failure (6) Diabetes (7) Diabetic neuropathy (8) Hypertension Surgical Problems: (1) History of right above knee amputation (2) S/P vascular bypass Family History Cancer Heart disease Social History Smoking Status: Former Smoker Drug Use: none Marital Status: Occupation Status: disabled Allergies Coded Allergies: No Known Allergies (Unverified , 06/29/16) Current Inpatient Medications Current Inpatient Medications Medications (Trade) Dose Ordered Sig/Abhijit Route Start Time Stop Time Status Last Admin Dose Admin Acetaminophen (Tylenol Tab) 500 mg Q4H PRN PO 06/29/16 19:15 07/29/16 19:14 06/30/16 04:15 500 MG Ondansetron HCl (Zofran Inj) 4 mg Q6H PRN IV 06/29/16 19:15 07/29/16 19:14 Aspirin (Ecotrin Tab) 81 mg DAILY PO 06/30/16 09:00 07/30/16 08:59 07/03/16 09:57 81 MG Atorvastatin Calcium (Lipitor Tab) 80 mg DAILY PO 06/30/16 09:00 07/30/16 08:59 07/03/16 09:57 80 MG Carvedilol (Coreg Tab) 25 mg BID PO 06/29/16 21:00 07/29/16 20:59 07/03/16 11:00 25 MG Escitalopram Oxalate (Lexapro Tab) 10 mg DAILY PO 06/30/16 09:00 07/30/16 08:59 07/03/16 09:56 10 MG Albuterol/ Ipratropium (Combivent Respimat Inh) 1 puffs Q4H PRN INH 06/29/16 19:15 07/29/16 19:14 Lactobacillus Acidophilus (Floranex Tab) 4 tab TID PO 06/29/16 21:00 07/29/16 20:59 07/03/16 10:00 4 TAB Lisinopril (Zestril Tab) 20 mg DAILY PO 06/30/16 09:00 07/30/16 08:59 07/03/16 09:59 20 MG Multivitamins/ Minerals (Multivitamin W/ Minerals Tab) 1 tab DAILY PO 06/30/16 09:00 07/30/16 08:59 07/03/16 09:59 1 TAB Pantoprazole Sodium (Protonix Tab) 40 mg DAILY PO 06/30/16 09:00 07/30/16 08:59 07/03/16 09:58 40 MG Rivaroxaban (Xarelto Tab) 20 mg QDD PO 06/30/16 17:45 07/30/16 17:44 07/02/16 17:57 20 MG Senna/Docusate Sodium 1 tab 1 tab Q24H PRN PO 06/29/16 19:15 07/29/16 19:14 Piperacillin Sod/ Tazobactam Sod/ Dextrose (Zosyn Iv/D5 100ml) 115 ml @ 28.75 mls/ hr Q8@0200,1000,1800 IV 06/30/16 02:00 07/10/16 01:59 07/03/16 10:05 28.75 MLS/HR Insulin Aspart (novoLOG ASPART) SLIDING SCALE G... ACHS SC 06/29/16 21:00 07/29/16 20:59 07/03/16 13:38 3 UNITS Piperacillin Sod/ Tazobactam Sod (Consult) 1 ea UD PRN N/A 06/29/16 21:15 07/29/16 21:14 Oxycodone HCl 5 mg 5 mg Q4H PRN PO 06/30/16 10:30 07/14/16 10:29 07/03/16 13:44 5 MG Furosemide/Syringe (Lasix Inj/ Syringe) 6 ml @ 4 mls/min QD@08 IV 07/02/16 08:00 08/01/16 07:59 07/03/16 09:43 4 MLS/MIN Gabapentin (Neurontin Cap) 300 mg TID PO 07/01/16 21:00 07/31/16 20:59 07/03/16 09:56 300 MG Insulin Glargine (Lantus Solostar Pen) 25 unit BID SC 07/02/16 09:00 08/01/16 08:59 07/03/16 10:03 25 UNIT Diphenhydramine HCl 25 mg 25 mg Q6H PRN IV 07/02/16 09:15 08/01/16 09:14 Daptomycin/Sodium Chloride (Cubicin IV/Nss 50ml) 57 ml @ 100 mls/hr Q24H IV 07/02/16 18:00 07/12/16 17:59 07/02/16 17:57 100 MLS/HR Review of Systems Constitutional: + fatigue, + weakness, No chills, No fever Eyes: No problem reported ENT: No problem reported Respiratory: + shortness of breath Cardiovascular: No problem reported Abdomen: No problem reported Musculoskeletal: + swelling Genitourinary - Male: No problem reported Neurologic: No problem reported Psychiatric: No problem reported Endocrine: No problem reported Hematologic / Lymphatic: No problem reported Integumentary: + new/changing skin lesions Physical Exam Date Time Temp Pulse Resp B/P Pulse Ox O2 Delivery O2 Flow Rate FiO2 07/03/16 09:51 84 122/70 07/03/16 07:36 37.0 83 16 117/44 90 Room Air 07/03/16 00:08 147/61 146/82 07/02/16 23:53 36.9 104 20 97 Room Air 07/02/16 21:00 74 161/84 07/02/16 20:30 Room Air 07/02/16 15:27 36.6 74 14 102/44 96 General Appearance: WD/WN, no apparent distress Head: normocephalic, atraumatic Eyes: sclerae normal (left eye), + pertinent finding (right eye blindness) ENT: normal ENT inspection, pharynx normal, + pertinent finding (poor dentition ) Neck: supple, no adenopathy, thyroid normal, trachea midline Respiratory/Chest: chest non-tender, lungs clear, normal breath sounds, no respiratory distress Cardiovascular: regular rate, rhythm, no gallop, no murmur Abdomen/GI: normal bowel sounds, non tender, soft, no organomegaly Back: normal inspection, no CVA tenderness Extremities/Musculoskelatal: + inflammation (left lower leg), + slow capillary refill, + swelling (left lower leg) Neurologic/Psych: alert, oriented x 3 Skin: normal color, + pertinent finding (severe stasis dermatitis left leg with ulceration dorsum of foot with swelling and erythema to knee) Lymphatic: no adenopathy Laboratory Results RUN DATE: 07/02/16 [facility] PAGE 1 RUN TIME: 1120 Specimen Inquiry PATIENT: KERLINE THOMAS LOC: W U # : [id number] AGE/SX: 65/M ROOM: [facility] REG : 06/29/[address]: Kd Hair M. : 1950 BED: 1 DIS : STATUS: ADM IN TLOC: SPEC #: [id number] MEL: 06/29/16 STATUS: RES REQ #: [id number] RECD: 06/29/[address]: Otoniel Fraire DO SOURCE: BLOOD ENTR: 06/29/16-186 [facility] [address]: Kd Hair M.D. [facility] ORDERED: BLOOD CULTURE Procedure Result Verified Site BLD CULT Preliminary 07/02/16-1120 Organism 1 COAG NEG STAPH NOT LUGDUNENSIS SENS NO SENSITIVITY TO FOLLOW One set of two positive. Isolation does not necessarily mean infection. No susceptibility tests performed. Contact microbiology laboratory ([phone]) if further studies are indicated. Phoned Positive Blood Culture Gram Stain Report to LAITH Winters on 06/30/16 At 1248 By ISABEL. Results were verbalized back to ROKIAN. Last 24 Hours Test 07/02/16 17:16 07/02/16 20:50 07/03/16 06:20 07/03/16 08:04 Bedside Glucose 212 mg/dl 262 mg/dl 134 mg/dl White Blood Count 7.10 K/uL Red Blood Count 3.42 M/uL Hemoglobin 8.5 g/dL Hematocrit 27.4 % Mean Corpuscular Volume 80.1 fL Mean Corpuscular Hemoglobin 24.9 pg Mean Corpuscular Hemoglobin Concent 31.0 g/dl Platelet Count 163 K/uL Mean Platelet Volume 11.2 fL Neutrophils (%) (Auto) 63.3 % Lymphocytes (%) (Auto) 18.6 % Monocytes (%) (Auto) 11.1 % Eosinophils (%) (Auto) 6.6 % Basophils (%) (Auto) 0.3 % Neutrophils # (Auto) 4.49 K/uL Lymphocytes # (Auto) 1.32 K/uL Monocytes # (Auto) 0.79 K/uL Eosinophils # (Auto) 0.47 K/uL Basophils # (Auto) 0.02 K/uL RDW Standard Deviation 48.2 fL RDW Coefficient of Variation 16.5 % Immature Granulocyte % (Auto) 0.1 % Immature Granulocyte # (Auto) 0.01 K/uL Red Blood Cell Morphology Unremarkable Sodium Level 140 mmol/L Potassium Level 4.2 mmol/L Chloride Level 104 mmol/L Carbon Dioxide Level 29 mmol/L Anion Gap 7.0 mmol/L Blood Urea Nitrogen 51 mg/dl Creatinine 1.40 mg/dl Est Creatinine Clear Calc Drug Dose 52.9 ml/min Estimated GFR () 59.8 Estimated GFR (Non- 51.6 BUN/Creatinine Ratio 36.1 Random Glucose 127 mg/dl Calcium Level 8.4 mg/dl Patient Name: KERLINE THOMAS Unit Number: [id number] Dictated: 07/02/1647 Transcribed: 07/02/16746 ARG Printed Date/Time: [~ rep prt dt]/[~ rep prt tm] [~ rep ct labl] - [~ rep ct ivnm] [facility] [place] [address] Dictated: 07/02/16746 Transcribed: 07/02/16746 ARG Printed Date/Time: [~ rep prt dt]/[~ rep prt tm] [~ rep ct labl] - [~ rep ct ivnm] CHEST 2 VIEWS ROUTINE CLINICAL HISTORY: R PLEURAL EFFUSION, CHF COMPARISON STUDY: 07/01/2016 FINDINGS: The cardiac and sternal contours remain stable. There is a persistent right pleural effusion with associated right basilar airspace opacities. There is mild central pulmonary vascular congestion.[ IMPRESSION: No significant change. Persistent right pleural effusion with associated right basilar airspace opacities Electronically signed by: Adolfo Sims M.D. 07/02/2016 7:47 AM Dictated Date/Time: 07/02/2016 7:47 AM The status of this report is Signed. Draft = Not yet reviewed or approved by Radiologist. Signed = Reviewed and approved by Radiologist. <AttendingPhy>Kd Hair M.D.</AttendingPhy> <FamilyPhy>Kd Hair M.D.</FamilyPhy> <PrimaryPhy>Kd Hair M.D.</PrimaryPhy> < UnitNumber>[id number]</UnitNumber> <VisitNumber>[id number]</VisitNumber> < PatientName>KERLINE THOMAS</PatientName> <DateOfBirth>1950</DateOfBirth > <Location>[facility]</Location> <ServiceDate>06/29/16</ServiceDate> <MNE>ESINDI</ MNE> <OrderingPhy>Kd Hair M.D.</OrderingPhy> <OrderingPhyMNE>f rep ord dr giang</OrderingPhyMNE> <DictatingPhyMNE>f rep dict mnlatisha</DictatingPhyMNE > <CCListMNE>f rep ct mne</CCListMNE> <AdmittingPhyMNE>f pt admit dr giang</ AdmittingPhyMNE> <AttendingPhyMNE>f pt attend dr giang</AttendingPhyMNE> <ConsultingPhyMNE>f pt consult dr giang</ConsultingPhyMNE> <FamilyPhyMNE>f pt fam dr giang</FamilyPhyMNE> <OtherPhyMNE>f pt other dr giang</OtherPhyMNE> < PrimaryPhyMNE>f pt prim care dr giang</PrimaryPhyMNE> <ReferringPhyMNE>f pt referring dr giang</ReferringPhyMNE> Assessment & Plan Left leg cellulitis in setting of severe PAD, diabetes, and venous stasis disease. Given likely difficulty with drug penetration, would agree with use of daptomycin. Length of IV Rx will be determined by clinical response. Will follow.
--- NOTE | 2016-07-03 14:25 | ECHOCARDIOGRAM REPORT ---
*NOTICE TO RECEIVING DEMOCRAT AGENCY This information is strictly Confidential and protected under [place] law. [place] law prohibits you from making any further disclosure of this information unless further disclosure is expressly permitted by the written consent of the person to whom it pertains or is authorized by law. A general authorization for the release of medical or other information is not sufficient for this purpose. Hospital accepts no responsibility if the information is made available to any other person, INCLUDING THE PATIENT. 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 * There is severe global hypokinesis of the left ventricle. * Ejection Fraction = 20-25%. * There is mild mitral regurgitation. * There is mild to moderate tricuspid regurgitation. Procedure Details * A complete two-dimensional transthoracic echocardiogram was performed (2D, M-mode, Doppler and color flow Doppler). Left Ventricle * The left ventricle is grossly normal size. * There is normal left ventricular wall thickness. * Ejection Fraction = 20-25%. * Left ventricular systolic function is severely reduced. * There is severe global hypokinesis of the left ventricle. Right Ventricle * The right ventricle is not well visualized. * The right ventricular systolic function is normal as assessed by tricuspid annular plane systolic excursion (TAPSE) (normal >1.5 cm). Atria * The left atrium is mildly dilated. * Right atrium not well visualized. * No ASD detected; PFO is not assessed. Mitral Valve * The mitral valve anatomy is normal. * There is no mitral valve stenosis. * There is mild mitral regurgitation. Tricuspid Valve * The tricuspid valve is not well visualized, but is grossly normal. * There is no tricuspid stenosis. * There is mild to moderate tricuspid regurgitation. Aortic Valve * The aortic valve is trileaflet. * The aortic valve opens well. * Aortic valve sclerosis moderate, without significant aortic valvular stenosis. * No aortic regurgitation is present. Pulmonic Valve * The pulmonic valve is not well visualized. Great Vessels * The aortic root is normal size. Pericardium/Pleural * The pericardium appears normal. * Moderate size left pleural effusion. Great Vessels * Dilated inferior vena cava with reduced collapsability with sniff indicates an elevated right atrial pressure of 15 mmHg MMode 2D Measurements and Calculations IVSd 0.73 cm LVIDd 5.2 cm LVIDs 4.3 cm LVPWd 1.2 cm IVS/LVPW 0.62 FS 17.3 % EDV(Teich) 128.0 ml ESV(Teich) 82.1 ml EF(Teich) 35.8 % EDV(cubed) 138.5 ml ESV(cubed) 78.4 ml EF(cubed) 43.4 % LV mass(C)d 180.5 grams LV mass(C)dI 89.2 grams/m\S\2 CO(Teich) 3.6 l/min CI(Teich) 1.8 l/min/m\S\2 SV(Teich) 45.9 ml SI(Teich) 22.7 ml/m\S\2 CO(cubed) 4.7 l/min CI(cubed) 2.3 l/min/m\S\2 SV(cubed) 60.1 ml SI(cubed) 29.7 ml/m\S\2 Ao root diam 3.7 cm Ao root area 10.6 cm\S\2 ACS 2.0 cm LA dimension 3.9 cm asc Aorta Diam 2.9 cm LA/Ao 1.1 LVOT diam 2.0 cm LVOT area 3.1 cm\S\2 LVAd ap4 26.9 cm\S\2 LVLd ap4 7.2 cm EDV(MOD-sp4) 85.1 ml LVAs ap4 22.0 cm\S\2 LVLs ap4 6.9 cm ESV(MOD-sp4) 58.9 ml EF(MOD-sp4) 30.8 % LVAd ap2 29.7 cm\S\2 LVLd ap2 8.3 cm EDV(MOD-sp2) 90.8 ml LVAs ap2 24.1 cm\S\2 LVLs ap2 7.4 cm ESV(MOD-sp2) 63.5 ml EF(MOD-sp2) 30.1 % CO(MOD-sp4) 2.0 l/min CI(MOD-sp4) 1.0 l/min/m\S\2 SV(MOD-sp4) 26.2 ml SI(MOD-sp4) 12.9 ml/m\S\2 CO(MOD-sp2) 2.1 l/min CI(MOD-sp2) 1.1 l/min/m\S\2 SV(MOD-sp2) 27.3 ml SI(MOD-sp2) 13.5 ml/m\S\2 Doppler Measurements and Calculations MV E max aleah 104.3 cm/sec MV dec time 0.26 sec Ao V2 max 120.8 cm/sec Ao max PG 5.8 mmHg Ao max PG (full) 4.1 mmHg KECIA(V,A) 1.7 cm\S\2 KECIA(V,D) 1.7 cm\S\2 LV V1 max PG 1.7 mmHg LV V1 max 65.5 cm/sec PA V2 max 64.3 cm/sec PA max PG 1.7 mmHg PA acc slope 326.7 cm/sec\S\2 PA acc time 0.12 sec TR max aleah 267.4 cm/sec PA pr(Accel) 23.5 mmHg
[2016-07-03 15:22] VITALS: BP 119/62; PULSE 75; TEMP 36.9; O2SAT 94
[2016-07-03] MEDS ORDERED: VANCOMYCIN TROUGH SCH (15:30)
[2016-07-03] MEDS: DAPTOmycin IV 350 MG in SODIUM CHLORIDE 0.9% 50ML 50 ML IV SCH (17:57)
[2016-07-03] MEDS: RIVAROXABAN 10 MG TAB PO SCH (18:44)
[2016-07-03 21:07] VITALS: BP 146/75; PULSE 106
[2016-07-03 22:57] VITALS: BP 117/62; PULSE 88; TEMP 36.5; O2SAT 90
[2016-07-04] MEDS: PIPERACILL/TAZOBAC IV 3.375 GM in DEXTROSE 5% 100ML 100 ML IV SCH ×3 (01:57→19:05)
--- NOTE | 2016-07-04 03:53 | PROGRESS NOTE ---
DATE: 07/03/2016 A 65-year-old male, admitted with cellulitis of the left lower leg and left foot with multiple ulcers. His medical problems are quite complex. He does have type 2 diabetes mellitus. He is on insulin. His diabetes is complicated by retinopathy with history of blindness in the right eye. 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 He does have cardiomyopathy. He has a history of atrial fibrillation. He remains afebrile. He denied any headache. No dizziness. No chest pain. No shortness of breath. He does have right pleural effusion. He had a thoracentesis; 1400 mL were evacuated from the right pleural space, all thought to be related to his cardiomyopathy and congestive heart failure. He denied any abdominal pain, no nausea, no vomiting. No problem with his bowel movements. No problem urinating. No pain in his back. He does have some pain in his left leg and post-amputation he has phantom pain on the right side. PHYSICAL EXAMINATION: GENERAL: Well-developed, in no distress. VITAL SIGNS: Blood pressure 117/44, pulse 83, respirations 16, temperature 37 and oxygen saturation 90% on room air. SKIN: Warm and dry. No rash. HEENT: Blindness, right eye. He does have known retinopathy in the left eye with decreased vision. He has upper dentures. Edentulous lower gum. NECK: No JVD. No adenopathy. HEART: Irregular heart sounds. LUNGS: Decreased breath sounds on the right side. He does have known pleural effusion. ABDOMEN: Soft, nontender. BACK: No spinal tenderness. EXTREMITIES: Status post right AKA. His right lower leg and foot are wrapped because of the ulcers. LABORATORY TESTS: WBC count 7100, hemoglobin 8.5, hematocrit 27.4 and platelet count 163,000. Sodium 140, potassium 4.2, chloride 104, CO2 29, BUN 51, creatinine 1.4, glucose 127 and calcium 8.4. ASSESSMENT: 1. Cellulitis, left lower leg. 2. Multiple ulcers of the left lower leg, foot and heel. 3. Cardiomyopathy. 4. Type 2 diabetes mellitus with triopathy. 5. Atrial fibrillation. 6. Status post right xobpt-dfl-jfkf amputation. PLAN: 1. Continuing the same medications. 2. Continue to work with his therapies. 3. We will continue IV antibiotics. He is on Zosyn and daptomycin. 4. He has been accepted to [facility]. He will be transferred when he is stable. 5. An echocardiogram was done. He does have evidence of severe global hypokinesis of the left ventricle. His left ventricular function is markedly reduced with an ejection fraction of 20-25%. He also has mild mitral regurgitation and shac-ui-sgtpudoh tricuspid regurgitation.
[2016-07-04 07:24] LABS: BASO % 0.4 %; BASO ABS # 0.02 K/uL (0-0.2); EOS % 8.6 %; HEMATOCRIT 26.5 % (42-52); IG% 0.2 %; LYMPH % 25.9 %; LYMPH ABS # 1.39 K/uL (1.2-3.4); MEAN CELL VOLUME 80.1 fL (80-100); MEAN CORPUSCULAR HEMOGLOBIN 24.8 pg (25-34); MEAN CORPUSCULAR HGB CONC 30.9 g/dl (32-36); MEAN PLATELET VOLUME 10.9 fL (7.4-10.4); MONO % 10.3 %; NEUT % 54.6 %; PLATELET COUNT 169 K/uL (130-400); RED BLOOD COUNT 3.31 M/uL (4.7-6.1); WHITE BLOOD COUNT 5.36 K/uL (4.8-10.8)
[2016-07-04 07:50] LABS: CALCIUM 8.4 mg/dl (8.5-10.1); CREATININE 1.5 mg/dl (0.60-1.40)
--- NOTE | 2016-07-04 07:55 | DIAGNOSTIC IMAGING REPORT ---
CHEST ONE VIEW PORTABLE CLINICAL HISTORY: pleural effusion dyspnea COMPARISON STUDY: 07/02/2016 FINDINGS: Right pleural effusion. No major change from the prior study. Left lung remains clear. IMPRESSION: Right pleural effusion unchanged from the prior exam. Electronically signed by: Markel More M.D. 07/04/2016 7:54 AM Dictated Date/Time: 07/04/2016 7:52 AM
[2016-07-04 08:00] VITALS: BP 115/51; PULSE 80; TEMP 36.5; O2SAT 95
[2016-07-04 08:15] LABS: ANISOCYTOSIS PRESENT; COMPLETE YES; HYPOCHROMIA PRESENT; ROULEAUX 1+
[2016-07-04] MEDS: OXYCODONE HCL IR 5 MG TAB (IMMEDIATE RELEASE) PO PRN ×2 (08:21→21:03)
[2016-07-04] MEDS: FUROSEMIDE INJ 60 MG in SYRINGE 0 ML IV SCH (08:25)
[2016-07-04] MEDS: PANTOprazole SOD 40 MG TAB PO SCH (09:41)
[2016-07-04] MEDS: LACTOBACILLUS ACIDOPHILUS (FLORANEX) TAB PO SCH ×3 (09:41→21:08)
[2016-07-04] MEDS: CEROVITE ADV FORMULA TAB PO SCH (09:41)
[2016-07-04] MEDS: ASPIRIN 81 MG ECTAB PO SCH (09:42)
[2016-07-04] MEDS: CARVEDILOL 25 MG TAB PO SCH ×2 (09:42→21:11)
[2016-07-04] MEDS: ATORVASTATIN 40 MG TAB PO SCH (09:42)
[2016-07-04] MEDS: GABAPENTIN 300 MG CAP PO SCH ×3 (09:42→21:04)
[2016-07-04 09:43] VITALS: O2SAT 95
[2016-07-04] MEDS: ESCITALOPRAM OXALATE 10 MG TAB PO SCH (09:43)
[2016-07-04] MEDS: LISINOPRIL 20 MG TAB PO SCH (09:43)
[2016-07-04] MEDS: INSULIN ASPART 100 UNITS/ML 3 ML PEN SC SCH ×4 (09:54→21:09)
[2016-07-04] MEDS: INSULIN GLARGINE SOLOSTAR 100 UNITS/ML 3 ML PEN SC SCH ×2 (09:55→21:11)
[2016-07-04] MEDS ORDERED: LIDOCAINE HCL 1% 20 ML VIAL ONE (10:27)
[2016-07-04 10:58] LABS: ISTAT ARTERIAL BLOOD GAS HCO3 24 meq/L (19-24); ISTAT ARTERIAL BLOOD GAS PCO2 36 mmHg (35-46); ISTAT ARTERIAL BLOOD GAS PO2 76 mmHg (80-95); ISTAT ARTERIAL BLOOD GAS pH 7.43 (7.35-7.45); ISTAT CARBON DIOXIDE 25 mEq/l (24-31); ISTAT SITE R Radial
[2016-07-04] MEDS ORDERED: NURSING VERBAL MED ORDER ONE (11:15)
--- NOTE | 2016-07-04 11:32 | DIAGNOSTIC IMAGING REPORT ---
CHEST ONE VIEW PORTABLE CLINICAL HISTORY: s/p pleur insertion tube position COMPARISON STUDY: 07/04/2016 FINDINGS: Placement right basilar drainage catheter. A moderate decrease in volume of right effusion. Very small right apical pneumothorax with an estimated maximum pleural separation of 9 mm. IMPRESSION: Placement of right basilar drainage catheter. Very small right apical pneumothorax estimated at 9 mm pleural separation. Electronically signed by: Markel More M.D. 07/04/2016 11:31 AM Dictated Date/Time: 07/04/2016 11:30 AM
--- NOTE | 2016-07-04 11:35 | SURGERY PROGRESS NOTE ---
DATE: 07/04/2016 DATE: 07/04/2016. I had a long talk with Mr. Zapien today. I reviewed his x-ray, which shows increasing fluid on the right. I also discussed this case with Dr. Whitney. We had a long discussion and I am concerned about the recurrence of fluid. After a long discussion, we elected to proceed with insertion of a PleurX catheter. I discussed this in detail with the patient. He is agreeable. We will do that at bedside today with ultrasound guidance.
--- NOTE | 2016-07-04 11:45 | PROGRESS NOTE ---
DATE: 07/04/2016 A 65-year-old male with severe cellulitis of the left lower leg and foot with multiple ulcerated areas. He has an extensive medical history with type 2 diabetes mellitus with complications including nephropathy, retinopathy, neuropathy and vasculopathy. He has had prior right oromp-xgq-mitz amputation. He does have coronary artery disease, ischemic cardiomyopathy, atrial fibrillation. The patient has been on IV antibiotics. He denied any headache. No dizziness. No chest pain, no shortness of breath. He is either in bed or in the chair, that's all his activity. No abdominal pain, no nausea, no vomiting. No pain in his back. He is complaining of pain in his left lower leg and left ankle, but also he has phantom pain on the right side. On admission, the patient was noted to have moderate right pleural effusion. He was seen by Dr. Greyson Eldridge in consultation. A thoracentesis was done. He evacuated 1400 mL, thought to be related to his congestive heart failure and cardiomyopathy. Since then, his fluid has re-collected. We are dealing with the issue related to his left lower leg and foot and ankle and heel ulcers. From the time he moved back to this area from [place] back in April, he has been seen in the wound care clinic. This morning I removed the dressing from his left lower leg and foot. Actually, he has multiple ulcers, multiple areas of skin sloughing. The dressing was wet. Multiple ulcerated areas are oozing. He also has an eschar on his left heel. PHYSICAL EXAMINATION: GENERAL: Well developed, in no distress. VITAL SIGNS: Blood pressure 115/51, pulse 80, respirations 15, temperature 36.5, oxygen saturation 95% on 2 liter oxygen by nasal cannula. SKIN: Warm and dry. HEENT: Blindness, right eye. Upper denture. NECK: No JVD. No adenopathy. HEART: Irregular heart sounds. LUNGS: Markedly decreased breath sounds on the right side. ABDOMEN: Soft, nontender. EXTREMITIES: Status post right AKA. As noted above, the condition of his left lower leg and foot is alarming with multiple ulcerated areas and oozing. Areas of sloughing of the skin. TODAY'S LABORATORY TESTS: WBC count 5360, hemoglobin 8.2, hematocrit 26.5, platelet count 169,000. Sodium 141, potassium 4.0, chloride 105, CO2 of 28, BUN 57, creatinine 1.5, glucose 66, calcium 8.4. ASSESSMENT: 1. Severe cellulitis of the left lower leg and foot with multiple ulcers. 2. Type 2 diabetes mellitus with multiple complications. 3. Coronary artery disease with ischemic cardiomyopathy. 4. Congestive heart failure, acute and chronic. 5. Chronic kidney disease. 6. History of mdfkl-bjh-gpmb amputation on the right side. 7. Blindness in the right eye. 8. Recurrent right pleural effusion. PLAN: 1. Continuing the same medications. 2. Wound care to continue. 3. I spoke with Dr. Eldridge this morning. His recommendation of placement of drainage tube in the right pleural space will be carried out today. 4. Continuing all his medications. 5. We are working on getting him to [facility], but the condition in his leg remains very poor and he is not ready to be moved yet.
[2016-07-04 11:47] VITALS: BP 103/44; PULSE 81; TEMP 36.7; O2SAT 91
--- NOTE | 2016-07-04 11:47 | OPERATIVE REPORT ---
DATE OF OPERATION: 07/04/2016 PROCEDURE: Insertion of right PleurX catheter. SURGEON: Dr. Eldridge. ANESTHESIA: Local. SPECIFICS OF PROCEDURE: Under ultrasound guidance, an area was marked just posterior to the mid axillary line and about the eighth interspace. The patient was then sterilely prepped and draped in usual sterile fashion. Appropriate timeout had been called. Two skin wheals were raised, one over this ira with a 25 gauge needle and then about 10 cm anterior and inferior another skin wheal was raised with gauge needle. A large bore needle was then used posteriorly to anesthetize the deeper tissue, muscle and pleura and then free-flowing fluid was obtained. A guidewire was inserted through the needle and the needle removed. I made a 1 cm incision here. I made a 1 cm incision in the anterior skin wheal. I then used long needle to anesthetize subcutaneous tissues between the 2 incisions. A tunneler was then attached to the PleurX catheter and dragged from the anterior to posterior incision. The tunnel was removed. Introducer sheath over the guidewire and inner cannula and guidewire removed and then the PleurX catheter was inserted through, the peel away sheath which was removed. Two separate 3-0 silk sutures were used to close the incision posteriorly. 3-0 silk suture was used to anchor the catheter in anteriorly. 1900 mL of fluid were drained which were a light reddish color. He tolerated it well. We did not drain him completely, but when he started having some reexpansion pain, we stopped. He tolerated it well. I attest to the content of the Intraoperative Record and any orders documented therein. Any exceptio ns are noted below.
[2016-07-04 12:03] LABS: PLEURAL FLUID GLUCOSE 93 mg/dl
[2016-07-04 12:25] LABS: PLEURAL FLUID APPEARANCE CLOUDY; PLEURAL FLUID COLOR AMBER; PLEURAL FLUID MONONUC RELAT 84.3 %; PLEURAL FLUID POLYNUC 15.7 %; PLEURAL FLUID SOURCE RIGHT LUNG; PLEURAL FLUID WBC (A) 225 /uL
[2016-07-04 15:11] VITALS: BP 103/62; PULSE 80; TEMP 36.7; O2SAT 98
[2016-07-04] MEDS: RIVAROXABAN 10 MG TAB PO SCH (18:33)
[2016-07-04] MEDS: DAPTOmycin IV 350 MG in SODIUM CHLORIDE 0.9% 50ML 50 ML IV SCH (18:33)
[2016-07-04 21:12] VITALS: BP 155/78; PULSE 98; O2SAT 95
[2016-07-04 22:45] VITALS: BP 149/76; PULSE 95; TEMP 36.9; O2SAT 95
[2016-07-05] MEDS: PIPERACILL/TAZOBAC IV 3.375 GM in DEXTROSE 5% 100ML 100 ML IV SCH ×3 (02:04→18:32)
[2016-07-05 07:12] LABS: BASO % 0.5 %; BASO ABS # 0.03 K/uL (0-0.2); EOS % 7.1 %; HEMATOCRIT 25.9 % (42-52); IG% 0.2 %; LYMPH ABS # 1.32 K/uL (1.2-3.4); MEAN CELL VOLUME 79.4 fL (80-100); MEAN CORPUSCULAR HEMOGLOBIN 25.5 pg (25-34); MEAN PLATELET VOLUME 10.5 fL (7.4-10.4); MONO % 10.3 %; NEUT % 58.9 %; PLATELET COUNT 156 K/uL (130-400); RED BLOOD COUNT 3.26 M/uL (4.7-6.1); WHITE BLOOD COUNT 5.74 K/uL (4.8-10.8)
[2016-07-05 07:29] VITALS: BP 100/58; PULSE 78; TEMP 36.7; O2SAT 97
[2016-07-05 07:39] LABS: COMPLETE YES; ROULEAUX 1+
[2016-07-05 07:48] LABS: BUN/CREATININE RATIO 41.7 (10-20); CALCIUM 8.2 mg/dl (8.5-10.1); CREATININE 1.5 mg/dl (0.60-1.40); POTASSIUM 4.3 mmol/L (3.5-5.1)
[2016-07-05 07:51] LABS: ALB/GLOB RATIO 0.5 (0.9-2)
[2016-07-05] MEDS: OXYCODONE HCL IR 5 MG TAB (IMMEDIATE RELEASE) PO PRN ×3 (07:52→19:31)
--- NOTE | 2016-07-05 07:52 | DIAGNOSTIC IMAGING REPORT ---
CHEST ONE VIEW PORTABLE CLINICAL HISTORY: pleural effusion. COMPARISON STUDY: 07/04/2016 FINDINGS: The heart is mildly enlarged. There is a 1 cm right apical pneumothorax. There is a right-sided pleural drainage catheter. There are persistent nodular airspace opacities at the right lung base. The left lung is generally clear.[ IMPRESSION: 1. Right basilar pleural drainage catheter 2. Persistent nodular opacities at the right lung base 3. Persistent 1 cm right apical pneumothorax Electronically signed by: Adolfo Sims M.D. 07/05/2016 7:51 AM Dictated Date/Time: 07/05/2016 7:49 AM
--- NOTE | 2016-07-05 07:59 | SURGERY PROGRESS NOTE ---
DATE: 07/05/2016 Mr. Zapien was seen today. He slept better. He is able to sleep flat. His x-ray showed he still had some fluid in his chest. We drained him for about 400 mL this morning of the serous fluid; it is a transudate. Saturations are 95% on room air this morning. Otherwise, I think he looks good. We will continue to drain his catheter. ANALY
[2016-07-05] MEDS: CEROVITE ADV FORMULA TAB PO SCH (08:58)
[2016-07-05] MEDS: GABAPENTIN 300 MG CAP PO SCH ×3 (08:58→21:20)
[2016-07-05] MEDS: ATORVASTATIN 40 MG TAB PO SCH (08:58)
[2016-07-05] MEDS: LISINOPRIL 20 MG TAB PO SCH (08:58)
[2016-07-05] MEDS: ESCITALOPRAM OXALATE 10 MG TAB PO SCH (08:58)
[2016-07-05] MEDS: ASPIRIN 81 MG ECTAB PO SCH (08:59)
[2016-07-05] MEDS: CARVEDILOL 25 MG TAB PO SCH ×2 (08:59→21:21)
[2016-07-05] MEDS: LACTOBACILLUS ACIDOPHILUS (FLORANEX) TAB PO SCH ×3 (08:59→21:21)
[2016-07-05] MEDS: PANTOprazole SOD 40 MG TAB PO SCH (08:59)
[2016-07-05] MEDS: INSULIN GLARGINE SOLOSTAR 100 UNITS/ML 3 ML PEN SC SCH (09:07)
[2016-07-05] MEDS: FUROSEMIDE INJ 60 MG in SYRINGE 0 ML IV SCH (09:10)
[2016-07-05] MEDS: INSULIN ASPART 100 UNITS/ML 3 ML PEN SC SCH ×4 (09:25→21:24)
[2016-07-05 15:00] VITALS: BP 112/38; PULSE 79; TEMP 36.6; O2SAT 96
[2016-07-05] MEDS: RIVAROXABAN 10 MG TAB PO SCH (18:32)
[2016-07-05] MEDS: DAPTOmycin IV 350 MG in SODIUM CHLORIDE 0.9% 50ML 50 ML IV SCH (18:33)
--- NOTE | 2016-07-05 19:15 | PROGRESS NOTE ---
DATE: 07/05/2016 DATE: 07/05/2016. SUBJECTIVE: A 65-year-old male admitted with multiple problems including severe cellulitis of his left lower leg, foot and ankle and multiple ulcers. He has an extensive medical history including type 2 diabetes mellitus with complications including retinopathy, nephropathy, vasculopathy and neuropathy. He also has coronary artery disease with cardiomyopathy and markedly decreased ejection fraction between 20 and 25%. He also has chronic atrial fibrillation. He has had amputation of his right leg above the knee. The patient was admitted. All his cultures were done. He was started on IV antibiotics. He had a large right pleural effusion. He was seen in consultation by Dr. Eldridge. Thoracentesis was done, 1400 mL of fluid evacuated. He had reaccumulation of the fluid. Yesterday Dr. Eldridge went ahead and placed a PleurX catheter. It is still draining significant amount of fluid. Overall, his condition improved. He denied any headache. No dizziness. No chest pain. No shortness of breath. Good appetite. No abdominal pain, no nausea, no vomiting. No problem with his bowel movements. No problem urinating. No back pain. He does complain of pain in his legs. On the right side is phantom pain, on the left side related to his pathology. PHYSICAL EXAMINATION: GENERAL: Well developed in no distress. VITAL SIGNS: Blood pressure 100/58, pulse 78, respirations 17, temperature 36.7, oxygen saturation 97% on room air. SKIN: Warm and dry. HEAD, EYES, EARS, NOSE, AND THROAT: Blindness in the right eye. Upper dentures. NECK: Supple. Nontender. No JVD. No adenopathy. HEART: Irregular heart sounds. LUNGS: Decreased breath sounds at the bases, especially the right side, but definitely breath sounds have improved after the drainage of all the pleural fluid. ABDOMEN: Soft, nontender. BACK: No spinal tenderness. EXTREMITIES: He is status post right AKA. The left leg is wrapped with dressing. TODAY'S LABORATORY TESTS: WBC count 5740, hemoglobin 8.3, hematocrit 25.9, platelet count 156,000. Sodium 143, potassium 4.3, chloride 108, CO2 27, BUN 63, creatinine 1.5, glucose 74, calcium 8.2, total bilirubin 0.3, AST 30, ALT 26, alkaline phosphatase 346, total protein 6.5, albumin 2.1. ASSESSMENT: 1. Severe cellulitis, left lower leg, foot, and ankle. 2. Multiple ulcers of his left lower leg and foot and ankle and heel. 3. Type 2 diabetes mellitus with multiple complications. 4. Coronary artery disease. 5. Ischemic cardiomyopathy. 6. Congestive heart failure, acute and chronic. 7. Status post right above knee amputation. 8. Atrial fibrillation. PLAN: 1. Continuing the same medications. 2. Continue with his therapies. 3. Awaiting consultation with wound care provider tomorrow. See if any of the areas with the ulcers and the skin sloughing and damage to the skin needs to be debrided. 4. Dr. Eldridge continuing to see the patient. The PleurX catheter is draining significant amount of pleural fluid. 5. The patient has been accepted to go to [facility], but before we do that we need to figure out exactly what needs to be done with his left lower leg as far as any debridement or any further treatment.
[2016-07-05] MEDS ORDERED: INSULIN GLARGINE SOLOSTAR 100 UNITS/ML 3 ML PEN SC SCH (21:00)
[2016-07-05 21:23] VITALS: BP 139/75; PULSE 77
[2016-07-05 23:00] VITALS: BP 99/47; PULSE 90; TEMP 36.9; O2SAT 96
[2016-07-06] VITALS (12 sets, daily range): BP systolic 76–111; BP diastolic 44–96; PULSE 77–110; TEMP 36.3–37.5; O2SAT 90–98; Ht 177.8 cm; Wt 84.4 kg
[2016-07-06] MEDS: PIPERACILL/TAZOBAC IV 3.375 GM in DEXTROSE 5% 100ML 100 ML IV SCH ×3 (01:49→18:13)
[2016-07-06] MEDS ORDERED: DEXTROSE 50% 50 ML SYR ONE (08:01)
[2016-07-06] MEDS: FUROSEMIDE INJ 60 MG in SYRINGE 0 ML IV SCH (08:10)
--- NOTE | 2016-07-06 08:23 | DIAGNOSTIC IMAGING REPORT ---
CHEST ONE VIEW PORTABLE CLINICAL HISTORY: Shortness of breath. COMPARISON STUDY: Chest radiograph July 05, [address] June 30, 2016 FINDINGS: A small right pneumothorax has slightly increased in size. A right basilar pleural catheter is in place. Perihilar and bibasilar opacities have increased. A right pleural effusion is noted. Cardiomediastinal silhouette is stable. Gaseous distention of the stomach is noted. IMPRESSION: 1. Development of perihilar and bibasilar opacities. Pneumonia is favored although pulmonary edema could appear similar. 2. Slight increase in size of a small right apical pneumothorax. Right basilar pleural catheter in place. 3. Increasing gaseous distention of the stomach. Electronically signed by: Shaji Cornejo M.D. 07/06/2016 8:22 AM Dictated Date/Time: 07/06/2016 8:19 AM
[2016-07-06] MEDS: LEVALBUTEROL 1.25MG/3ML NEB INH SCH ×5 (08:25→23:13)
[2016-07-06] MEDS ORDERED: INSULIN GLARGINE SOLOSTAR 100 UNITS/ML 3 ML PEN SC SCH (09:00)
[2016-07-06] MEDS: ASPIRIN 81 MG ECTAB PO SCH (09:08)
[2016-07-06] MEDS: PANTOprazole SOD 40 MG TAB PO SCH (09:09)
[2016-07-06] MEDS: ESCITALOPRAM OXALATE 10 MG TAB PO SCH (09:09)
[2016-07-06] MEDS: ATORVASTATIN 40 MG TAB PO SCH (09:09)
[2016-07-06] MEDS: GABAPENTIN 300 MG CAP PO SCH ×3 (09:09→21:14)
[2016-07-06] MEDS: CARVEDILOL 25 MG TAB PO SCH ×2 (09:10→21:51)
[2016-07-06] MEDS: LISINOPRIL 20 MG TAB PO SCH (09:10)
[2016-07-06] MEDS: LACTOBACILLUS ACIDOPHILUS (FLORANEX) TAB PO SCH ×3 (09:11→21:13)
[2016-07-06] MEDS: CEROVITE ADV FORMULA TAB PO SCH (09:12)
[2016-07-06 09:40] LABS: BASO % 0.2 %; BASO ABS # 0.01 K/uL (0-0.2); HEMATOCRIT 27.3 % (42-52); IG% 0.2 %; LYMPH % 11.3 %; LYMPH ABS # 0.67 K/uL (1.2-3.4); MEAN CELL VOLUME 79.6 fL (80-100); MEAN CORPUSCULAR HEMOGLOBIN 25.4 pg (25-34); MEAN CORPUSCULAR HGB CONC 31.9 g/dl (32-36); MEAN PLATELET VOLUME 10.4 fL (7.4-10.4); MONO % 7.6 %; NEUT % 77.7 %; PLATELET COUNT 215 K/uL (130-400); RED BLOOD COUNT 3.43 M/uL (4.7-6.1); WHITE BLOOD COUNT 5.92 K/uL (4.8-10.8)
[2016-07-06] MEDS: INSULIN ASPART 100 UNITS/ML 3 ML PEN SC SCH ×4 (10:13→21:00)
[2016-07-06 10:23] LABS: BUN/CREATININE RATIO 44.4 (10-20); CREATININE 1.6 mg/dl (0.60-1.40); MAGNESIUM 1.9 mg/dl (1.8-2.4); POTASSIUM 4.5 mmol/L (3.5-5.1)
[2016-07-06 10:28] LABS: COMPLETE YES
[2016-07-06] MEDS ORDERED: FUROSEMIDE INJ 60 MG in SYRINGE 0 ML IV ONE (11:00)
[2016-07-06] MEDS ORDERED: ALTEPLASE, RECOMBINANT 1 MG/ML 2 ML VIAL IPL ONE ×2 (12:00→15:00)
[2016-07-06] MEDS ORDERED: DORNASE ALFA (2500U) 2.5MG/2.5ML INH ONE ×2 (12:00→15:00)
[2016-07-06] MEDS ORDERED: DORNASE ALFA (2500U) 2.5MG/2.5ML IPL ONE ×2 (12:00→15:00)
[2016-07-06] MEDS ORDERED: ALTEPLASE, RECOMBINANT 1 MG/ML 2 ML VIAL IV ONE ×2 (12:00→15:00)
[2016-07-06] MEDS ORDERED: DORNASE ALFA 2.5MG 5 ML in SYRINGE 25 ML IPL ONE ×2 (12:00→15:00)
--- NOTE | 2016-07-06 15:52 | Progress Note ---
Progress Note Date of Service July 06, 2016. Progress Note 10 mg TPA placed in pleurex (12:15) and drained 1 hour later for 250 cc fluid. 5 mg dornase placed and RN drained 2 hours later for 500 cc. 10 mg TPA and 5 mg dornase placed (3:30) and RN to drain in 2 hours.
--- NOTE | 2016-07-06 16:13 | SURGERY PROGRESS NOTE ---
DATE: 07/06/2016 HISTORY OF PRESENT ILLNESS: Mr. Zapien was seen today on 07/06/2016. Quite frankly, he looks worse to me. I am concerned about him. He is on a facemask. His saturations were low. He really has not required any oxygen. On auscultation, his lungs really do not sound bad. He is a bit more lethargic. He was drained this morning and his x-ray shows that he still has fluid in his right base. I do not believe we have him completely drained. The fluid is not infected; however, I am concerned about this. I am going to start the MIST-2 protocol with TPA and dornase on him today. We will keep this on for the next 3 days or so and attempt to break up this loculated effusion in his right pleural cavity. However, I see no evidence that it is infected.
[2016-07-06] MEDS: RIVAROXABAN 10 MG TAB PO SCH (18:13)
[2016-07-06] MEDS: DAPTOmycin IV 350 MG in SODIUM CHLORIDE 0.9% 50ML 50 ML IV SCH (18:13)
[2016-07-06] MEDS: OXYCODONE HCL IR 5 MG TAB (IMMEDIATE RELEASE) PO PRN (18:43)
--- NOTE | 2016-07-06 21:29 | PROGRESS NOTE ---
DATE: 07/06/2016 A 65-year-old male, admitted with cellulitis of his left lower leg, foot, ankle and multiple ulcers of the same areas. He has multiple medical problems including type 2 diabetes mellitus with multiple complications, coronary artery disease, ischemic cardiomyopathy, congestive heart failure, atrial fibrillation and peripheral arterial disease status post right above the knee amputation. He also had a right pleural effusion. He had a thoracentesis done by Dr. Eldridge. Yesterday, a PleurX catheter was placed. Early this morning, around 7:30, the patient became hypoxic. His oxygen saturations did drop down to about 77%. His oxygen flow was increased. His saturation improved. He was wheezing. He was short of breath. He was given IV Lasix. He was also given Xopenex high-flow treatment. His electrocardiogram did not show any new acute changes. His chest x-ray showed development of perihilar and bibasilar opacities. Pulmonary edema could appear similarly, but the possibility of pneumonia was also raised, but clinically it is not pneumonia; it is more related to congestive heart failure. He also had increase in the size of the small right apical normal thorax. The catheter was noted in place. His stomach was distended. His condition improved with the diuresis and the high-flow treatment. We were able to put him back on nasal cannula instead of the mask. He rested throughout the day today. He denied any headache. No dizziness. No chest pain. His shortness of breath has resolved. He is back to his baseline. No abdominal pain, no nausea, no vomiting. No problem with his bowel movements or urination. No back pain. He does complain of pain in his legs. He does have phantom pain on the right side. PHYSICAL EXAMINATION: GENERAL: Well-developed, in no distress. VITAL SIGNS: This afternoon; showed a blood pressure of 94/57, pulse 85, respirations 16, temperature 36.9 and oxygen saturation 98% on three liters oxygen by nasal cannula. SKIN: Warm and dry. No rash. HEENT: Blindness in the right eye. Nasal cannula is in place. Has upper dentures. NECK: No JVD. No adenopathy. HEART: Irregular heart sounds. LUNGS: Decreased breath sounds bilaterally. ABDOMEN: Soft and nontender. BACK: No spinal tenderness. EXTREMITIES: Status post right AKA. Dressings on the left lower leg, ankle and foot. TODAY'S LABORATORY TESTS: WBC count 5920, hemoglobin 8.7, hematocrit 27.3 and platelet count 215,000. Sodium 139, potassium 4.5, chloride 105, CO2 26, BUN 71, creatinine 1.6, glucose 76, calcium 8.0 and magnesium of 1.9. ASSESSMENT: 1. Acute congestive heart failure, most likely systolic. 2. Coronary artery disease. 3. Ischemic cardiomyopathy with an ejection fraction between 20-25%. 4. Atrial fibrillation. 5. Mental status changes, secondary to hypoxemia. 6. Type 2 diabetes mellitus. 7. Peripheral arterial disease. 8. Cellulitis and ulcers of his left lower leg, foot, ankle and heel. PLAN: 1. Continue with diuresis as needed. 2. Continue with oxygen. At the current flow, he is maintaining adequate oxygenation. 3. As noted, he rested throughout the day today and tonight he was back to his mental status and responding appropriately. 4. Wound care consultation is pending to see if he needs any debridement of the ulcerated areas. 5. He is currently on daptomycin and Zosyn. 6. Eventually, the plan will be for him to go to [facility] once he is stable.
[2016-07-07] VITALS (26 sets, daily range): BP systolic 78–102; BP diastolic 42–62; PULSE 76–96; TEMP 36.3–36.6; O2SAT 92–98
[2016-07-07] MEDS: PIPERACILL/TAZOBAC IV 3.375 GM in DEXTROSE 5% 100ML 100 ML IV SCH ×2 (01:30→09:43)
[2016-07-07] MEDS: LEVALBUTEROL 1.25MG/3ML NEB INH SCH ×6 (03:32→23:13)
[2016-07-07] MEDS ORDERED: DORNASE ALFA (2500U) 2.5MG/2.5ML INH ONE ×2 (06:30→15:00)
[2016-07-07] MEDS ORDERED: ALTEPLASE, RECOMBINANT 1 MG/ML 2 ML VIAL IPL ONE ×2 (06:30→15:00)
[2016-07-07] MEDS ORDERED: DORNASE ALFA (2500U) 2.5MG/2.5ML IPL ONE ×2 (06:30→15:00)
[2016-07-07] MEDS ORDERED: DORNASE ALFA 2.5MG 5 ML in SYRINGE 25 ML IPL ONE ×2 (06:30→15:00)
[2016-07-07] MEDS ORDERED: ALTEPLASE, RECOMBINANT 1 MG/ML 2 ML VIAL IV ONE ×2 (06:30→15:00)
[2016-07-07 06:52] LABS: BASO % 0.1 %; BASO ABS # 0.01 K/uL (0-0.2); EOS % 0.7 %; HEMATOCRIT 23.7 % (42-52); IG% 0.3 %; LYMPH % 12.8 %; LYMPH ABS # 1.13 K/uL (1.2-3.4); MEAN CELL VOLUME 78.5 fL (80-100); MEAN CORPUSCULAR HEMOGLOBIN 25.2 pg (25-34); MEAN CORPUSCULAR HGB CONC 32.1 g/dl (32-36); MEAN PLATELET VOLUME 10.9 fL (7.4-10.4); MONO % 8.4 %; NEUT % 77.7 %; PLATELET COUNT 158 K/uL (130-400); RED BLOOD COUNT 3.02 M/uL (4.7-6.1); WHITE BLOOD COUNT 8.83 K/uL (4.8-10.8)
[2016-07-07 06:56] LABS: URINE APPEARANCE CLEAR (CLEAR); URINE BILIRUBIN NEG (NEG); URINE COLOR DK YELLOW; URINE NITRITE NEG (NEG); UROBILINOGEN NEG (NEG)
[2016-07-07 06:57] LABS: MANUAL MICROSCOPIC REQUIRED? NO; REVIEW REQ? NO
[2016-07-07 07:23] LABS: BUN/CREATININE RATIO 41.8 (10-20); CALCIUM 7.8 mg/dl (8.5-10.1); CREATININE 2.1 mg/dl (0.60-1.40); POTASSIUM 4.4 mmol/L (3.5-5.1)
[2016-07-07 07:24] LABS: COMPLETE YES
--- NOTE | 2016-07-07 07:38 | DIAGNOSTIC IMAGING REPORT ---
CHEST ONE VIEW PORTABLE CLINICAL HISTORY: Pleural effusion. COMPARISON STUDY: Chest radiograph July 06, 2016. FINDINGS: A small to moderate right pneumothorax is increased in size since exam of June 2016. The amount of pleural fluid has diminished. A right basilar chest tube is in place. Note is made of a 5.4 cm mass-like opacity within the right lower lung. Perihilar and bibasilar opacities have slightly improved. Right chest wall subcutaneous gas has increased. IMPRESSION: 1. Small to moderate right pneumothorax which is increased in size since prior exam. Right basilar chest tube in place. Interval decrease in amount of right pleural fluid. 2. Perihilar and bibasilar opacities which have slightly improved since prior exam. 3. 5.4 cm round mass-like opacity within the right lower lung. Radiographic follow-up to ensure resolution is recommended to exclude the possibility of a mass. Electronically signed by: Shaji Cornejo M.D. 07/07/2016 7:37 AM Dictated Date/Time: 07/07/2016 7:34 AM
[2016-07-07] MEDS: FUROSEMIDE INJ 60 MG in SYRINGE 0 ML IV SCH (07:45)
[2016-07-07] MEDS: OXYCODONE HCL IR 5 MG TAB (IMMEDIATE RELEASE) PO PRN (07:56)
[2016-07-07] MEDS: CARVEDILOL 25 MG TAB PO SCH (09:00)
[2016-07-07] MEDS: LACTOBACILLUS ACIDOPHILUS (FLORANEX) TAB PO SCH ×3 (09:03→21:35)
[2016-07-07] MEDS: GABAPENTIN 300 MG CAP PO SCH ×3 (09:03→21:35)
[2016-07-07] MEDS: ASPIRIN 81 MG ECTAB PO SCH (09:08)
[2016-07-07] MEDS: ESCITALOPRAM OXALATE 10 MG TAB PO SCH (09:08)
[2016-07-07] MEDS: CEROVITE ADV FORMULA TAB PO SCH (09:08)
[2016-07-07] MEDS: ATORVASTATIN 40 MG TAB PO SCH (09:09)
[2016-07-07] MEDS: PANTOprazole SOD 40 MG TAB PO SCH (09:09)
[2016-07-07] MEDS: INSULIN ASPART 100 UNITS/ML 3 ML PEN SC SCH ×4 (09:21→21:49)
--- NOTE | 2016-07-07 16:11 | Progress Note ---
Progress Note Date of Service July 07, 2016. Progress Note 10 mg TPA and 5 mg dornase placed in pleurx catheter (0700)--drained 1 hour later for about 200 cc. Catheter drained at 1600 for about 600 cc bloody fluid. TPA withheld and 5 mg dornase placed. RN to drain in 2 hours.
[2016-07-07] MEDS: DAPTOmycin IV 350 MG in SODIUM CHLORIDE 0.9% 50ML 50 ML IV SCH (17:53)
[2016-07-07] MEDS: OXYCODONE/ACETAMINOPHEN 5-325 TAB PO SCH (18:00)
[2016-07-07] MEDS: RIVAROXABAN TAB 15 MG TAB PO SCH (18:20)
[2016-07-07] MEDS: CARVEDILOL 12.5 MG TAB PO SCH (21:00)
--- NOTE | 2016-07-07 21:35 | SURGERY PROGRESS NOTE ---
DATE: 07/07/2016 SUBJECTIVE: Mr. Zapien was seen today. I discussed this case with Dr. Whitney. His right lower lobe appeared to be trapped. We placed TPA and Pulmozyme into his right PleurX catheter; however, he appeared to have some bleeding from this so we held the TPA and subsequent doses will simply continue the Pulmozyme. It does not appear to be infected. He is having some pain when we tried to drain him. We will continue to follow him and see how his x-ray looks over the days to come. ANALY
--- NOTE | 2016-07-07 23:36 | PROGRESS NOTE ---
DATE: 07/07/2016 A 65-year-old male admitted with severe cellulitis of his left lower leg, foot and ankle with multiple ulcers. He has an extensive complex medical history including coronary artery disease, severe ischemic cardiomyopathy, atrial fibrillation, congestive heart failure, severe peripheral arterial disease, history of kcznw-sdv-sght amputation on the right side, chronic kidney disease. The patient had a large right pleural effusion. Thoracentesis was done by Dr. Eldridge. Also, he had a PleurX drainage tube placed. His condition has been deteriorating. The patient had an episode of acute congestive heart failure. His BUN and creatinine are rising. He does have severe cardiomyopathy. He is lethargic. He denied any headache. No dizziness. No chest pain. No shortness of breath at rest. No abdominal pain, no nausea, no vomiting. He does complain of pain in his left lower leg and also complaining of pain in his back. He also has phantom pain on the right side. PHYSICAL EXAMINATION: GENERAL: Well developed, in no distress. VITAL SIGNS: Blood pressure has been decreasing. Early this morning it was 102/49, but subsequently it has been as low as 87/56. Pulse 76, respiration 18, temperature 36.5, oxygen saturation 96% on room air. SKIN: Warm and dry. No rash. HEENT: Blindness right eye. Upper denture. NECK: No JVD, no adenopathy. HEART: Irregular heart sounds. LUNGS: Decreased breath sounds bilaterally. He does have a PleurX drainage tube on the right side. ABDOMEN: Soft, nontender. EXTREMITIES: Dressing of the left lower leg and foot and status post right AKA. TODAY'S LABORATORY TESTS: WBC count 8830, hemoglobin 7.6, hematocrit 23.7, platelet count 158,000. Sodium 138, potassium 4.4, chloride 105, CO2 of 24, BUN 88, creatinine 2.1, glucose 158, calcium 7.8. ASSESSMENT: 1. Severe cellulitis of the left lower leg and foot with multiple ulcers and large ulcer of the left heel. 2. Coronary artery disease. 3. Ischemic cardiomyopathy. 4. Atrial fibrillation. 5. Acute renal failure. 6. Congestive heart failure. 7. Urinary retention. This morning he was not able to void and his bladder scan showed over 600 mL, so he has a Padilla catheter in place. 8. General debilitation. 9. Deteriorating condition. PLAN: 1. He was transfused 2 units of packed RBCs. 2. His renal function is deteriorating. His urine output has been markedly decreased. 3. We are still draining significant amount of fluid from the right pleura. 4. I adjusted his medications. 5. Continuing his other medications unchanged. His prognosis is poor in view of multiple problems, especially the deterioration of his renal function.
[2016-07-08] VITALS (11 sets, daily range): BP systolic 81–101; BP diastolic 33–63; PULSE 80–95; TEMP 36.5–36.6; O2SAT 94–99
[2016-07-08] MEDS: OXYCODONE/ACETAMINOPHEN 5-325 TAB PO SCH ×3 (01:45→18:40)
[2016-07-08] MEDS: LEVALBUTEROL 1.25MG/3ML NEB INH SCH ×6 (03:19→23:29)
[2016-07-08 06:19] LABS: BASO % 0.3 %; BASO ABS # 0.02 K/uL (0-0.2); EOS % 5.5 %; HEMATOCRIT 27.4 % (42-52); IG% 0.1 %; LYMPH % 16.9 %; LYMPH ABS # 1.19 K/uL (1.2-3.4); MEAN CELL VOLUME 79.2 fL (80-100); MEAN CORPUSCULAR HEMOGLOBIN 25.4 pg (25-34); MEAN CORPUSCULAR HGB CONC 32.1 g/dl (32-36); MEAN PLATELET VOLUME 10.8 fL (7.4-10.4); MONO % 7.1 %; NEUT % 70.1 %; PLATELET COUNT 175 K/uL (130-400); RED BLOOD COUNT 3.46 M/uL (4.7-6.1); WHITE BLOOD COUNT 7.03 K/uL (4.8-10.8)
[2016-07-08] MEDS ORDERED: DORNASE ALFA (2500U) 2.5MG/2.5ML IPL ONE ×2 (06:30→14:00)
[2016-07-08] MEDS ORDERED: DORNASE ALFA (2500U) 2.5MG/2.5ML INH ONE ×2 (06:30→14:00)
[2016-07-08] MEDS ORDERED: DORNASE ALFA 2.5MG 5 ML in SYRINGE 25 ML IPL ONE (06:30)
[2016-07-08 06:58] LABS: POTASSIUM 4.6 mmol/L (3.5-5.1)
[2016-07-08 07:26] LABS: COMPLETE YES; ECHINOCYTES 1+
[2016-07-08] MEDS: SODIUM CHLORIDE 0.9% 1000ML 1,000 ML IV SCH ×2 (07:26→19:52)
--- NOTE | 2016-07-08 08:29 | DIAGNOSTIC IMAGING REPORT ---
CHEST ONE VIEW PORTABLE CLINICAL HISTORY: Effusion. COMPARISON STUDY: Chest radiograph July 07, 2016. FINDINGS: A right basilar pleural catheter remains in place. A small to moderate right pneumothorax is decreased in size. The amount of pleural fluid has increased. A nodular masslike opacity within the right lower lung persists. There are persistent perihilar and bibasilar opacities. IMPRESSION: 1. Right basilar pleural catheter in place. Interval decrease in the small to moderate right pneumothorax with increasing right pleural fluid. 2. Persistent perihilar and bibasilar opacities, including a nodular mass-like right lower lung opacity. Radiographic follow up to ensure resolution is recommended. Electronically signed by: Shaji Cornejo M.D. 07/08/2016 8:28 AM Dictated Date/Time: 07/08/2016 8:27 AM
[2016-07-08] MEDS: ASPIRIN 81 MG ECTAB PO SCH (09:00)
[2016-07-08] MEDS: CARVEDILOL 12.5 MG TAB PO SCH ×2 (09:00→21:00)
[2016-07-08] MEDS: CEROVITE ADV FORMULA TAB PO SCH (09:01)
[2016-07-08] MEDS: ESCITALOPRAM OXALATE 10 MG TAB PO SCH (09:01)
[2016-07-08] MEDS: ATORVASTATIN 40 MG TAB PO SCH (09:01)
[2016-07-08] MEDS: GABAPENTIN 300 MG CAP PO SCH ×3 (09:01→21:15)
[2016-07-08] MEDS: LACTOBACILLUS ACIDOPHILUS (FLORANEX) TAB PO SCH ×3 (09:02→21:14)
[2016-07-08] MEDS: PANTOprazole SOD 40 MG TAB PO SCH (09:03)
[2016-07-08] MEDS: INSULIN ASPART 100 UNITS/ML 3 ML PEN SC SCH ×4 (09:06→21:32)
[2016-07-08] MEDS ORDERED: DAPTOMYCIN CONSULT ACTIVE PRN ×2 (13:45)
[2016-07-08] MEDS ORDERED: DORNASE ALFA 2.5MG 5 ML in SYRINGE 25 ML IPL SCH (14:00)
--- NOTE | 2016-07-08 16:44 | SURGERY PROGRESS NOTE ---
DATE: 07/08/2016 SUBJECTIVE: Mr. Zapien was seen today on 07/08/2016. Reviewing his labs, his hemoglobin went from 7.6 to 8.8 after transfusing. He has not really growing anything out of blood. A chest x-ray today was reviewed and it appears to me does have a trapped lung. I think that the PleurX catheter should simply be left in place for the time being. He also has a small pneumothorax, but I do not think this is clinically significant. He is on room air with good saturations today. Will check another x-ray in the morning. He is complaining of some pain in his side. He drained essentially zero from his chest tube after draining a great deal yesterday. We will check another x-ray in the morning and see how he looks. He looks better to me today than he did yesterday. His saturation is 99% on room air. ANALY
[2016-07-08] MEDS: RIVAROXABAN TAB 15 MG TAB PO SCH (18:46)
--- NOTE | 2016-07-08 23:48 | PROGRESS NOTE ---
DATE: 07/08/2016 A 65-year-old male admitted with severe cellulitis of his left lower leg and foot and ankle with multiple ulcers. He has a complex medical history with coronary artery disease, severe ischemic cardiomyopathy, acute and chronic congestive heart failure, atrial fibrillation. He is also diabetic with severe complications. 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 He has severe peripheral arterial disease and has prior stenting procedures. The patient has been on IV antibiotics, first on IV Zosyn and vancomycin, then the vancomycin was switched to daptomycin. He presented with a right pleural effusion. Thoracentesis was done by Dr. Eldridge. Subsequently, a PleurX catheter was placed. The patient has been seen in the wound care clinic for many months for the problem with the ulcers on his left lower leg and also has an ulcer on his left heel. The patient presented with acute congestive heart failure, required diuresis. He also has acute kidney failure superimposed on chronic kidney disease. The patient is resting today. He is not having any significant pain. He denied any headache or dizziness. No chest pain, no shortness of breath. No abdominal pain, no nausea, no vomiting. He had urinary retention and a Padilla catheter is in place. PHYSICAL EXAMINATION: GENERAL: Well developed, in no distress. VITAL SIGNS: Blood pressure 92/49, pulse 92, respiration 18, temperature 36.6, oxygen saturation 97% on room air. SKIN: Warm and dry. No rash. HEENT: Blindness in the right eye. Has upper dentures. NECK: Supple. Nontender. No lymph node or thyroid enlargement. HEART: Irregular heart sounds. LUNGS: Decreased breath sounds bilaterally. No wheezing. ABDOMEN: Soft, nontender. EXTREMITIES: He is status post right AKA. A dressing on left lower leg. There is an area of trauma and bleeding from his left third toe. Apparently, he sustained a trauma on the table in front of him. TODAY'S LABORATORY TESTS: WBC count 7030, hemoglobin 8.8. This is after receiving 2 units of packed RBCs yesterday, hematocrit 27.4, platelet count 175,000. Sodium 136, potassium 4.6, chloride 103, CO2 24, BUN 105, creatinine 3.0, glucose 180, calcium 8.0. ASSESSMENT: 1. Severe cellulitis and ulcers of his left lower leg and foot. 2. Coronary artery disease. 3. Severe ischemic cardiomyopathy. 4. Type 2 diabetes mellitus with multiple complications. 5. Acute renal failure superimposed on chronic kidney disease. 6. Acute and chronic congestive heart failure. 7. Right pleural effusion. PLAN: 1. This morning I started him on IV fluid with normal saline at 80 mL per hour. 2. His Lasix was discontinued. 3. His urine output has been very minimal. We will see if that improves with hydration. We will keep the IV flow at a low rate to, hopefully, prevent any recurrence of his congestive heart failure. 4. Continue with wound care. 5. Continue IV antibiotics. I spoke with the pharmacist today and pharmacy will adjust his dose of daptomycin, taking into consideration his deteriorating renal function. 6. I tried to get hold of his brothers today, Noé and Kraig, but was not able to. I will try again. I will meet with them to just discuss the course of treatment and the prognosis and tell them what is being done and what is going on. 7. Anticipating patient to go to [facility] once his medical condition permits.
[2016-07-09] VITALS (12 sets, daily range): BP systolic 90–123; BP diastolic 47–58; PULSE 79–96; TEMP 36.6–36.7; O2SAT 90–97
[2016-07-09] MEDS: OXYCODONE/ACETAMINOPHEN 5-325 TAB PO SCH ×3 (01:58→18:06)
[2016-07-09] MEDS: LEVALBUTEROL 1.25MG/3ML NEB INH SCH ×6 (03:29→23:23)
[2016-07-09] MEDS ORDERED: DORNASE ALFA (2500U) 2.5MG/2.5ML IPL ONE (06:30)
[2016-07-09] MEDS ORDERED: DORNASE ALFA 2.5MG 5 ML in SYRINGE 25 ML IPL SCH (06:30)
[2016-07-09] MEDS ORDERED: DORNASE ALFA (2500U) 2.5MG/2.5ML INH ONE (06:30)
[2016-07-09 06:47] LABS: BASO % 0.2 %; BASO ABS # 0.01 K/uL (0-0.2); HEMATOCRIT 26.9 % (42-52); IG% 0.2 %; LYMPH % 21.4 %; LYMPH ABS # 1.39 K/uL (1.2-3.4); MEAN CELL VOLUME 80.1 fL (80-100); MEAN CORPUSCULAR HEMOGLOBIN 26.2 pg (25-34); MEAN CORPUSCULAR HGB CONC 32.7 g/dl (32-36); MEAN PLATELET VOLUME 10.6 fL (7.4-10.4); MONO % 6.5 %; NEUT % 63.7 %; PLATELET COUNT 194 K/uL (130-400); RED BLOOD COUNT 3.36 M/uL (4.7-6.1)
[2016-07-09 07:21] LABS: ACANTHOCYTES 2+; BUN/CREATININE RATIO 29.8 (10-20); COMPLETE YES; CREATININE 3.5 mg/dl (0.60-1.40); POTASSIUM 5.1 mmol/L (3.5-5.1)
[2016-07-09] MEDS: SODIUM CHLORIDE 0.9% 1000ML 1,000 ML IV SCH ×2 (08:06→20:06)
[2016-07-09] MEDS: CARVEDILOL 12.5 MG TAB PO SCH ×2 (08:06→22:01)
[2016-07-09] MEDS: LACTOBACILLUS ACIDOPHILUS (FLORANEX) TAB PO SCH ×3 (08:11→21:55)
[2016-07-09] MEDS: GABAPENTIN 300 MG CAP PO SCH ×3 (08:12→21:54)
[2016-07-09] MEDS: ESCITALOPRAM OXALATE 10 MG TAB PO SCH (08:12)
[2016-07-09] MEDS: CEROVITE ADV FORMULA TAB PO SCH (08:12)
[2016-07-09] MEDS: ATORVASTATIN 40 MG TAB PO SCH (08:13)
[2016-07-09] MEDS: ASPIRIN 81 MG ECTAB PO SCH (08:13)
[2016-07-09] MEDS: PANTOprazole SOD 40 MG TAB PO SCH (08:13)
[2016-07-09] MEDS: INSULIN ASPART 100 UNITS/ML 3 ML PEN SC SCH ×4 (09:47→21:57)
--- NOTE | 2016-07-09 12:34 | Progress Note ---
Progress Note Date of Service July 08, 2016. Progress Note 5 mg dornase placed in pleurex at 0730 and again at approx 1600.
--- NOTE | 2016-07-09 12:35 | Progress Note ---
Progress Note Date of Service July 09, 2016. Progress Note 5 mg dornase placed in pleurx at 0730. RN to drain in 2 hours.
--- NOTE | 2016-07-09 13:18 | DIAGNOSTIC IMAGING REPORT ---
CHEST ONE VIEW PORTABLE CLINICAL HISTORY: effusion pleural effusion COMPARISON STUDY: 07/08/2016 FINDINGS: Small persistent right-sided pneumothorax unchanged in the prior study. Trace amount subcutaneous emphysema also unchanged. Parenchymal infiltrative change right and to lesser extent left base similar area mild stable cardiomegaly. IMPRESSION: No change from the prior exam. Small right apical pneumothorax unchanged. Electronically signed by: Markel oMre M.D. 07/09/2016 1:16 PM Dictated Date/Time: 07/09/2016 1:14 PM
--- NOTE | 2016-07-09 13:44 | SURGERY PROGRESS NOTE ---
DATE: 07/09/2016 SUBJECTIVE: Mr. Zapien was seen today. He has indwelling right PleurX catheter and we placed TPA with Dornase in this a few days ago and he bled. This has subsequently stopped since we had been using just Dornase. His drainage has also been a bit better, very difficult to get anything out today and Dornase was injected by Dr. Downs. Will see how much he drains in the future. I was pretty happy with his x-ray. He still has some right basilar issue yesterday and may have a trapped lung, but it sounds better to me today.
[2016-07-09] MEDS ORDERED: DAPTOmycin IV 350 MG in SODIUM CHLORIDE 0.9% 50ML 50 ML IV SCH (18:00)
[2016-07-09] MEDS: RIVAROXABAN TAB 15 MG TAB PO SCH (18:09)
[2016-07-09] MEDS ORDERED: NURSING VERBAL MED ORDER ONE (23:00)
[2016-07-09] MEDS ORDERED: LORAZEPAM 0.5 MG TAB SL STA (23:15)
--- NOTE | 2016-07-09 23:42 | PROGRESS NOTE ---
DATE: 07/09/2016 A 65-year-old male admitted with multiple problems, including severe cellulitis of his left lower leg and foot with multiple ulcers on his lower leg, foot and also, heel. He does have coronary artery disease, atrial fibrillation, acute and chronic congestive heart failure, acute and chronic renal failure, history of amputation above the knee of his right leg. History of stenting of his left leg arteries. The patient has multiple diabetic complications. His condition is slightly improved. He is sitting up in the chair. He denied any headache. No dizziness. No chest pain. No shortness of breath. No abdominal pain, no nausea, no vomiting. No problem with his bowel movements. He did have urinary retention and a Padilla catheter in place. He continues to complain of pain in his left lower leg. Also, he has phantom pain in his right leg, post amputation. PHYSICAL EXAMINATION: GENERAL: Well developed, in no distress. VITAL SIGNS: Blood pressure 100/54, pulse 79, respiration 18, temperature 36.6, oxygen saturation 94% on room air. SKIN: Warm and dry. No rash. HEENT: Blindness in the right eye. Decreased vision, left eye. He has upper dentures. NECK: Supple. Nontender. No JVD. HEART: Irregular heart sounds. LUNGS: Decreased breath sounds. The PleurX tube is in place. ABDOMEN: Soft, nontender. BACK: No spinal tenderness. EXTREMITIES: Dressing, left lower leg and foot. Decreased edema. No clubbing. Ischemic changes. Status post right [id number] amputation. LABORATORY TESTS: WBC count 6500, hemoglobin 8.8. He did receive 2 units of packed RBCs on 07/07/2016, hematocrit 26.9, platelet count 194,000. Sodium 136, potassium 5.1, chloride 103, CO2 22, BUN 104, creatinine 3.5, glucose 105, calcium 8.0. ASSESSMENT: 1. Cellulitis, left lower leg and foot, with multiple ulcers. 2. Type 2 diabetes with multiple complications. 3. Acute renal failure superimposed on chronic renal failure. 4. Acute congestive heart failure with chronic congestive heart failure. 5. Coronary artery disease. 6. Cardiomyopathy. 7. Atrial fibrillation. 8. Urinary retention. PLAN: 1. Continuing the same medications. 2. Continue IV fluids. Change to 100 mL per hour. He seems to be tolerating that and his urine output has improved. 3. I spoke with his brother, Janeth, today. Initially, we were planning on getting him to [facility], but I do not think this is a good option for him, given his general condition and the main thing is to get him set up to go to an extended care facility. The patient was living in [place] until about April of this year, when his brothers brought him to this area. They have been taking care of him at home when he was at home, but unfortunately, given his present condition, this is going to be an impossible task. So, placement at [facility] is an option right now.
[2016-07-10] VITALS (7 sets, daily range): BP systolic 109–117; BP diastolic 62–67; PULSE 76–90; TEMP 36.6–36.9; O2SAT 87–94
[2016-07-10] MEDS: OXYCODONE/ACETAMINOPHEN 5-325 TAB PO SCH ×3 (02:13→19:51)
[2016-07-10] MEDS: LEVALBUTEROL 1.25MG/3ML NEB INH SCH ×6 (03:56→23:11)
[2016-07-10] MEDS: SODIUM CHLORIDE 0.9% 1000ML 1,000 ML IV SCH ×2 (05:47→16:09)
[2016-07-10 06:17] LABS: BASO % 0.2 %; BASO ABS # 0.01 K/uL (0-0.2); HEMATOCRIT 26.6 % (42-52); IG% 0.2 %; LYMPH % 20.3 %; LYMPH ABS # 1.24 K/uL (1.2-3.4); MEAN CELL VOLUME 79.6 fL (80-100); MEAN CORPUSCULAR HGB CONC 32.7 g/dl (32-36); MONO % 7.7 %; NEUT % 64.6 %; PLATELET COUNT 211 K/uL (130-400); RED BLOOD COUNT 3.34 M/uL (4.7-6.1); WHITE BLOOD COUNT 6.11 K/uL (4.8-10.8)
[2016-07-10 06:49] LABS: COMPLETE YES
[2016-07-10 06:58] LABS: BUN/CREATININE RATIO 36.5 (10-20); CALCIUM 8.1 mg/dl (8.5-10.1)
[2016-07-10] MEDS: GABAPENTIN 300 MG CAP PO SCH ×3 (09:10→21:26)
[2016-07-10] MEDS: CARVEDILOL 12.5 MG TAB PO SCH ×2 (09:10→21:25)
[2016-07-10] MEDS: ATORVASTATIN 40 MG TAB PO SCH (09:11)
[2016-07-10] MEDS: CEROVITE ADV FORMULA TAB PO SCH (09:11)
[2016-07-10] MEDS: LACTOBACILLUS ACIDOPHILUS (FLORANEX) TAB PO SCH ×3 (09:12→21:26)
[2016-07-10] MEDS: ESCITALOPRAM OXALATE 10 MG TAB PO SCH (09:13)
[2016-07-10] MEDS: ASPIRIN 81 MG ECTAB PO SCH (09:14)
[2016-07-10] MEDS: PANTOprazole SOD 40 MG TAB PO SCH (09:14)
[2016-07-10] MEDS: INSULIN ASPART 100 UNITS/ML 3 ML PEN SC SCH ×4 (09:56→21:00)
--- NOTE | 2016-07-10 12:28 | CONSULTATION REPORT ---
DATE OF CONSULTATION: 07/08/2016 The patient is well known to the [facility] for treatment of unstageable pressure ulcers to the left heel, diabetic foot ulcers to the left foot, a traumatic wound to the left knee, and venous stasis ulcerations to the left lower extremity. The patient is hospitalized since 06/29/2016 with cellulitis to the left lower extremity. Patient consult was requested. OBJECTIVE: The patient's vital signs were reviewed. Wounds are stable and improved since last clinic visit of 06/19/2016. There is no slough or eschar present. ASSESSMENT: Stable venous stasis ulcerations, Blackmon grade 1 diabetic foot ulcer left foot, and traumatic wounds to the left lower extremity. PLAN: Wounds will continue to be dressed with Aquacel Ag, changed daily to every other day basis. The patient will continue to be followed as an outpatient upon his discharge. Continue with outpatient offloading treatment plan. Will follow as an outpatient or in-house as needed.
--- NOTE | 2016-07-10 17:44 | SURGERY PROGRESS NOTE ---
DATE: 07/10/2016 SUBJECTIVE: Rock Zapien was seen today. He looks better than I have seen him in a week. He is not complaining of anything. His labs reveal white count of 6102 with a hemoglobin of 8.7 which is stable. His pulse oximetry is 92% on room air. He sounds better. He drained very little from his chest tube, only 20 mL today. I thought his x-ray yesterday was essentially unchanged. We are going to take another one tomorrow. I am actually quite happy with him and I think we are going to get this PleurX catheter out soon.
[2016-07-10] MEDS: RIVAROXABAN TAB 15 MG TAB PO SCH (19:52)
--- NOTE | 2016-07-10 20:37 | PROGRESS NOTE ---
DATE: 07/10/2016 SUBJECTIVE: A 65-year-old male admitted with multiple problems including severe cellulitis of his left lower leg and foot and ankle with multiple ulcers. He has type 2 diabetes mellitus with multiple complications. He is status post right above the knee amputation. He has multiple diabetic complications including retinopathy, nephropathy, neuropathy, vasculopathy. He was also admitted with pleural effusion on the right side. His renal function deteriorated. Overall, his condition is slightly improved today. He denied any headache. No dizziness. Denied any chest pain. No shortness of breath. No abdominal pain. No nausea, no vomiting. Tolerating his diet. No problem with his bowel movements. He does have a Padilla catheter in place because of urinary retention. PHYSICAL EXAMINATION: GENERAL: Well-developed in no distress. VITAL SIGNS: Blood pressure 109/67, pulse 83, respirations 18, temperature 36.6, oxygen saturation 92% on room air. SKIN: Warm and dry. No rash. HEENT: Blindness in the right eye. Upper dentures, but they keep falling off. NECK: Supple without lymph node or thyroid enlargement. HEART: Irregular heart sounds, consistent with atrial fibrillation. LUNGS: Decreased breath sounds. He does have a PleurX catheter on the right side. ABDOMEN: Soft, nontender. EXTREMITIES: Status post right AKA. Dressing in left lower leg and foot. GENITALIA: He does have slight scrotal edema. TODAY'S LABORATORY TESTS: WBC count 6110, hemoglobin 8.7, hematocrit 26.6, platelet count 211,000. Sodium 136, potassium 5.0, chloride 105, CO2 18, BUN 110, creatinine decreased today to 3, glucose 147, calcium 8.1, total bilirubin 0.5, AST 25, ALT 22, alkaline phosphatase 375. CPK 70, total protein 6.7, albumin 2.0. ASSESSMENT: 1. Severe cellulitis and ulcers of the left lower leg and foot. 2. Cardiomyopathy with ejection fraction of 20%. 3. Acute and chronic congestive heart failure. The acute part is resolved. 4. Multiple diabetic complications. 5. Acute and chronic kidney disease. 6. Status post right above the knee amputation. 7. Atrial fibrillation. PLAN: 1. Continuing IV fluid at 100 mL per hour. His urine output has improved and also his creatinine has improved today. 2. Continue his other medications unchanged. 3. Anticipating that he will be going to [facility] after his acute hospitalization. I do not expect that he will need IV antibiotics at that time.
[2016-07-11] VITALS (11 sets, daily range): BP systolic 90–133; BP diastolic 45–74; PULSE 76–90; TEMP 36.4–36.8; O2SAT 90–96
[2016-07-11] MEDS: OXYCODONE/ACETAMINOPHEN 5-325 TAB PO SCH ×3 (01:45→19:14)
[2016-07-11] MEDS: SODIUM CHLORIDE 0.9% 1000ML 1,000 ML IV SCH (01:46)
[2016-07-11] MEDS: LEVALBUTEROL 1.25MG/3ML NEB INH SCH ×5 (03:20→19:45)
[2016-07-11 06:46] LABS: BASO % 0.4 %; BASO ABS # 0.02 K/uL (0-0.2); EOS % 7.6 %; HEMATOCRIT 27.3 % (42-52); IG% 0.2 %; LYMPH % 27.2 %; LYMPH ABS # 1.46 K/uL (1.2-3.4); MEAN CELL VOLUME 79.4 fL (80-100); MEAN CORPUSCULAR HEMOGLOBIN 24.4 pg (25-34); MEAN CORPUSCULAR HGB CONC 30.8 g/dl (32-36); MEAN PLATELET VOLUME 9.8 fL (7.4-10.4); MONO % 10.8 %; NEUT % 53.8 %; PLATELET COUNT 223 K/uL (130-400); RED BLOOD COUNT 3.44 M/uL (4.7-6.1); WHITE BLOOD COUNT 5.37 K/uL (4.8-10.8)
[2016-07-11 07:08] LABS: COMPLETE YES; ECHINOCYTES 1+
[2016-07-11 07:24] LABS: BUN/CREATININE RATIO 48.3 (10-20); CALCIUM 8.1 mg/dl (8.5-10.1); POTASSIUM 4.6 mmol/L (3.5-5.1)
--- NOTE | 2016-07-11 08:32 | DIAGNOSTIC IMAGING REPORT ---
CHEST ONE VIEW PORTABLE HISTORY: pleural effusion COMPARISON: Chest 07/09/2016. FINDINGS: Right-sided chest wall subcutaneous emphysema. Small right apical pneumothorax remains unchanged. This demonstrates a maximal pleural gap of 2.2 cm. Small to moderate right pleural effusion and right basilar densities are again noted. Trace left pleural effusion. Interstitial thickening/opacity at the left lung base. This is also unchanged. The heart remains mildly enlarged. A right basilar pleural catheter is noted. IMPRESSION: 1. No significant change compared the prior study. 2. Small right pneumothorax persists. 3. Small to moderate right and trace left pleural effusions are again noted. There are associated bibasilar densities. Electronically signed by: Juarez Galvin M.D. 07/11/2016 8:30 AM Dictated Date/Time: 07/11/2016 8:28 AM
[2016-07-11] MEDS ORDERED: ALTEPLASE, RECOMBINANT 1 MG/ML 2 ML VIAL IPL ONE (08:45)
[2016-07-11] MEDS: INSULIN ASPART 100 UNITS/ML 3 ML PEN SC SCH ×4 (09:08→22:11)
[2016-07-11] MEDS: ESCITALOPRAM OXALATE 10 MG TAB PO SCH (09:13)
[2016-07-11] MEDS: CARVEDILOL 12.5 MG TAB PO SCH ×2 (09:13→22:05)
[2016-07-11] MEDS: ATORVASTATIN 40 MG TAB PO SCH (09:13)
[2016-07-11] MEDS: GABAPENTIN 300 MG CAP PO SCH ×3 (09:14→22:05)
[2016-07-11] MEDS: LACTOBACILLUS ACIDOPHILUS (FLORANEX) TAB PO SCH ×3 (09:14→22:05)
[2016-07-11] MEDS: ASPIRIN 81 MG ECTAB PO SCH (09:15)
[2016-07-11] MEDS: PANTOprazole SOD 40 MG TAB PO SCH (09:16)
[2016-07-11] MEDS: CEROVITE ADV FORMULA TAB PO SCH (09:16)
--- NOTE | 2016-07-11 11:36 | SURGERY PROGRESS NOTE ---
DATE: 07/11/2016 DATE: 07/11/2016. Ms. Zapien was seen today on 07/11/2016. I think his x-ray shows a bit more fluid. We are draining nothing from his PleurX catheter. I placed 2 mg of tissue plasminogen activator in 10 mL of normal saline and we will drain him again in an hour. Otherwise, I think he looks good. His left leg looks better.
--- NOTE | 2016-07-11 13:00 | PROGRESS NOTE ---
DATE: 07/11/2016 SUBJECTIVE: A 65-year-old male admitted with multiple problems. He has cellulitis of his left lower leg and foot and ankle and heel and multiple ulcers. He has peripheral arterial disease. He has diabetes with multiple complications. He has cardiomyopathy with coronary artery disease and an ejection fraction of 20%-25%. He has atrial fibrillation. He also had a right pleural effusion. The patient was admitted. All cultures were done. Initially, he was started on Zosyn and vancomycin. Subsequently, the vancomycin was changed to daptomycin. The patient was seen in consultation by Dr. Eldridge. A right thoracentesis was done. Initially 1400 mL of fluid evacuated. Subsequently, Dr. Eldridge placed a PleurX catheter. The patient presented with acute renal failure. His diuretics were discontinued. He was started on a low-flow IV fluid. Gradually, his creatinine has improved and his urine output has improved. The patient also presented with urinary retention and a Padilla catheter was placed. This morning, he seems to be doing well. He is quite comfortable. Denied any headache. No dizziness and no lightheadedness. Denied any chest pain. No shortness of breath. No cough. No abdominal pain. Tolerating his diet. No back pain. His pain in his legs is well under control. His Padilla catheter is in place. He has developed edema of the scrotum and the penis. PHYSICAL EXAMINATION: GENERAL: Well developed in no distress. VITAL SIGNS: Blood pressure 123/72, pulse 88, respirations 16, temperature 36.7, and oxygen saturation 93% on room air. SKIN: Warm and dry. No rash. HEENT: Blindness in the right eye. He has upper dentures. No mucosal abnormalities. NECK: Supple. Nontender. No adenopathy. HEART: Irregular heart sounds. No evident murmur, rub, or gallop. LUNGS: Decreased breath sounds bilaterally, more on the right side. ABDOMEN: Soft and nontender. No organomegaly. No masses. BACK: No spinal tenderness. EXTREMITIES: Status post right above the knee amputation. Left leg is dressed. Reported that the ulcers are improving and everything seems to be healing slowly, but appropriately. TODAY'S LABORATORY TESTS: WBC count 5370, hemoglobin 8.4, hematocrit 27.3, and platelet count 223,000. Sodium 141, potassium 4.6, chloride 111, CO2 of 20, BUN 97, creatinine 2.0, glucose 101, and calcium 8.1. ASSESSMENT: 1. Cellulitis of the left lower leg and foot with multiple ulcers. 2. Type 2 diabetes mellitus with multiple complications. 3. Coronary artery disease. 4. Atrial fibrillation. 5. Cardiomyopathy. 6. History of right above knee amputation. 7. Urinary retention. 8. Acute and chronic renal failure. 9. Acute and chronic congestive heart failure. PLAN: 1. He is continued on the same medications. 2. I did discontinue his IV fluid. 3. Continue with local treatment of his left lower leg and ulcers. 4. His PleurX did not drain much. Dr. Eldridge is following up. 5. Dr. Eldridge has also ordered treatment for his ulcers and the problem with his left leg. 6. Continue with therapies. 7. Eventually, the patient will be going to [facility].
--- NOTE | 2016-07-11 14:45 | OPERATIVE REPORT ---
DATE OF OPERATION: 07/11/2016 PROCEDURE: Instillation of thrombolytics via PleurX catheter. SURGEON: Dr. Eldridge. SPECIFICS OF PROCEDURE: At the patient's bedside 2 mg of tissue plasminogen activator were reconstituted with 10 mL of normal saline injected into the PleurX catheter sterilely. We will drain him again in 1 hour. I attest to the content of the Intraoperative Record and any orders documented therein. Any exceptio ns are noted below.
[2016-07-11] MEDS: DAPTOmycin IV 350 MG in SODIUM CHLORIDE 0.9% 50ML 50 ML IV SCH (19:14)
[2016-07-11] MEDS: RIVAROXABAN TAB 15 MG TAB PO SCH (19:15)
[2016-07-12] VITALS (8 sets, daily range): BP systolic 117–145; BP diastolic 50–77; PULSE 74–96; TEMP 36.8; O2SAT 93–97
[2016-07-12] MEDS: LEVALBUTEROL 1.25MG/3ML NEB INH SCH ×7 (00:19→23:40)
[2016-07-12] MEDS: OXYCODONE/ACETAMINOPHEN 5-325 TAB PO SCH ×3 (01:45→18:28)
[2016-07-12 06:02] LABS: BASO % 0.3 %; BASO ABS # 0.02 K/uL (0-0.2); EOS % 8.6 %; HEMATOCRIT 27.2 % (42-52); IG% 0.1 %; LYMPH % 21.4 %; LYMPH ABS # 1.44 K/uL (1.2-3.4); MEAN CORPUSCULAR HEMOGLOBIN 25.3 pg (25-34); MEAN CORPUSCULAR HGB CONC 31.6 g/dl (32-36); MEAN PLATELET VOLUME 9.8 fL (7.4-10.4); MONO % 9.7 %; NEUT % 59.9 %; PLATELET COUNT 222 K/uL (130-400); WHITE BLOOD COUNT 6.72 K/uL (4.8-10.8)
[2016-07-12 06:26] LABS: COMPLETE YES
[2016-07-12 06:47] LABS: BUN/CREATININE RATIO 56.1 (10-20); CALCIUM 8.2 mg/dl (8.5-10.1); CREATININE 1.4 mg/dl (0.60-1.40); POTASSIUM 4.5 mmol/L (3.5-5.1)
--- NOTE | 2016-07-12 08:03 | DIAGNOSTIC IMAGING REPORT ---
CHEST ONE VIEW PORTABLE CLINICAL HISTORY: Pleural effusion. COMPARISON STUDY: Chest radiograph July 11, 2016. FINDINGS: A right basilar pleural catheter remains in place. A small to moderate right hydropneumothorax persists. Bibasilar opacities are unchanged. Cardiomegaly is noted. There is pulmonary vascular congestion without overt pulmonary edema. Gas within the right chest wall is noted. IMPRESSION: 1. No significant change in a small to moderate right hydropneumothorax. Right chest tube in place. 2. Persistent bibasilar opacities. Electronically signed by: Shaji Cornejo M.D. 07/12/2016 8:02 AM Dictated Date/Time: 07/12/2016 8:00 AM
[2016-07-12] MEDS ORDERED: NURSING VERBAL MED ORDER ONE (08:45)
[2016-07-12] MEDS: EUCERIN CR 120 GM JAR EXT SCH (09:24)
[2016-07-12] MEDS: CARVEDILOL 12.5 MG TAB PO SCH ×2 (09:25→21:25)
[2016-07-12] MEDS: LACTOBACILLUS ACIDOPHILUS (FLORANEX) TAB PO SCH ×3 (09:26→21:25)
[2016-07-12] MEDS: ESCITALOPRAM OXALATE 10 MG TAB PO SCH (09:27)
[2016-07-12] MEDS: GABAPENTIN 300 MG CAP PO SCH ×3 (09:27→21:25)
[2016-07-12] MEDS: ATORVASTATIN 40 MG TAB PO SCH (09:27)
[2016-07-12] MEDS: ASPIRIN 81 MG ECTAB PO SCH (09:27)
[2016-07-12] MEDS: PANTOprazole SOD 40 MG TAB PO SCH (09:28)
[2016-07-12] MEDS: CEROVITE ADV FORMULA TAB PO SCH (09:28)
[2016-07-12] MEDS: INSULIN ASPART 100 UNITS/ML 3 ML PEN SC SCH ×4 (09:36→21:28)
--- NOTE | 2016-07-12 09:50 | SURGERY PROGRESS NOTE ---
DATE: 07/12/2016 Mr. Zapien was seen today. He looks better. His leg looks better. He does have pressure on the lateral side of his foot. I placed just 10h mL of saline with 2 mg of tissue plasminogen activator yesterday and he has drained out over 2500 mL. It is bloody; however, his hemoglobin has remained stable. It has not dropped at all; it was 8.7 on the 12th, 8.4 on the and 8.6 this morning. I think his x-ray looks better and he sounds better. The site is clean. In the radiology interpretation there was no real change; however, I think there is. His saturations are 94% on room air. At this point, I would simply continue to drain his tube. I am hopeful that we have cleared much of this out.
--- NOTE | 2016-07-12 11:37 | PROGRESS NOTE ---
DATE: 07/12/2016 HISTORY OF PRESENT ILLNESS: A 65-year-old male admitted with multiple problems includin. Severe cellulitis of the left lower leg and foot and ankle and heel. 2. Multiple ulcers in the same areas. 3. Type 2 diabetes mellitus. 4. Peripheral arterial disease. 5. Coronary artery disease. 6. Ischemic cardiomyopathy. 7. Atrial fibrillation. 8. Acute and chronic congestive heart failure. 9. Acute and chronic renal failure. 10. Status post right above the knee amputation. 11. Multiple diabetic complications. The patient was admitted. All his cultures were done. He was started on IV antibiotic. The ulcers in his left leg have markedly improved. I just checked his legs, but this morning. Actually, the ulcers on the lower leg have all resolved. The only very superficial ulcers remaining are on his left foot. Also he has an ulcer on his left heel, but this is a tremendous improvement compared to the way things were when he was admitted. He also presented with acute renal failure. His diuresis was discontinued. He was started on low flow IV fluid. His creatinine has improved significantly. His congestive heart failure is also improved. The patient had a right pleural effusion which was recurring. Dr. Eldridge did the initial thoracentesis with drainage of 1400 mL. Then because of bloody accumulation of the fluid, he placed a PleurX catheter and that has been quite successful. Overall, he is doing well. His condition has markedly improved. No headache, no dizziness, no lightheadedness. No chest pain, no shortness of breath. No cough. No abdominal pain, no nausea, no vomiting. He is having bowel movements. He presented with urinary retention and a Padilla catheter was placed. It is still in place. Denied any back pain. The pain in his left leg has markedly improved and the phantom pain in his right side has also improved. PHYSICAL EXAMINATION: GENERAL: Well developed, in no acute distress. VITAL SIGNS: Blood pressure 145/66, pulse 96 and irregular, respirations 16, temperature 36.8, oxygen saturation 96%. SKIN: Warm and dry. No rash. HEENT: Blindness in the right eye. He has upper dentures. NECK: Supple. Nontender. No JVD. HEART: Irregular heart sounds, consistent with atrial fibrillation. LUNGS: Decreased breath sounds at the bases but much improved. CHEST: He does have PleurX catheter in place on the right side. ABDOMEN: Soft, nontender. BACK: No spinal tenderness. EXTREMITIES: As noted only remaining very superficial ulcers on his left foot. He does have an ulcer on his left heel, but that has markedly improved in appearance. There is no drainage. He is status post right above the knee amputation. TODAY'S LABORATORY TESTS: WBC count 6720, hemoglobin 8.6, hematocrit 27.2, and platelet count 222,000. Sodium 141, potassium 4.5, chloride 111, CO2 22, BUN 79, creatinine 1.4, glucose 134, calcium 8.2. ASSESSMENT: 1. Severe cellulitis of the left lower leg and foot and ankle with marked improvement and resolving cellulitis. 2. Coronary artery disease. 3. Ischemic cardiomyopathy. 4. Acute and chronic congestive heart failure. 5. Acute and chronic renal failure. 6. Multiple diabetic complications. 7. Status post right above the knee amputation. 8. Peripheral arterial disease. PLAN: 1. Continuing the same medications. 2. Continuing the Padilla catheter. We will wait another day or so until the scrotal and penile edema resolve and then I will try to remove his Padilla catheter. We will try to start him on Flomax to see if his blood pressure tolerates that. 3. He is getting out of bed. 4. Dr. Eldridge continues to follow up on the patient from a pulmonary standpoint and also he is addressing the issues related to his left lower leg ulcers and cellulitis. 5. The intention is for him to go to [facility] after his acute hospitalization.
[2016-07-12] MEDS: RIVAROXABAN TAB 15 MG TAB PO SCH (18:33)
[2016-07-12] MEDS: DAPTOmycin IV 350 MG in SODIUM CHLORIDE 0.9% 50ML 50 ML IV SCH (18:34)
[2016-07-13] VITALS (8 sets, daily range): BP systolic 104–131; BP diastolic 64–76; PULSE 77–89; TEMP 36.4–36.7; O2SAT 91–98
[2016-07-13] MEDS: OXYCODONE/ACETAMINOPHEN 5-325 TAB PO SCH ×3 (01:25→18:27)
[2016-07-13] MEDS: LEVALBUTEROL 1.25MG/3ML NEB INH SCH ×6 (03:10→23:19)
[2016-07-13] MEDS: OXYCODONE HCL IR 5 MG TAB (IMMEDIATE RELEASE) PO PRN (06:01)
[2016-07-13 06:24] LABS: BASO % 0.4 %; BASO ABS # 0.03 K/uL (0-0.2); EOS % 8.6 %; IG% 0.1 %; LYMPH % 20.5 %; MEAN CELL VOLUME 79.5 fL (80-100); MEAN CORPUSCULAR HEMOGLOBIN 25.4 pg (25-34); MEAN CORPUSCULAR HGB CONC 31.9 g/dl (32-36); MEAN PLATELET VOLUME 9.5 fL (7.4-10.4); MONO % 8.9 %; NEUT % 61.5 %; PLATELET COUNT 230 K/uL (130-400); RED BLOOD COUNT 3.27 M/uL (4.7-6.1); WHITE BLOOD COUNT 7.33 K/uL (4.8-10.8)
[2016-07-13 06:53] LABS: BUN/CREATININE RATIO 53.6 (10-20); CALCIUM 7.9 mg/dl (8.5-10.1); CREATININE 1.1 mg/dl (0.60-1.40); POTASSIUM 4.6 mmol/L (3.5-5.1)
[2016-07-13 07:42] LABS: COMPLETE YES
[2016-07-13] MEDS ORDERED: FUROSEMIDE INJ 40 MG in SYRINGE 0 ML IV ONE (08:00)
--- NOTE | 2016-07-13 09:08 | SURGERY PROGRESS NOTE ---
DATE: 07/13/2016 Mr. Zapien was seen today on 07/13/2016. Mr. Zapien is not draining much fluid at all today. He only drained 3 mL, but I do not think there was much fluid there. I thought his x-ray yesterday looked improved. He is on room air and has 92% saturations. At this point, I would hold off and putting anything else in his tube. I am going to check an x-ray tomorrow and if it looks good, I may go ahead and pull his PleurX catheter.
[2016-07-13] MEDS: TAMSULOSIN HCL 0.4 MG CAP PO SCH (09:17)
[2016-07-13] MEDS: CARVEDILOL 12.5 MG TAB PO SCH ×2 (09:17→20:52)
[2016-07-13] MEDS: ASPIRIN 81 MG ECTAB PO SCH (09:17)
[2016-07-13] MEDS: EUCERIN CR 120 GM JAR EXT SCH (09:17)
[2016-07-13] MEDS: LACTOBACILLUS ACIDOPHILUS (FLORANEX) TAB PO SCH ×3 (09:18→21:48)
[2016-07-13] MEDS: GABAPENTIN 300 MG CAP PO SCH ×3 (09:18→20:52)
[2016-07-13] MEDS: CEROVITE ADV FORMULA TAB PO SCH (09:18)
[2016-07-13] MEDS: ATORVASTATIN 40 MG TAB PO SCH (09:18)
[2016-07-13] MEDS: PANTOprazole SOD 40 MG TAB PO SCH (09:19)
[2016-07-13] MEDS: ESCITALOPRAM OXALATE 10 MG TAB PO SCH (09:19)
[2016-07-13] MEDS: INSULIN ASPART 100 UNITS/ML 3 ML PEN SC SCH ×4 (09:25→21:04)
[2016-07-13] MEDS: RIVAROXABAN TAB 15 MG TAB PO SCH (19:16)
--- NOTE | 2016-07-13 20:49 | Infectious Disease Progress Nt ---
Progress Note Date of Service July 13, 2016. Subjective Pt evaluation today including: conversation w/ patient, physical exam, chart review, lab review, review of studies, conversation w/ [employer] consultant, review of inpatient medication list The patient feeling better. Less pain in legs. Remains afebrile. Tolerating antibiotics without apparent difficulty. All Other Systems: Reviewed and Negative Medications Current Inpatient Medications Medications (Trade) Dose Ordered Sig/Abhijit Route Start Time Stop Time Status Last Admin Dose Admin Acetaminophen (Tylenol Tab) 500 mg Q4H PRN PO 06/29/16 19:15 07/29/16 19:14 06/30/16 04:15 500 MG Ondansetron HCl (Zofran Inj) 4 mg Q6H PRN IV 06/29/16 19:15 07/29/16 19:14 Aspirin (Ecotrin Tab) 81 mg DAILY PO 06/30/16 09:00 07/30/16 08:59 07/13/16 09:17 81 MG Atorvastatin Calcium (Lipitor Tab) 80 mg DAILY PO 06/30/16 09:00 07/30/16 08:59 07/13/16 09:18 80 MG Escitalopram Oxalate (Lexapro Tab) 10 mg DAILY PO 06/30/16 09:00 07/30/16 08:59 07/13/16 09:19 10 MG Albuterol/ Ipratropium (Combivent Respimat Inh) 1 puffs Q4H PRN INH 06/29/16 19:15 07/29/16 19:14 Lactobacillus Acidophilus (Floranex Tab) 4 tab TID PO 06/29/16 21:00 07/29/16 20:59 07/13/16 13:45 4 TAB Multivitamins/ Minerals (Multivitamin W/ Minerals Tab) 1 tab DAILY PO 06/30/16 09:00 07/30/16 08:59 07/13/16 09:18 1 TAB Pantoprazole Sodium (Protonix Tab) 40 mg DAILY PO 06/30/16 09:00 07/30/16 08:59 07/13/16 09:19 40 MG Senna/Docusate Sodium (Senokot S Tab) 1 tab Q24H PRN PO 06/29/16 19:15 07/29/16 19:14 Insulin Aspart (novoLOG ASPART) SLIDING SCALE G... ACHS SC 06/29/16 21:00 07/29/16 20:59 07/13/16 18:32 10 UNITS Gabapentin (Neurontin Cap) 300 mg TID PO 07/01/16 21:00 07/31/16 20:59 07/13/16 13:45 300 MG Diphenhydramine HCl (Benadryl Inj) 25 mg Q6H PRN IV 07/02/16 09:15 08/01/16 09:14 Levalbuterol (Xopenex 1.25MG/ 3ML Neb) 1.25 mg Q4R INH 07/06/16 08:30 08/05/16 08:29 07/13/16 19:27 1.25 MG Rivaroxaban (Xarelto Tab) 15 mg QDD PO 07/07/16 17:45 08/06/16 17:44 07/13/16 19:16 15 MG Carvedilol (Coreg Tab) 12.5 mg BID PO 07/07/16 21:00 08/06/16 20:59 07/13/16 09:17 12.5 MG Oxycodone/ Acetaminophen (Percocet 5-325mg Tab) 1 tab Q8H PO 07/07/16 17:45 07/21/16 17:44 07/13/16 18:27 1 TAB Multi-Ingredient Ointment (Eucerin Unscented Cr) 1 appln DAILY EXT 07/12/16 09:00 08/11/16 08:59 07/13/16 09:17 1 APPLN Tamsulosin HCl (Flomax Cap) 0.4 mg QAM PO 07/13/16 09:00 08/12/16 08:59 07/13/16 09:17 0.4 MG Objective Vital Signs Date Time Temp Pulse Resp B/P Pulse Ox O2 Delivery O2 Flow Rate FiO2 07/13/16 19:27 81 16 96 Room Air 07/13/16 15:39 77 16 96 Room Air 07/13/16 15:38 36.4 89 18 104/64 98 Room Air 07/13/16 11:57 83 18 97 Room Air 07/13/16 10:35 Room Air 07/13/16 07:42 79 18 92 Room Air 07/13/16 07:03 36.7 80 17 118/64 91 Room Air 07/13/16 00:40 Room Air 07/12/16 22:48 36.8 88 15 126/77 96 Room Air Physical Exam General Appearance: WD/WN, no apparent distress Eyes: sclerae normal ENT: normal ENT inspection, pharynx normal Neck: supple, no adenopathy, trachea midline Respiratory/Chest: chest non-tender, lungs clear, no respiratory distress, + decreased breath sounds Cardiovascular: regular rate, rhythm, no gallop, no murmur Abdomen: normal bowel sounds, non tender, soft, no organomegaly Extremities: non-tender, no calf tenderness Neurologic/Psychiatric: alert, oriented x 3 Skin: normal color, no rash, + pertinent finding (Improving left lower extremity cellulitis) Lymphatic: no adenopathy Laboratory Results Last 24 Hours Test 07/13/16 06:13 07/13/16 08:23 07/13/16 11:59 07/13/16 17:10 White Blood Count 7.33 K/uL Red Blood Count 3.27 M/uL Hemoglobin 8.3 g/dL Hematocrit 26.0 % Mean Corpuscular Volume 79.5 fL Mean Corpuscular Hemoglobin 25.4 pg Mean Corpuscular Hemoglobin Concent 31.9 g/dl Platelet Count 230 K/uL Mean Platelet Volume 9.5 fL Neutrophils (%) (Auto) 61.5 % Lymphocytes (%) (Auto) 20.5 % Monocytes (%) (Auto) 8.9 % Eosinophils (%) (Auto) 8.6 % Basophils (%) (Auto) 0.4 % Neutrophils # (Auto) 4.51 K/uL Lymphocytes # (Auto) 1.50 K/uL Monocytes # (Auto) 0.65 K/uL Eosinophils # (Auto) 0.63 K/uL Basophils # (Auto) 0.03 K/uL RDW Standard Deviation 49.3 fL RDW Coefficient of Variation 17.1 % Immature Granulocyte % (Auto) 0.1 % Immature Granulocyte # (Auto) 0.01 K/uL Red Blood Cell Morphology Unremarkable Sodium Level 140 mmol/L Potassium Level 4.6 mmol/L Chloride Level 111 mmol/L Carbon Dioxide Level 22 mmol/L Anion Gap 7.0 mmol/L Blood Urea Nitrogen 59 mg/dl Creatinine 1.10 mg/dl Est Creatinine Clear Calc Drug Dose 67.3 ml/min Estimated GFR () 80.1 Estimated GFR (Non- 69.1 BUN/Creatinine Ratio 53.6 Random Glucose 145 mg/dl Calcium Level 7.9 mg/dl Bedside Glucose 148 mg/dl 220 mg/dl 232 mg/dl Test 07/13/16 19:51 Bedside Glucose 294 mg/dl Assessment and Plan Left leg cellulitis in setting of severe PAD, diabetes, and venous stasis disease. Patient has responded well to IV antibiotics, will transition now to oral therapy with Bactrim and cephalexin. Likely 7-14 days further antibiotic therapy. Will discuss with all involved.
[2016-07-13] MEDS: SULFAMETHOXAZOLE/TRIMETHOPRIM DS 800/160MG TAB PO SCH (21:49)
[2016-07-13] MEDS: CEPHALEXIN MONOHYDRATE 500 MG CAP PO SCH (21:49)
[2016-07-14] VITALS (9 sets, daily range): BP systolic 112–122; BP diastolic 53–85; PULSE 81–98; TEMP 36.5–36.9; O2SAT 92–97
--- NOTE | 2016-07-14 00:17 | PROGRESS NOTE ---
DATE: 07/13/2016 A 65-year-old male, admitted with severe cellulitis of his left lower leg, foot, ankle and heel and multiple ulcers in the same areas. He has multiple medical problems including coronary artery disease, cardiomyopathy, acute and chronic congestive heart failure, acute and chronic renal failure and type 2 diabetes mellitus with multiple complications. He also has right pleural effusion. At this point, his condition has improved. He is sitting up in his chair. He denied any headache or dizziness. Denied any chest pain, no shortness of breath. Dr. Eldridge did place a PleurX tube few days ago. Now there is only very minimal fluid coming out. Denied any abdominal pain, no nausea, no vomiting. He is having bowel movements without any problem. He has a Padilla catheter in place because he presented with urinary retention. Denied any pain in his back. The pain in his extremities is well-controlled. Actually, the condition of his left lower leg has markedly improved. All the ulcers are healed except the very superficial ulcers on his left foot and the major problem is with his left heel. PHYSICAL EXAMINATION: GENERAL: Well-developed, in no distress. VITAL SIGNS: Blood pressure 118/64, pulse 80, respirations 17, temperature 36.7 and oxygen saturation 91% on room air. SKIN: Warm and dry. No rash. HEENT: Blindness in the right eye. Decreased vision in the left eye. He has upper dentures. NECK: Supple. Nontender. No adenopathy, no thyromegaly. No JVD. HEART: Irregular heart sounds consistent with atrial fibrillation. LUNGS: Decreased breath sounds bilaterally. No wheezing, no rhonchi. ABDOMEN: Soft and nontender. BACK: No spinal tenderness. EXTREMITIES: Status post right AKA. Dressing on left leg. GENITALIA: He does have scrotal edema. TODAY'S LABORATORY TESTS: WBC count 7330, hemoglobin 8.3, hematocrit 26% and platelet count 230,000. Sodium 140, potassium 4.6, chloride 111, CO2 22, BUN 59, creatinine 1.1, glucose 145 and calcium 7.9. ASSESSMENT: 1. Cellulitis; left lower leg, foot and ankle. 2. Multiple ulcers in the same area. Most of them are healed except for superficial ulcers of the left foot and he does have an ulcer on his left heel. 3. Coronary artery disease. 4. Ischemic cardiomyopathy with an ejection fraction between 20 and 25%. 5. Acute and chronic renal failure. The acute phase seems to have resolved. 6. Acute and chronic congestive heart failure. 7. Right pleural effusion. 8. Urinary retention. PLAN: 1. His condition is improving. 2. Continuing the same medications. 3. Dr. Eldridge is considering removing PleurX tube. 4. I started him on Flomax today. 5. We will attempt to remove his Padilla catheter tomorrow. 6. Because of the amount of swelling, I did give him a dose of IV Lasix today. 7. Off daptomycin. On cephalexin and septra. 8. Continuing to get him out of bed. The intent is for him to go to [facility] once he is stable. ANALY
[2016-07-14] MEDS: OXYCODONE/ACETAMINOPHEN 5-325 TAB PO SCH ×3 (02:22→17:58)
[2016-07-14] MEDS: LEVALBUTEROL 1.25MG/3ML NEB INH SCH ×6 (03:19→23:11)
--- NOTE | 2016-07-14 07:21 | DIAGNOSTIC IMAGING REPORT ---
CHEST ONE VIEW PORTABLE CLINICAL HISTORY: pleural effusion dyspnea COMPARISON STUDY: 07/12/2016 FINDINGS: Partial reaccumulation of fluid within the right hemithorax. Right basilar chest drainage tube is again noted. Left lung remains generally clear. The left mid/basilar infiltrative change has improved. IMPRESSION: Partial reaccumulation of fluid within the right hemithorax. Improving left basilar infiltrate. Electronically signed by: Markel More M.D. 07/14/2016 7:20 AM Dictated Date/Time: 07/14/2016 7:19 AM
[2016-07-14] MEDS ORDERED: FUROSEMIDE INJ 40 MG in SYRINGE 0 ML IV ONE ×2 (08:00→18:30)
[2016-07-14 08:10] LABS: BASO % 0.3 %; BASO ABS # 0.02 K/uL (0-0.2); EOS % 11.2 %; HEMATOCRIT 26.6 % (42-52); IG% 0.2 %; LYMPH ABS # 1.66 K/uL (1.2-3.4); MEAN CELL VOLUME 79.9 fL (80-100); MEAN CORPUSCULAR HEMOGLOBIN 25.5 pg (25-34); MEAN PLATELET VOLUME 10.2 fL (7.4-10.4); MONO % 7.5 %; NEUT % 53.8 %; PLATELET COUNT 247 K/uL (130-400); RED BLOOD COUNT 3.33 M/uL (4.7-6.1); WHITE BLOOD COUNT 6.14 K/uL (4.8-10.8)
[2016-07-14 08:28] LABS: COMPLETE YES
[2016-07-14] MEDS: ESCITALOPRAM OXALATE 10 MG TAB PO SCH (08:31)
[2016-07-14] MEDS: ATORVASTATIN 40 MG TAB PO SCH (08:32)
[2016-07-14] MEDS: CARVEDILOL 12.5 MG TAB PO SCH ×2 (08:32→21:28)
[2016-07-14] MEDS: LACTOBACILLUS ACIDOPHILUS (FLORANEX) TAB PO SCH ×3 (08:33→21:28)
[2016-07-14] MEDS: CEROVITE ADV FORMULA TAB PO SCH (08:33)
[2016-07-14] MEDS: GABAPENTIN 300 MG CAP PO SCH ×3 (08:33→21:28)
[2016-07-14 08:34] LABS: BUN/CREATININE RATIO 53.1 (10-20); CREATININE 0.91 mg/dl (0.60-1.40); POTASSIUM 4.8 mmol/L (3.5-5.1)
[2016-07-14] MEDS: PANTOprazole SOD 40 MG TAB PO SCH (08:34)
[2016-07-14] MEDS: TAMSULOSIN HCL 0.4 MG CAP PO SCH (08:34)
[2016-07-14] MEDS: ASPIRIN 81 MG ECTAB PO SCH (08:34)
[2016-07-14] MEDS: SULFAMETHOXAZOLE/TRIMETHOPRIM DS 800/160MG TAB PO SCH ×2 (08:35→21:28)
[2016-07-14] MEDS: CEPHALEXIN MONOHYDRATE 500 MG CAP PO SCH ×4 (08:35→21:27)
[2016-07-14 08:37] LABS: ALB/GLOB RATIO 0.4 (0.9-2)
[2016-07-14] MEDS: INSULIN ASPART 100 UNITS/ML 3 ML PEN SC SCH ×4 (08:41→21:39)
[2016-07-14] MEDS ORDERED: ALTEPLASE, RECOMBINANT 1 MG/ML 2 ML VIAL IPL ONE (08:45)
[2016-07-14 09:02] LABS: CALCIUM 8.4 mg/dl (8.5-10.1)
--- NOTE | 2016-07-14 09:09 | Progress Note ---
Progress Note Date of Service July 14, 2016. Progress Note 2 mg TPA placed in pleurx catheter. RN to drain in 2 hours.
[2016-07-14] MEDS: EUCERIN CR 120 GM JAR EXT SCH (09:15)
--- NOTE | 2016-07-14 16:53 | SURGERY PROGRESS NOTE ---
DATE: 07/14/2016 SUBJECTIVE: Mr. Zapien was seen today. His PleurX catheter is not really draining. He is not complaining of any shortness of breath; however, the chest x-ray showed acute reaccumulation of fluid. We placed a 2 mg of tissue plasminogen activator and 10 mL of fluid in and put into the PleurX catheter. He was then drained for 950 mL an hour or so later. He looks better with that. We will see how much he drains tomorrow. ANALY
--- NOTE | 2016-07-14 22:16 | PROGRESS NOTE ---
DATE: 07/14/2016 A 65-year-old male with multiple problems includin. Cellulitis of the left lower leg and foot. 2. Multiple ulcers of the same areas. 3. Left heel ulcer. 4. Coronary artery disease. 5. Ischemic cardiomyopathy. 6. Acute on chronic congestive heart failure. 7. Acute on chronic renal failure. 8. Peripheral arterial disease. 9. Urinary retention. 10. Status post right [id number] amputation. 11. Right pleural effusion. At this point, his condition has improved. He is much more alert and awake and conversant. He denied any headache, no dizziness. No chest pain. No shortness of breath. Denied any abdominal pain, no nausea or vomiting. No pain in his back. Mostly the pain is in his legs but that has also improved significantly. Today, he was noted to have blood in his stool. This has not been noted in the past. The patient has been seen by Dr. Eldridge. He had thoracentesis and placement of PleurX valve. He also has a Padilla catheter because of his urinary retention. PHYSICAL EXAMINATION: GENERAL: Well developed, in no distress. He is sitting up in the chair. He is quite comfortable. VITAL SIGNS: Blood pressure 112/85, pulse 85, respiration 16, temperature 36.6, oxygen saturation 93% on room air. SKIN: Warm and dry. No rash. HEENT: Blindness right eye. Upper denture. NECK: No JVD. No adenopathy. HEART: Irregular heart sounds consistent with atrial fibrillation. LUNGS: Decreased breath sounds, especially on the right side. ABDOMEN: Soft, nontender. EXTREMITIES: Status post right AKA. Dressing left leg. GENITALIA: He does have a Padilla catheter in place. He has severe edema of the penis and the scrotum. TODAY'S LABORATORY TESTS: WBC count 6140, hemoglobin 8.5, hematocrit 26.6, platelet count 247,000. Sodium 140, potassium 4.8, chloride 109, CO2 of 24, BUN 48, creatinine 0.91, glucose 134, calcium 8.4, total bilirubin 0.4, AST 17, ALT 13, alkaline phosphatase 211. Total protein 6.0, albumin 1.7. ASSESSMENT: 1. Cellulitis, left lower leg and foot with multiple ulcers. Much improved. 2. Coronary artery disease. 3. Atrial fibrillation. 4. Ischemic cardiomyopathy. 5. Acute on chronic congestive heart failure. 6. Acute superimposed on chronic renal failure, but his creatinine is in normal range at this point. 7. Rectal bleeding. New today. 8. Urinary retention. PLAN: 1. Continuing the same medication except that I discontinued his Xarelto because of the bleeding. 2. Continue dressings of his left lower leg and foot. 3. GI consultation was requested. 4. His Padilla catheter remains in place. 5. He is receiving IV Lasix yesterday and today. 6. As soon as the scrotal edema and edema of the penis improves, I will try to remove his Padilla catheter. 7. Continue with his therapies. 8. Dr. Eldridge is taking care of his pleural effusion with a PleurX catheter. Today, it drained 950 mL. 9. Intent is for him to go to [facility] after his acute hospitalization.
[2016-07-15] VITALS (10 sets, daily range): BP systolic 121–138; BP diastolic 49–77; PULSE 80–92; TEMP 36.8–36.9; O2SAT 93–97
[2016-07-15] MEDS: OXYCODONE/ACETAMINOPHEN 5-325 TAB PO SCH ×3 (01:15→17:22)
[2016-07-15] MEDS: LEVALBUTEROL 1.25MG/3ML NEB INH SCH ×5 (03:26→23:21)
[2016-07-15 06:21] LABS: BASO % 0.3 %; BASO ABS # 0.02 K/uL (0-0.2); EOS % 9.1 %; HEMATOCRIT 26.6 % (42-52); IG% 0.3 %; LYMPH % 20.3 %; LYMPH ABS # 1.54 K/uL (1.2-3.4); MEAN CELL VOLUME 79.9 fL (80-100); MEAN CORPUSCULAR HEMOGLOBIN 25.5 pg (25-34); MEAN PLATELET VOLUME 9.9 fL (7.4-10.4); MONO % 5.4 %; NEUT % 64.6 %; PLATELET COUNT 264 K/uL (130-400); RED BLOOD COUNT 3.33 M/uL (4.7-6.1)
[2016-07-15 06:53] LABS: BUN/CREATININE RATIO 38.1 (10-20); CALCIUM 7.9 mg/dl (8.5-10.1); CREATININE 1.2 mg/dl (0.60-1.40); POTASSIUM 4.8 mmol/L (3.5-5.1)
[2016-07-15 07:05] LABS: COMPLETE YES
[2016-07-15] MEDS ORDERED: FUROSEMIDE INJ 20 MG in SYRINGE 0 ML IV ONE (08:00)
--- NOTE | 2016-07-15 08:25 | DIAGNOSTIC IMAGING REPORT ---
CHEST ONE VIEW PORTABLE CLINICAL HISTORY: effusion dyspnea COMPARISON STUDY: 07/14/2016 FINDINGS: Continue slow improvement of left basilar infiltrate. Unchanging right pleural effusion. Unchanged position of right basilar chest tube. No evidence for significant pneumothorax. IMPRESSION: No significant pneumothorax. Unchanging right pleural effusion. Slight improvement in infiltrative change left base. Electronically signed by: Marekl More M.D. 07/15/2016 8:24 AM Dictated Date/Time: 07/15/2016 8:23 AM
[2016-07-15] MEDS ORDERED: ALTEPLASE, RECOMBINANT 1 MG/ML 2 ML VIAL IPL ONE (09:00)
--- NOTE | 2016-07-15 09:10 | SURGERY PROGRESS NOTE ---
DATE: 07/15/2016 DATE: 07/15/2016. Mr. Zapien was seen today on 07/15/2016. Clinically, he is unchanged; however, the patient has a reaccumulation of fluid. He drained almost a liter after we put the TPA in yesterday; however, the tube appears to be occluded. We are going to put another 2 mg of alteplase in 100 mL of normal saline. I will do that today. Clinically, he does appear stable.
[2016-07-15] MEDS: EUCERIN CR 120 GM JAR EXT SCH (09:22)
[2016-07-15] MEDS: CEPHALEXIN MONOHYDRATE 500 MG CAP PO SCH ×4 (09:23→21:00)
[2016-07-15] MEDS: TAMSULOSIN HCL 0.4 MG CAP PO SCH (09:23)
[2016-07-15] MEDS: ASPIRIN 81 MG ECTAB PO SCH (09:23)
[2016-07-15] MEDS: CEROVITE ADV FORMULA TAB PO SCH (09:23)
[2016-07-15] MEDS: GABAPENTIN 300 MG CAP PO SCH ×3 (09:24→21:00)
[2016-07-15] MEDS: ATORVASTATIN 40 MG TAB PO SCH (09:24)
[2016-07-15] MEDS: ESCITALOPRAM OXALATE 10 MG TAB PO SCH (09:24)
[2016-07-15] MEDS: SULFAMETHOXAZOLE/TRIMETHOPRIM DS 800/160MG TAB PO SCH ×2 (09:25→21:02)
[2016-07-15] MEDS: CARVEDILOL 12.5 MG TAB PO SCH ×2 (09:25→21:01)
[2016-07-15] MEDS: PANTOprazole SOD 40 MG TAB PO SCH (09:26)
[2016-07-15] MEDS: LACTOBACILLUS ACIDOPHILUS (FLORANEX) TAB PO SCH ×3 (09:27→21:00)
[2016-07-15] MEDS: INSULIN ASPART 100 UNITS/ML 3 ML PEN SC SCH ×4 (09:30→21:07)
--- NOTE | 2016-07-15 11:58 | DIAGNOSTIC IMAGING REPORT ---
CHEST ONE VIEW PORTABLE CLINICAL HISTORY: Portable erect pleural effusion COMPARISON STUDY: 07/15/2016 at 8:32 AM FINDINGS: Interval decrease in volume of right pleural effusion. Possible repositioning of the patient's basilar drainage catheter. No evidence of pneumothorax. Left lung is grossly clear. IMPRESSION: Improved aeration right base. No evidence of pneumothorax. Electronically signed by: Markel More M.D. 07/15/2016 11:57 AM Dictated Date/Time: 07/15/2016 11:54 AM
[2016-07-15] MEDS ORDERED: GLUCOSE 40% GEL 15 GM TUBE PO PRN (18:45)
[2016-07-15] MEDS ORDERED: GLUCAGON FOR INJ 1 MG VIAL SQ PRN (18:45)
[2016-07-15] MEDS ORDERED: DEXTROSE 50% 50 ML SYR IV PRN (18:45)
[2016-07-15] MEDS ORDERED: GLUCOSE 10 TABS/TUBE PO PRN (18:45)
--- NOTE | 2016-07-15 19:19 | GASTROINTESTINAL CONSULTATION ---
DATE OF CONSULTATION: 07/15/2016 GASTROLOGY CONSULTATION NOTE CHIEF COMPLAINT: Rectal bleeding. HISTORY OF PRESENT ILLNESS: Mr. Zapien is a 65-year-old white male referred by Dr. Whitney for consultation for rectal bleeding. The patient was admitted on June 29 for severe cellulitis of the left leg with ulcers on the lower leg and foot. 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 The patient is originally from the [place] area but relocated for care and assistance with his family. The patient also has a cardiomyopathy, atrial fibrillation, peripheral vascular disease, hyperlipidemia and had a reportedly C. diff infection in [place]. 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 He previously had used alcohol and tobacco but stopped 30 years ago. FAMILY HISTORY: Significant for mother who of cancer. The patient is unclear, but may have represented breast cancer. There is also from a brother who of bladder cancer; coronary artery disease is present in the family. HOME MEDICATIONS: Lasix, gabapentin, carvedilol, lisinopril, iron supplements, Celexa, pantoprazole, Xarelto, atorvastatin, aspirin, multivitamins, zinc and vitamin C. REVIEW OF SYSTEMS: The patient denies difficulties with the stool pattern by way of either prior melena, bright red blood per rectum, straining, constipation or diarrhea. He has no nausea, vomiting, odynophagia or dysphagia, but cannot recall that he has ever had a colonoscopy. PHYSICAL EXAMINATION: VITAL SIGNS: Currently, the patient is afebrile at 36.8, blood pressure 138/77, respirations 16, pulse 87. He is 96% on room air. GENERAL: The patient is sitting comfortably in the chair. He is awake, alert and oriented x3. HEENT: Sclerae are anicteric. The patient has dentures. Oral mucosa is overall moist. NECK: There is no cervical or supraclavicular adenopathy. I do not appreciate thyromegaly. HEART: Normal S1, S2. LUNGS: Clear to auscultation, although decreased breath sounds are noted. ABDOMEN: Soft, there is a periumbilical hernia. There is no rebound or guarding. I do not appreciate hepatosplenomegaly. EXTREMITIES: Show changes as noted above. CURRENT MEDICATIONS: In the hospital include insulin, Bactrim, Keflex, tamsulosin, carvedilol, Benadryl p.r.n., gabapentin, aspirin, atorvastatin, Lexapro, MVI, pantoprazole, Floranex, and insulin. IMAGING STUDIES: The most recent chest x-ray from today revealed improved aeration of the right base without evidence of a pneumothorax. The patient did have a pleural effusion. IMPRESSION AND PLAN: Nursing had reported gastrointestinal bleeding, although earlier rectal exam revealed brown stools that were heme positive, by Dr. Whitney. Given the patient's complexity and multiple advanced medical problems, and with discussion with Dr. Whitney, it is reasonable to observe his stool output, to see if there is any progression of his bleeding. If so, then it may be reasonable to consider colonoscopy; however, bowel preparation may be challenging for the patient, especially with his infections. His blood work today and hemoglobin although low, has been stable. He does have microcytic indices and chronic blood loss is the likely culprit. His platelet count is normal and his white count currently is satisfactory. His admission hemoglobins between June 29 and July 01 were approximately 9.6. Sed rate was elevated at 69. Today, his BUN and creatinine was 46 and 1.2. There is no description of loraine melena, hematemesis or coffee ground emesis. At the present time, would continue to observe his hemoglobin and his stool outputs. If this does in fact show ongoing bleeding and a downward trend of his hemoglobin then colonoscopy is reasonable provided that we can adequately perform a bowel preparation. This can be performed either as an inpatient or once stable, this can be arranged as an outpatient, if there is no evidence for ongoing bleeding. We will follow with you. Thank you for allowing me to participate in this pleasant gentleman's care. If you have any questions, please contact my office.
[2016-07-15] MEDS: INSULIN GLARGINE SOLOSTAR 100 UNITS/ML 3 ML PEN SC SCH (21:08)
--- NOTE | 2016-07-15 22:40 | PROGRESS NOTE ---
DATE: 07/15/2016 A 65-year-old male, with multiple medical problems. He was admitted with severe cellulitis of his left lower leg and foot. He has multiple ulcers. He has coronary artery disease, ischemic cardiomyopathy, congestive heart failure both acute and chronic, atrial fibrillation acute and chronic, renal failure and peripheral arterial disease. He has had a prior right [id number] amputation and he also had a right pleural effusion. The patient was also anemic, he did receive 2 units of packed RBCs. Overall, he seems to have improved. At this point, he denied any headache or dizziness. No chest pain, no shortness of breath. He still has the PleurX catheter in place. No abdominal pain, no nausea, no vomiting. Yesterday, the nurse's reported blood per rectum with clots. He also had urinary retention, a Padilla catheter was placed and I was able to remove this morning. PHYSICAL EXAMINATION: GENERAL: Well-developed, in no distress. VITAL SIGNS: Blood pressure 133/58, pulse 89, respirations 18, temperature 36.9 and oxygen saturation 94% on room air. SKIN: Warm and dry. No rash. HEENT: Blindness, right eye. He has upper dentures. NECK: No JVD, no adenopathy. HEART: Irregular heart sounds. LUNGS: Decreased breath sounds, especially at the right base. ABDOMEN: Soft and nontender. EXTREMITIES: Dressing on left leg. Status post right AKA. GENITALIA: He has scrotal and penile edema, but that has markedly decreased. TODAY'S LABORATORY TESTS: WBC count 7600, hemoglobin 8.5, hematocrit 26.6 and platelet count 264,000. Sodium 139, potassium 4.8, chloride 109, CO2 22, BUN 46, creatinine 1.2, glucose 203 and calcium 7.9. ASSESSMENT: 1. Cellulitis, left lower leg and foot with multiple ulcers; much improved. 2. Coronary artery disease. 3. Ischemic cardiomyopathy. 4. Acute and chronic congestive heart failure. 5. Acute and chronic renal failure. 6. Peripheral arterial disease. 7. Atrial fibrillation. 8. Right pleural effusion. 9. Reported rectal bleed. 10. Chronic anemia. PLAN: 1. I did his rectal examination this morning. The stool was normal in color. There was no evidence of any loraine blood. His stool did test slightly positive for occult blood. 2. His Padilla catheter was removed. 3. Continuing his medications. 4. I spoke with Dr. Gutiérrez and requested a consultation. The only issue is whether the patient will be able to stand going through any endoscopy procedure at this time given his multiple comorbidities. Dr. Gutiérrez saw him this morning. I thought it would be best for us to monitor his condition, see if there is any recurrent bleeding, monitor his hemoglobin and hematocrit and decide on any further workup. 5. Eventually the patient will be transferred to [facility].
[2016-07-16] VITALS (11 sets, daily range): BP systolic 103–157; BP diastolic 49–85; PULSE 78–112; TEMP 36.8–36.9; O2SAT 93–96
[2016-07-16] MEDS: OXYCODONE/ACETAMINOPHEN 5-325 TAB PO SCH ×3 (01:41→18:23)
[2016-07-16] MEDS: LEVALBUTEROL 1.25MG/3ML NEB INH SCH ×6 (03:30→23:26)
[2016-07-16 07:14] LABS: BASO % 0.4 %; BASO ABS # 0.03 K/uL (0-0.2); EOS % 9.8 %; HEMATOCRIT 25.6 % (42-52); IG% 0.1 %; LYMPH % 21.6 %; MEAN CELL VOLUME 79.5 fL (80-100); MEAN CORPUSCULAR HEMOGLOBIN 25.5 pg (25-34); MEAN PLATELET VOLUME 9.9 fL (7.4-10.4); MONO % 7.2 %; NEUT % 60.9 %; PLATELET COUNT 268 K/uL (130-400); RED BLOOD COUNT 3.22 M/uL (4.7-6.1); WHITE BLOOD COUNT 6.93 K/uL (4.8-10.8)
[2016-07-16 07:49] LABS: BUN/CREATININE RATIO 34.2 (10-20); CALCIUM 7.8 mg/dl (8.5-10.1); CREATININE 1.3 mg/dl (0.60-1.40); POTASSIUM 4.8 mmol/L (3.5-5.1)
[2016-07-16 08:08] LABS: COMPLETE YES; LARGE PLATELETS 1+; MICROCYTOSIS PRESENT
[2016-07-16] MEDS: ASPIRIN 81 MG ECTAB PO SCH (08:49)
[2016-07-16] MEDS: ESCITALOPRAM OXALATE 10 MG TAB PO SCH (08:50)
[2016-07-16] MEDS: CARVEDILOL 12.5 MG TAB PO SCH ×2 (08:50→20:44)
[2016-07-16] MEDS: GABAPENTIN 300 MG CAP PO SCH ×3 (08:50→20:43)
[2016-07-16] MEDS: ATORVASTATIN 40 MG TAB PO SCH (08:50)
[2016-07-16] MEDS: CEROVITE ADV FORMULA TAB PO SCH (08:51)
[2016-07-16] MEDS: LACTOBACILLUS ACIDOPHILUS (FLORANEX) TAB PO SCH ×3 (08:51→20:37)
[2016-07-16] MEDS: TAMSULOSIN HCL 0.4 MG CAP PO SCH (08:52)
[2016-07-16] MEDS: SULFAMETHOXAZOLE/TRIMETHOPRIM DS 800/160MG TAB PO SCH ×2 (08:52→20:39)
[2016-07-16] MEDS: PANTOprazole SOD 40 MG TAB PO SCH (08:52)
[2016-07-16] MEDS: CEPHALEXIN MONOHYDRATE 500 MG CAP PO SCH ×4 (08:53→20:41)
[2016-07-16] MEDS: EUCERIN CR 120 GM JAR EXT SCH (08:55)
[2016-07-16] MEDS ORDERED: ALTEPLASE, RECOMBINANT 1 MG/ML 2 ML VIAL IPL ONE (09:00)
[2016-07-16] MEDS: INSULIN ASPART 100 UNITS/ML 3 ML PEN SC SCH ×4 (09:08→20:42)
[2016-07-16] MEDS: INSULIN GLARGINE SOLOSTAR 100 UNITS/ML 3 ML PEN SC SCH ×2 (09:12→20:43)
[2016-07-16] MEDS ORDERED: FUROSEMIDE INJ 20 MG in SYRINGE 0 ML IV ONE (11:45)
--- NOTE | 2016-07-16 13:16 | SURGERY PROGRESS NOTE ---
DATE: 07/16/2016 Josephine Wainwright was seen today. His PleurX catheter is draining a serous fluid. He drained quite a bit after we put the intrapleural TPA in yesterday. His x-ray looked much improved today. It is my hope that this will stay open at this point. We will hold off any more TPA. Otherwise, I think he looks good and sounds better.
--- NOTE | 2016-07-16 21:04 | GASTROENTEROLOGY PROGRESS NOTE ---
DATE: 07/16/2016 Mr. Zapien is sitting in bed today comfortably. There is no report of melena or bright red blood per rectum, although the patient did report a sizable bowel movement earlier today and this afternoon. The patient is tolerating p.o. well, has no abdominal pain, shortness of breath or chest pain, although he did have mild breathing discomfort as he underwent a thoracentesis earlier today. PHYSICAL EXAMINATION: VITAL SIGNS: Today he is afebrile 36.7, blood pressure 121/69, heart rate is 86, respirations 16. He is 95% on room air. CURRENT MEDICATIONS: Include, insulin, Bactrim, Keflex, Flomax, carvedilol, gabapentin, Benadryl, aspirin, Lexapro, and Colace with Senna. REVIEW OF SYSTEMS: Otherwise noncontributory. PHYSICAL EXAMINATION: GENERAL: The patient is awake, alert and oriented x3. He has poor dentition. LUNGS: Show decreased breath sounds at the bases. ABDOMEN: Soft, nontender, nondistended with good bowel sounds. EXTREMITIES: The patient is amputee. RECTAL: Deferred. LABORATORY STUDIES: Today, white count 6.9 with a hemoglobin of 8.2, which is slightly down from yesterday at 8.5. The MCV again is slightly low at 79.5. Platelets were normal at 268,000. Chemistry: His BUN is 44, creatinine 1.3, blood sugars 169, potassium 4.8. IMPRESSION: The patient with reports of bright-red blood per rectum. At the present time, the patient has multiple comorbidities including an incompletely controlled diabetes, pleural effusion, peripheral vascular disease with leg ulcer. The patient has an above knee amputation due to vascular disease from his diabetes. The patient's hemoglobin which is although anemic is not showing overt signs of gastrointestinal bleeding and based on these comorbidities at the present time will defer from endoscopic assessment. Although alternatively, this would be prudent to pursue once stable. We will continue to monitor stools for evidence of bright-red blood per rectum or melena. If this returns then consideration for by bidirectional endoscopy may be necessary. We will follow with you. Please continue acid suppression.
--- NOTE | 2016-07-16 23:30 | PROGRESS NOTE ---
DATE: 07/16/2016 A 65-year-old male, admitted with cellulitis and multiple ulcers of his left lower leg, left foot and left heel. He has coronary artery disease, ischemic cardiomyopathy, chronic and acute congestive heart failure, acute on chronic renal failure and peripheral arterial disease. He has multiple diabetic complications. He has a right pleural effusion. His condition has improved. He is sitting in a chair, comfortable. He denied any headache or dizziness. No chest pain, no shortness of breath. No abdominal pain. No nausea, no vomiting. No problem with his bowel movements. He had a bowel movement today, stool was normal in color and there was no evidence of any bleeding. He is urinating without any problem. His Padilla catheter has been removed. PHYSICAL EXAMINATION: GENERAL: Well-developed, in no distress. VITAL SIGNS: Blood pressure 121/89, pulse 86, respirations 16, temperature 36.9 and oxygen saturation 95% on room air. SKIN: Warm and dry. No rash. HEENT: Blindness in the right eye. He has upper dentures. NECK: No JVD, no adenopathy. HEART: Irregular heart sounds. LUNGS: Decreased breath sounds at the bases, especially on the right side. He does have a PleurX catheter in place on the right side. ABDOMEN: Soft and nontender. BACK: No spinal tenderness. EXTREMITIES: Status post right AKA. Dressing on left leg. GENITALIA: His edema of the scrotum and penis has decreased, but persistent. ASSESSMENT: 1. Cellulitis, left lower leg and foot with ulcers, healing. 2. Acute and chronic congestive heart failure. 3. Coronary artery disease. 4. Ischemic cardiomyopathy. 5. Atrial fibrillation. 6. Episode of rectal bleed without any recurrence. 7. Multiple diabetic complications. 8. Right pleural effusion. PLAN: 1. Continuing the same medications. 2. He is on oral antibiotics. 3. Continue with his therapies. 4. Anticipating that he should go to [facility] once his condition is stable.
[2016-07-17] VITALS (11 sets, daily range): BP systolic 121–131; BP diastolic 38–61; PULSE 67–96; TEMP 36.5–36.6; O2SAT 91–99
[2016-07-17] MEDS: OXYCODONE/ACETAMINOPHEN 5-325 TAB PO SCH ×3 (02:04→17:19)
[2016-07-17] MEDS: LEVALBUTEROL 1.25MG/3ML NEB INH SCH ×6 (03:40→23:04)
[2016-07-17 06:22] LABS: BASO % 0.5 %; BASO ABS # 0.04 K/uL (0-0.2); EOS % 6.9 %; HEMATOCRIT 25.1 % (42-52); IG% 0.1 %; LYMPH ABS # 1.47 K/uL (1.2-3.4); MEAN CELL VOLUME 79.7 fL (80-100); MEAN CORPUSCULAR HGB CONC 32.7 g/dl (32-36); MEAN PLATELET VOLUME 10.2 fL (7.4-10.4); MONO % 5.4 %; NEUT % 68.1 %; PLATELET COUNT 271 K/uL (130-400); RED BLOOD COUNT 3.15 M/uL (4.7-6.1); WHITE BLOOD COUNT 7.73 K/uL (4.8-10.8)
[2016-07-17 06:52] LABS: BUN/CREATININE RATIO 30.7 (10-20); CALCIUM 7.7 mg/dl (8.5-10.1); CREATININE 1.5 mg/dl (0.60-1.40); POTASSIUM 5.1 mmol/L (3.5-5.1)
[2016-07-17 07:00] LABS: COMPLETE YES; LARGE PLATELETS 1+; MICROCYTOSIS PRESENT
--- NOTE | 2016-07-17 08:24 | Surgery Progress Note ---
Subjective Date of Service: July 17, 2016. Pt. notes he feels good today. eh reports some pain with drainage of pleurx. Objective Vitals Date Time Temp Pulse Resp B/P Pulse Ox O2 Delivery O2 Flow Rate FiO2 07/17/16 08:03 67 16 92 Room Air 07/17/16 07:33 36.6 89 18 121/38 99 Diffusion Mask 10.0 07/17/16 03:40 81 16 91 Room Air 07/17/16 00:25 Room Air 07/16/16 23:30 36.8 80 18 103/49 93 Room Air 07/16/16 23:26 84 16 94 Room Air 07/16/16 20:38 78 128/70 07/16/16 19:33 89 16 95 Room Air 07/16/16 16:00 Room Air 07/16/16 15:38 84 14 96 Room Air 07/16/16 15:05 36.9 86 16 121/69 95 Room Air 07/16/16 11:21 88 14 95 Room Air 07/16/16 08:30 Room Air Physical Exam General: No distress Pulmonary: + pertinent finding (decreased at righ base), No accessory muscle use, No respiratory distress Neurologic: + alert & oriented x 3 Drains / Tubes pleurex (drained for 150 cc bloody fluid) Assessment & Plan 65year old male with pleural effusion -continue daily drainage of pleurx -due to bloody nature of fluid will hold on further TPA for now as we do not want to precipitate bleeding
[2016-07-17] MEDS: INSULIN ASPART 100 UNITS/ML 3 ML PEN SC SCH ×4 (09:27→21:12)
[2016-07-17] MEDS: INSULIN GLARGINE SOLOSTAR 100 UNITS/ML 3 ML PEN SC SCH ×2 (09:28→21:13)
[2016-07-17] MEDS: SULFAMETHOXAZOLE/TRIMETHOPRIM DS 800/160MG TAB PO SCH ×2 (09:29→21:17)
[2016-07-17] MEDS: LACTOBACILLUS ACIDOPHILUS (FLORANEX) TAB PO SCH ×3 (09:29→21:15)
[2016-07-17] MEDS: CARVEDILOL 12.5 MG TAB PO SCH ×2 (09:30→21:15)
[2016-07-17] MEDS: TAMSULOSIN HCL 0.4 MG CAP PO SCH (09:30)
[2016-07-17] MEDS: PANTOprazole SOD 40 MG TAB PO SCH (09:30)
[2016-07-17] MEDS: GABAPENTIN 300 MG CAP PO SCH ×3 (09:30→21:17)
[2016-07-17] MEDS: ATORVASTATIN 40 MG TAB PO SCH (09:31)
[2016-07-17] MEDS: ESCITALOPRAM OXALATE 10 MG TAB PO SCH (09:31)
[2016-07-17] MEDS: ASPIRIN 81 MG ECTAB PO SCH (09:31)
[2016-07-17] MEDS: CEPHALEXIN MONOHYDRATE 500 MG CAP PO SCH ×4 (09:32→21:16)
[2016-07-17] MEDS: EUCERIN CR 120 GM JAR EXT SCH (09:33)
[2016-07-17] MEDS: CEROVITE ADV FORMULA TAB PO SCH (09:33)
--- NOTE | 2016-07-17 16:09 | PROGRESS NOTE ---
DATE: 07/17/2016 SUBJECTIVE: The patient has not had any overt signs of bleeding. He has had no recorded bowel movements today and his hemoglobin remains stable at 8.2. IMPRESSION: The patient has anemia with multiple other concomitant comorbidities. At this point, we are planning to defer any endoscopic evaluation until patient is more stable medically and at which point we would reconsider upper and possibly lower endoscopy. We will continue to follow patient. Dr. Robertson is covering for the weekend.
--- NOTE | 2016-07-17 20:18 | Infectious Disease Progress Nt ---
Progress Note Date of Service July 17, 2016. Subjective Pt evaluation today including: conversation w/ patient, physical exam, chart review, lab review, review of studies, conversation w/ economics consultant, review of inpatient medication list Patient feeling better, left lower extremity cellulitis much improved. Remains afebrile. Tolerating antibiotics without apparent difficulty. All Other Systems: Reviewed and Negative Medications Current Inpatient Medications Medications (Trade) Dose Ordered Sig/Abhijit Route Start Time Stop Time Status Last Admin Dose Admin Acetaminophen (Tylenol Tab) 500 mg Q4H PRN PO 06/29/16 19:15 07/29/16 19:14 06/30/16 04:15 500 MG Ondansetron HCl (Zofran Inj) 4 mg Q6H PRN IV 06/29/16 19:15 07/29/16 19:14 Aspirin (Ecotrin Tab) 81 mg DAILY PO 06/30/16 09:00 07/30/16 08:59 07/17/16 09:31 81 MG Atorvastatin Calcium (Lipitor Tab) 80 mg DAILY PO 06/30/16 09:00 07/30/16 08:59 07/17/16 09:31 80 MG Escitalopram Oxalate (Lexapro Tab) 10 mg DAILY PO 06/30/16 09:00 07/30/16 08:59 07/17/16 09:31 10 MG Albuterol/ Ipratropium (Combivent Respimat Inh) 1 puffs Q4H PRN INH 06/29/16 19:15 07/29/16 19:14 Lactobacillus Acidophilus (Floranex Tab) 4 tab TID PO 06/29/16 21:00 07/29/16 20:59 07/17/16 13:37 4 TAB Multivitamins/ Minerals (Multivitamin W/ Minerals Tab) 1 tab DAILY PO 06/30/16 09:00 07/30/16 08:59 07/17/16 09:33 1 TAB Pantoprazole Sodium (Protonix Tab) 40 mg DAILY PO 06/30/16 09:00 07/30/16 08:59 07/17/16 09:30 40 MG Senna/Docusate Sodium (Senokot S Tab) 1 tab Q24H PRN PO 06/29/16 19:15 07/29/16 19:14 Insulin Aspart (novoLOG ASPART) SLIDING SCALE G... ACHS SC 06/29/16 21:00 07/29/16 20:59 07/17/16 18:35 5 UNITS Gabapentin (Neurontin Cap) 300 mg TID PO 07/01/16 21:00 07/31/16 20:59 07/17/16 13:40 300 MG Diphenhydramine HCl (Benadryl Inj) 25 mg Q6H PRN IV 07/02/16 09:15 08/01/16 09:14 Levalbuterol (Xopenex 1.25MG/ 3ML Neb) 1.25 mg Q4R INH 07/06/16 08:30 08/05/16 08:29 07/17/16 19:33 1.25 MG Carvedilol (Coreg Tab) 12.5 mg BID PO 07/07/16 21:00 08/06/16 20:59 07/17/16 09:30 12.5 MG Oxycodone/ Acetaminophen (Percocet 5-325mg Tab) 1 tab Q8H PO 07/07/16 17:45 07/21/16 17:44 07/17/16 17:19 1 TAB Multi-Ingredient Ointment (Eucerin Unscented Cr) 1 appln DAILY EXT 07/12/16 09:00 08/11/16 08:59 07/17/16 09:33 1 APPLN Tamsulosin HCl (Flomax Cap) 0.4 mg QAM PO 07/13/16 09:00 08/12/16 08:59 07/17/16 09:30 0.4 MG Trimethoprim/ Sulfamethoxazole (Septra Ds 800/ 160MG Tab) 1 tab Q12 PO 07/13/16 21:00 07/23/16 20:59 07/17/16 09:29 1 TAB Cephalexin Monohydrate (Keflex Cap) 500 mg QID PO 07/13/16 21:00 07/23/16 20:59 07/17/16 17:20 500 MG Insulin Glargine (Lantus Solostar Pen) 10 unit BID SC 07/15/16 21:00 08/14/16 20:59 07/17/16 09:28 10 UNIT Glucose (Glucose 40% Gel) 15-30 GRAMS 15 GRAMS... UD PRN PO 07/15/16 18:45 08/14/16 18:44 Glucose (Glucose Chew Tab) 4-8 Tablets 4 Tabl... UD PRN PO 07/15/16 18:45 08/14/16 18:44 Dextrose (Dextrose 50% 50ML Syringe) 25-50ML OF 50% DW IV FOR... UD PRN IV 07/15/16 18:45 08/14/16 18:44 Glucagon (Glucagon Inj) 1 mg UD PRN SQ 07/15/16 18:45 08/14/16 18:44 Objective Vital Signs Date Time Temp Pulse Resp B/P Pulse Ox O2 Delivery O2 Flow Rate FiO2 07/17/16 19:33 95 16 91 Room Air 07/17/16 15:22 36.5 94 16 129/61 98 Room Air 07/17/16 15:15 Room Air 07/17/16 14:41 93 16 98 Room Air 07/17/16 11:26 87 16 94 Room Air 07/17/16 09:25 92 Room Air 07/17/16 08:03 67 16 92 Room Air 07/17/16 07:33 36.6 89 18 121/38 99 Diffusion Mask 10.0 07/17/16 03:40 81 16 91 Room Air 07/17/16 00:25 Room Air 07/16/16 23:30 36.8 80 18 103/49 93 Room Air 07/16/16 23:26 84 16 94 Room Air 07/16/16 20:38 78 128/70 Physical Exam General Appearance: WD/WN, no apparent distress Eyes: normal inspection, sclerae normal ENT: normal ENT inspection, hearing grossly normal, pharynx normal Neck: no adenopathy, trachea midline Respiratory/Chest: lungs clear, normal breath sounds, no respiratory distress Cardiovascular: regular rate, rhythm, no gallop, no murmur Abdomen: non tender, soft, no organomegaly, + distended Extremities: non-tender, no calf tenderness Neurologic/Psychiatric: alert, oriented x 3 Skin: normal color, warm/dry, no rash Lymphatic: no adenopathy Laboratory Results Last 24 Hours Test 07/16/16 20:31 07/17/16 06:08 07/17/16 07:51 07/17/16 11:59 Bedside Glucose 201 mg/dl 216 mg/dl 117 mg/dl White Blood Count 7.73 K/uL Red Blood Count 3.15 M/uL Hemoglobin 8.2 g/dL Hematocrit 25.1 % Mean Corpuscular Volume 79.7 fL Mean Corpuscular Hemoglobin 26.0 pg Mean Corpuscular Hemoglobin Concent 32.7 g/dl Platelet Count 271 K/uL Mean Platelet Volume 10.2 fL Neutrophils (%) (Auto) 68.1 % Lymphocytes (%) (Auto) 19.0 % Monocytes (%) (Auto) 5.4 % Eosinophils (%) (Auto) 6.9 % Basophils (%) (Auto) 0.5 % Neutrophils # (Auto) 5.26 K/uL Lymphocytes # (Auto) 1.47 K/uL Monocytes # (Auto) 0.42 K/uL Eosinophils # (Auto) 0.53 K/uL Basophils # (Auto) 0.04 K/uL RDW Standard Deviation 52.5 fL RDW Coefficient of Variation 18.0 % Immature Granulocyte % (Auto) 0.1 % Immature Granulocyte # (Auto) 0.01 K/uL Large Platelets 1+ Microcytosis PRESENT Sodium Level 138 mmol/L Potassium Level 5.1 mmol/L Chloride Level 108 mmol/L Carbon Dioxide Level 25 mmol/L Anion Gap 5.0 mmol/L Blood Urea Nitrogen 46 mg/dl Creatinine 1.50 mg/dl Est Creatinine Clear Calc Drug Dose 49.3 ml/min Estimated GFR () 55.0 Estimated GFR (Non- 47.5 BUN/Creatinine Ratio 30.7 Random Glucose 189 mg/dl Calcium Level 7.7 mg/dl Test 07/17/16 17:12 Bedside Glucose 177 mg/dl Assessment and Plan Left leg cellulitis in setting of severe PAD, diabetes, and venous stasis disease. Patient has responded well to IV antibiotics, and appears to be improving with Bactrim and cephalexin. Likely 7-14 days further antibiotic therapy. Will follow.
--- NOTE | 2016-07-17 22:14 | PROGRESS NOTE ---
DATE: 07/17/2016 A 65-year-old male with multiple problems includin. Cellulitis of the left lower leg. 2. Multiple ulcers of the left lower leg and foot and ankle and heel. 3. Coronary artery disease. 4. Ischemic cardiomyopathy. 5. Atrial fibrillation. 6. Chronic and acute renal failure. 7. Chronic and acute congestive heart failure. 8. Right pleural effusion. 9. History of right AKA. 10. Urinary retention, resolved. He is doing well. He denied any problems. No headache, no dizziness. No chest pain, no shortness of breath. No abdominal pain. No nausea, no vomiting. Tolerating his diet well. He has not had any evidence of any recurrence of any rectal bleeding. He is voiding without any problem since the Padilla catheter was removed. Denied any back pain. He still complains of flank pain and still requiring Percocet for pain medication. PHYSICAL EXAMINATION: GENERAL: Well developed, in no distress. VITAL SIGNS: Blood pressure 121/38, pulse 89, respiration 18, temperature 36.6, oxygen saturation 99%. This was the when he was receiving his high-flow treatment, but subsequently, it was 92% on room air. SKIN: Warm and dry. No rash. HEENT: Blindness in the right eye. Has upper dentures. NECK: No JVD. No adenopathy. HEART: Irregular heart sounds. LUNGS: Decreased breath sounds, especially at the right base. He still has a PleurX catheter in place. ABDOMEN: Soft, nontender. BACK: No spinal tenderness. EXTREMITIES: Status post right AKA. Dressing, left leg and foot. ASSESSMENT: 1. Cellulitis of the left lower leg and foot and ankle. 2. Multiple ulcers. Has made a great recovery from that. The only persistent problem is with his left heel. 3. Coronary artery disease. 4. Acute and chronic congestive heart failure. 5. Acute and chronic renal failure. 6. Ischemic cardiomyopathy. 7. Type 2 diabetes mellitus. PLAN: 1. His condition is stable. 2. He is on oral antibiotics. 3. He still has the PleurX catheter in place. I spoke with Dr. Eldridge this evening and patient will retain the catheter for now and Dr. Eldridge will see him as an outpatient next week and decide on removal of the catheter. 4. We have been working on getting him to [facility]. He has been accepted. There were some issues related to insurance coverage and his brother called me and then, he spoke with Mrs. Mini Howard in case management and his questions were answered. 5. If he remains stable without any problem, I anticipate transferring him to [facility] tomorrow.
[2016-07-18] MEDS: OXYCODONE/ACETAMINOPHEN 5-325 TAB PO SCH ×2 (01:37→09:41)
[2016-07-18 03:28] VITALS: PULSE 86; O2SAT 95
[2016-07-18] MEDS: LEVALBUTEROL 1.25MG/3ML NEB INH SCH ×3 (03:28→11:45)
[2016-07-18 06:20] LABS: BASO % 0.5 %; BASO ABS # 0.04 K/uL (0-0.2); EOS % 8.9 %; IG% 0.1 %; LYMPH % 23.1 %; LYMPH ABS # 1.87 K/uL (1.2-3.4); MEAN CELL VOLUME 78.7 fL (80-100); MEAN CORPUSCULAR HEMOGLOBIN 25.4 pg (25-34); MEAN CORPUSCULAR HGB CONC 32.2 g/dl (32-36); MEAN PLATELET VOLUME 10.1 fL (7.4-10.4); MONO % 7.4 %; PLATELET COUNT 328 K/uL (130-400); RED BLOOD COUNT 3.43 M/uL (4.7-6.1); WHITE BLOOD COUNT 8.08 K/uL (4.8-10.8)
[2016-07-18 06:50] LABS: COMPLETE YES; MICROCYTOSIS PRESENT; POLYCHROMASIA 1+
[2016-07-18 06:53] LABS: BUN/CREATININE RATIO 32.3 (10-20); CREATININE 1.3 mg/dl (0.60-1.40); POTASSIUM 5.4 mmol/L (3.5-5.1)
[2016-07-18 06:55] LABS: ALB/GLOB RATIO 0.4 (0.9-2)
[2016-07-18 07:37] VITALS: PULSE 86; O2SAT 96
--- NOTE | 2016-07-18 07:37 | Surgery Progress Note ---
Subjective Date of Service: July 18, 2016. Pt. resting in bed and offer no complaints at the present time. Objective Vitals Date Time Temp Pulse Resp B/P Pulse Ox O2 Delivery O2 Flow Rate FiO2 07/18/16 03:28 86 16 95 Room Air 07/18/16 00:15 Room Air 07/17/16 23:31 36.6 96 16 122/60 95 Room Air 07/17/16 23:04 90 16 95 Room Air 07/17/16 21:14 94 131/55 07/17/16 19:33 95 16 91 Room Air 07/17/16 15:22 36.5 94 16 129/61 98 Room Air 07/17/16 15:15 Room Air 07/17/16 14:41 93 16 98 Room Air 07/17/16 11:26 87 16 94 Room Air 07/17/16 09:25 92 Room Air 07/17/16 08:03 67 16 92 Room Air Physical Exam General: No distress Pulmonary: + pertinent finding (decreased at abses), No accessory muscle use, No respiratory distress Drains / Tubes pleurex (right sided, drained for 25 cc this am ) Assessment & Plan 65year old male with pleural effusion -continue daily drainage of pleurx -if pt. d/c to SNF he will require daily drainage of pleurex catheter -we will see him in office in 1 week with CXR (office will call to arrange) and determine further interventions
[2016-07-18 08:01] VITALS: BP 117/63; PULSE 85; TEMP 36.6; O2SAT 96
[2016-07-18] MEDS: EUCERIN CR 120 GM JAR EXT SCH (08:46)
[2016-07-18] MEDS: CARVEDILOL 12.5 MG TAB PO SCH (08:48)
[2016-07-18] MEDS: ASPIRIN 81 MG ECTAB PO SCH (08:49)
[2016-07-18] MEDS: TAMSULOSIN HCL 0.4 MG CAP PO SCH (08:50)
[2016-07-18] MEDS: LACTOBACILLUS ACIDOPHILUS (FLORANEX) TAB PO SCH (08:53)
[2016-07-18] MEDS: CEPHALEXIN MONOHYDRATE 500 MG CAP PO SCH (08:55)
[2016-07-18] MEDS: ESCITALOPRAM OXALATE 10 MG TAB PO SCH (08:56)
[2016-07-18] MEDS: CEROVITE ADV FORMULA TAB PO SCH (08:57)
[2016-07-18] MEDS: ATORVASTATIN 40 MG TAB PO SCH (08:57)
[2016-07-18] MEDS: GABAPENTIN 300 MG CAP PO SCH (08:58)
[2016-07-18] MEDS: SULFAMETHOXAZOLE/TRIMETHOPRIM DS 800/160MG TAB PO SCH (09:00)
[2016-07-18] MEDS: PANTOprazole SOD 40 MG TAB PO SCH (09:00)
[2016-07-18] MEDS: INSULIN ASPART 100 UNITS/ML 3 ML PEN SC SCH ×2 (09:21→12:06)
[2016-07-18] MEDS: INSULIN GLARGINE SOLOSTAR 100 UNITS/ML 3 ML PEN SC SCH (09:26)
[2016-07-18] MEDS ORDERED: ECRCR EXT (09:49)
[2016-07-18] MEDS ORDERED: PANT40TA PO (09:49)
[2016-07-18] MEDS ORDERED: FERR1TAB13 PO (09:49)
[2016-07-18] MEDS ORDERED: ASPI81TA28 PO (09:49)
[2016-07-18] MEDS ORDERED: SENN-65 PO (09:49)
[2016-07-18] MEDS ORDERED: MULT-513 PO (09:49)
[2016-07-18] MEDS ORDERED: NRN300 PO (09:49)
[2016-07-18] MEDS ORDERED: ASCOPOW PO (09:49)
[2016-07-18] MEDS ORDERED: ESCI10TA17 PO (09:49)
[2016-07-18] MEDS ORDERED: LSX40 PO (09:49)
[2016-07-18] MEDS ORDERED: ACET325T96 PO (09:49)
[2016-07-18] MEDS ORDERED: LACT1TAB4 PO (09:49)
[2016-07-18] MEDS ORDERED: XRL15 PO (09:49)
[2016-07-18] MEDS ORDERED: SALI0.6549 NAE (09:49)
[2016-07-18] MEDS ORDERED: NVLGIPEN SC (09:49)
[2016-07-18] MEDS ORDERED: IPRA1AER2 INH (09:49)
[2016-07-18] MEDS ORDERED: INSDGIPEN SC (09:49)
[2016-07-18] MEDS ORDERED: CARV25TA PO (09:49)
[2016-07-18] MEDS ORDERED: OXYC-57 PO (09:49)
[2016-07-18] MEDS ORDERED: FLM4 PO (09:49)
[2016-07-18] MEDS ORDERED: ATOR-26 PO (09:49)
--- NOTE | 2016-07-18 10:14 | Discharge Instructions ---
Discharge Instructions Date of Service July 18, 2016. Admission Reason for Admission: CELLULITIS LEFT LOWER LEG, FOOT MULTIPLE ULCERS LEFT LOWER LEG, FOOT, HEEL CORONARY ARTERY DISEASE ISCHEMIC CARDIOMYOPATHY EF 20-25% CHRONIC ATRIAL FIBRILLATION ACUTE AND CHRONIC CONGESTIVE HEART FAILURE ACUTE AND CHRONIC RENAL FAILURE MULTIPLE DIABETIC COMPLICATIONS NEUROPATHY, RETINOPATHY, NEPHROPATHY, VASCULOPATHY PERIPHERAL ARTERIAL DISEASE RECURRENT RIGHT PLEURAL EFFUSION URINARY RETENTION DEPRESSION BLINDNESS RIGHT EYE S/P RIGHT AKA Discharge Discharge Diagnosis / Problem: CELLULITIS RIGHT LEG,ULCERS RIGHT LEG,CORONARY ARTERY DISEASE,TYPE 2 DIABET Discharge Goals Goal(s): Decrease discomfort, Improve function, Increase independence, Improve disease control, Improve nutritional status, Therapeutic intervention Activity Recommendations Activity Level: Assistance Required Therapies: Physical Therapy, Occupational Therapy . Additional Information Patient informed of condition: Yes Advance Directives: No DNR: Yes Level of Care: Skilled Communicable Disease: No Prognosis: Stable Padilla Catheter: No Instructions / Follow-Up Instructions / Follow-Up WOUND CARE CLINIC SCHEDULE APPOINTMENT WITH DR DAGMAR SON PLEASE MONITOR PRP WEEKLY FOR 3 WEEKS Current Hospital Diet Patient's current hospital diet: Diabetes Type 2 Diet, AHA Diet (Heart Healthy) Discharge Diet Recommended Diet: AHA Diet (Heart Healthy), Diabetes Type 2 Diet Pending Studies Studies pending at discharge: no Physician Orders On Transfer Dressing Changes: DAILY DRESSING LEFT LED DRESSING RIGHT PLEURX CATHETER RIGHT SIDE Laboratory Results Hemoglobin A1c Test 05/25/16 14:00 Range/Units Estimated Average Glucose 117 mg/dl Hemoglobin A1c 5.7 H 4.5-5.6 % Lipid Panel Test 05/25/16 14:00 Range/Units Triglycerides Level 46 0-150 mg/dl Cholesterol Level 95 0-200 mg/dl HDL Cholesterol 46 mg/dl LDL Cholesterol Direct 45 mg/dl Cholesterol/HDL Ratio 2.1 LDL Cholesterol, Calculated mg/dl Medical Emergencies . Who to Call and When: Medical Emergencies: If at any time you feel your situation is an emergency, please call 911 immediately. . Non-Emergent Contact Non-Emergency issues call your: Primary Care Provider . . "Provider Documentation" section prepared by Kd Whitney. . Core Measure Problem Core Measures: None
[2016-07-18 11:06] VITALS: BP 117/63; PULSE 85; TEMP 36.6; O2SAT 96
[2016-07-18 11:29] VITALS: O2SAT 96
[2016-07-18 11:45] VITALS: PULSE 82; O2SAT 90
--- NOTE | 2016-07-18 23:06 | PROGRESS NOTE ---
DATE: 07/18/2016 A 65-year-old male, admitted with severe cellulitis of the left lower leg with multiple ulcers of the lower leg, foot, ankle and heel. He has coronary artery disease with ischemic cardiomyopathy, acute and chronic congestive heart failure, acute and chronic renal failure, right pleural effusion and multiple diabetic complications. His condition has improved. He denied any headache, dizziness or lightheadedness. He denied any chest pain. No shortness of breath. No abdominal pain, no nausea, no vomiting. He is tolerating his diet. No problem with his bowel movements. No back pain. He does have leg pain in the left leg and also phantom pain on the right side, but the pain is under control. PHYSICAL EXAMINATION: GENERAL: Well-developed, in no distress. VITAL SIGNS: Blood pressure 117/63, pulse 85, respirations 16, temperature 36.6 and oxygen saturation 96% on room air. SKIN: Warm and dry. No rash. HEENT: Blindness, right eye. He has upper dentures. NECK: No JVD. No adenopathy. HEART: Irregular heart sounds consistent with atrial fibrillation. LUNGS: Decreased breath sounds. ABDOMEN: Soft and nontender. BACK: No spinal tenderness. EXTREMITIES: Dressing on left leg. Status post right AKA. TODAY'S LABORATORY TESTS: WBC count 8080, hemoglobin 8.7, hematocrit 27 and platelet count 328,000. Sodium 139, potassium 5.4, chloride 109, CO2 22, BUN 42, creatinine 1.3, glucose 78, calcium 8.0, total bilirubin 0.4, AST 19, ALT 13, alkaline phosphatase 208, total protein 6.6 and albumin 1.9. ASSESSMENT: 1. Cellulitis, left lower leg with multiple ulcers. 2. Coronary artery disease. 3. Ischemic cardiomyopathy. 4. Chronic and acute congestive heart failure. 5. Chronic and acute renal failure. 6. Multiple diabetic complications. 7. Status post right above the knee amputation. 8. Right pleural effusion. 9. Hyperkalemia, most likely related to Bactrim-DS. PLAN: 1. Continuing the same medications. 2. I did continue his Keflex and to Septra-DS. 3. Resume his Xarelto. There has been no evidence of any bleeding. 4. Arrangements were completed for the patient to go to [facility] and this was done. The patient is to go to the wound care clinic. Also, he is to follow up with Dr. Eldridge regarding the PleurX catheter.
[2016-07-19] MEDS ORDERED: FUROSEMIDE 40 MG TAB PO SCH (09:00)
--- NOTE | 2016-07-27 20:33 | DISCHARGE SUMMARY ---
DISCHARGE DIAGNOSES: 1. Cellulitis of the left lower leg and foot and ankle. 2. Multiple ulcers of the left lower leg, foot, ankle and heel. 3. Coronary artery disease. 4. Ischemic cardiomyopathy with an ejection fraction between 20-25%. 5. Chronic atrial fibrillation. 6. Acute and chronic congestive heart failure. 7. Acute on chronic renal failure. 8. Multiple diabetic complications including neuropathy, retinopathy and nephropathy. 9. Peripheral arterial disease. 10. Recurrent right pleural effusion. 11. Urinary retention. 12. Depression. 13. Status post right [id number] amputation. 14. Blindness, right eye. 15. Anemia DISCHARGE MEDICATIONS: Included: 1. Eucerin cream to apply daily to his left lower leg. 2. Furosemide 40 mg daily. 3. Gabapentin 300 mg 3 times a day. 4. NovoLog insulin according to sliding scale. 5. Lantus insulin 10 units twice a day. 6. Oxycodone/APAP 5/325 one tablet every 8 hours. 7. Xarelto 15 mg daily. 8. Flomax 0.4 mg daily. 9. Tylenol 650 mg every 4 hours as needed. 10. Vitamin C 500 mg daily. 11. Aspirin 81 mg daily. 12. Atorvastatin 80 mg daily. 13. Carvedilol 25 mg twice a day. 14. Lexapro 10 mg daily. 15. Ferrous sulfate 325 mg 3 times a day. 16. Combivent Respimat 1 inhalation every 4 hours. 17. Floranex 1 tablet 3 times a day. 18. Multivitamin with mineral 1 daily. 19. Protonix 40 mg daily. 20. Senokot-S 1 tablet daily. 21. Saline nasal spray as needed. CONSULTATIONS: 1. Dr. Greyson Eldridge in chest surgery. 2. Dr. Zhao Gutiérrez in gastroenterology. PROCEDURES: 1. Thoracentesis on the right side done by Dr. Eldridge. 2. Placement of PleurX catheter on the right side. HISTORY OF PRESENT ILLNESS: A 65-year-old male admitted through the Emergency Room with severe cellulitis of his left lower leg with multiple ulcers. The patient with an extensive medical history as noted above. He was living at home with his brothers. Up until recently he was living in [place] that his brothers decided to have him moved up here so they can take care of him. Since he moved up here to this area, he had 1 hospitalization at [facility] and 1 hospitalization at [facility]. The patient has been seen by Dr. Boyer in cardiology, Dr. Murry in vascular surgery. He has home health nurses and therapies at home. On the day of admission he was having more problems with his left leg. There was a large amount of seepage from the ulcerated areas. His brothers called the office after they called the wound care center. I recommended that they bring him to the Emergency Room. The patient was evaluated by Dr. Fraire. Multiple issues regarding his condition came to light. I saw the patient in the Emergency Room and he was admitted for further treatment. PAST MEDICAL HISTORY, SOCIAL HISTORY AND FAMILY HISTORY: All as noted. ALLERGIES: None. MEDICATIONS ON ADMISSION: All as noted on his admission history and physical. PHYSICAL EXAMINATION AND ADMISSION LABORATORY TESTS: All as noted on his history and physical. HOSPITAL COURSE: The patient was admitted to medical bed. Resuscitation level 5 as discussed with the patient and his 2 brothers. All his laboratory tests were ordered. He was continued on his oral medications. He was started on IV Zosyn and vancomycin. He was placed on coverage for his diabetes. Wound care consultation was requested. As noted, patient just had an angiogram of his left leg done by Dr. Murry on Wednesday prior to his admission and no intervention was feasible. Because of his large right pleural effusion, consultation was requested from Dr. Eldridge. The patient was continued on his medications. He was seen by Dr. Eldridge. He had a thoracentesis done on the right side. Subsequently the pleural effusion recollected. Dr. Eldridge recommended placement of a PleurX catheter, which was done. Multiple problems were dealt with during his hospitalization. The patient does have severe cardiomyopathy. He presented with acute congestive heart failure superimposed on his chronic congestive heart failure. He did require diuresis with IV Lasix. Also, his renal function deteriorated significantly during his hospitalization. Specially, at that time he required diuresis for his congestive heart failure. His creatinine did rise as high as 3.5. His left leg was monitored very closely. The dressings were changed. Dr. Eldridge helped taking care of the ulcers and the cellulitis with excellent results. Most of the ulcers have healed except for the one on his left heel and also 2 remaining ulcers on his left foot, but they were very superficial. So there was a remarkable improvement. The issue is with his long-term care. His 2 brothers have really made a tremendous effort to bring him from [place] and he was living with them, especially his brother Luc and everybody was itching in to take care of him, but given the amount of care he needs and his condition with the multiple medical problems and very precarious condition and he is status post right [id number] amputation and he requires daily dressing to his left leg, this was no longer an option. I have discussed this issue with his brother, Luc and also with the patient on multiple occasions. The decision was made that he needs an extended care facility. So arrangements were made for him to go to [facility]. During his hospitalization, he did have an episode of urinary retention requiring Padilla catheter. He was started on Flomax. Eventually, the catheter was removed and he was able to void without any problem. His renal function improved significantly. His creatinine was down to 1.3 on 07/18/2016. During his hospitalization, one time he was observed to have some blood in his stool, but this was checked and there was no evidence of any recurrence. GI consultation was requested but he was not having any evidence of any acute bleeding. So given his multiple medical problems and complications we decided to hold off on any endoscopic procedure at this time and monitor his counts. At one time, he did require transfusion. He does have chronic anemia, but the anemia is mostly multifactorial due to his multiple medical problems. His condition stabilized. We were able to make arrangements for him to go to [facility] and he was transferred. The intent is for him to stay at [facility] because of the extent of the care he needs. ANALY
[2016-07-30] MEDS ORDERED: INSDGI SC (07:33)
[2016-07-30] MEDS ORDERED: FLUD0.1T10 PO (13:02)
== END 2016-07-18 12:30 | DRG 602 ==
LOC: ENRESERVTM → ENRESERVDT → C.EDB 14:43 → C.MSW 19:16 → EDBEDREQ 19:35
PROVIDERS: ADMIT Internal Medicine; ATTEND Internal Medicine
PROC: 0WH Anatomical Regions, General, Insertion (ICD-10-PCS; principal; 2016-07-04)
DX: L03.116 Cellulitis of left lower limb (principal); I50.23 Acute on chronic systolic (congestive) heart failure; J90 Pleural effusion, not elsewhere classified; I42.9 Cardiomyopathy, unspecified; D64.9 Anemia, unspecified; I10 Essential (primary) hypertension; Z79.82 Long term (current) use of aspirin; Z79.4 Long term (current) use of insulin; I73.9 Peripheral vascular disease, unspecified; H54.41 Blindness, right eye, normal vision left eye; Z79.01 Long term (current) use of anticoagulants; Z89.511 Acquired absence of right leg below knee; Z87.891 Personal history of nicotine dependence; E11.622 Type 2 diabetes mellitus with other skin ulcer; I48.2 Chronic atrial fibrillation; I99.8 Other disorder of circulatory system; L97.529 Non-pressure chronic ulcer of other part of left foot with unspecified severity; Z89.611 Acquired absence of right leg above knee; Z98.890 Other specified postprocedural states; Z79.899 Other long term (current) drug therapy; I12.9 Hypertensive chronic kidney disease with stage 1 through stage 4 chronic kidney disease, or unspecified chronic kidney disease; E11.22 Type 2 diabetes mellitus with diabetic chronic kidney disease; H54.42 Blindness, left eye, normal vision right eye; N18.3 Chronic kidney disease, stage 3 (moderate); I48.91 Unspecified atrial fibrillation; I50.9 Heart failure, unspecified; Z80.3 Family history of malignant neoplasm of breast; Z82.49 Family history of ischemic heart disease and other diseases of the circulatory system; F17.200 Nicotine dependence, unspecified, uncomplicated

== ENCOUNTER → 2016-07-22 | Outpatient (CLI) | payer OTHER ==
[~2016-07-22] MED LIST changes: +ACET-1311 PO; +ASPCH81X PO; +BISA10SU38 PR; +BUME2TAB3 PO; +ECRCR EXT; +FLM4 PO; +FLUD0.1T10 PO; -FRS/40 PO; -FURO80TA63 PO; -GABA-112 PO; +GLUC0.8I INJ; -HMLI7525 SC; +HYDR-5688 PO; +INSDGI SC; +INSDGIPEN SC; -LISI-461 PO; +LSX40 PO; +MOML PO; +NRN300 PO; +NUTR-7 PO; +NVLG SC; +NVLGIPEN SC; +ONDA4TAB46 PO; +OXYC-57 PO; -OXYC1TAB3 PO; +PRNJ PO; +PROTEIN PO; -RIVA1TAB PO; +SENN1TAB65 PO; +SODIENE PR; +XRL15 PO; -ZINC1CAP PO
[2016-07-22 12:22] LABS: BASO % 0.8 %; BASO ABS # 0.05 K/uL (0-0.2); EOS % 9.2 %; HEMATOCRIT 24.3 % (42-52); IG% 0.2 %; LYMPH % 24.4 %; LYMPH ABS # 1.61 K/uL (1.2-3.4); MEAN CELL VOLUME 80.2 fL (80-100); MEAN CORPUSCULAR HEMOGLOBIN 24.8 pg (25-34); MEAN CORPUSCULAR HGB CONC 30.9 g/dl (32-36); MEAN PLATELET VOLUME 10.1 fL (7.4-10.4); MONO % 8.6 %; NEUT % 56.8 %; PLATELET COUNT 277 K/uL (130-400); RED BLOOD COUNT 3.03 M/uL (4.7-6.1); WHITE BLOOD COUNT 6.61 K/uL (4.8-10.8)
[2016-07-22 12:44] LABS: ANISOCYTOSIS PRESENT; COMPLETE YES; HYPOCHROMIA PRESENT; POIKILOCYTOSIS PRESENT
[2016-07-22 12:49] LABS: BLOOD UREA NITROGEN 36 mg/dl (7-18); BUN/CREATININE RATIO 36.2 (10-20); CARBON DIOXIDE 25 mmol/L (21-32); CHLORIDE 109 mmol/L (98-107); GLUCOSE 101 mg/dl (70-99); POTASSIUM 4.9 mmol/L (3.5-5.1); SODIUM 139 mmol/L (136-145)
[2016-07-22 12:57] LABS: CALCIUM 8.4 mg/dl (8.5-10.1)
== END ==
LOC: C.LABCC 12:42
PROVIDERS: ATTEND Internal Medicine
DX: N18.9 Chronic kidney disease, unspecified (principal); D64.9 Anemia, unspecified

== ENCOUNTER → 2016-07-23 | Outpatient (CLI) | payer OTHER ==
[2016-07-23 09:26] LABS: BASO % 0.7 %; BASO ABS # 0.05 K/uL (0-0.2); EOS % 9.5 %; IG% 0.1 %; LYMPH % 24.2 %; LYMPH ABS # 1.76 K/uL (1.2-3.4); MEAN CELL VOLUME 80.1 fL (80-100); MEAN CORPUSCULAR HEMOGLOBIN 23.7 pg (25-34); MEAN CORPUSCULAR HGB CONC 29.6 g/dl (32-36); MEAN PLATELET VOLUME 9.7 fL (7.4-10.4); MONO % 8.5 %; PLATELET COUNT 265 K/uL (130-400); RED BLOOD COUNT 3.12 M/uL (4.7-6.1); WHITE BLOOD COUNT 7.27 K/uL (4.8-10.8)
[2016-07-23 09:57] LABS: BLOOD UREA NITROGEN 37 mg/dl (7-18); BUN/CREATININE RATIO 33.6 (10-20); CARBON DIOXIDE 26 mmol/L (21-32); CHLORIDE 108 mmol/L (98-107); GLUCOSE 82 mg/dl (70-99); POTASSIUM 4.5 mmol/L (3.5-5.1); SODIUM 140 mmol/L (136-145)
[2016-07-23 10:13] LABS: CALCIUM 7.9 mg/dl (8.5-10.1)
[2016-07-23 10:20] LABS: ANISOCYTOSIS PRESENT; COMPLETE YES; MICROCYTOSIS PRESENT
== END ==
LOC: C.LABCC 08:22
PROVIDERS: ATTEND Internal Medicine
DX: D64.9 Anemia, unspecified (principal); N18.9 Chronic kidney disease, unspecified

== ENCOUNTER → 2016-07-28 | Outpatient (CLI) | payer OTHER ==
--- NOTE | 2016-07-28 12:07 | DIAGNOSTIC IMAGING REPORT ---
CHEST 2 VIEWS ROUTINE CLINICAL HISTORY: J90 Pleural [id number] COMPARISON STUDY: 07/15/2016 FINDINGS: The heart remains enlarged. There is significant interval increase in the size of the right pleural effusion. There is associated right basilar atelectasis/consolidation.[ IMPRESSION: Increasing right pleural effusion with associated right basilar atelectasis/consolidation Electronically signed by: Adolfo Sims M.D. 07/28/2016 12:06 PM Dictated Date/Time: 07/28/2016 12:05 PM
== END | disposition home or self-care (01) ==
LOC: C.RAD1850 11:48
PROVIDERS: ATTEND Surgery
DX: J90 Pleural effusion, not elsewhere classified (principal)

== ENCOUNTER → 2016-07-29 | Outpatient (CLI) | payer OTHER ==
[2016-07-29 12:18] LABS: BASO % 0.3 %; BASO ABS # 0.03 K/uL (0-0.2); COMPLETE YES; HEMATOCRIT 30.6 % (42-52); IG% 0.3 %; LYMPH % 11.6 %; LYMPH ABS # 1.22 K/uL (1.2-3.4); MEAN CELL VOLUME 81.6 fL (80-100); MEAN CORPUSCULAR HEMOGLOBIN 24.3 pg (25-34); MEAN CORPUSCULAR HGB CONC 29.7 g/dl (32-36); MEAN PLATELET VOLUME 11.1 fL (7.4-10.4); MONO % 12.2 %; NEUT % 73.6 %; PLATELET COUNT 242 K/uL (130-400); RED BLOOD COUNT 3.75 M/uL (4.7-6.1); WHITE BLOOD COUNT 10.55 K/uL (4.8-10.8)
== END | disposition home or self-care (01) ==
LOC: C.LABCC 15:35
PROVIDERS: ATTEND Internal Medicine
DX: D64.9 Anemia, unspecified (principal)

== ENCOUNTER → 2016-07-30 | Day surgery (SDC) | payer OTHER ==
[~2016-07-30] VITALS: Ht 179.1 cm; Wt 82.0 kg
[~2016-07-30] MED LIST changes: +ALTEPLASE, RECOMBINANT 1 MG/ML 2 ML VIAL IPL ONE
[2016-07-30 12:50] VITALS: BP 130/86; PULSE 89; TEMP 37.2; O2SAT 91; Ht 179.1 cm; Wt 82.0 kg
--- NOTE | 2016-07-30 13:16 | Progress Note ---
Progress Note Date of Service Jul 30, 2016. Progress Note 4 mg TPA placed in right pleurex. SNF to drain at 4:00 pm today and daily each morning thereafter. Pt. will f/u with Dr. Eldridge on 08/06/16 with CXR.
--- NOTE | 2016-07-30 13:20 | Discharge Instructions ---
Discharge Instructions Date of Service Jul 30, 2016. Visit Reason for Visit: Left Pleural Effusion, Tpa Injection Discharge Discharge Diagnosis / Problem: Left Pleural Effusion, Tpa Injection Discharge Goals Goal(s): Improve disease control Activity Recommendations Activity Limitations: resume your previous activity Lifting Limitations: none Anesthesia . Post Anesthesia Instructions: If you have had General Anesthesia or IV Sedation: * Do not drive today. * Resume driving when surgeon permits. * Do not make important decisions or sign legal documents today. * Call surgeon for: 1. Temperature elevations greater than 101 degrees F. 2. Uncontrollable pain. 3. Excessive bleeding. 4. Persistent nausea and vomiting. 5. Medication intolerance (nausea, vomiting or rash). * For nausea and vomiting use only clear liquids such as: tea, soda, bouillon until nausea subsides, then gradually increase diet as tolerated. * If you have any concerns or questions, call your surgeon's office. If physician is unavailable and it is an emergency, call 911 or go to the nearest emergency room. . Instructions / Follow-Up Instructions / Follow-Up 1. Pleurx catheter to be drained at 1600 on 07/30/16, and then daily each morning. Record amounts drained and call amounts to Dr. Eldridge's office every . 2. Keep your scheduled appointment with Dr. Eldridge on August 06, 2016 @ 10:30. Go to hospital 1 hour before scheduled appointment to have a chest x-ray taken. Diet Recommendations Recommended Home Diet: resume previous diet Pending Studies Studies pending at discharge: no Medical Emergencies . Who to Call and When: Medical Emergencies: If at any time you feel your situation is an emergency, please call 911 immediately. . Non-Emergent Contact Non-Emergency issues call your: Primary Care Provider Call Non-Emergent contact if: you have a fever . . "Provider Documentation" section prepared by Blane Downs. .
[2016-07-30 13:45] VITALS: BP 125/80; PULSE 80; TEMP 37.1; O2SAT 91
== END | disposition home or self-care (01) ==
LOC: C.ACU 12:39
PROVIDERS: ATTEND Surgery
DX: J90 Pleural effusion, not elsewhere classified (principal)

== ENCOUNTER 2016-08-01 13:46 | Inpatient (IN) | payer OTHER ==
[~2016-08-01] VITALS: Ht 177.8 cm; Wt 86.0 kg
[~2016-08-01 13:46] MED LIST changes: -ACET-1311 PO; -ALTEPLASE, RECOMBINANT 1 MG/ML 2 ML VIAL IPL ONE; -ASPCH81X PO; -BISA10SU38 PR; -BUME2TAB3 PO; -GLUC0.8I INJ; -HYDR-5688 PO; -INSDGIPEN SC; -MOML PO; -NUTR-7 PO; -NVLG SC; -ONDA4TAB46 PO; -PANT40TA PO; -PRNJ PO; -PROTEIN PO; -SENN1TAB65 PO; -SODIENE PR
--- NOTE | 2016-08-01 14:32 | EMERGENCY ROOM VISIT NOTE ---
History Report prepared by [place]: Shannan Schrader Under the Supervision of: Dr. Mera Cruz D.O. First contact with patient: 14:05 Chief Complaint: ILLNESS Stated Complaint: SOB History of Present Illness The patient is a 65 year old male who presents to the Emergency Room with complaints of constant shortness of breath beginning this morning. Per nursing staff, the patient recently had a thoracenteses has a PleurX catheter and he has been draining 200cc a day. Per EMS, the patient's blood sugar was 338 en route. The patient states that he does not wear oxygen all the time but sometimes wears oxygen if he needs it at [facility]. He notes that there was some difficulty draining his PleurX the other day but they were able to fix the issue and are no longer having difficulty. He complains of weight gain and a cough. He denies any fever. The patient's family reports that the patient has been getting fluid drained from his PleurX and today they were told that he had some fluid and his blood pressure was low. They report that over the last 3 days the patient has been weaker, tired, and more confused than usual. They note that he has an infection in his left leg that his doctors are treating. The family states that the leg infection is much better than it was previously. HPI limited secondary to the patient's mental status. Source of History: patient History Limited By: AMS Onset: this morning Position: other (SOB) Timing: constant Associated Symptoms: + cough, + weakness, No fevers Note: Pt has weight gain, tiredness, and confusion. Review of Systems See HPI for pertinent positives & negatives. A total of 10 systems reviewed and were otherwise negative. Past Medical & Surgical Medical Problems: (1) Atrial fibrillation (2) CELLULITIS AND ULCERS LEFT LEG (3) Chronic anemia (4) Chronic renal disease (5) Congestive heart failure (6) Diabetes (7) Diabetic neuropathy (8) Hypertension (9) MENTAL STATUS CHANGES, CHF,CARDIOMYOPATHY Surgical Problems: (1) History of right above knee amputation (2) S/P vascular bypass Family History Cancer Heart disease Social History Smoking Status: Former Smoker Drug Use: none Marital Status: Housing Status: assisted living Occupation Status: disabled Current/Historical Medications Scheduled Ascorbic Acid (Ascorbic Acid Cassave), 500 MG PO DAILY Aspirin (Aspirin Chewable), 81 MG PO DAILY Atorvastatin (Lipitor), 80 MG PO DAILY Bisacodyl (Dulcolax), 1 SUPP KY UD Carvedilol (Coreg), 25 MG PO BID Escitalopram (Lexapro), 10 MG PO DAILY Ferrous Sulfate (Kp Ferrous Sulfate), 1 TAB PO TID Furosemide (Furosemide), 40 MG PO QAM Gabapentin (Gabapentin), 300 MG PO TID Glucagon HCl (Diagnostic) (Glucagon), 1 MG INJ UD Insulin Aspart (Novolog), 1 DOSE SC UD Insulin Glargine (Lantus), 15 SC BID Lactobacillus (Floranex), 1 TAB PO TID Magnesium Hydroxide (Milk Of Magnesia), 30 ML PO UD Multivitamins/Minerals (Mvi With Minerals), 1 TAB PO DAILY Oxycodone/Acetaminophen 5MG/325MG (Percocet 5MG/325MG), 1 TAB PO Q8H Prune Juice (Prune Juice ), 1 DOSE PO UD Rivaroxaban (Xarelto), 15 MG PO QD Sodium Phosphate/Biphosphate (Fleet Enema), 1 EA KY UD Tamsulosin HCl (Tamsulosin HCl), 0.4 MG PO QAM [House Protein Liquid], 30 ML PO BID Scheduled PRN Acetaminophen (Tylenol), 650 MG PO Q6H PRN for Pain Ipratropium-Albuterol (Combivent Respimat), 1 PUFFS INH Q4H PRN for Shortness of Breath Ondansetron Hcl (Zofran), 4 MG PO Q6H PRN for Nausea Saline (Sodium Chloride), 2 SPRAYS SHANNON QID PRN for DRYNESS Senna/Docusate Sod (Senokot S), 1 TAB PO Q24H PRN for Constipation Sennosides-Docusate Sodium (Senna Plus), 1 TAB PO DAILY PRN for Constipation Allergies Coded Allergies: No Known Allergies (Unverified , 08/01/16) Physical Exam Vital Signs Date Time Temp Pulse Resp B/P (MAP) Pulse Ox O2 Delivery O2 Flow Rate FiO2 08/01/16 16:38 89 22 113/76 96 Nasal Cannula 2.0 08/01/16 14:11 37.2 88 22 95/50 88 Room Air 08/01/16 13:55 90 Physical Exam GENERAL: somnulent but arousable EYE EXAM: normal conjunctiva, PERRL and EOM's grossly intact OROPHARYNX: no exudate, no erythema, lips, buccal mucosa, and tongue normal and mucous membranes are dry NECK: supple, no nuchal rigidity, no adenopathy, non-tender LUNGS: :Lung sounds decreased on the right, fine bibasilar rales. Normal chest wall mechanics HEART: no murmurs, S1 normal and S2 normal ABDOMEN: abdomen soft, non-tender, normo-active bowel sounds, no rebound or guarding. Small umbilical hernia, easily reduced. BACK: Back is symmetrical on inspection and there is no deformity, no midline tenderness, no CVA tenderness. SKIN: no rashes and no bruising UPPER EXTREMITIES: upper extremities are grossly normal. LOWER EXTREMITIES: No pitting edema. Right AKA, left lower extremity has solitary dressing over the knee, the rest of the extremity is in a dressing and boot. NEURO EXAM: Alert and answers questions, not able to cooperate for additional testing. Medical Decision & Procedures ER Provider Diagnostic Interpretation: Radiology results have been interpreted by the radiologist and reviewed by me. CHEST ONE VIEW PORTABLE FINDINGS: Increase in size in the moderate to large right pleural effusion with associated right lung densities suggesting compressive atelectasis. Mild diffuse interstitial thickening remains unchanged. The heart is stable in size. No pneumothorax. IMPRESSION: Increase in size in the moderate to large right pleural effusion. Electronically signed by: Juarez Galvin M.D. 08/01/2016 3:05 PM Dictated Date/Time: 08/01/2016 3:[address] SCAN OF THE BRAIN WITHOUT IV CONTRAST FINDINGS: Brain parenchyma: There are age-related involutional changes noting mild subcortical and periventricular microangiopathic change. There is no hemorrhage, mass effect, or evidence of acute territorial ischemia by CT criteria. Mineralization is observed in the basal ganglia. Reilly-white matter is preserved. No extra-axial fluid collection is seen. Ventricles, sulci, cisterns: Prominent secondary to involutional change. Intracranial vasculature: There is advanced atherosclerotic calcification of the cavernous carotid and vertebral arteries. Calvarium: Unremarkable. Sinuses and mastoids: The visualized paranasal sinuses are clear. There are small mastoid effusions, left larger than right. Orbits: The bony orbits are grossly intact. The right globe is atrophic and calcified with evidence of previous banding. The left lobe appears intact. There is evidence of a left ocular lens implant retinal calcifications are noted on the left. IMPRESSION: There is no hemorrhage, mass effect, or evidence of acute territorial ischemia by CT criteria. Electronically signed by: Kennedy Mathur M.D. 08/01/2016 5:11 PM Dictated Date/Time: 08/01/2016 5:08 PM Laboratory Results Test 08/01/16 14:10 08/01/16 15:20 08/01/16 16:38 Toxic Granulation 1+ Echinocytes 1+ Troponin I 0.030 ng/ml (0-0.045) Pro-B-Type Natriuretic Peptide 02247 pg/ml (0-900) Lipase 89 U/L (73-393) Thyroid Stimulating Hormone (TSH) 7.110 uIu/ml (0.300-4.500) Thyroxine (T4) 3.6 mcg/dl (4.5-10.9) Lactic Acid Level 1.8 mmol/L (0.4-2.0) Urine Color DK YELLOW Urine Appearance CLOUDY (CLEAR) Urine pH 5.0 (4.5-7.5) Urine Specific Shedd 1.023 (1.000-1.030) Urine Protein 1+ (NEG) Urine Glucose (UA) NEG (NEG) Urine Ketones NEG (NEG) Urine Occult Blood TRACE (NEG) Urine Nitrite NEG (NEG) Urine Bilirubin NEG (NEG) Urine Urobilinogen NEG (NEG) Urine Leukocyte Esterase NEG (NEG) Urine RBC (Auto) /hpf (0-4) Urine Hyaline Casts (Auto) /lpf (0-5) Urine RBC 0-4 /hpf (0-4) Urine WBC >30 /hpf (0-5) Urine Epithelial Cells 0-5 /lpf (0-5) Urine Renal Epithelial Cells /lpf (0-5) Urine Bacteria 4+ (NEG) Urine Pathogenic Casts /lpf (0) Urine Yeast BUDDING (NONE PRSENT) Urine Yeast (Auto) (NONE PRSENT) Date/Time Source Procedure Growth Status 08/01/16 14:10 Blood Blood Culture - Final Staphylococcus Aureus Complete 08/01/16 16:38 Urine,Catheterized Urine Culture - Final Yeast Not Olivia Albicans Complete Laboratory results per my review. Medications Administered Medications (Trade) Dose Ordered Sig/Abhijit Route Start Time Stop Time Status Last Admin Dose Admin Rivaroxaban (Xarelto Tab) 15 mg QDD PO 08/01/16 17:45 08/02/16 09:03 DC 08/01/16 21:47 15 MG ECG Indication: SOB/dyspnea Rate (beats per minute): 89 Rhythm: sinus rhythm Findings: nonspecific-ST abn, RBBB, other (Mildly Prolonged QTC) Comparison ECG Date: 06-JUL-2016 Change: no significant change ED Course 1405: The patient was evaluated in room A4. A complete history and physical exam was performed. 1420: Discussed with pt's family. They state pt has not been well and seems worse the last several days. 1644: I spoke to a nurse at [facility]. She states that the patient has had a 12 pound weight gain since July 29. She notes that that he is getting Lasix daily and draining 420ml today. She reports that he has been more short of breath and lethargic. The nurse states that he is always on 2L of oxygen. She denies any fever. 1653: I updated the family. 1657: I reviewed the patient's case with Dr. Whitney of [facility], [place]. He will evaluate the patient for further management. 1716: Upon reevaluation, the patient is doing well. I discussed the findings and the treatment plan with the patient. He expresses agreement and understanding. I spoke with Dr. Whitney of [facility], [place]. The patient will be evaluated for further management. Medical Decision Differential diagnosis: Etiologies such as infections, reactive airway disease, pneumonia, pneumothorax , COPD, CHF, cardiac ischemia, pulmonary embolism, musculoskeletal, gastrointestinal, as well as others were entertained. Medication Reconciliation: I attest that I have personally reviewed the patient' s current medication list. Blood pressure screening: Patient was found to have low blood pressure on screening and does not require follow-up. Pt with worsening pleural effusion despite daily drainage and diuretics likely leading to SOB. Pt clinically dehydrated appearing - likely reason combined with medications for renal insufficiency. Pt with known decreased EF and CM - may be contributing to mild hypotension also. Pt somnolent but arousable and answers questions appropriately. Pt with complicated medical hx. VS signs stable and no leukocytosis, doubt sepsis/bacteremia. Consults Time Called: 1649 Consulting Physician: Dr. Whitney Returned Call: [phone] I reviewed the patient's case with Dr. Whitney of [facility], [place]. He will evaluate the patient for further management. Impression Primary Impression: Pleural effusion Additional Impressions: Dyspnea Confusion Hypotension Chronic renal disease Chronic anemia Critical Care I have personally spent greater than 35 minutes of critical care time in the direct management of this patient. This includes bedside care, interpretation of diagnostic studies, and testing, discussion with consultants, patient, and family members, and other required patient management activities. This 35 minutes is in excess of all separately billable procedures. Involved system: cardiovascular, pulmonary Scribe Attestation The scribe's documentation has been prepared under my direction and personally reviewed by me in its entirety. I confirm that the note above accurately reflects all work, treatment, procedures, and medical decision making performed by me. Departure Information Dispostion Being Evaluated By Hospitalist Referrals [facility] (PCP) Patient Instructions My [facility] [address] [facility] Problem Qualifiers Additional Impressions: Dyspnea Dyspnea type: shortness of breath Qualified Codes: R06.02 - Shortness of breath Hypotension Hypotension type: unspecified hypotension type Qualified Codes: I95.9 - Hypotension, unspecified Chronic renal disease Chronic kidney disease stage: unspecified stage Qualified Codes: N18.9 - Chronic kidney disease, unspecified
[2016-08-01 14:38] LABS: BASO % 0.1 %; BASO ABS # 0.01 K/uL (0-0.2); EOS % 0.4 %; HEMATOCRIT 24.7 % (42-52); IG% 0.3 %; LYMPH ABS # 0.82 K/uL (1.2-3.4); MEAN CELL VOLUME 78.4 fL (80-100); MEAN CORPUSCULAR HEMOGLOBIN 25.4 pg (25-34); MEAN CORPUSCULAR HGB CONC 32.4 g/dl (32-36); MEAN PLATELET VOLUME 10.5 fL (7.4-10.4); MONO % 7.5 %; NEUT % 83.7 %; PLATELET COUNT 276 K/uL (130-400); RED BLOOD COUNT 3.15 M/uL (4.7-6.1); WHITE BLOOD COUNT 10.28 K/uL (4.8-10.8)
[2016-08-01] MEDS ORDERED: ASPCH81X PO (14:42)
[2016-08-01] MEDS ORDERED: SODIUM CHLORIDE 0.9% 10ML FLUSH IV ONE (14:46)
[2016-08-01] MEDS ORDERED: DEXTROSE 5% 500 ML BAG IV ONE (14:46)
[2016-08-01] MEDS ORDERED: DEXTROSE 50% 50 ML SYR IV ONE (14:46)
[2016-08-01 14:47] LABS: BUN/CREATININE RATIO 36.8 (10-20); CALCIUM 7.6 mg/dl (8.5-10.1); CREATININE 1.7 mg/dl (0.60-1.40); POTASSIUM 5.6 mmol/L (3.5-5.1)
[2016-08-01 14:52] LABS: ALB/GLOB RATIO 0.3 (0.9-2)
[2016-08-01] MEDS ORDERED: FERR1TAB13 PO (14:53)
[2016-08-01] MEDS ORDERED: NVLG SC (15:01)
[2016-08-01 15:02] LABS: COMPLETE YES; ECHINOCYTES 1+; HYPOCHROMIA PRESENT; TOXIC GRANULATION 1+
--- NOTE | 2016-08-01 15:07 | DIAGNOSTIC IMAGING REPORT ---
CHEST ONE VIEW PORTABLE HISTORY: Short of breath. COMPARISON: Chest 07/28/2016. FINDINGS: Increase in size in the moderate to large right pleural effusion with associated right lung densities suggesting compressive atelectasis. Mild diffuse interstitial thickening remains unchanged. The heart is stable in size. No pneumothorax. IMPRESSION: Increase in size in the moderate to large right pleural effusion. Electronically signed by: Juarez Galvin M.D. 08/01/2016 3:05 PM Dictated Date/Time: 08/01/2016 3:04 PM
[2016-08-01] MEDS ORDERED: ACET-1311 PO (15:11)
[2016-08-01] MEDS ORDERED: ONDA4TAB46 PO (15:17)
[2016-08-01] MEDS ORDERED: SENN1TAB65 PO (15:17)
[2016-08-01] MEDS ORDERED: GLUC0.8I INJ (15:26)
[2016-08-01] MEDS ORDERED: PROTEIN PO (15:28)
[2016-08-01] MEDS ORDERED: PRNJ PO (15:36)
[2016-08-01] MEDS ORDERED: SODIENE PR (15:36)
[2016-08-01] MEDS ORDERED: BISA10SU38 PR (15:36)
[2016-08-01] MEDS ORDERED: MOML PO (15:36)
[2016-08-01 17:03] LABS: URINE APPEARANCE CLOUDY (CLEAR); URINE BILIRUBIN NEG (NEG); URINE COLOR DK YELLOW; URINE NITRITE NEG (NEG); URINE SPECIFIC GRAVITY 1.023 (1.000-1.030); UROBILINOGEN NEG (NEG)
[2016-08-01 17:12] LABS: MANUAL MICROSCOPIC REQUIRED? YES; REVIEW REQ? NO
--- NOTE | 2016-08-01 17:12 | DIAGNOSTIC IMAGING REPORT ---
CT SCAN OF THE BRAIN WITHOUT IV CONTRAST CLINICAL HISTORY: Change in mental status. COMPARISON STUDY: No priors. TECHNIQUE: Unenhanced axial CT scan of the brain is performed from the vertex to the skull base. The patient was scanned twice due to motion artifact. CT DOSE: 1074.96 mGy.cm FINDINGS: Brain parenchyma: There are age-related involutional changes noting mild subcortical and periventricular microangiopathic change. There is no hemorrhage, mass effect, or evidence of acute territorial ischemia by CT criteria. Mineralization is observed in the basal ganglia. Reilly-white matter is preserved. No extra-axial fluid collection is seen. Ventricles, sulci, cisterns: Prominent secondary to involutional change. Intracranial vasculature: There is advanced atherosclerotic calcification of the cavernous carotid and vertebral arteries. Calvarium: Unremarkable. Sinuses and mastoids: The visualized paranasal sinuses are clear. There are small mastoid effusions, left larger than right. Orbits: The bony orbits are grossly intact. The right globe is atrophic and calcified with evidence of previous banding. The left lobe appears intact. There is evidence of a left ocular lens implant retinal calcifications are noted on the left. IMPRESSION: There is no hemorrhage, mass effect, or evidence of acute territorial ischemia by CT criteria. Electronically signed by: Kennedy Mathur M.D. 08/01/2016 5:11 PM Dictated Date/Time: 08/01/2016 5:08 PM
[2016-08-01 17:27] LABS: URINE BACTERIA 4+ (NEG); URINE RBC 0-4 /hpf (0-4); URINE WBC >30 /hpf (0-5)
[2016-08-01] MEDS ORDERED: RIVAROXABAN TAB 15 MG TAB PO SCH (17:45)
[2016-08-01] MEDS ORDERED: ACETAMINOPHEN 325 MG TAB PO PRN (17:45)
[2016-08-01 19:45] VITALS: BP 114/71; PULSE 92; TEMP 36.8; O2SAT 98; BMI 27.5
[2016-08-01 21:40] VITALS: BP 110/57; PULSE 93; O2SAT 98
[2016-08-01] MEDS: LACTOBACILLUS ACIDOPHILUS (FLORANEX) TAB PO SCH (21:45)
[2016-08-01] MEDS: GABAPENTIN 300 MG CAP PO SCH (21:45)
[2016-08-01] MEDS ORDERED: LEVOTHYROXINE SODIUM INJ 100 MCG in SYRINGE 0 ML IV SCH (21:45)
[2016-08-01] MEDS: FLUCONAZOLE / NSS 100 MG in PREMIXED NSS 50 ML IV SCH (21:46)
[2016-08-01] MEDS: CARVEDILOL 25 MG TAB PO SCH (21:46)
[2016-08-01] MEDS: INSULIN ASPART 100 UNITS/ML 3 ML PEN SC SCH (21:49)
[2016-08-01] MEDS: INSULIN GLARGINE SOLOSTAR 100 UNITS/ML 3 ML PEN SC SCH (21:50)
[2016-08-01 23:00] VITALS: BP 127/76; PULSE 84; TEMP 36.9; O2SAT 95
[2016-08-01] MEDS ORDERED: NURSING VERBAL MED ORDER ONE (23:00)
--- NOTE | 2016-08-01 23:14 | HISTORY & PHYSICAL EXAMINATION ---
DATE OF ADMISSION: 08/01/2016 A 65-year-old male admitted with multiple problems including mental status changes with lethargy and large right pleural effusion. 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 He also has a large right pleural effusion. He required thoracentesis in the past and also has a PleurX catheter in place. The patient was hospitalized at [facility] from 06/29/2016 until 07/18/2016 with multiple medical problems including severe cellulitis of his left leg with multiple ulcers. He also had right pleural effusion, and he did require thoracentesis by Dr. Eldridge. A PleurX catheter was placed, and he continued to drain significant amount of fluid from his right pleural space. The patient was transferred to [facility]. He has been there since his discharge. Today, he was noted to be short of breath. Also, his mental status has changed, and he was lethargic. The patient does have chronic anemia, and few days ago, he was brought to the medical treatment unit and did have 1 unit of packed RBCs transfused. The patient was seen in the Emergency Room. He was quite lethargic. Initially, his blood pressure was markedly decreased, but it improved. He does have chronic atrial fibrillation. History of congestive heart failure, both chronic and acute and renal failure, both chronic and acute. The patient was evaluated in the Emergency Room. He was lethargic. It was difficult to obtain any history from him. Initially, his 2 brothers were with him in the Emergency Room. After I saw him, he was admitted for further evaluation and treatment. PAST MEDICAL HISTORY: 1. As noted, he was hospitalized from 06/29/2016 until 07/18/2016 with multiple problems including cellulitis and ulcers of his left leg. 2. Type 2 diabetes mellitus, first diagnosed in 1984. His diabetes has not been controlled for many years. He developed multiple complications. He ended up having amputation above the knee of his right leg. This was done while he was still living in [place]. 3. 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 He had a detached retina and had multiple interventions, and he lost his vision in 2007. 4. Cardiomyopathy. Known ejection fraction between 20% and 25%. 5. Atrial fibrillation. Rate controlled. He is on Xarelto. 6. Right kiurv-utx-wktc amputation on 02/21/2016. Prior to the amputation, he had multiple surgeries and amputations of some of his toes. 7. Peripheral arterial disease. He had prior stenting procedures. 8. Hyperlipidemia. 9. Multiple ulcers of the left lower leg and especially the heel. He has been evaluated and treated for many months in the wound clinic. 10. Severe peripheral arterial disease. SOCIAL HISTORY: He is . He was in a relationship in [place], but his friend who was in her 80s, had to go to a [place] [facility] [place], and he ended up not having anybody where he was. His brothers brought him to the area where they live, and he did live with them on a temporary basis, but unfortunately, his condition has deteriorated and difficult to provide the necessary care at home. He was admitted to [facility] after his last admission. He stopped smoking back in 1984. Also stopped drinking alcohol in . He used to drink and smoke excessively. He is on disability. He worked in the [employer] for 11 years, and after that, he worked for the [employer] for 28 years. FAMILY HISTORY: His mother of cancer, possibly lung or breast. His father of a stroke. He had coronary artery disease and myocardial infarction. He had 3 brothers. One brother , had urinary bladder cancer. One brother has coronary artery disease, type 2 diabetes mellitus, arterial hypertension, had prior bypass surgery. His other brother is diabetic. ALLERGIES: None. MEDICATIONS ON ADMISSION: All as noted on his admission medication list. REVIEW OF SYSTEMS: It is really difficult to obtain any information from the patient himself. He is quite lethargic. He seems to be resting comfortably. He does not seem to be in any distress. PHYSICAL EXAMINATION: GENERAL: Well developed, in no acute distress. Lethargic. His recorded weight is 87 kg, height 177.8 cm, BMI 27.5. VITAL SIGNS: On arrival to the Emergency Room, his blood pressure was 95/50, pulse 88, respirations 22, temperature 37.2, oxygen saturation 88% on room air. Subsequently, he was placed on oxygen at 2 L/ min by nasal cannula, and his oxygen saturation came up to 96%. SKIN: Warm and dry. No rash. Multiple bruises and ecchymotic areas. HEENT: Blindness in the right eye. Markedly decreased vision in the left eye. He has upper dentures. His upper denture keeps falling off because of all the weight loss that he had recently, and his dentures does not fit. Edentulous lower gum. NECK: Supple. No tenderness. No adenopathy, no thyromegaly. No JVD. Normal carotid pulses. No bruit. CHEST: He does have a PleurX catheter on the right side. His chest wall and subcutaneous tissue markedly edematous. HEART: Irregular heart sounds consistent with atrial fibrillation. Distant. LUNGS: Absent breath sounds on the right side. ABDOMEN: Soft. Abdominal wall is quite edematous. No evidence of any organomegaly or masses. Good bowel sounds. BACK: Marked dependent edema in the lower back region. EXTREMITIES: Status post right oxzcr-ckl-nmbv amputation. He does have swelling in his left leg. He has dressing over the ulcers on his left lower leg and foot. NEUROLOGIC: He is lethargic. Very poor response. No evidence of any lateralized deficit. He does have severe neuropathy. LABORATORY TESTS: WBC count 10,280, hemoglobin 8, hematocrit 24.7, platelet count 276,000. Sodium 135, potassium 5.6, chloride 102, CO2 22, BUN 63, creatinine 1.7, glucose 210, calcium 7.6. Total bilirubin 0.6, AST 54, ALT 30, alkaline phosphatase 448. Troponin I 0.030. ProBNP 19,346. Total protein 6.4, albumin 1.5, globulin 5.0. Lipase 89. TSH 7.11, T4 3.6. Imaging studies including CT scan which did not show any acute changes. His chest x-ray showed large right pleural effusion. His urinalysis was abnormal showing evidence of urinary tract infection. Leukocyte esterase were negative. Urine WBC over 30, but he has budding yeast. ASSESSMENT: 1. Mental status changes. 2. Large right pleural effusion. 3. Coronary artery disease. 4. Severe ischemic cardiomyopathy with an ejection fraction between 20% to 25%. 5. Chronic and acute congestive heart failure. 6. Chronic and acute renal failure. 7. Type 2 diabetes mellitus with severe complications. 8. Peripheral arterial disease. 9. Status post right noial-dhp-vkyi amputation. 10. Hypothyroidism. New diagnosis. 11. Atrial fibrillation. 12. Ulcers left leg and left heel. 13. Blindness in the right eye. PLAN: The patient is admitted to medical bed. Resuscitation level 5 as previously established with the patient and his family. All his laboratory tests were ordered. He will be given IV Lasix. His laboratory tests will be closely monitored. Because of the urinary infection which is most likely yeast infection, he was started on IV Diflucan. Also started him on IV levothyroxine. We will give him 3 doses of 100 mcg intravenously starting today, and then we will switch to oral dose. His condition is quite precarious. He has multiple problems, multiple complications. He has a large right pleural effusion in spite of the fact that he has a PleurX catheter. I requested a consultation from Dr. Eldridge to try to see if we can get the PleurX catheter working again. Also, wound care consultation was requested. I did speak with his brother, Luc, to let him know that he is going to be admitted.
[2016-08-02] MEDS: FUROSEMIDE INJ 40 MG in SYRINGE 0 ML IV SCH ×2 (06:07→13:59)
[2016-08-02 07:06] VITALS: BP 121/62; PULSE 98; TEMP 37; O2SAT 99
[2016-08-02 07:31] LABS: BASO % 0.2 %; BASO ABS # 0.02 K/uL (0-0.2); COMPLETE YES; EOS % 2.8 %; IG% 0.3 %; LYMPH % 9.4 %; LYMPH ABS # 1.15 K/uL (1.2-3.4); MEAN CELL VOLUME 78.4 fL (80-100); MEAN CORPUSCULAR HEMOGLOBIN 25.4 pg (25-34); MEAN CORPUSCULAR HGB CONC 32.4 g/dl (32-36); MONO % 6.4 %; NEUT % 80.9 %; PLATELET COUNT 310 K/uL (130-400); WHITE BLOOD COUNT 12.27 K/uL (4.8-10.8)
[2016-08-02 07:47] LABS: BUN/CREATININE RATIO 42.8 (10-20); CREATININE 1.5 mg/dl (0.60-1.40); MAGNESIUM 2.3 mg/dl (1.8-2.4); POTASSIUM 5.8 mmol/L (3.5-5.1)
[2016-08-02 07:50] LABS: ALB/GLOB RATIO 0.3 (0.9-2)
[2016-08-02 08:00] VITALS: O2SAT 99
[2016-08-02] MEDS ORDERED: NURSING VERBAL MED ORDER ONE (08:00)
[2016-08-02] MEDS: INSULIN ASPART 100 UNITS/ML 3 ML PEN SC SCH ×4 (08:00→20:32)
--- NOTE | 2016-08-02 08:08 | DIAGNOSTIC IMAGING REPORT ---
SINGLE VIEW CHEST CLINICAL HISTORY: Pleural effusion. CHF. FINDINGS: An AP, portable, upright chest radiograph is compared to study dated 08/01/2016 and correlated with chest CT dated 06/30/2016. The examination is degraded by portable technique and patient rotation. The heart is enlarged and there is atherosclerotic calcification of the thoracic aorta. The pulmonary vasculature is noncongested. A pleural drain is again seen at the right lung base. There is a moderate right pleural effusion with associated consolidation. This is unchanged from yesterday, and right pleural effusion was also seen on the 06/30/[address] The left lung appears clear. No pneumothorax is seen. The skeletal structures are osteopenic. The bony thorax is grossly intact. IMPRESSION: 1. Cardiomegaly without radiographic evidence of congestive failure. 2. A pleural drain is seen at the right lung base. A moderate right pleural effusion is similar in appearance to yesterday with associated consolidation. This likely represent atelectasis. Clinical correlation will be required. Electronically signed by: Kennedy Mathur M.D. 08/02/2016 8:07 AM Dictated Date/Time: 08/02/2016 8:04 AM
[2016-08-02] MEDS ORDERED: FUROSEMIDE INJ 40 MG in SYRINGE 0 ML IV ONE (09:00)
[2016-08-02] MEDS ORDERED: SODIUM POLYST. SULF SUSP 15G/60ML PO ONE (09:00)
[2016-08-02] MEDS ORDERED: LEVOTHYROXINE SODIUM INJ 100 MCG in SYRINGE 0 ML IV SCH (09:00)
[2016-08-02] MEDS: EUCERIN CR 120 GM JAR EXT SCH ×2 (09:41→20:32)
[2016-08-02] MEDS: ESCITALOPRAM OXALATE 10 MG TAB PO SCH (09:42)
[2016-08-02] MEDS: GABAPENTIN 300 MG CAP PO SCH ×3 (09:42→20:49)
[2016-08-02] MEDS: CEROVITE ADV FORMULA TAB PO SCH (09:42)
[2016-08-02] MEDS: ATORVASTATIN 20 MG TAB PO SCH (09:42)
[2016-08-02] MEDS: LACTOBACILLUS ACIDOPHILUS (FLORANEX) TAB PO SCH ×3 (09:42→20:49)
[2016-08-02] MEDS: TAMSULOSIN HCL 0.4 MG CAP PO SCH (09:42)
[2016-08-02] MEDS: CARVEDILOL 25 MG TAB PO SCH ×2 (09:42→20:49)
[2016-08-02] MEDS: INSULIN GLARGINE SOLOSTAR 100 UNITS/ML 3 ML PEN SC SCH ×2 (09:53→20:35)
[2016-08-02 15:45] VITALS: BP 107/66; PULSE 98; TEMP 37.2; O2SAT 98
--- NOTE | 2016-08-02 16:00 | PROGRESS NOTE ---
DATE: 08/02/2016 SUBJECTIVE: A 65-year-old male admitted with mental status changes. He was markedly dyspneic before his admission, he was at [facility]. He has a large right pleural effusion which has been reoccurring. He has a PleurX catheter in place. The patient with extensive medical history including coronary artery disease, ischemic cardiomyopathy, acute and chronic congestive heart failure, acute on chronic renal failure, chronic anemia, history of GI bleed, multiple diabetic complications, ulcers of the left foot and left heel. He is status post right gthny-zhc-jwut amputation. He has blindness in the right eye. The patient was admitted. All his laboratory tests were ordered. Consultation from Dr. Eldridge was requested to address the issue with the PleurX catheter that he has. His chest x-ray at this time showed increase in the size of the right pleural effusion. This morning, the patient became markedly dyspneic and hypoxic when he had his bowel movement. His condition started to improve after he was situated in bed and his oxygen flow was increased to 5 liters oxygen by nasal cannula. He denied any headache. No dizziness. He had no chest pain. He was dyspneic. No abdominal pain, no nausea, no vomiting. He did have a bowel movement. No problem urinating. Denied any pain in his back or left leg. PHYSICAL EXAMINATION: GENERAL: Well developed in no distress. VITAL SIGNS: Blood pressure 121/62, pulse 98, respirations 18, temperature 37, oxygen saturation 99% on 5 liter oxygen by nasal cannula. SKIN: Warm and dry. Multiple ecchymotic areas. He does have diffuse subcutaneous edema in his chest, abdomen and back and hips and legs. HEENT: Blindness in the right eye. He is edentulous. He has upper denture, but not wearing it this morning. NECK: Supple. No lymph node. No thyroid enlargement. HEART: Irregular heart sounds consistent with atrial fibrillation. LUNGS: Absent breath sounds on the right side. ABDOMEN: Soft, nontender. Markedly edematous. EXTREMITIES: Status post right AKA. Dressing left lower leg and foot. Dependent edema. LABORATORY TESTS: Today WBC count 12,270, hemoglobin 9.4, hematocrit 29, platelet count 310,000. Sodium 135, potassium 5.8, chloride 104, CO2 of 21, BUN 64, creatinine 1.5, glucose 143, calcium 8.0, magnesium 2.3, total bilirubin 0.7, AST 65, ALT 35, alkaline phosphatase 505, total protein 7.2, albumin 1.6, globulin 5.6. ASSESSMENT: 1. Mental status changes. 2. Right pleural effusion, large. 3. Coronary artery disease. 4. Cardiomyopathy. 5. Type 2 diabetes mellitus with multiple complications. 6. Fungal urinary infection. 7. Status post right ioxdw-kwe-leye amputation. 8. Chronic and acute congestive heart failure. 9. Chronic and acute renal failure. PLAN: 1. The patient was given additional IV Lasix. 2. His pleural PleurX catheter was drained of approximately 750 mL. His condition started to improve. 3. He was given 1 dose of Kayexalate. 4. There is a concern obviously about the etiology for his recurrent right pleural effusion. He definitely has cardiomyopathy with markedly decreased ejection fraction and up to this point that is what I am thinking that was the cause of his pleural effusion. I spoke with Dr. Eldridge this morning. He is concerned about the recurrence and amount of fluid. So discussed doing a thoracoscopy next week once he is stable. In the meantime, I discontinued his Xarelto. Put him on subcutaneous heparin. Tentatively, we will plan on thoracoscopy next week. 5. His stool was positive for occult blood. We will need to monitor that and see if his general condition will allow him to tolerate any potential endoscopy. 6. His condition is quite weak. His prognosis is poor because of the multiple problems and multiple comorbidities. Will continue with this current treatment and current plan.
--- NOTE | 2016-08-02 18:37 | SURGICAL CONSULTATION ---
DATE OF CONSULTATION: 08/02/2016 REASON FOR CONSULTATION: Recurrent right pleural effusion with indwelling pleural catheter. HISTORY OF PRESENT ILLNESS: This is a patient who is well known to me. He has been in and out of the hospital with multiple issues. He presented with a change in mental status last night. X-ray showed a large right pleural effusion. We actually just placed Alteplase in his right pleural catheter on 07/30/2016. He drained well after that, but was for drained 300 mL in the Emergency Room last night and we get another 700 mL out today. His oxygen level was quite low, but has improved and his tachypnea has improved. I was asked to evaluate him for this catheter. The fluid is interesting. We see no evidence of infection or malignancy; however, there were some atypical cells noted on his last pleural fluid. We have not drained this as well as I would have liked, we have used tissue plasminogen activator multiple times. Dr. Whitney and I had a discussion about this at the bedside today. He is better after we drained him this morning, but I am concerned about him. PAST MEDICAL HISTORY: 1. Recurrent right pleural effusion. 2. Cardiomyopathy. 3. Atrial fibrillation. 4. Peripheral vascular disease. 5. Multiple chronic leg ulcers. 6. Diabetes mellitus. 7. Recurrent cellulitis and ulcers of left leg. 8. He also has a history of cigarette smoking. He also has a history of drinking. He quit both of these many years ago. PAST SURGICAL HISTORY: 1. Right tiutx-mmo-lhfv amputation. 2. Percutaneous transluminal angioplasty. 3. Blindness in the right eye. 4. Insertion of right PleurX catheter. MEDICATIONS: Multiple, please see chart. ALLERGIES: No known drug allergies. SOCIAL HISTORY: The patient lives at [facility]. 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 He quit drinking and smoking in 1984. FAMILY MEDICAL HISTORY: The patient has no children. Father of cerebrovascular accident and coronary artery disease. He has a brother with coronary artery disease. Mother of cancer, unknown reasons. He has 2 brothers with diabetes and another brother from bladder cancer. REVIEW OF SYSTEMS: The patient was "okay" at [facility] till last few days when he had a change in mental status. His weight changes rather dramatically depending on his fluid status. He had no nausea or diarrhea, but he does have some nonhealing wound, which are followed by the wound clinic here. He does have severe pain in his right leg. He is blind in his right eye from a detached retina and diabetic changes. He does not have pain in his left foot due to his neuropathy. He has had no new visual or auditory changes. He does have orthopnea. He does not really of course have exertional dyspnea. PHYSICAL EXAMINATION: GENERAL: An elderly appearing male. HEENT: Left eye has intact EOMI'S. His right eye is retracted, I cannot really see the pupil. He has no nasolabial flattening. He is edentulous with no oral mucosal lesions. Tongue is midline. NECK: Supple with no lymphadenopathy, neck vein distention or carotid bruits. LUNGS: Markedly decreased breath sounds on the right. His PleurX site is clean. He has no wheezing. HEART: He has an irregular, irregular rhythm of his heart. ABDOMEN: Obese, but soft. Has an umbilical hernia that is easy to reduce. EXTREMITIES: On evaluation, had difficulty feeling his right femoral pulse, but left is palpable. I palpate nothing below this, but his foot is warm and well perfused. He has dressings in place. His right eekrp-pqz-uyml amputation stump was well healed. He does have some edema with lipodermatosclerosis in his left lower leg. NEUROLOGIC: He is awake, alert and answering questions. No obvious focal deficits other than the fact that his right eye is blind and he has peripheral neuropathy. DATA: I reviewed his x-ray and he has got a very large right pleural effusion. ASSESSMENT AND PLAN: Better after drainage, but at this point I have discussed taking him to the operating room for a diagnostic and therapeutic thoracoscopy. I discussed this with Dr. Whitney who will get this set up for this week. ANALY
[2016-08-02 20:30] VITALS: BP 122/74; PULSE 99; O2SAT 98
[2016-08-02] MEDS: FLUCONAZOLE / NSS 100 MG in PREMIXED NSS 50 ML IV SCH (20:32)
[2016-08-02] MEDS: HEPARIN SOD 5000 UNIT/0.5 ML CARP SQ SCH (20:34)
[2016-08-02 22:48] VITALS: BP 127/74; PULSE 92; TEMP 36.8; O2SAT 98
[2016-08-03 00:25] VITALS: O2SAT 99
[2016-08-03 06:23] LABS: BASO % 0.2 %; BASO ABS # 0.02 K/uL (0-0.2); EOS % 1.6 %; HEMATOCRIT 26.4 % (42-52); IG% 0.3 %; LYMPH % 8.6 %; LYMPH ABS # 0.92 K/uL (1.2-3.4); MEAN CELL VOLUME 77.4 fL (80-100); MEAN CORPUSCULAR HEMOGLOBIN 25.2 pg (25-34); MEAN CORPUSCULAR HGB CONC 32.6 g/dl (32-36); MONO % 6.9 %; NEUT % 82.4 %; PLATELET COUNT 290 K/uL (130-400); RED BLOOD COUNT 3.41 M/uL (4.7-6.1); WHITE BLOOD COUNT 10.76 K/uL (4.8-10.8)
[2016-08-03] MEDS: FUROSEMIDE INJ 40 MG in SYRINGE 0 ML IV SCH ×2 (06:32→13:46)
[2016-08-03 06:58] LABS: BUN/CREATININE RATIO 48.4 (10-20); CALCIUM 7.5 mg/dl (8.5-10.1); CREATININE 1.2 mg/dl (0.60-1.40); MAGNESIUM 2.1 mg/dl (1.8-2.4)
[2016-08-03 07:06] LABS: COMPLETE YES; HYPOCHROMIA PRESENT; POIKILOCYTOSIS PRESENT
[2016-08-03 07:17] LABS: ALB/GLOB RATIO 0.3 (0.9-2)
[2016-08-03 07:25] VITALS: BP 128/80; PULSE 98; TEMP 36.9; O2SAT 96
--- NOTE | 2016-08-03 07:47 | DIAGNOSTIC IMAGING REPORT ---
CHEST ONE VIEW PORTABLE CLINICAL HISTORY: Congestive heart failure. Right pleural effusion. COMPARISON STUDY: Chest radiograph August 02, 2016. FINDINGS: A right basilar pleural catheter is in place. There is no pneumothorax. A moderate to large right pleural effusion is noted. This may have slightly decreased in size. There is asymmetric right hemithorax opacification. There is mild left basilar opacity. Cardiomegaly is unchanged. There is pulmonary vascular congestion without overt pulmonary edema. IMPRESSION: 1. Moderate to large right pleural effusion with suspected slight decrease in size since prior exam. Right pleural catheter in place. No pneumothorax. 2. No change in asymmetric right hemithorax opacification with diminished lung aeration. 3. No evidence for overt pulmonary edema. Electronically signed by: Shaji Cornejo M.D. 08/03/2016 7:45 AM Dictated Date/Time: 08/03/2016 7:44 AM
[2016-08-03] MEDS: CEROVITE ADV FORMULA TAB PO SCH (08:55)
[2016-08-03] MEDS: LACTOBACILLUS ACIDOPHILUS (FLORANEX) TAB PO SCH ×3 (08:55→20:42)
[2016-08-03] MEDS: CARVEDILOL 25 MG TAB PO SCH ×2 (08:55→20:42)
[2016-08-03] MEDS: ESCITALOPRAM OXALATE 10 MG TAB PO SCH (08:56)
[2016-08-03] MEDS: ATORVASTATIN 20 MG TAB PO SCH (08:56)
[2016-08-03] MEDS: TAMSULOSIN HCL 0.4 MG CAP PO SCH (08:56)
[2016-08-03] MEDS: GABAPENTIN 300 MG CAP PO SCH ×3 (08:56→20:42)
[2016-08-03] MEDS: EUCERIN CR 120 GM JAR EXT SCH ×2 (08:59→20:39)
[2016-08-03] MEDS: INSULIN ASPART 100 UNITS/ML 3 ML PEN SC SCH ×4 (09:04→21:00)
[2016-08-03] MEDS: INSULIN GLARGINE SOLOSTAR 100 UNITS/ML 3 ML PEN SC SCH ×2 (09:20→21:31)
[2016-08-03] MEDS: HEPARIN SOD 5000 UNIT/0.5 ML CARP SQ SCH ×2 (09:20→21:30)
--- NOTE | 2016-08-03 10:52 | CARDIOLOGY CONSULTATION ---
DATE OF CONSULTATION: 08/03/2016 TIME: 09:15 a.m. CONSULTING PHYSICIAN: Kd Whitney MD REASON FOR CONSULTATION: CAD, cardiomyopathy and upcoming thoracoscopy. HISTORY OF PRESENT ILLNESS: Mr. Zapien is a pleasant 65-year-old gentleman who follows in the cardiology outpatient clinic for cardiomyopathy, systolic CHF, and atrial flutter/fibrillation. He also has peripheral arterial disease, hypertension, dyslipidemia and insulin-dependent diabetes with nephropathy and retinopathy. He was diagnosed with cardiomyopathy in 2016 as well as atrial fibrillation. He has not undergone cardiac catheterization. 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 He presented first to [facility] on 04/26/2016 with possible septic shock from pneumonia and left foot ulcer and infection. His creatinine was 2.1 with a BUN of 78 and was felt to be hypervolemic during that hospitalization. Since then, he has been treated as an outpatient with escalating doses of diuretics and also with attempts to optimize his medical therapy for cardiomyopathy. He has declined cardiac catheterization. He was last seen in the office on 06/22/2016. His next appointment is scheduled for 08/06/2016. He was admitted to [facility] on 08/01/2016 with mental status changes, lethargy, and large right pleural effusion. He states that he has been more short of breath than usual. He states that happened all of a sudden without much warning. He states that his breathing has improved since admission, but not yet normal. He admits to some orthopnea, but denies chest pain, syncope, near syncope, palpitations or bleeding such as melena, hematochezia or hematuria. However, he was found to have heme positive stools while hospitalized and hemoglobin is low at 8. He admits that his lower extremity edema has worsened. He has been evaluated by Dr. Eldridge of thoracic surgery during this hospital stay. Dr. Eldridge plans to perform diagnostic and therapeutic thoracoscopy later this week. Upon presentation, he was also found to have an acute renal insufficiency and hyperkalemia. Lisinopril has been discontinued by Dr. Whitney. He remains on diuretics. REVIEW OF SYSTEMS: As above. He also denies fevers or chills. Review of systems is otherwise negative. PAST MEDICAL HISTORY: 1. Systolic CHF. 2. Cardiomyopathy with uncertain etiology. He has declined cardiac catheterization. 3. Peripheral arterial disease, follows with Dr. Murry. This includes heavily calcified and noncompressible radial arteries, which interferes with blood pressure monitoring. 4. Dyslipidemia. 5. Left lower extremity arterial stent placement. 6. 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 7. Atrial fibrillation/flutter. 8. Hypertension. 9. Insulin-dependent diabetes. 10. Nephropathy. 11. Retinopathy. 12. Anemia. 13. Esophageal reflux. 14. Pneumonia. 15. Neuropathy. 16. Protein malnutrition. HOME MEDICATIONS: Include, 1. Lasix 80 mg in the morning and 40 mg in the afternoon. 2. Carvedilol 12.5 mg twice daily. 3. Lisinopril 20 mg daily. 4. Aspirin 81 mg daily. 5. Lipitor 80 mg daily. 6. Xarelto 20 mg daily. 7. Protonix 40 mg daily. INPATIENT MEDICATIONS: Include carvedilol 25 mg twice daily, atorvastatin 80 mg daily, Lasix 40 mg IV b.i.d., fluconazole 100 mg IV daily, and levothyroxine 100 mcg daily. ALLERGIES: No known drug allergies. SOCIAL HISTORY: Quit smoking in 1984 after approximately 80 pack years. No alcohol. . No children. Lives with his brothers, Noé and Kraig. 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 He is currently alone in his hospital room. FAMILY HISTORY: Father at the age of 67 with myocardial infarction. PHYSICAL EXAMINATION: VITAL SIGNS: Temperature 36.9 degrees, heart rate 98 beats per minute, respiratory rate 18, blood pressure 128/80 mmHg, and oxygen saturation 96% on 2 liters per nasal cannula. I's and O's negative 510 mL yesterday. Weight is pending. GENERAL: In no acute distress. He is alert and oriented. HEENT: Anicteric sclerae. NECK: Elevated JVD. No bruits. Normal carotid upstrokes bilaterally. CARDIAC EXAMINATION: PMI was nonpalpable. There was no ventricular heave. Irregularly irregular. Normal S1 and S2. There were no murmurs, rubs or gallops auscultated. LUNGS: Decreased breath sounds throughout the right. No rales, wheezes or rhonchi. ABDOMEN: Soft, nontender, and nondistended. Normoactive bowel sounds. No bruits noted. 1+ body wall edema noted in the abdomen. EXTREMITIES: Very faint bilateral radial pulses. Distal left lower extremity pulses not palpable. Right AKA. 2+ tense pitting edema in the dependent areas, bilateral lower extremities, including the right lower extremity stump. No cyanosis. GENITOURINARY: Scrotal edema noted. PSYCHIATRIC: Affect appears appropriate. LABORATORY DATA: Sodium 139, potassium 4, BUN 58 down from 64, and creatinine 1.2 down from 1.7 on presentation. Albumin 1.4. Magnesium 2.1. AST 72 and ALT 32. TSH 7.11. White blood cell count 10.76, hemoglobin 8.6, and platelets 290. Stool Hemoccult positive. ECG on 08/01/2016 at 1500, atrial fibrillation. Right bundle branch block. Anterolateral ST/T wave abnormality. The anterolateral ST/T wave abnormality was present on 05/01/2016 as an outpatient, but is currently more pronounced. Chest x-ray on 08/03/2016 personally reviewed. Large right pleural effusion. Small left pleural effusion. Radiology has interpreted this as moderate to large right pleural effusion with suspected slight decrease in size since prior exam. Right pleural catheter in place. No pneumothorax. No change in asymmetric right hemithorax opacification with diminished lung aeration. No evidence of overt pulmonary edema. Most recent echo on 07/03/2016, interpreted by Dr. Brady. Severely reduced LV systolic function. Severe global hypokinesis. EF 20%-25%. Mild MR. [id number] TR. Blood cultures 1/2 is growing gram positive cocci. Urine culture negative. ASSESSMENT AND PLAN: 1. Chronic systolic congestive heart failure: He appears hypervolemic. He has significant edema and also has JVD. He also has profound hypoalbuminemia, which can account for some of his edema. Agree with diuretics. His renal function is improving. He would aim for a goal of at least 1 liter negative from a fluid balance per day. Can increase diuretics as necessary. Continue current regimen for now. Low sodium diet. Check daily weights and strict I's and O's recommended. 2. Cardiomyopathy: Etiology has not been defined. TSH, ferritin, LEVON levels have been done. The SPEP and UPEP have been ordered as an outpatient and notable for unremarkable UPEP other than glomerular proteinuria. The SPEP demonstrated a restricted band (M-spike) migrating in the gamma globulin region. Consider immunofixation analysis as per lab. This will be ordered. He has declined cardiac catheterization. He has peripheral arterial disease and therefore multivessel ischemic heart disease is certainly a possibility. Continue carvedilol 25 mg twice daily. Lisinopril has been discontinued due to renal insufficiency and recurrent hyperkalemia. May not be able to restart LEVON inhibitor in the future. Can consider ICD in the future pending further workup in regards to his pleural effusion, if the patient is willing to have an ICD in the future since his LV systolic function has not significantly improved. There is no urgent indication and would not pursue this currently with his other ongoing comorbidities. This can be further discussed in the future. Medical therapy as per the patient wishes. 3. Peripheral arterial disease: Blood pressure measurement is difficult due to heavily calcified noncompressible radial arteries. Continue carvedilol. 4. Dyslipidemia: Continue high intensity statin therapy, but monitor transaminase levels closely as AST is elevated. 5. Hypertension: Blood pressure is difficult to obtain due to radial arteries as noted. Continue carvedilol. 6. Atrial fibrillation/flutter: Continue beta-sukhwinder. Xarelto has been discontinued for upcoming procedure. He is currently on subQ heparin as he is heme positive. He has heme positive stools and had a hemoglobin of 8 upon presentation. Recommend further evaluation if appropriate pending pleural effusion evaluation. Anticoagulation is warranted for stroke risk reduction; however, in the midst of an active bleed and significant anemia, pooling off for now. 7. Hyperkalemia: He has had hyperkalemia in the past, which did improve with increased Lasix dose; however, with titration of lisinopril, he has once again developed hyperkalemia and renal insufficiency. May need to continue to hold or altogether discontinue LEVON inhibitor or ARB. 8. Disposition: Cardiology will continue to follow. Would continue diuresis as above. He certainly is at elevated risk for any procedure given his cardiomyopathy and likelihood of multivessel coronary artery disease; however, he has declined invasive evaluation and has difficulty breathing with his pleural effusion at its current state. We will continue to medically manage. Case has also been discussed with Dr. Eldridge of the thoracic surgery team, who plans on performing the procedure later this week. Continue beta-sukhwinder therapy in the perioperative period. Highly complex medical issues.
--- NOTE | 2016-08-03 11:55 | Clinical Documentation Query ---
Dr. ADDY LEBLANC [facility] : CLINICAL DOCUMENTATION QUERIES QUERY 1 OF 3 Patient is a 65 year old male admitted for evaluation and treatment of a large right pleural effusion. Documentation includes "Chronic and acute congestive heart failure" and "ischemic cardiomyopathy with ejection fraction between 20% to 25%". A professional resource economist cannot assume the relationship of these two statements. As appropriate, please clarify as below. Thank you. In your clinical opinion is this patient being managed for: ( x ) Acute on chronic systolic congestive heart failure in the setting of CAD and ischemic cardiomyopathy ( ) Other explanation of clinical findings (Please Explain) ( ) Unable to determine (Please Define) ( ) Need to Discuss ( ) Not Agree The medical record reflects the following clinical findings, treatment, and risk factors. Clinical Indicators: As above Treatment: IV Lasix, thoracic surgery consultation, PleurX catheter Risk Factors: Age, CAD, DM, former smoker, ischemic cardiomyopathy QUERY 2 OF 3 Documentation includes "chronic renal failure". This necessarily assigns a code for an unspecified disorder of the kidney. Estimated GFR range from 04/26/16 to present of about 50's-80's ml's/min when not experiencing an acute kidney injury. He is being monitored with serial chemistries. In your clinical opinion is this patient being managed for: (x ) Chronic kidney disease, stage 2-3 ( ) Other explanation of clinical findings (Please Explain) ( ) Unable to determine (Please Define) ( ) Need to Discuss ( ) Not Agree The medical record reflects the following clinical findings, treatment, and risk factors. Clinical Indicators: As above Treatment:He is being monitored with serial chemistries. Risk Factors: Age, CAD, chronic systolic CHF, DM, hypertension QUERY 3 OF 3 H&P documentation includes: "Multiple ulcers of the left lower leg and especially the heel. He has been evaluated and treated for many months in the wound clinic". Wound clinic notes by Dr. Gonzalez (07/30/16) included "Stage II pressure ulcer, left heel". If you agree with this statement, consider explicit documentation thereof as this is a potential HAC. In your clinical opinion is this patient being managed for: ( x ) Pressure ulcer of left heel, stage 2, POA ( ) Other explanation of clinical findings (Please Explain) ( ) Unable to determine (Please Define) ( ) Need to Discuss ( ) Not Agree The medical record reflects the following clinical findings, treatment, and risk factors. Clinical Indicators: As above Treatment: WOCN consultation Risk Factors: Age, DM, PAD, limited mobility Please clarify and document your clinical opinion in the progress notes and discharge summary. Terms such as "probable", "suspected", "likely", "questionable", "possible", or "still to be ruled out" are acceptable. IF IN AGREEMENT, YOU MUST DOCUMENT ABOVE DIAGNOSTIC STATEMENT IN DAILY PROGRESS NOTES AND DISCHARGE SUMMARY. This document is not part of the patient's record. Thank You, Roel Horton, ROBINA [phone]
[2016-08-03] MEDS: HYDROCODONE/ACETAMOPHEN 5/325MG TAB PO PRN (12:55)
[2016-08-03 15:55] VITALS: BP 145/79; PULSE 94; TEMP 36.4; O2SAT 97
[2016-08-03] MEDS: FLUCONAZOLE / NSS 100 MG in PREMIXED NSS 50 ML IV SCH (20:35)
[2016-08-03] MEDS: METRONIDAZOLE 500 MG TAB PO SCH (21:32)
--- NOTE | 2016-08-03 22:20 | PROGRESS NOTE ---
DATE: 08/03/2016 A 63-year-old male admitted with mental status changes. He has recurrent large right pleural effusion, coronary artery disease, ischemic cardiomyopathy, atrial fibrillation, type 2 diabetes mellitus with multiple complications, history of right xurqh-czt-edsx amputation, and also ulcers of his left lower leg and foot. The patient has chronic anemia. He does have evidence of GI bleed. He does have a PleurX catheter in place. It has been drained. Unfortunately, his pleural effusion continues to occur, which is causing his respiratory difficulty. The patient was seen by Dr. Eldridge. The plan at this time is to proceed with thoracoscopy during the course of this week. The patient is resting comfortably. No headache. No dizziness. No chest pain, no shortness of breath. No abdominal pain, no nausea, no vomiting. He had multiple bowel movements this morning. No urinary problem. No pain in his back or extremities. PHYSICAL EXAMINATION: GENERAL: Well developed, in no distress. VITAL SIGNS: Blood pressure 128/80, pulse 98, respiration 18, temperature 36.9, oxygen saturation 96% on 2 liter oxygen by nasal cannula. SKIN: Warm and dry. No rash. HEENT: Blindness in the right eye. Upper dentures. NECK: No adenopathy. No JVD. HEART: Irregular heart sounds consistent with atrial fibrillation. LUNGS: Absent breath sounds on the right side. ABDOMEN: Soft, nontender. BACK: No spinal tenderness. EXTREMITIES: Status post right cucgr-lqe-btye amputation. He does have a dressing on his left lower leg and left foot. He does have a heel ulcer. GENITALIA: He does have evidence of edema of the scrotum and the penis. TODAY'S LABORATORY TESTS: WBC count 10,760, hemoglobin 8.6, hematocrit 26.4, platelet count 290,000. Sodium 139, potassium 4.0, chloride 104, CO2 of 25, BUN 58, creatinine 1.2, glucose 136, calcium 7.5, magnesium 2.1, total bilirubin 0.6, AST 72, ALT 32, alkaline phosphatase 455, total protein 6.2, albumin 1.4. One blood culture is growing gram-positive cocci. Identification is pending. ASSESSMENT: 1. Mental status changes. 2. Large right pleural effusion. 3. Coronary artery disease. 4. Ischemic cardiomyopathy. 5. Type 2 diabetes mellitus with multiple complications. 6. Status post right sixoi-gce-ursf amputation. 7. Ulcers, left lower leg. 8. Urinary tract infection with evidence of yeast. 9. One positive blood culture, identification is pending. PLAN: 1. The patient was seen in cardiology consultation by Dr. Boyer in anticipation of his thoracoscopy during the course of this week. 2. I discontinued his Xarelto yesterday. 3. Continuing all his medications. 4. Additional Lasix as needed. 5. Continuing to monitor his laboratory tests. 6. His appetite remains very poor. His albumin level is 1.4. Very poor nutritional status. 7. We will proceed with thoracoscopy as scheduled. Continue diuresis. His mental status has improved.
[2016-08-03 23:29] VITALS: BP 146/81; PULSE 91; TEMP 36.9; O2SAT 98
[2016-08-04] MEDS: HYDROCODONE/ACETAMOPHEN 5/325MG TAB PO PRN ×3 (00:22→14:07)
[2016-08-04] MEDS: LEVOTHYROXINE 100 MCG TAB PO SCH (06:24)
[2016-08-04] MEDS: FUROSEMIDE INJ 40 MG in SYRINGE 0 ML IV SCH ×2 (06:24→14:07)
[2016-08-04 06:27] LABS: BASO % 0.1 %; BASO ABS # 0.01 K/uL (0-0.2); COMPLETE YES; EOS % 3.9 %; HEMATOCRIT 29.3 % (42-52); IG% 0.3 %; LYMPH % 12.8 %; LYMPH ABS # 1.49 K/uL (1.2-3.4); MEAN CELL VOLUME 77.5 fL (80-100); MEAN CORPUSCULAR HEMOGLOBIN 25.4 pg (25-34); MEAN CORPUSCULAR HGB CONC 32.8 g/dl (32-36); MEAN PLATELET VOLUME 10.2 fL (7.4-10.4); MONO % 8.3 %; NEUT % 74.6 %; PLATELET COUNT 355 K/uL (130-400); RED BLOOD COUNT 3.78 M/uL (4.7-6.1); WHITE BLOOD COUNT 11.66 K/uL (4.8-10.8)
[2016-08-04] MEDS ORDERED: LIDOCAINE HCL 2% JELLY 30 ML TUBE EXT ONE (06:50)
[2016-08-04 06:57] LABS: BUN/CREATININE RATIO 51.5 (10-20); CALCIUM 7.8 mg/dl (8.5-10.1); MAGNESIUM 2.2 mg/dl (1.8-2.4); POTASSIUM 3.9 mmol/L (3.5-5.1)
[2016-08-04 07:00] LABS: ALB/GLOB RATIO 0.3 (0.9-2)
[2016-08-04] MEDS ORDERED: LIDOCAINE HCL 2% JELLY 30 ML TUBE EXT PRN (07:00)
--- NOTE | 2016-08-04 07:28 | DIAGNOSTIC IMAGING REPORT ---
CHEST ONE VIEW PORTABLE CLINICAL HISTORY: CHF, RIGHT PLEURAL EFFUSION COMPARISON STUDY: Chest radiograph August 04, 2015. FINDINGS: A right pleural catheter remains in place. A moderate to large right pleural effusion is unchanged. Asymmetric right hemithorax opacification is noted with left basilar opacity. This is unchanged. There is pulmonary vascular congestion without overt pulmonary edema. There is no pneumothorax. IMPRESSION: 1. No significant change in a moderate to large right pleural effusion with right pleural catheter in place. 2. Stable left basilar opacity which could reflect atelectasis or consolidation. Electronically signed by: Shaji Cornejo M.D. 08/04/2016 7:27 AM Dictated Date/Time: 08/04/2016 7:14 AM
[2016-08-04 08:09] VITALS: BP 125/71; PULSE 79; TEMP 36.8; O2SAT 97
[2016-08-04 08:36] VITALS: PULSE 73
[2016-08-04] MEDS ORDERED: VANCOMYCIN CONSULT ACTIVE PRN (09:15)
[2016-08-04] MEDS ORDERED: VANCOMYCIN INJ 2,000 MG in SODIUM CHLORIDE 0.9% 500ML 500 ML IV SCH (10:00)
--- NOTE | 2016-08-04 10:12 | Pharmacy Progress Note ---
Pharmacy Abx Initial Consult Date of Service Aug 04, 2016. Pharmacy Dosing Scope Date of Consult: 08/04/16 Consultation requested by: Dr. Zaid Almaraz Pharmacy is consulted to initiate Vancomycin IV dosing therapy, order appropriate labs and adjust drug dose/frequency. Subjective The patient is a 65 year old male admitted on Aug 01, 2016 at 17:52 w/ mental status changes. Objective Height (Feet): 5 Height (Inches): 10.00 Weight (Kilograms): 83.300 Vital Signs (Past 12Hrs) Vital Signs Past 12 Hours Date Time Temp Pulse Resp B/P (MAP) Pulse Ox O2 Delivery O2 Flow Rate FiO2 08/04/16 08:36 73 08/04/16 08:09 36.8 79 20 125/71 (89) 97 Nasal Cannula 2.0 08/03/16 23:29 36.9 91 16 146/81 (102) 98 Nasal Cannula 2.0 Lab Results (24Hrs) Test 08/03/16 17:08 08/03/16 21:10 08/04/16 06:18 Bedside Glucose 138 mg/dl (70-99) 140 mg/dl (70-99) White Blood Count 11.66 K/uL (4.8-10.8) Red Blood Count 3.78 M/uL (4.7-6.1) Hemoglobin 9.6 g/dL (14.0-18.0) Hematocrit 29.3 % (42-52) Mean Corpuscular Volume 77.5 fL (80-100) Mean Corpuscular Hemoglobin 25.4 pg (25-34) Mean Corpuscular Hemoglobin Concent 32.8 g/dl (32-36) Platelet Count 355 K/uL (130-400) Mean Platelet Volume 10.2 fL (7.4-10.4) Neutrophils (%) (Auto) 74.6 % Lymphocytes (%) (Auto) 12.8 % Monocytes (%) (Auto) 8.3 % Eosinophils (%) (Auto) 3.9 % Basophils (%) (Auto) 0.1 % Neutrophils # (Auto) 8.69 K/uL (1.4-6.5) Lymphocytes # (Auto) 1.49 K/uL (1.2-3.4) Monocytes # (Auto) 0.97 K/uL (0.11-0.59) Eosinophils # (Auto) 0.46 K/uL (0-0.5) Basophils # (Auto) 0.01 K/uL (0-0.2) RDW Standard Deviation 54.0 fL (36.4-46.3) RDW Coefficient of Variation 19.1 % (11.5-14.5) Immature Granulocyte % (Auto) 0.3 % Immature Granulocyte # (Auto) 0.04 K/uL (0.00-0.02) Sodium Level 138 mmol/L (136-145) Potassium Level 3.9 mmol/L (3.5-5.1) Chloride Level 105 mmol/L (98-107) Carbon Dioxide Level 27 mmol/L (21-32) Anion Gap 6.0 mmol/L (3-11) Blood Urea Nitrogen 52 mg/dl (7-18) Creatinine 1.00 mg/dl (0.60-1.40) Est Creatinine Clear Calc Drug Dose 74.0 ml/min Estimated GFR () 89.9 Estimated GFR (Non- 77.5 BUN/Creatinine Ratio 51.5 (10-20) Random Glucose 50 mg/dl (70-99) Calcium Level 7.8 mg/dl (8.5-10.1) Magnesium Level 2.2 mg/dl (1.8-2.4) Total Bilirubin 0.5 mg/dl (0.2-1) Aspartate Amino Transf (AST/SGOT) 63 U/L (15-37) Alanine Aminotransferase (ALT/SGPT) 31 U/L (12-78) Alkaline Phosphatase 465 U/L (45-117) Total Protein 6.8 gm/dl (6.4-8.2) Albumin 1.4 gm/dl (3.4-5.0) Globulin 5.4 gm/dl (2.5-4.0) Albumin/Globulin Ratio 0.3 (0.9-2) Micro Results Date/Time Source Procedure Growth Status 08/01/16 14:10 Blood Blood Culture - Final Staphylococcus Aureus Complete 08/01/16 14:05 Blood Blood Culture - Preliminary NO GROWTH TO DATE. Resulted 08/03/16 12:45 Stool C.difficile Toxin B Gene (PCR) - Final Positive for C. difficile toxin B gene Complete 08/01/16 16:38 Urine,Catheterized Urine Culture - Preliminary Yeast Not Olivia Albicans Resulted Risk Factors for Resistance * Resident in a fpc or extended-care facility (recently d/c'd from hospital in June to [facility]) * Hospitalization for 48 hours or more within the past 90 days (June 29-) * Antimicrobial use within the last 90 days: Vancomycin, Zosyn, Daptomycin/June 2016 Assessment & Plan Assessment * 65 year old male admitted with altered mental status, found to have Cdiff, yeast UTI and now 1/2 positive blood cultures for MRSA. * Dr. Whitney is treating above infections with Flagyl PO, Fluconazole IV and has decided to add Vancomycin this AM. * We have recent admission data with patient on Vancomycin. If his renal function declines, looks as though a q16hr regimen would be a good place to start. If renal function remains Scr ~1.0 mg/dL- I would prefer to treat more aggressively with q12hr regimen. Plan Vancomycin IV for treatment of 1/2 + blood cultures for MRSA. Vancomycin IV * Loading dose: 2000 mg (25 mg/kg) * Maintenance dose: 1250 mg IV (15 mg/kg) every 12 hours * Goal trough level for bacteremia: 15 to 20 mcg/mL * Trough level ordered for 08/06/16 prior to the 1000 dose. Patient remains on Fluconazole 100 mg IV daily and Flagyl 500 mg PO TID. (not pharmacy consults) Pharmacy will continue to follow and will adjust dose/frequency as necessary. Thank you.
[2016-08-04] MEDS: CARVEDILOL 25 MG TAB PO SCH ×2 (10:37→21:38)
[2016-08-04] MEDS: EUCERIN CR 120 GM JAR EXT SCH ×2 (10:37→21:40)
[2016-08-04] MEDS: ATORVASTATIN 20 MG TAB PO SCH (10:37)
[2016-08-04] MEDS: METRONIDAZOLE 500 MG TAB PO SCH ×3 (10:37→21:37)
[2016-08-04] MEDS: LACTOBACILLUS ACIDOPHILUS (FLORANEX) TAB PO SCH ×3 (10:38→21:38)
[2016-08-04] MEDS: GABAPENTIN 300 MG CAP PO SCH ×3 (10:38→21:37)
[2016-08-04] MEDS: ESCITALOPRAM OXALATE 10 MG TAB PO SCH (10:38)
[2016-08-04] MEDS: CEROVITE ADV FORMULA TAB PO SCH (10:38)
[2016-08-04] MEDS: TAMSULOSIN HCL 0.4 MG CAP PO SCH (10:40)
[2016-08-04] MEDS: INSULIN ASPART 100 UNITS/ML 3 ML PEN SC SCH ×4 (10:51→21:00)
[2016-08-04] MEDS: INSULIN GLARGINE SOLOSTAR 100 UNITS/ML 3 ML PEN SC SCH ×2 (10:52→21:00)
[2016-08-04 10:53] VITALS: O2SAT 97
[2016-08-04] MEDS: HEPARIN SOD 5000 UNIT/0.5 ML CARP SQ SCH ×2 (10:53→21:34)
--- NOTE | 2016-08-04 10:58 | SURGERY PROGRESS NOTE ---
DATE: 08/03/2016 Mr. Zapien was seen today. His x-ray was a bit better but he still has loculated fluid in the right. We have done numerous trials of tPA and Pulmozyme. He has not responded to this. I am going to take him to the operating room on 08/05/2016 and perform a right thoracoscopy, evacuation of the contents with pleural biopsies. I may also do a talc pleurodesis. I believe Mr. Zapien may well be suffering from a malignant process even though we have not diagnosed that as of yet. There were some atypical cells in his last pleural fluid. I discussed this in detail and he is agreeable. I also discussed this with Dr. Whitney on 08/02/2016. ANALY
[2016-08-04 12:04] VITALS: BP 124/73; PULSE 69; TEMP 37.2; O2SAT 97
[2016-08-04] MEDS ORDERED: FUROSEMIDE INJ 40 MG in SYRINGE 0 ML IV SCH (12:30)
--- NOTE | 2016-08-04 13:15 | CARDIOLOGY PROGRESS NOTE ---
DATE: 08/04/2016 TIME: 11:56 a.m. SUBJECTIVE: Mr. Zapien was seen earlier today at approximately 8:30 a.m. He states that his breathing is no better. He has orthopnea. He denies chest pain, syncope, near syncope, palpitations. He believes that his edema has not changed significantly. He denies any bleeding. OBJECTIVE: VITAL SIGNS: Temperature 36.8 degrees, heart rate 79 beats per minute, respiration rate 20, blood pressure 125/71 mmHg. Oxygen saturation is 97% on 2 liters per nasal cannula. I's and O's negative 295 mL yesterday. Weight is 83.3 kg. GENERAL: In no acute distress. Alert. NECK: No significant JVD appreciated today. CARDIAC EXAM: No ventricular heave, irregularly irregular, normal S1, S2. No audible murmurs, rubs or gallops. LUNGS: Decreased breath sounds throughout the right, otherwise clear. ABDOMEN: Soft, nontender, nondistended. Normoactive bowel sounds. 1+ body wall edema in the flanks. EXTREMITIES: Very faint bilateral radial pulses. Distal left lower extremity pulses not palpable. Right AKA. 2+ tense pitting edema in the dependent areas in the bilateral lower extremities, including the right lower extremity stump. No cyanosis. PSYCHIATRIC: Affect appears appropriate. MEDICATIONS: Include atorvastatin 80 mg daily, carvedilol 25 mg p.o. b.i.d., fluconazole 100 mg IV daily, Lasix 40 mg IV b.i.d., heparin 5000 units subQ q. 12 hours, vancomycin. LABORATORY DATA: Urine culture, yeast. Blood culture 1 of 2 growing Staph aureus resistant to oxacillin, C. diff positive. Sodium 138, potassium 3.9, BUN 52, down from 58 and creatinine 1. AST 63 down from 72, ALT 31, albumin 1.4. White blood cell count 11.66, hemoglobin 9.6, platelets 355. Chest x-ray report reviewed from today. No significant change in moderate to large right pleural effusion with right pleural catheter in place. Stable left basilar opacity which could reflect atelectasis or consolidation per radiology. Chart reviewed. ASSESSMENT AND PLAN: 1. Chronic systolic congestive heart failure: He still appears hypervolemic. Continue diuretic. We will give an additional 40 mg of IV Lasix today on top of his b.i.d. dosing. He is also significantly hypoalbuminemic, which can account for significant edema as well. Would try to keep his fluid balance around 1 liter negative if possible. Monitor renal function closely. Low sodium diet, daily weights and strict I's and O's recommended. 2. Cardiomyopathy: Etiology has not been completely identified. Serum immunofixation is pending. Other secondary workup has been unremarkable. He has declined ischemic evaluation despite having peripheral arterial disease. Continue carvedilol 25 mg twice daily. Lisinopril discontinued due to renal insufficiency and recurrent hyperkalemia. Can consider implantable cardioverter-defibrillator in the future if no significant improvement over time and if it would still be indicated and applicable depending on his other comorbidities. Continue medical therapy as per the patient wishes. 3. Hypertension: Continue current regimen. Blood pressure has been mostly normotensive. 4. Atrial fibrillation/flutter: Continue beta-sukhwinder. Xarelto on hold due to upcoming procedure. He was also found to have heme-positive stools. Long-term anticoagulation will have to be determined following his procedure taking into account his other comorbidities. 5. Dyslipidemia: Can continue high intensity statin therapy. Monitor for myopathy/myalgias while on fluconazole. 6. Infectious disease: 1 of 2 positive blood cultures as well as Clostridium difficile noted. This is being managed by Dr. Whitney of the primary service. 7. Disposition: Cardiology will continue to follow along.
[2016-08-04 14:19] VITALS: Ht 177.8 cm; Wt 86.0 kg
[2016-08-04 16:00] VITALS: BP 125/72; PULSE 88; TEMP 36.5; O2SAT 98
--- NOTE | 2016-08-04 17:22 | Progress Note ---
Progress Note Date of Service Aug 04, 2016. Progress Note Mr. Zapien is a 65 year old who has a large right pleural effusion and is scheduled for a thoracoscopy with evacuation of the pleural effusion and a pleural biopsy.His multiple co-morbidities include cardiomyopathy with an EF of 20-25%, etiology unknown. He does not have an AICD. He has chronic systolic CHF and has been aggressively diuresed. His room air 02 sat is now 98%. 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 His other medical problems are hypertension, atrial fib/flutter. his xarelto has been on hold.He has coronary artery disease, DM II chronic anemia, chronic kidney disease with a history of acute renal failure, peripheral arterial disease and positive blood cultures for C.dif. He is obviously an ASA 4 but he needs his surgery and is probably in as good of condition as he is going to be pre-operatively.
[2016-08-04] MEDS: FLUCONAZOLE / NSS 100 MG in PREMIXED NSS 50 ML IV SCH (20:18)
[2016-08-04] MEDS: VANCOMYCIN INJ 1,250 MG in SODIUM CHLORIDE 0.9% 250ML 250 ML IV SCH (21:43)
--- NOTE | 2016-08-04 22:39 | PROGRESS NOTE ---
DATE: 08/04/2016 A 65-year-old male, admitted with multiple medical problems includin. Mental status changes. 2. Large right pleural effusion. 3. Coronary artery disease. 4. Severe ischemic cardiomyopathy. 5. Chronic and acute congestive heart failure, systolic. 6. Chronic and acute renal failure. 7. Peripheral arterial disease. 8. Atrial fibrillation. 9. Hypothyroidism, new diagnosis. 10. Ulcers, left lower leg and heel. 11. Multiple diabetic complications. The patient was admitted. All his laboratory tests were ordered. Cultures were done. He had a fungal urinary tract infection. He was started on IV Diflucan. The patient was seen in consultation by Dr. Eldridge. He does have a PleurX catheter in place. It continues to drain large amount of fluid. His blood cultures were done. One blood culture grew Staphylococcus, which was identified today as methicillin resistant. He was having diarrhea. His stool tested positive for Clostridium difficile. Last night, he was found to be in urinary retention and a Padilla catheter was placed. His condition continues to deteriorate. Multiple problems and comorbidities. Dr. Eldridge recommended doing a thoracoscopy to try to determine if there is any other reason other than his congestive heart failure and cardiomyopathy that is promoting the formation of his right pleural effusion. Mostly concerned about any malignancy. He is scheduled to undergo thoracoscopy tomorrow. The patient is lethargic at times. He is resting. He has very poor appetite. He denied any chest pain. No shortness of breath. No nausea, no vomiting. He has had multiple bowel movements. He has a Padilla catheter in place. He denied any back pain. He denied any pain in his extremities. He is markedly edematous. The patient was seen in cardiology consultation by Dr. Boyer in preparation for his anticipated surgical procedure. PHYSICAL EXAMINATION: GENERAL: Well-developed, in no distress. Lethargic. VITAL SIGNS: Blood pressure 125/71, pulse 79, respirations 20, temperature 36.8 and oxygen saturation 97% on two liters oxygen by nasal cannula. SKIN: Warm and dry. No rash. HEENT: Blindness in the right eye. Has upper dentures. NECK: No adenopathy, no thyromegaly. No JVD. HEART: Irregular heart sounds consistent with atrial fibrillation. LUNGS: Absent breath sounds on the right side. ABDOMEN: Soft and nontender. EXTREMITIES: Status post right AKA. Dressing on left lower leg and foot. TODAY'S LABORATORY TESTS: WBC count 11,660, hemoglobin 9.7, hematocrit 29.3 and platelet count 355,000. Sodium 138, potassium 3.9, chloride 105, CO2 27, BUN 52, creatinine 1.0, glucose 50, calcium 7.8 and magnesium 2.2. AST 63, ALT 31, alkaline phosphatase 465, total protein 6.8 and albumin 1.4. ASSESSMENT: 1. Mental status changes. 2. Staphylococcus bacteremia, methicillin resistant. 3. Large right pleural effusion. 4. Left lower leg ulcers. 5. Coronary artery disease. 6. Acute and chronic systolic congestive heart failure. 7. Cardiomyopathy. 8. Atrial fibrillation. 9. Large right pleural effusion. 10. Hypothyroidism. 11. Urinary retention. 12. PleurX catheter in place. PLAN: 1. Discontinued Lantus insulin today. 2. Adjust insulin coverage. 3. His appetite remains very poor. 4. Continue diuresis with IV Lasix. 5. Anticipating thoracoscopy tomorrow. 6. His medical condition is quite precarious. Multiple risk factors, multiple comorbidities. High surgical risk. 7. I did speak with his brother Kraig this evening just to let him know about the anticipated procedure tomorrow and updated his condition. 8. Earlier today, he was started on IV vancomycin. He is currently on metronidazole orally for his Clostridium difficile infection. He is on IV Diflucan for his urinary yeast infection. [facility] HOSPITALAlejandro
[2016-08-04 23:28] VITALS: BP 114/69; PULSE 85; TEMP 36.5; O2SAT 97
[2016-08-05] MEDS ORDERED: DEXTROSE 50% 50 ML SYR ONE (05:49)
[2016-08-05 06:02] LABS: BASO % 0.2 %; BASO ABS # 0.02 K/uL (0-0.2); HEMATOCRIT 26.9 % (42-52); IG% 0.3 %; LYMPH % 8.6 %; LYMPH ABS # 1.09 K/uL (1.2-3.4); MEAN CELL VOLUME 77.7 fL (80-100); MEAN CORPUSCULAR HEMOGLOBIN 25.7 pg (25-34); MEAN CORPUSCULAR HGB CONC 33.1 g/dl (32-36); MEAN PLATELET VOLUME 10.2 fL (7.4-10.4); NEUT % 80.9 %; PLATELET COUNT 300 K/uL (130-400); RED BLOOD COUNT 3.46 M/uL (4.7-6.1); WHITE BLOOD COUNT 12.64 K/uL (4.8-10.8)
[2016-08-05] MEDS ORDERED: INSULIN ASPART 100 UNITS/ML 3 ML PEN SC SCH ×2 (06:15→12:00)
[2016-08-05] MEDS ORDERED: NURSING VERBAL MED ORDER ONE (06:15)
--- NOTE | 2016-08-05 06:19 | Progress Note ---
Progress Note Date of Service Aug 05, 2016. Progress Note Responded to code purple @ 5:45 AM Pt was unresponsive - Glu POC 24 - provided with D50 He slowly regained mentation - his baseline is unclear He was able to move all extrems but appears excessively somnolent - facial asymmetry is present but may be chronic His primary MD was notified and is managing his inpatient care We have advised on a head CT if he does not fully recover within the next several minutes Repeat POC was 224
[2016-08-05 06:23] LABS: BUN/CREATININE RATIO 42.9 (10-20); CALCIUM 7.3 mg/dl (8.5-10.1); CREATININE 1.1 mg/dl (0.60-1.40); MAGNESIUM 2.1 mg/dl (1.8-2.4); POTASSIUM 3.7 mmol/L (3.5-5.1)
[2016-08-05 06:26] LABS: ALB/GLOB RATIO 0.2 (0.9-2)
[2016-08-05] MEDS: LEVOTHYROXINE 100 MCG TAB PO SCH (06:26)
[2016-08-05] MEDS: FUROSEMIDE INJ 40 MG in SYRINGE 0 ML IV SCH ×3 (06:26→21:07)
--- NOTE | 2016-08-05 06:31 | DIAGNOSTIC IMAGING REPORT ---
CT HEAD WITHOUT CONTRAST (CT) CLINICAL HISTORY: Unresponsive patient. Right facial droop. Possible stroke. COMPARISON STUDY: 6017 TECHNIQUE: Axial CT of the brain is performed from the vertex to the skull base. IV contrast was not administered for this examination. CT DOSE: 537.48 mGy.cm FINDINGS: No intra or extra-axial mass lesions are visualized. There is no CT evidence of acute cortical infarction. There is no evidence of midline shift. There is no acute hemorrhage. No calvarial fractures are visualized. There are minor white matter hypodensities likely on a small vessel basis. There is no evidence of pathologic ventricular dilatation. There is no evidence of acute sinusitis. 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 IMPRESSION: No acute intracranial findings Electronically signed by: Adolfo Sims M.D. 08/05/2016 6:29 AM Dictated Date/Time: 08/05/2016 6:28 AM
[2016-08-05 06:49] LABS: COMPLETE YES
[2016-08-05] MEDS: HYDROCODONE/ACETAMOPHEN 5/325MG TAB PO PRN ×3 (07:35→22:00)
--- NOTE | 2016-08-05 07:35 | PROGRESS NOTE ---
DATE: 08/05/2016 SUBJECTIVE: A 65-year-old male with multiple medical problems as previously noted. The patient was scheduled to be taken to the operating room this morning for a thoracoscopy. He has large right pleural effusion which is recurrent. He has severe coronary artery disease with ischemic cardiomyopathy and acute and chronic congestive heart failure, acute and chronic renal failure, type 2 diabetes mellitus with multiple complications, cellulitis of the left lower leg with ulcers. One blood culture grew methicillin-resistant Staphylococcus. His stool showed evidence of Clostridium difficile infection. This morning, the patient was found unresponsive. His blood sugar was 25. He has not received any insulin since yesterday morning. He was given 50% dextrose solution. He started to recover slowly. I did order a CT scan of the head without contrast, which did not show any significant abnormality. I saw the patient and he is back to his baseline status, he is responsive. He is complaining of feeling thirsty. He does not have any pain or any discomfort. He is on oxygen by nasal cannula. In view of his condition, this morning his surgery is canceled. I had a discussion with his 2 brothers Noé and Kraig and given his comorbidities, multiple medical problems and the deterioration of his condition, the decision at this time is to make sure that he stays comfortable. Will bypass any interventions. Even when he is ready to go back to [facility], the plan is to keep him at [facility] as comfortable as possible without having to transfer him back for any acute care. ANALY
[2016-08-05] MEDS: GABAPENTIN 300 MG CAP PO SCH ×3 (07:36→21:06)
[2016-08-05] MEDS: CARVEDILOL 25 MG TAB PO SCH ×2 (07:36→21:07)
[2016-08-05] MEDS: LACTOBACILLUS ACIDOPHILUS (FLORANEX) TAB PO SCH ×3 (07:36→21:06)
[2016-08-05 07:54] VITALS: BP 127/76; PULSE 82; TEMP 37.2; O2SAT 99
[2016-08-05 08:19] LABS: ANISOCYTOSIS PRESENT
[2016-08-05 08:26] VITALS: O2SAT 99
--- NOTE | 2016-08-05 09:07 | SURGERY PROGRESS NOTE ---
DATE: 08/05/2016 DATE: 08/05/2016. Mr. Zapien was seen today on 08/05/2016. I had him scheduled for right thoracoscopy with evacuation of this pleural fluid; however, he became unresponsive and was found to be hypoglycemic. Dr. Whitney and I have cancelled this case. We will see how he does over the next day or so and perhaps put him on the schedule later this week.
[2016-08-05] MEDS ORDERED: NURSING DECISION MEDICATION ORDER SCH (09:30)
[2016-08-05] MEDS ORDERED: GLUCAGON FOR INJ 1 MG VIAL SQ PRN (09:45)
[2016-08-05] MEDS ORDERED: GLUCOSE 40% GEL 15 GM TUBE PO PRN (09:45)
[2016-08-05] MEDS ORDERED: GLUCOSE 10 TABS/TUBE PO PRN (09:45)
[2016-08-05] MEDS ORDERED: DEXTROSE 50% 50 ML SYR IV PRN (09:45)
[2016-08-05] MEDS: ESCITALOPRAM OXALATE 10 MG TAB PO SCH (10:12)
[2016-08-05] MEDS: ATORVASTATIN 20 MG TAB PO SCH (10:12)
[2016-08-05] MEDS: METRONIDAZOLE 500 MG TAB PO SCH ×3 (10:12→21:06)
[2016-08-05] MEDS: VANCOMYCIN INJ 1,250 MG in SODIUM CHLORIDE 0.9% 250ML 250 ML IV SCH ×2 (10:12→21:59)
[2016-08-05] MEDS: CEROVITE ADV FORMULA TAB PO SCH (10:13)
[2016-08-05] MEDS: TAMSULOSIN HCL 0.4 MG CAP PO SCH (10:14)
[2016-08-05] MEDS: HEPARIN SOD 5000 UNIT/0.5 ML CARP SQ SCH ×2 (10:25→21:12)
[2016-08-05] MEDS: EUCERIN CR 120 GM JAR EXT SCH ×2 (11:00→21:06)
[2016-08-05 12:18] VITALS: BP 129/75; PULSE 72; TEMP 36.9; O2SAT 98
--- NOTE | 2016-08-05 14:23 | CARDIOLOGY PROGRESS NOTE ---
DATE: 08/05/2016 TIME: 13:26 p.m. SUBJECTIVE: Mr. Zapien was seen earlier today at approximately 8:45 a.m. He was awake; however, chart was reviewed and it noted that he was unresponsive earlier that day and had hypoglycemia. It appears as though comfort measures have been discussed with Dr. Whitney. He denies any shortness of breath, chest pain, palpitations, bleeding or other complaints at this time. He is somnolent and would fall asleep quickly without verbal stimuli. OBJECTIVE: VITAL SIGNS: Temperature 36.9 degrees, heart rate 72 beats per minute, respiration rate 16, blood pressure 129/75 mmHg, oxygen saturation 98% on 3 liters per nasal cannula. I's and O's yesterday negative 722 mL. Weight 82.1 kilograms. GENERAL: No acute distress. He is alert but somnolent as noted. NECK: No appreciable JVD. CARDIAC EXAM: No ventricular heave, irregularly irregular, normal S1, S2. No audible murmurs, rubs or gallops. LUNGS: Decreased breath sounds at the right, otherwise clear. ABDOMEN: Soft, nontender, nondistended, normoactive bowel sounds. 1+ body wall edema in the flanks. EXTREMITIES: 1-2+ pitting edema in the dependent areas. No cyanosis. PSYCHIATRIC: Affect appears appropriate. MEDICATIONS: Include atorvastatin 80 mg daily, carvedilol 25 mg twice daily, Lasix 40 mg IV b.i.d., heparin 5000 units subQ q. 12 hours, vancomycin, fluconazole. LABORATORY DATA: White blood cell count 12.6, hemoglobin 8.9, platelets 300. Sodium 139, potassium 3.7, BUN 47 down from 52, creatinine 1.1, albumin 1.2, AST 49 down from 63. Head CT report reviewed from 08/05/2016, no acute intracranial findings as per radiology. ASSESSMENT AND PLAN: 1. Chronic systolic congestive heart failure: He still appears hypervolemic, but does appear to be improving somewhat. Continue diuresis. Will add an additional Lasix 40 mg IV as we did yesterday. This may help with his breathing going forward, which would help with comfort. 2. Cardiomyopathy: He has declined ischemic evaluation. Immunofixation has been ordered and is unremarkable. Can continue carvedilol as tolerated. Lisinopril discontinued due to renal insufficiency and recurrent hyperkalemia. 3. Hypertension: Blood pressure acceptable. No changes recommended. 4. Pleural effusion: As per thoracic surgery with Dr. Eldridge and also primary care physician, Dr. Whitnye. 5. Atrial fibrillation/flutter: He is well rate controlled. Continue beta-sukhwinder. If he is truly comfort measures upon discharge, would not likely restart anticoagulation given the fact that he presented with anemia and heme-positive stools. If overall plan changes, then could consider further evaluation as far as gastrointestinal bleeding is concerned and the safety of systemic anticoagulation. 6. Dyslipidemia: Continue high intensity statin therapy; however, if comfort measures are continued such as a hospice type situation, could discontinue statin therapy to reduce polypharmacy as there would not likely be a long-term benefit at that time. 7. Infectious disease: He is being treated for positive blood cultures and also Clostridium difficile as per Dr. Whitney. 8. Disposition: Cardiology will continue to follow.
[2016-08-05 15:40] VITALS: BP 111/69; PULSE 92; TEMP 36.5; O2SAT 98
[2016-08-05] MEDS: FLUCONAZOLE / NSS 100 MG in PREMIXED NSS 50 ML IV SCH (20:05)
[2016-08-05] MEDS ORDERED: DEXTROSE 5% 1000ML 1,000 ML IV SCH (20:30)
[2016-08-05 22:53] VITALS: BP 144/82; PULSE 97; TEMP 36.8; O2SAT 98
[2016-08-05 22:55] VITALS: BP 131/79; PULSE 93
[2016-08-06] MEDS: LEVOTHYROXINE 100 MCG TAB PO SCH (05:51)
[2016-08-06 06:46] LABS: BASO % 0.1 %; BASO ABS # 0.02 K/uL (0-0.2); EOS % 2.1 %; HEMATOCRIT 27.9 % (42-52); IG% 0.3 %; LYMPH % 8.9 %; LYMPH ABS # 1.34 K/uL (1.2-3.4); MEAN CELL VOLUME 76.4 fL (80-100); MEAN CORPUSCULAR HEMOGLOBIN 23.8 pg (25-34); MEAN CORPUSCULAR HGB CONC 31.2 g/dl (32-36); MEAN PLATELET VOLUME 9.9 fL (7.4-10.4); MONO % 6.5 %; NEUT % 82.1 %; PLATELET COUNT 343 K/uL (130-400); RED BLOOD COUNT 3.65 M/uL (4.7-6.1); WHITE BLOOD COUNT 15.12 K/uL (4.8-10.8)
[2016-08-06 07:14] LABS: CALCIUM 7.5 mg/dl (8.5-10.1)
[2016-08-06 07:16] LABS: BUN/CREATININE RATIO 39.8 (10-20); CREATININE 1.2 mg/dl (0.60-1.40); MAGNESIUM 1.9 mg/dl (1.8-2.4); POTASSIUM 4.2 mmol/L (3.5-5.1)
[2016-08-06 07:19] LABS: ALB/GLOB RATIO 0.2 (0.9-2)
[2016-08-06 07:31] VITALS: BP 136/67; PULSE 84; TEMP 37; O2SAT 98
[2016-08-06 07:39] LABS: ANISOCYTOSIS PRESENT; COMPLETE YES
[2016-08-06 07:53] VITALS: O2SAT 99
[2016-08-06] MEDS ORDERED: FUROSEMIDE INJ 60 MG in SYRINGE 0 ML IV SCH (08:30)
[2016-08-06] MEDS: ESCITALOPRAM OXALATE 10 MG TAB PO SCH (08:37)
[2016-08-06] MEDS: TAMSULOSIN HCL 0.4 MG CAP PO SCH (08:37)
[2016-08-06] MEDS: GABAPENTIN 300 MG CAP PO SCH ×3 (08:38→20:36)
[2016-08-06] MEDS: LACTOBACILLUS ACIDOPHILUS (FLORANEX) TAB PO SCH ×3 (08:38→20:35)
[2016-08-06] MEDS: CEROVITE ADV FORMULA TAB PO SCH (08:39)
[2016-08-06] MEDS: METRONIDAZOLE 500 MG TAB PO SCH ×3 (08:39→20:36)
[2016-08-06] MEDS: EUCERIN CR 120 GM JAR EXT SCH ×2 (08:41→20:35)
[2016-08-06] MEDS: CARVEDILOL 25 MG TAB PO SCH ×2 (08:42→20:37)
[2016-08-06] MEDS: HEPARIN SOD 5000 UNIT/0.5 ML CARP SQ SCH ×2 (08:49→21:08)
--- NOTE | 2016-08-06 08:57 | SURGERY PROGRESS NOTE ---
DATE: 08/06/2016 Mr. Zapien was seen today. I had a long discussion with Dr. Boyer, Dr. Whitney, and the patient. We are going to hold off offering him any type of intervention. He is a high-risk patient, I discussed this case with anesthesia about his high-risk nature. He does not want anything done at this point. Dr. Whitney had a meeting with the patient's 2 brothers and we have elected to give him comfort measures only. As we are not draining very much from the pleural catheter, we are going to remove this as it has not really worked well for him at this point.
--- NOTE | 2016-08-06 09:09 | CARDIOLOGY PROGRESS NOTE ---
DATE: 08/06/2016 TIME: 08:40 a.m. SUBJECTIVE: Mr. Zapien states that his breathing is 50/50. Because of shortness of breath, he says that he sometimes has to speak in shorter sentences. He denies pain. He denies angina. No reported palpitations or syncope. According to nursing records, he declined afternoon medications as well as fluid in the afternoon. OBJECTIVE: VITAL SIGNS: Temperature is 37 degrees, heart rate 84 beats per minute, respiratory rate 14, blood pressure 136/67 mmHg, and oxygen saturation 98% on 3 liters per nasal cannula. I's and O's positive 515 mL yesterday. Weight is 84.3 kilograms today. GENERAL: In no acute distress. He is awake and more conversant than yesterday. NECK: No appreciable JVD. CARDIAC EXAM: No ventricular heave, irregularly irregular, normal S1 and S2. There were no audible murmurs, rubs or gallops. LUNGS: Decreased breath sounds on the right, otherwise clear. ABDOMEN: Soft, nontender, and nondistended. There is 1+ body wall edema in the flanks. EXTREMITIES: 2+ pitting edema in the dependent areas in the left lower extremity as well as the right lower extremity stump. No cyanosis. PSYCHIATRIC: Affect appears appropriate. MEDICATIONS: Include carvedilol 25 mg twice daily, fluconazole 100 mg IV daily, Lasix 60 mg IV b.i.d., heparin 5000 units subQ q. 12 hours, and vancomycin IV. LABORATORY DATA: Sodium 135, potassium 4.2, BUN 48, and creatinine 1.2. Albumin 1.2. WBC 15.1, hemoglobin 8.7, and platelets 343. Chart reviewed. ASSESSMENT AND PLAN: 1. Chronic systolic congestive heart failure: He still appears hypervolemic. Dr. Whitney has suggested Lasix 60 mg twice daily. We will add IV Diuril. Monitor renal function closely. Hopefully, with improved diuresis, his breathing will improve somewhat. 2. Cardiomyopathy: He has declined ischemic evaluation. Other secondary workup has been unremarkable. Can continue carvedilol as tolerated. Lisinopril discontinued due to renal insufficiency and recurrent hyperkalemia. 3. Hypertension: Blood pressure is acceptable. Adjusting diuretic as above. 4. Pleural effusion: Surgery has been canceled for now. He is at high risk from a cardiac perspective and overall has several other comorbidities. There have been plans for more of a comfort measure approach. When discussing this with Mr. Zapien today, he states that he would prefer to not undergo surgical intervention and would prefer medications only at this time. He asked if medications would be successful and we discussed the fact that it is not clear that either approach would be overly successful on improving his overall outcome as he does have several comorbidities and overall poor prognosis. 5. Atrial fibrillation/flutter: His rate is adequately controlled. Continue beta sukhwinder to help control heart rate as significant tachycardia may cause symptoms and also worsened heart failure. 6. Infectious disease: He has positive blood cultures and also Clostridium difficile. Treatment as per Dr. Whitney. 7. Disposition: The patient's care has been discussed with Dr. Eldridge of thoracic surgery team as he was present at the bedside.
[2016-08-06] MEDS ORDERED: VANCOMYCIN TROUGH SCH (09:30)
[2016-08-06] MEDS ORDERED: CHLOROTHIAZIDE INJ 250 MG in DEXTROSE 5% 50ML 50 ML IV ONE (09:30)
--- NOTE | 2016-08-06 10:50 | OPERATIVE REPORT ---
DATE OF OPERATION: 08/06/2016 PROCEDURE: Removal of right PleurX catheter. SURGEON: Dr. Eldridge. FORMING MACHINE TENDER: SHMUEL Vazquez ANESTHESIA: Local. DESCRIPTION OF PROCEDURE: At the patient's bedside, he was turned slightly to the right. His right PleurX site was cleaned with alcohol and injected with 1% Xylocaine without epinephrine. After the suture had been cut we were able to dissect out the cuff and remove the tube without difficulty. The patient tolerated it well. Antimicrobial occlusive dressings were placed. Chest x-ray is pending. I attest to the content of the Intraoperative Record and any orders documented therein. Any exception s are noted below.
[2016-08-06 12:04] VITALS: BP 132/64; PULSE 81; TEMP 36.9; O2SAT 99
--- NOTE | 2016-08-06 12:41 | Progress Note ---
Progress Note Date of Service Aug 06, 2016. Progress Note Pleurex catheter removed without difficulty. Sterile dressing applied.
--- NOTE | 2016-08-06 13:13 | Pharmacy Progress Note ---
Pharmacy Abx Dose Short Note Date of Service Aug 06, 2016. Assessment & Plan Assessment 65 year old male receiving vancomycin for treatment of MRSA in 1 of 2 blood cultures Day # 3 of antimicrobial therapy. Also receiving Diflucan for yeast in urine and Flagyl for + C. diff SCr slowly increasing since admission 1 -> 1.1 -> 1.2 Plan Vancomycin * Trough level of 32.6 mcg/mL is supratherapeutic * Place vancomycin on hold at this time - did not receive 10 am dose today * With significantly elevated trough level and SCr increasing, do not want to re -dose until safe to do so * At this point, estimating that level will be therapeutic ~17 hrs after trough drawn this AM but SCr may still be increasing * Obtain random vancomycin level and repeat SCr at 2000 to assess when patient can be re-dosed Pharmacy will continue to follow and will adjust dose/frequency as necessary. Thank you.
[2016-08-06] MEDS: FUROSEMIDE INJ 60 MG in SYRINGE 0 ML IV SCH (14:12)
[2016-08-06 14:55] VITALS: BP 121/78; PULSE 91; TEMP 37; O2SAT 97
[2016-08-06] MEDS: HYDROCODONE/ACETAMOPHEN 5/325MG TAB PO PRN (17:17)
[2016-08-06] MEDS: BOOST GLUCOSE CONTROL PO SCH (17:49)
[2016-08-06 20:15] VITALS: BP 128/66; PULSE 84; TEMP 37; O2SAT 96
[2016-08-06] MEDS: FLUCONAZOLE / NSS 100 MG in PREMIXED NSS 50 ML IV SCH (20:35)
[2016-08-06 20:41] LABS: CREATININE 1.3 mg/dl (0.60-1.40)
[2016-08-06 22:49] VITALS: BP 120/72; PULSE 83; TEMP 37; O2SAT 98
--- NOTE | 2016-08-06 23:25 | PROGRESS NOTE ---
DATE: 08/06/2016 A 65-year-old male admitted with mental status changes. He has a large pleural effusion. Severe coronary artery disease with ischemic cardiomyopathy. Acute and chronic congestive heart failure. Acute and chronic renal failure. Severe peripheral arterial disease, atrial fibrillation, new diagnosis of hypothyroidism, multiple diabetic complications. The patient has a PleurX catheter in place. The patient was diuresed with IV Lasix. He was seen by Dr. Eldridge. He does have a PleurX catheter in place. Overall, his condition has been deteriorating. Given his multiple medical problems, he was markedly edematous. He has a recurrent large right pleural effusion. Most of the times, he remains lethargic. He is arousable. He denied any headache or dizziness. No chest pain, no shortness of breath. No abdominal pain, no nausea, no vomiting. He has had multiple bowel movements. He tested positive for Clostridium difficile colitis. His pain is under control. The pain is in his back and extremities on the left side. He also has had phantom pain on the right side. He is status post [id number] amputation. PHYSICAL EXAMINATION: GENERAL: Well developed, in no acute distress. VITAL SIGNS: Blood pressure 136/67, pulse 84, respiration 14, temperature 37, oxygen saturation 98% on 3 liters oxygen by nasal cannula. SKIN: Warm and dry. No rash. HEENT: Blindness, right eye. He does have upper dentures. NECK: No JVD. No adenopathy. HEART: Irregular heart sounds. LUNGS: Absent breath sounds on the right side. ABDOMEN: Soft, nontender. EXTREMITIES: Markedly edematous. GENITALIA: He does have a Padilla catheter in place. Edema of the scrotum and the penis. TODAY'S LABORATORY TESTS: WBC count 15,120; hemoglobin 8.7, hematocrit 37.9, platelet count 343,000. Sodium 135, potassium 4.2, chloride 102, CO2 25, BUN 48, creatinine 1.2, glucose 164, calcium 7.5, magnesium 1.9, total bilirubin 0.3, AST 37, ALT 23, alkaline phosphatase 347, total protein 6.3, albumin 1.2. ASSESSMENT: 1. Mental status changes. 2. Large right pleural effusion. 3. Systolic congestive heart failure. Acute and chronic. 4. Coronary artery disease. 5. Ischemic cardiomyopathy. 6. Type 2 diabetes mellitus with multiple complications. 7. Urinary retention. 8. Bacteremia with methicillin-resistant Staphylococcus. PLAN: 1. As noted, with his condition deteriorating, the plan at this time is to hold off on any surgical intervention. 2. I did speak with Dr. Eldridge today. 3. His pleural PleurX catheter was removed. 4. Continuing his other medications. 5. The plan is for him to go back to [facility] once stable and continue to provide comfort care.
[2016-08-07] MEDS: LEVOTHYROXINE 100 MCG TAB PO SCH (05:45)
[2016-08-07] MEDS: FUROSEMIDE INJ 60 MG in SYRINGE 0 ML IV SCH ×2 (06:22→14:28)
[2016-08-07 07:17] VITALS: BP 147/81; PULSE 85; TEMP 36.7; O2SAT 92
--- NOTE | 2016-08-07 08:04 | DIAGNOSTIC IMAGING REPORT ---
CHEST ONE VIEW PORTABLE CLINICAL HISTORY: Effusion. COMPARISON STUDY: Chest radiograph August 04, 2016. FINDINGS: No pneumothorax is identified. The right pleural catheter shown on prior exam is not visualized on this exam. A moderate to large right pleural effusion is unchanged. Diminished aeration of the right lung is unchanged. There is pulmonary vascular congestion without overt pulmonary edema. Cardiomegaly is unchanged. There is mild right hemithorax volume loss. IMPRESSION: No significant change in a moderate to large right pleural effusion with diminished aeration of the right lung and right hemithorax volume loss. Right pleural catheter no longer visualized. Electronically signed by: Shaji Cornejo M.D. 08/07/2016 8:02 AM Dictated Date/Time: 08/07/2016 7:57 AM
[2016-08-07 08:15] VITALS: O2SAT 92
[2016-08-07] MEDS: EUCERIN CR 120 GM JAR EXT SCH ×2 (09:41→21:19)
[2016-08-07] MEDS: GABAPENTIN 300 MG CAP PO SCH ×3 (09:43→21:32)
[2016-08-07] MEDS: METRONIDAZOLE 500 MG TAB PO SCH ×3 (09:43→21:32)
[2016-08-07] MEDS: ESCITALOPRAM OXALATE 10 MG TAB PO SCH (09:43)
[2016-08-07] MEDS: LACTOBACILLUS ACIDOPHILUS (FLORANEX) TAB PO SCH ×3 (09:44→21:32)
[2016-08-07] MEDS: TAMSULOSIN HCL 0.4 MG CAP PO SCH (09:44)
[2016-08-07] MEDS: CARVEDILOL 25 MG TAB PO SCH ×2 (09:44→21:31)
[2016-08-07] MEDS: CEROVITE ADV FORMULA TAB PO SCH (09:45)
--- NOTE | 2016-08-07 09:45 | CARDIOLOGY PROGRESS NOTE ---
DATE: 08/07/2016 TIME: 09:05 a.m. SUBJECTIVE: Mr. Zapien states that he does not feel well today. In general, he just does not feel that well. He feels like he has some indigestion. He denies angina. He is short of breath. The oxygen supplementation via nasal cannula was not in proper position, but was rather on his forehead. I asked if I could place that in his nose, so that he could receive the benefit of the oxygen and he declined and said that he did not want in his nose any longer and he would put it there when he wants to. He was very pleasant, but stated that tomorrow is his birthday and he just wants to feel better. OBJECTIVE: VITAL SIGNS: Temperature 36.7 degrees, heart rate 85 beats per minute, and blood pressure 147/81 mmHg; however, blood pressure has been otherwise normotensive in the past 24 hours. Respiration rate 17 and oxygen saturation 92% on 3 liters per nasal cannula. I's and O's positive 212 mL yesterday. Today's weight is pending. GENERAL: In no acute distress. He is alert. NECK: No JVD. CARDIAC EXAM: No ventricular heave, irregularly irregular, normal S1 and S2. No audible murmurs, rubs or gallops. LUNGS: Decreased breath sounds on the right, otherwise clear. ABDOMEN: Soft, nontender, and nondistended. Normoactive bowel sounds. 1+ pitting edema in the bilateral flanks. EXTREMITIES: Right AKA noted. 1+ tense pitting edema in the dependent areas of his lower extremities. No cyanosis. PSYCHIATRIC: Affect appears appropriate. MEDICATIONS: Include carvedilol 25 mg p.o. b.i.d., fluconazole 100 mg IV daily, and Lasix 60 mg IV b.i.d. He also received a dose of chlorothiazide yesterday 250 mg IV x1, metronidazole, and vancomycin. Please see full list. LABORATORY DATA: Creatinine is pending for today. Glucose is 132. ASSESSMENT AND PLAN: 1. Chronic systolic congestive heart failure: He has significant edema, but also has profound hypoalbuminemia. He has no JVD and he is not diuresing well. No further adjustments were made to his diuretics at this time as his labs are still pending. He has not improved significantly from a breathing standpoint. It is not entirely clear his intravascular volume at this time. His breathing is also likely related to his significant right pleural effusion as well. Continue current diuretics for now and further adjustments can be made based on renal function. Would try to keep I's and O's on the negative side unless his renal function worsened today. 2. Cardiomyopathy: He has declined ischemic evaluation. Other secondary workup has been unremarkable. Continue carvedilol. No LEVON inhibitor or ARB due to hyperkalemia and renal insufficiency while on lisinopril. 3. Hypertension: Blood pressure is acceptable. No changes made today. 4. Pleural effusion: Surgery has been canceled. PleurX catheter has been removed. Comfort measures have been recommended by Dr. Whitney and he has discussed this with family members. This was also discussed personally with Mr. Zapien yesterday and he wishes to continue with medical therapy only at this time. 5. Atrial fibrillation/flutter: His heart rate has been adequately controlled. Anticoagulation has been held during this hospitalization for planned surgery, which has since been canceled. He also had heme positive stools, however and anemia. If comfort care is continued in the future, would not resume anticoagulation given heme positive stools and anemia with hemoglobins as low as 8 during this hospitalization. 6. Infectious disease: He has been diagnosed with Clostridium difficile and also MRSA bacteremia in 1 out of 2 blood cultures. This is being treated by Dr. Whitney. 7. Disposition: I will be away from the hospital this weekend. If there are any questions or concerns, please do not hesitate to contact the on-call risk officer, Dr. Stallworth for [facility].
[2016-08-07] MEDS: HEPARIN SOD 5000 UNIT/0.5 ML CARP SQ SCH ×2 (09:48→21:24)
--- NOTE | 2016-08-07 09:57 | SURGERY PROGRESS NOTE ---
DATE: 08/07/2016 Mr. Zapien was seen today. He "does not feel well." On 3 liters he is 92%-98% saturations. His x-ray today on 08/07/2016 shows that he has a persistent large right pleural effusion. There is no evidence of a pneumothorax. I have discussed this with Dr. Whitney and as the patient is going to be a comfort measures only we will now follow from a distance.
[2016-08-07] MEDS: BOOST GLUCOSE CONTROL PO SCH ×2 (09:59→17:18)
[2016-08-07 10:56] LABS: CREATININE 1.5 mg/dl (0.60-1.40)
[2016-08-07 15:55] VITALS: BP 117/66; PULSE 87; TEMP 36.5; O2SAT 97
[2016-08-07] MEDS ORDERED: FUROSEMIDE INJ 60 MG in SYRINGE 0 ML IV ONE (20:00)
[2016-08-07] MEDS: FLUCONAZOLE / NSS 100 MG in PREMIXED NSS 50 ML IV SCH (20:08)
[2016-08-07] MEDS: HYDROCODONE/ACETAMOPHEN 5/325MG TAB PO PRN (21:24)
[2016-08-07 22:59] VITALS: BP 127/69; PULSE 83; TEMP 37; O2SAT 96
--- NOTE | 2016-08-08 02:31 | PROGRESS NOTE ---
DATE: 08/07/2016 PROBLEMS: A 65-year-old male with multiple medical problems includin. Mental status changes. 2. Recurrent right large pleural effusion. 3. Coronary artery disease. 4. Ischemic cardiomyopathy. 5. Type 2 diabetes mellitus with multiple complications. 6. General debilitation. 7. History of right oyfty-afe-hbkx amputation. 8. Recent cellulitis of the left lower leg with multiple ulcers. 9. Urinary retention. 10. Diffuse edema. SUBJECTIVE: His condition has been deteriorating. He is feeling weak. Tired. Not eating. He denied any headache. No dizziness. No chest pain, no shortness of breath. No abdominal pain, no nausea, no vomiting. No problem with his bowel movements. He is treated for Clostridium difficile colitis. Denied any back pain. He does have some pain in his left leg and the right stump which is well under control with medications. PHYSICAL EXAMINATION: GENERAL: Well developed, in no acute distress. VITAL SIGNS: Blood pressure 147/81, pulse 85, respirations 17, temperature 36.7, oxygen saturation 92% on 3 liter oxygen by nasal cannula. SKIN: Warm and dry. No rash. HEENT: Blindness in the right eye. Upper dentures. NECK: Supple. Nontender. No lymph node or thyroid enlargement. No JVD. HEART: Irregular heart sounds. Consistent with atrial fibrillation. LUNGS: Absent breath sounds on the right side. ABDOMEN: Soft, nontender. EXTREMITIES: Status post right lrbhp-kix-oeds amputation. Dressing left leg. He does have an ulcer on his left heel. BACK: He does have dependent edema. GENITALIA: He has a Padilla catheter in place. ASSESSMENT: 1. Mental status changes. 2. Congestive heart failure, acute and chronic. 3. Cardiomyopathy. 4. Coronary artery disease. 5. Chronic atrial fibrillation. 6. Type 2 diabetes mellitus with multiple complications. 7. Large right pleural effusion. 8. Severe diffuse edema. 9. Bacteremia secondary to methicillin-resistant Staphylococcus aureus. 10. Clostridium difficile colitis. PLAN: 1. Additional Lasix was given. 2. Continuing the same medications. 3. His appetite remains very poor. 4. He presented with hypoglycemia even when he was not given any insulin, but his blood sugars are remaining in safe range at this time. We will continue monitoring. He is not receiving any insulin. 5. The plan is for him to go back to [facility]. I had a discussion with his 2 brothers. His prognosis is poor. We are trying to keep him as comfortable as possible.
[2016-08-08] MEDS: HYDROCODONE/ACETAMOPHEN 5/325MG TAB PO PRN ×2 (03:44→13:40)
[2016-08-08] MEDS: LEVOTHYROXINE 100 MCG TAB PO SCH (06:31)
[2016-08-08] MEDS: FUROSEMIDE INJ 60 MG in SYRINGE 0 ML IV SCH ×2 (06:34→13:39)
[2016-08-08 07:02] LABS: CREATININE 1.6 mg/dl (0.60-1.40)
[2016-08-08 07:08] VITALS: BP 110/52; PULSE 89; TEMP 36.7; O2SAT 91
[2016-08-08 08:15] VITALS: O2SAT 3
--- NOTE | 2016-08-08 08:50 | Pharmacy Progress Note ---
Pharmacy Abx Dose Progress Nt Date of Service Aug 08, 2016. Pharmacy Dosing Scope The patient is currently receiving the following antimicrobial agents: * Vancomycin IV (dosed per level) * Fluconazole IV * Metronidazole PO (refusing doses) Objective Height (Feet): 5 Height (Inches): 10.00 Weight (Kilograms): 83.800 Vital Signs (Past 12Hrs) Vital Signs Past 12 Hours Date Time Temp Pulse Resp B/P (MAP) Pulse Ox O2 Delivery O2 Flow Rate FiO2 08/08/16 07:08 36.7 89 18 110/52 (71) 91 Nasal Cannula 4.0 Humidified Oxygen 08/08/16 00:09 Nasal Cannula Humidified Oxygen 08/07/16 22:59 37.0 83 16 127/69 (88) 96 Nasal Cannula 3.0 Lab Results (24Hrs) Item Value Date Time Random Vancomycin Level 27.9 mcg/ml 08/06/162002 Random Vancomycin Level 24.6 mcg/ml 08/07/16 1003 Random Vancomycin Level 20.5 mcg/ml 08/08/16 0615 Micro Results Date/Time Source Procedure Growth Status 08/01/16 14:10 Blood Blood Culture - Final Staphylococcus Aureus MRSA Complete 08/01/16 14:05 Blood Blood Culture - Final NO GROWTH Complete 08/03/16 12:45 Stool C.difficile Toxin B Gene (PCR) - Final Positive for C. difficile toxin B gene Complete 08/01/16 16:38 Urine,Catheterized Urine Culture - Final Yeast Not Olivia Albicans Complete Risk Factors for Resistance * Resident in a snf or extended-care facility * Hospitalization for 48 hours or more within the past 90 days * Current hospitalization > 5 days * History of infection with a multidrug-resistant organism: MRSA * Antimicrobial use within the last 90 days: vancomycin, Zosyn, daptomycin in June 2016 Assessment & Plan Assessment * 66 year old male receiving vancomycin IV for treatment of MRSA bacteremia, fluconazole for yeast UTI, and metronidazole PO for C. difficile. * Day # 5 of antiinfective therapy * Patient deteriorating, weak, loss of appetite * Serum creatinine continues to rise * no longer linear elimination of vancomycin - dosing per level at this time * Remains afebrile Plan * Continue current treatment: Vancomycin IV * Random level has dropped to ~20mcg/mL which indicates time for re-dose (since treating MRSA bacteremia) * will dose conservatively (more like a dialysis patient since SCr continues to rise and urine output declines) * Vancomycin 500mg IV x1 dose * Continue to check random levels every AM and dose when at or below 20mcg/mL * Duration ~14 days for bacteremia Fluconazole IV * treating yeast non-olivia albicans UTI * may represent olivia glabrata which does shoe resistance to fluconazole * ? increase in dose (dose dependent sensitivity, consider 200mg daily) vs. change to caspofungin vs. no treatment since ~75k cfu/mL Metronidazole PO * for C. difficile * patient refusing doses at this time - may consider IV therapy vs. vancomycin PO if GI side effects an issue Pharmacy will continue to follow and will adjust dose/frequency as necessary. Thank you.
[2016-08-08] MEDS: BOOST GLUCOSE CONTROL PO SCH ×2 (09:03→17:45)
[2016-08-08] MEDS: EUCERIN CR 120 GM JAR EXT SCH ×2 (09:04→20:56)
[2016-08-08 09:07] VITALS: BP 154/66; PULSE 92; O2SAT 95
[2016-08-08] MEDS: CEROVITE ADV FORMULA TAB PO SCH (09:09)
[2016-08-08] MEDS: TAMSULOSIN HCL 0.4 MG CAP PO SCH (09:09)
[2016-08-08] MEDS: ESCITALOPRAM OXALATE 10 MG TAB PO SCH (09:09)
[2016-08-08] MEDS: GABAPENTIN 300 MG CAP PO SCH ×3 (09:09→21:00)
[2016-08-08] MEDS: LACTOBACILLUS ACIDOPHILUS (FLORANEX) TAB PO SCH ×3 (09:09→21:00)
[2016-08-08] MEDS: CARVEDILOL 25 MG TAB PO SCH ×2 (09:10→21:00)
[2016-08-08] MEDS: METRONIDAZOLE 500 MG TAB PO SCH ×3 (09:10→20:56)
[2016-08-08] MEDS ORDERED: VANCOMYCIN INJ 500 MG in SODIUM CHLORIDE 0.9% 100ML 100 ML IV SCH (10:00)
[2016-08-08] MEDS: HEPARIN SOD 5000 UNIT/0.5 ML CARP SQ SCH ×2 (10:18→20:48)
[2016-08-08 11:42] LABS: BASO % 0.1 %; BASO ABS # 0.02 K/uL (0-0.2); HEMATOCRIT 27.8 % (42-52); IG% 0.4 %; LYMPH % 10.9 %; LYMPH ABS # 1.48 K/uL (1.2-3.4); MEAN CELL VOLUME 74.9 fL (80-100); MEAN CORPUSCULAR HEMOGLOBIN 23.7 pg (25-34); MEAN CORPUSCULAR HGB CONC 31.7 g/dl (32-36); MEAN PLATELET VOLUME 9.7 fL (7.4-10.4); NEUT % 80.6 %; PLATELET COUNT 361 K/uL (130-400); RED BLOOD COUNT 3.71 M/uL (4.7-6.1); WHITE BLOOD COUNT 13.56 K/uL (4.8-10.8)
[2016-08-08 12:02] LABS: ANISOCYTOSIS PRESENT; COMPLETE YES; MICROCYTOSIS PRESENT
[2016-08-08 12:15] LABS: BUN/CREATININE RATIO 37.2 (10-20); CALCIUM 7.1 mg/dl (8.5-10.1); CREATININE 1.5 mg/dl (0.60-1.40); POTASSIUM 4.2 mmol/L (3.5-5.1)
[2016-08-08 12:18] LABS: ALB/GLOB RATIO 0.2 (0.9-2)
[2016-08-08 14:52] VITALS: BP 116/74; PULSE 85; TEMP 36.8; O2SAT 98
--- NOTE | 2016-08-08 18:07 | PROGRESS NOTE ---
DATE: 08/08/2016 SUBJECTIVE: A 66-year-old male admitted with mental status changes and he has a large right pleural effusion. The patient with coronary artery disease, ischemic cardiomyopathy, acute and chronic congestive heart failure, acute on chronic renal failure, type 2 diabetes mellitus with multiple complications. He also has a positive blood culture for methicillin-resistant Staphylococcus aureus. He had an episode of urinary retention. Initially, the patient had a PleurX catheter which was placed during his last admission, but the catheter was not draining, so it was removed. He has had recurrence of his right pleural effusion. He remains afebrile. Denied any headache. No dizziness. No chest pain, no shortness of breath. Denied any abdominal pain, no nausea, no vomiting. Having bowel movements. His stool did test positive for Clostridium difficile and he is on metronidazole. He does have a Padilla catheter in place because of his urinary retention. He does have significant edema of his abdominal wall and back and hips and upper legs, and scrotum and penis. PHYSICAL EXAMINATION: GENERAL: Well developed in no distress. VITAL SIGNS: Blood pressure 110/52, pulse 89, respirations 18, temperature 36.7, oxygen saturation 91% on 3 liter oxygen by nasal cannula. SKIN: Warm and dry. No rash. HEENT: Blindness in the right eye. Has upper dentures. NECK: No adenopathy. No JVD. HEART: Irregular heart sounds consistent with atrial fibrillation. LUNGS: Absent breath sounds on the right side. ABDOMEN: Soft, nontender, without organomegaly or masses. Significant edema of the entire abdominal wall. EXTREMITIES: Status post right eesmt-fde-gctt amputation. Dressing left foot and left heel because of the ulcers that he has. Significant dependent edema of the upper thighs and hips. TODAYS LABORATORY TESTS: WBC count 13,560, hemoglobin 8.8, hematocrit 27.8, platelet count 361,000. Sodium 137, potassium 4.2, chloride 102, CO2 of 25, BUN 56, creatinine 1.5, glucose 199, calcium 7.1, total bilirubin 0.5, AST 29, ALT 18, alkaline phosphatase 315, total protein 6.4, albumin 1.1. ASSESSMENT: 1. Coronary artery disease. 2. Congestive heart failure, systolic. Acute and chronic. 3. Large right pleural effusion. 4. Ischemic cardiomyopathy. 5. Type 2 diabetes mellitus with multiple complications. 6. Acute on chronic renal failure. 7. Bacteremia secondary to methicillin-resistant Staphylococcus aureus. 8. Urinary retention. 9. Clostridium difficile colitis. 10. Ulcer, left heel and also left foot. 11. Severe edema throughout. PLAN: 1. He has been receiving the Lasix. He has been diuresing. We will try to switch to Bumex see if we will be able to assert a better diuresis. 2. Continuing all his other medications unchanged. 3. His appetite is very poor. His nutritional status is very poor. His albumin is 1.1. We are trying with supplementation, but that has not been very successful. 4. We are mostly making sure that he is comfortable. His prognosis is poor. The intent is for him to go back to [facility] for comfort care.
[2016-08-08 21:02] VITALS: BP 115/45; PULSE 86
[2016-08-08] MEDS: FLUCONAZOLE / NSS 100 MG in PREMIXED NSS 50 ML IV SCH (21:05)
[2016-08-08 23:38] VITALS: BP 156/72; PULSE 89; TEMP 36.7; O2SAT 95
[2016-08-09] MEDS: LEVOTHYROXINE 100 MCG TAB PO SCH (06:26)
[2016-08-09] MEDS: FUROSEMIDE INJ 60 MG in SYRINGE 0 ML IV SCH (06:31)
[2016-08-09 07:10] LABS: CREATININE 1.4 mg/dl (0.60-1.40)
[2016-08-09 07:16] VITALS: BP 123/58; PULSE 94; TEMP 36.6; O2SAT 90
[2016-08-09 08:30] VITALS: O2SAT 90
[2016-08-09] MEDS: BOOST GLUCOSE CONTROL PO SCH ×2 (08:30→17:45)
[2016-08-09] MEDS: METRONIDAZOLE 500 MG TAB PO SCH ×4 (09:00→21:00)
[2016-08-09] MEDS: CARVEDILOL 25 MG TAB PO SCH ×3 (09:00→21:00)
[2016-08-09] MEDS: ESCITALOPRAM OXALATE 10 MG TAB PO SCH ×2 (09:00→09:19)
[2016-08-09] MEDS: GABAPENTIN 300 MG CAP PO SCH ×4 (09:00→21:00)
[2016-08-09] MEDS: LACTOBACILLUS ACIDOPHILUS (FLORANEX) TAB PO SCH ×4 (09:00→21:00)
[2016-08-09] MEDS: TAMSULOSIN HCL 0.4 MG CAP PO SCH ×2 (09:00→09:20)
[2016-08-09] MEDS: CEROVITE ADV FORMULA TAB PO SCH ×2 (09:00→09:19)
--- NOTE | 2016-08-09 09:03 | Pharmacy Progress Note ---
Pharmacy Abx Dose Short Note Date of Service Aug 09, 2016. Assessment & Plan Lab Results (24Hrs) Item Value Date Time Random Vancomycin Level 27.9 mcg/ml 08/06/162002 Random Vancomycin Level 24.6 mcg/ml 08/07/16 1003 Random Vancomycin Level 20.5 mcg/ml 08/08/16 0615 Random Vancomycin Level 18.7 mcg/ml 08/09/16 0601 Micro Results Date/Time Source Procedure Growth Status 08/01/16 14:10 Blood Blood Culture - Final Staphylococcus Aureus--> MRSA Complete 08/01/16 14:05 Blood Blood Culture - Final NO GROWTH Complete 08/03/16 12:45 Stool C.difficile Toxin B Gene (PCR) - Final Positive for C. difficile toxin B gene Complete 08/01/16 16:38 Urine,Catheterized Urine Culture - Final Yeast Not Olivia Albicans Complete Risk Factors for Resistance * Resident in a shelter or extended-care facility * Hospitalization for 48 hours or more within the past 90 days * Current hospitalization > 5 days * History of infection with a multidrug-resistant organism: MRSA * Antimicrobial use within the last 90 days: vancomycin, Zosyn, daptomycin in June 2016 Assessment & Plan Assessment * 66 year old male receiving vancomycin IV for treatment of MRSA bacteremia, fluconazole for yeast UTI, and metronidazole PO for C. difficile. * Day # 6 of antiinfective therapy * Patient deteriorating, weak, loss of appetite * Serum creatinine BEGINNING TO TREND BACK DOWN * no longer linear elimination of vancomycin - dosing per level at this time * Remains afebrile Plan * Continue current treatment: Vancomycin IV * Random level has dropped to below 20mcg/mL which indicates time for re-dose ( since treating MRSA bacteremia) * will dose conservatively (more like a dialysis patient since SCr and elimination no longer predictable) * Vancomycin 1000mg IV x1 dose * a higher dose than yesterday as patient producing urine and SCr decreasing ( predict will eliminate faster than yesterday) * Continue to check random levels every AM and dose when at or below 20mcg/mL Fluconazole IV * treating yeast non-olivia albicans UTI * may represent olivia glabrata which does shoe resistance to fluconazole * ? increase in dose (dose dependent sensitivity, consider 200mg daily) vs. change to caspofungin vs. no treatment since ~75k cfu/mL Metronidazole PO * for C. difficile Pharmacy will continue to follow and will adjust dose/frequency as necessary. Thank you.
[2016-08-09] MEDS: HEPARIN SOD 5000 UNIT/0.5 ML CARP SQ SCH ×2 (09:09→21:06)
[2016-08-09] MEDS: BUMETANIDE IV 1 MG in SYRINGE 0 ML IV SCH ×2 (09:15→19:39)
[2016-08-09] MEDS: EUCERIN CR 120 GM JAR EXT SCH ×2 (09:17→21:05)
[2016-08-09] MEDS: HYDROCODONE/ACETAMOPHEN 5/325MG TAB PO PRN ×2 (09:27→23:04)
[2016-08-09] MEDS ORDERED: VANCOMYCIN INJ 1,000 MG in SODIUM CHLORIDE 0.9% 250ML 250 ML IV SCH (10:00)
[2016-08-09] MEDS ORDERED: BUMETANIDE IV 1 MG in SYRINGE 0 ML IV SCH (14:00)
[2016-08-09 15:15] VITALS: BP 137/73; PULSE 96; TEMP 36.9; O2SAT 93
[2016-08-09] MEDS: FLUCONAZOLE / NSS 100 MG in PREMIXED NSS 50 ML IV SCH (19:39)
[2016-08-09 22:58] VITALS: BP 114/45; PULSE 107; TEMP 37; O2SAT 93
[2016-08-10] MEDS: BUMETANIDE IV 1 MG in SYRINGE 0 ML IV SCH ×3 (01:53→18:01)
--- NOTE | 2016-08-10 03:02 | PROGRESS NOTE ---
DATE: 08/09/2016 A 66-year-old male with gradually deteriorating condition. He was admitted with mental status changes and a large right pleural effusion. He had a PleurX catheter in place in the past. He has severe coronary artery disease with ischemic cardiomyopathy and congestive heart failure, both acute and chronic. He also has acute and chronic renal failure. He has diabetes mellitus with multiple complications, including post amputation above the knee on the right side. The patient also had positive blood cultures for methicillin-resistant Staphylococcus aureus and he is on vancomycin. He also had urinary tract retention and he has a Padilla catheter in place. His condition has been deteriorating. His appetite is very poor. His albumin level is markedly decreased. He is diffusely edematous. The PleurX catheter had been removed. He has had recurrence of his right pleural effusion. He denied any headache or dizziness. No chest pain. No shortness of breath at rest,0 as he is. Recurrent nausea, he is requiring medication. No vomiting. He had diarrhea and he tested positive for Clostridium difficile and he is on metronidazole orally. PHYSICAL EXAMINATION: GENERAL: Well developed, chronically ill. Deteriorating condition. VITAL SIGNS: Blood pressure 123/58, pulse 94, respiration 16, temperature 36.6, oxygen saturation 90% on 3 liter oxygen by nasal cannula. SKIN: Warm and dry. No rash. HEENT: Blindness in the right eye. Decreased vision in the left eye. Has upper dentures. NECK: No JVD. No adenopathy. HEART: Irregular heart sounds. LUNGS: Absent breath sounds on the right side. ABDOMEN: Soft, nontender. EXTREMITIES: Status post right fcvlj-iqe-hphe amputation. He does have marked edema, mostly dependent, in the upper thighs and hips and back and abdominal wall. ASSESSMENT: 1. Congestive heart failure, acute and chronic. 2. Ischemic cardiomyopathy. 3. Chronic atrial fibrillation. 4. Coronary artery disease. 5. Type 2 diabetes mellitus with multiple complications. 6. Bacteremia secondary to methicillin-resistant Staphylococcus. 7. Clostridium difficile colitis. 8. Urinary retention. PLAN: 1. Continuing the same medications. 2. He continues to have pain in his back and extremities. Dilaudid was added to his regimen. 3. He was switched from Lasix to Bumex, trying to diurese him, to decrease the amount of edema. 4. His prognosis is poor. Intent is for him to go back to [facility] whenever that is feasible.
[2016-08-10] MEDS: LEVOTHYROXINE 100 MCG TAB PO SCH (05:55)
[2016-08-10 06:43] LABS: CREATININE 1.2 mg/dl (0.60-1.40)
[2016-08-10 06:53] VITALS: BP 149/77; PULSE 99; TEMP 36.5; O2SAT 93
[2016-08-10] MEDS: BOOST GLUCOSE CONTROL PO SCH ×2 (08:43→17:45)
[2016-08-10] MEDS: EUCERIN CR 120 GM JAR EXT SCH ×2 (08:43→20:26)
[2016-08-10] MEDS: LACTOBACILLUS ACIDOPHILUS (FLORANEX) TAB PO SCH ×3 (08:44→20:31)
[2016-08-10] MEDS: METRONIDAZOLE 500 MG TAB PO SCH ×3 (08:44→20:31)
[2016-08-10] MEDS: ESCITALOPRAM OXALATE 10 MG TAB PO SCH (08:46)
[2016-08-10] MEDS: CEROVITE ADV FORMULA TAB PO SCH (09:00)
[2016-08-10] MEDS: CARVEDILOL 25 MG TAB PO SCH ×2 (09:00→20:31)
[2016-08-10] MEDS: GABAPENTIN 300 MG CAP PO SCH ×3 (09:00→20:31)
[2016-08-10] MEDS: TAMSULOSIN HCL 0.4 MG CAP PO SCH (09:00)
--- NOTE | 2016-08-10 09:04 | Pharmacy Progress Note ---
Pharmacy Abx Dose Progress Nt Date of Service Aug 10, 2016. Pharmacy Dosing Scope The patient is currently receiving the following antimicrobial agents per Pharmacy consult: Vancomycin IV - dosing by serial levels given poor renal function during this admission. Objective Height (Feet): 5 Height (Inches): 10.00 Weight (Kilograms): 86.000 Vital Signs (Past 12Hrs) Vital Signs Past 12 Hours Date Time Temp Pulse Resp B/P (MAP) Pulse Ox O2 Delivery O2 Flow Rate FiO2 08/10/16 07:30 3.0 08/10/16 06:53 36.5 99 18 149/77 (101) 93 Room Air 08/10/16 00:00 Nasal Cannula 3.0 Humidified Air 08/09/16 22:58 37.0 107 20 114/45 (68) 93 Nasal Cannula 3.0 Lab Results (24Hrs) Item Value Date Time White Blood Count 13.56 K/uL H 08/08/16 1133 Neutrophils (%) (Auto) 80.6 % 08/08/16 1133 Lymphocytes (%) (Auto) 10.9 % 08/08/16 1133 Monocytes (%) (Auto) 6.0 % 08/08/16 1133 Eosinophils (%) (Auto) 2.0 % 08/08/16 1133 Basophils (%) (Auto) 0.1 % 08/08/16 1133 Immature Granulocyte # (Auto) 0.05 K/uL H 08/08/16 1133 Neutrophils # (Auto) 10.93 K/uL H 08/08/16 1133 Lymphocytes # (Auto) 1.48 K/uL 08/08/16 1133 Monocytes # (Auto) 0.81 K/uL H 08/08/16 1133 Eosinophils # (Auto) 0.27 K/uL 08/08/16 1133 Basophils # (Auto) 0.02 K/uL 08/08/16 1133 Creatinine 1.20 mg/dl 08/10/16 0558 Est Creatinine Clear Calc Drug Dose 60.8 ml/min 08/10/16 0558 Random Vancomycin Level 21.8 mcg/ml 08/10/16 0558 Micro Results Date/Time Source Procedure Growth Status 08/01/16 14:10 Blood Blood Culture - Final Staphylococcus Aureus Complete 08/01/16 14:05 Blood Blood Culture - Final NO GROWTH Complete 08/03/16 12:45 Stool C.difficile Toxin B Gene (PCR) - Final Positive for C. difficile toxin B gene Complete 08/01/16 16:38 Urine,Catheterized Urine Culture - Final Yeast Not Olivia Albicans Complete Risk Factors for Resistance * Resident in a longterm or extended-care facility * Hospitalization for 48 hours or more within the past 90 days * Current hospitalization > 5 days * History of infection with a multidrug-resistant organism: MRSA * Antimicrobial use within the last 90 days: vancomycin, Zosyn, daptomycin in June 2016 Assessment & Plan Assessment 66 year old male receiving IV Vancomycin for treatment of MRSA Bacteremia, fluconazole for yeast UTI, and metronidazole PO for C. difficile Day # 7 of antimicrobial therapy Serum creatinine has ranged from 1.0 - 1.6 mg/dl during this admission, reading at 1.2 mg/dl today. However, Vancomycin clearance has not closely been paralleling SCr during this admit reflecting overall poor clearance. For that reason, will continued to be dosed by serial levels. Will give an additional dose this evening. Plan Vancomycin IV * Random level of 21.8 mcg/mL is slightly above range for re-dosing thus will initiate dose or 1000 mg later this afternoon at ~1800 hours. * Continue dose of 1000 mg IV by serial levels * Goal trough level for bacteremia: 15 to 20 mcg/mL * Random level ordered for: 08/11/2016 at approximately 1900 hours * Less than traditional dose and/or extended dosing interval selected due to likelihood of drug accumulation in CKD. Pharmacy will continue to follow and will adjust dose/frequency as necessary. Thank you.
[2016-08-10] MEDS: HEPARIN SOD 5000 UNIT/0.5 ML CARP SQ SCH ×2 (09:32→20:30)
[2016-08-10] MEDS: ONDANSETRON INJ 8 MG in DEXTROSE 5% 50ML 50 ML IV PRN (11:59)
[2016-08-10] MEDS: HYDROCODONE/ACETAMOPHEN 5/325MG TAB PO PRN ×2 (12:50→18:20)
--- NOTE | 2016-08-10 14:01 | CARDIOLOGY PROGRESS NOTE ---
DATE: 08/10/2016 TIME: 13:12 p.m. SUBJECTIVE: Mr. Zapien does not feel well. He states that he has bilateral leg pain. He also states that he is short of breath; however, when I entered the room, his oxygen was not in place, but rather lying in his bed. This was repositioned for him. He denies chest pain, syncope, or palpitations. He did ask a few times when he could get out of the hospital. He says he has no appetite. He does have nausea when he eats. OBJECTIVE: VITAL SIGNS: Temperature 36.5 degrees, heart rate 99 beats per minute, respiratory rate 18, blood pressure 149/77 mmHg, and oxygen saturation 92% on 3 liters per nasal cannula. Blood pressure has been normotensive to mildly hypertensive. I's and O's negative 851 mL yesterday. Weight is pending. GENERAL: No acute distress. He is alert. NECK: No appreciable JVD. CARDIAC EXAM: No ventricular heave, irregularly irregular, normal S1 and S2. No murmurs, rubs or gallops were auscultated. LUNGS: Decreased breath sounds at the right. Otherwise, clear. ABDOMEN: Soft, nontender, and nondistended. Normoactive bowel sounds. Trace to 1+ pitting edema in bilateral flanks. EXTREMITIES: Right AKA noted. Edema has improved significantly. 1+ pitting edema in dependent areas. No cyanosis. PSYCHIATRIC: Affect appears appropriate. MEDICATIONS: Include Bumex 1 mg IV q. 8 hours, which was started yesterday morning. Vancomycin IV and metronidazole 500 mg p.o. t.i.d. Carvedilol 25 mg p.o. b.i.d.; however, he has refused carvedilol since 08/08/2016 at 09:10 a.m. LABORATORY DATA: Creatinine 1.2 and glucose 166. Chart reviewed. ASSESSMENT AND PLAN: 1. Chronic systolic congestive heart failure: Edema has improved significantly. He still does have edema/hypervolemia. He is diuresing well on Bumex 1 mg IV q. 8 hours. Continue current regimen. Monitor weights, I's and O's and maintain a low sodium diet. 2. Cardiomyopathy: He has declined ischemic evaluation and other secondary workup has been unremarkable. He has not been taking his carvedilol and he has been refusing other medications as well. The goal appears to be comfort. No LEVON inhibitor or ARB due to hyperkalemia and renal insufficiency while on LEVON inhibitor in the past. 3. Hypertension: Blood pressure mildly hypertensive at times; however, he is refusing carvedilol. 4. Pleural effusion: Surgery has been canceled. Continue diuretics. 5. Atrial fibrillation/flutter: Anticoagulation therapy has been discontinued secondary to anemia with heme positive stools. Comfort measures have been recommended by Dr. Whitney and the patient and family were agreeable. Mr. Zapien has also confirmed these wishes with me. Continue beta sukhwinder if agreeable for rate control, which may help from a heart failure standpoint as well, which may offer comfort. 6. Infectious disease: Clostridium difficile and MRSA bacteremia, 1 of 2 blood cultures, are being treated by Dr. Whitney. 7. Disposition: Poor prognosis.
[2016-08-10 15:50] VITALS: BP 130/79; PULSE 104; TEMP 36.6; O2SAT 93
[2016-08-10] MEDS ORDERED: VANCOMYCIN INJ 1,000 MG in SODIUM CHLORIDE 0.9% 250ML 250 ML IV SCH (18:00)
[2016-08-10] MEDS: FLUCONAZOLE / NSS 100 MG in PREMIXED NSS 50 ML IV SCH (20:26)
[2016-08-10 23:35] VITALS: BP 142/67; PULSE 97; TEMP 36.8; O2SAT 98
--- NOTE | 2016-08-10 23:44 | PROGRESS NOTE ---
DATE: 08/10/2016 A 66-year-old male with multiple problems includin. Mental status changes. 2. Severe coronary artery disease. 3. Ischemic cardiomyopathy. 4. Acute and chronic congestive heart failure. 5. Large right pleural effusion. 6. Atrial fibrillation. 7. History of amputation, above the knee, on the right side. 8. Peripheral arterial disease. 9. Ulcers of the left heel and left foot. 10. Urinary retention. 11. Bacteremia, secondary to methicillin-resistant Staphylococcus aureus. 12. Clostridium difficile colitis. His condition has been deteriorating in the sense that he is getting weaker. He has very poor appetite. His albumin level is markedly decreased. Not taking enough calories or fluids. He denied any chest pain, no shortness of breath. No abdominal pain, no nausea, no vomiting. He is complaining of pain in his extremities. PHYSICAL EXAMINATION: GENERAL: Well developed, in no acute distress. He is chronically ill. VITAL SIGNS: Blood pressure 149/77, pulse 99, respiration 18, temperature 36.5, oxygen saturation 93% on room air. SKIN: Warm and dry. No rash. HEENT: Blindness in the right eye. Oxygen cannula in place. Upper dentures. NECK: No JVD, no adenopathy. HEART: Irregular heart sounds. LUNGS: Absent breath sounds on the right side. ABDOMEN: His abdominal wall is markedly edematous; also, has severe edema of the penis and the scrotum. EXTREMITIES: Status post right antgu-xfi-blta amputation. Severe edema in both upper legs and thighs and hips. ASSESSMENT: 1. Large right pleural effusion. 2. Congestive heart failure. Acute and chronic. 3. Ischemic cardiomyopathy. 4. Atrial fibrillation. 5. Type 2 diabetes mellitus with multiple complications. 6. Clostridium difficile colitis. 7. Bacteremia, secondary to methicillin-resistant Staphylococcus aureus. PLAN: 1. Continuing the same medications at this time. 2. Continue with IV Bumex with an attempt to continuing diuresis. 3. His nutritional status is extremely poor. He does have protein deficiency. 4. His prognosis is poor. We are trying the best we can to make him comfortable. Eventually, the plan is for him to go back to [facility].
[2016-08-11] MEDS: VANCOMYCIN INJ 1,250 MG in SODIUM CHLORIDE 0.9% 250ML 250 ML IV SCH ×2
[2016-08-11] MEDS: BUMETANIDE IV 1 MG in SYRINGE 0 ML IV SCH ×3 (01:29→17:34)
[2016-08-11] MEDS: LEVOTHYROXINE 100 MCG TAB PO SCH (05:27)
[2016-08-11 06:47] LABS: CREATININE 0.94 mg/dl (0.60-1.40)
[2016-08-11 07:27] VITALS: BP 139/82; PULSE 102; TEMP 36.8; O2SAT 95
[2016-08-11] MEDS: GABAPENTIN 300 MG CAP PO SCH ×3 (09:20→20:49)
[2016-08-11] MEDS: ESCITALOPRAM OXALATE 10 MG TAB PO SCH (09:20)
[2016-08-11] MEDS: LACTOBACILLUS ACIDOPHILUS (FLORANEX) TAB PO SCH ×3 (09:20→20:49)
[2016-08-11] MEDS: METRONIDAZOLE 500 MG TAB PO SCH ×3 (09:20→20:34)
[2016-08-11] MEDS: CEROVITE ADV FORMULA TAB PO SCH (09:20)
[2016-08-11] MEDS: TAMSULOSIN HCL 0.4 MG CAP PO SCH (09:20)
[2016-08-11] MEDS: BOOST GLUCOSE CONTROL PO SCH ×2 (09:20→17:34)
[2016-08-11] MEDS: CARVEDILOL 25 MG TAB PO SCH ×2 (09:21→20:49)
[2016-08-11] MEDS: EUCERIN CR 120 GM JAR EXT SCH ×2 (09:22→20:34)
[2016-08-11] MEDS: HEPARIN SOD 5000 UNIT/0.5 ML CARP SQ SCH ×2 (09:26→20:48)
--- NOTE | 2016-08-11 10:34 | CARDIOLOGY PROGRESS NOTE ---
DATE: 08/11/2016 DATE: 08/11/2016. TIME: 10:06 a.m. SUBJECTIVE: He states that today is the first day he feels somewhat better. His nausea has improved. He did tolerate some food. Appetite is still not good however. Breathing is so-so. He denies chest pain, palpitations, syncope. OBJECTIVE: VITAL SIGNS: Temperature 36.8 degrees, heart rate 102 beats per minute, respiration rate 17, blood pressure 139/82 mmHg, oxygen saturation 95% on 3 liters. I's and O's negative 955 mL yesterday, negative 800 mL so far today. GENERAL: No acute distress. He is alert. NECK: No JVD. CARDIAC EXAMINATION: No ventricular heave. Regular, normal S1, S2. No audible murmurs, rubs or gallops. LUNGS: Decreased breath sounds in the right, otherwise clear. ABDOMEN: Soft, nontender, nondistended, normoactive bowel sounds. Trace to 1+ pitting edema bilateral flanks. EXTREMITIES: 1+ pitting edema in the dependent areas. No cyanosis. PSYCHIATRIC: Affect appears appropriate. MEDICATIONS: Include Bumex 1 mg IV q. 8 hours, carvedilol 25 mg p.o. b.i.d. This morning's dose was the first dose that he has had since 08/08/2016 as he has been refusing the medication. Lexapro 10 mg daily, fluconazole 100 mg IV daily, heparin 5000 units subQ q. 12 hours, Synthroid 100 mcg daily, Flagyl 500 mg p.o. t.i.d., vancomycin IV. LABORATORY DATA: Creatinine 0.94. Chart reviewed. ASSESSMENT AND PLAN: 1. Chronic systolic congestive heart failure: Volume status continues to improve on a daily basis. He diuresed approximately 1 liter negative yesterday and is well on his way today. Continue current dose of Bumex. Renal function appears to be stable. Monitor electrolytes periodically. Strict I's and O's, daily weights recommended. 2. Cardiomyopathy: He has declined ischemic evaluation and other workup has been unremarkable. No LEVON inhibitor or ARB due to hyperkalemia and renal sufficiency while on LEVON inhibitor. Continue beta sukhwinder, although he had been refusing the medication until this morning over the past few days. 3. Hypertension: Blood pressure has been intermittently mildly elevated; however, he had been refusing carvedilol until this morning. 4. Atrial fibrillation/flutter: He appears regular on exam today. Anticoagulation has been discontinued secondary to anemia with heme positive stools. If he returns home with comfort measures, would not resume anticoagulation therapy. If in the future, he decides for more aggressive care, then would consider GI evaluation to see if anticoagulation therapy would be a safe approach; however, with heme positive stools and significant anemia would avoid for now. 5. Infectious disease: C. diff and MRSA bacteremia is being treated by Dr. Whitney. 6. Disposition: Poor prognosis. Discharge planning as per Dr. Whitney.
--- NOTE | 2016-08-11 15:53 | SURGERY PROGRESS NOTE ---
DATE: 08/11/2016 SUBJECTIVE: Rupali is seen today on 08/11/2016. He feels a bit better after being diuresed. He has a significant right pleural effusion but at this point we have elected not to address this aggressively after discussion with his family.
[2016-08-11 15:57] VITALS: BP 145/76; PULSE 106; TEMP 37; O2SAT 94
[2016-08-11] MEDS ORDERED: VANCOMYCIN INJ 1,000 MG in SODIUM CHLORIDE 0.9% 250ML 250 ML IV SCH (22:00)
--- NOTE | 2016-08-11 22:33 | Pharmacy Progress Note ---
Pharmacy Abx Dose Progress Nt Date of Service Aug 11, 2016. Pharmacy Dosing Scope The patient is currently receiving the following antimicrobial agents per Pharmacy consult: IV Vancomycin dosing based on random levels due to impaired/fluctuating renal function. Objective Height (Feet): 5 Height (Inches): 10.00 Weight (Kilograms): 86.000 Vital Signs (Past 12Hrs) Vital Signs Past 12 Hours Date Time Temp Pulse Resp B/P (MAP) Pulse Ox O2 Delivery O2 Flow Rate FiO2 08/11/16 15:57 37.0 106 18 145/76 (99) 94 Oxymask 3.0 08/11/16 15:40 Oxymask 3.0 Lab Results (24Hrs) Item Value Date Time Vancomycin Level Trough 16.3 mcg/ml 08/11/16 1903 Random Vancomycin Level 21.8 mcg/ml 08/10/16 0558 Random Vancomycin Level 18.7 mcg/ml 08/09/16 0601 Random Vancomycin Level 20.5 mcg/ml 08/08/16 0615 Random Vancomycin Level 24.6 mcg/ml 08/07/16 1003 Random Vancomycin Level 27.9 mcg/ml 08/06/162002 Vancomycin Level Trough 32.6 mcg/ml 08/06/16 0935 Micro Results Date/Time Source Procedure Growth Status 08/01/16 14:10 Blood Blood Culture - Final Staphylococcus Aureus Complete 08/01/16 14:05 Blood Blood Culture - Final NO GROWTH Complete 08/03/16 12:45 Stool C.difficile Toxin B Gene (PCR) - Final Positive for C. difficile toxin B gene Complete 08/01/16 16:38 Urine,Catheterized Urine Culture - Final Yeast Not Olivia Albicans Complete Risk Factors for Resistance * Resident in a intermediate or extended-care facility * Hospitalization for 48 hours or more within the past 90 days * Current hospitalization > 5 days * History of infection with a multidrug-resistant organism: MRSA * Antimicrobial use within the last 90 days: vancomycin, Zosyn, daptomycin in June 2016 Assessment & Plan Assessment * 66 year old male receiving IV Vancomycin for treatment of MRSA bacteremia, fluconazole for yeast UTI & PO metronidazole for C. difficile * Day #8 of antimicrobial therapy * Renal function has been unstable & vanco levels haven't been consistent with expected calculations * SCr approaching baseline today at 0.94mg/dL Plan Vancomycin IV * Random level of 16.3mcg/mL is therapeutic--ok to redose * Continue Vancomycin with 1gm IV x 1 dose tonight * Goal trough level: 15-20mcg/mL for bacteremia * Random level ordered for: 08/12/16 1800 * Less than traditional dose and/or extended dosing interval selected due to likelihood of drug accumulation in CKD Pharmacy will continue to follow and will adjust dose/frequency as necessary. Thank you.
[2016-08-11 23:30] VITALS: BP 136/66; PULSE 120; TEMP 36.6; O2SAT 91
--- NOTE | 2016-08-11 23:58 | PROGRESS NOTE ---
DATE: 08/11/2016 A 66-year-old male, admitted with mental status changes. He has multiple medical problems including congestive heart failure, severe cardiomyopathy, coronary artery disease, type 2 diabetes mellitus with multiple severe complications, large right pleural effusion, acute and chronic renal failure, bacteremia secondary to methicillin resistant Staphylococcus, Clostridium difficile colitis and urinary retention. His condition remained generally poor. He is feeling weak. Very poor appetite. He is markedly edematous. His albumin level has been as low as 1.1. This morning, he was feeling better. He denied any headache or dizziness. No chest pain. No shortness of breath. He has had recurrent nausea. No vomiting. He has had multiple bowel movements. He does have a Padilla catheter in place. PHYSICAL EXAMINATION: GENERAL: Well-developed, in no distress. VITAL SIGNS: Blood pressure 139/82, pulse 102, respirations 17, temperature 36.8 and oxygen saturation 95% on room air. SKIN: Warm and dry. No rash. HEENT: Blindness in the right eye. Oxygen mask in place. NECK: Supple. Nontender. No JVD. HEART: Irregular heart sounds. LUNGS: Absent breath sounds on the right side. ABDOMEN: Soft and nontender. Abdominal wall is markedly edematous. BACK: Also significant edema in the subcutaneous tissue. EXTREMITIES: Status post right above the knee amputation. Dressing on left foot. He does have an ulcer on his left heel. ASSESSMENT: 1. Coronary artery disease. 2. Acute and chronic congestive heart failure. 3. Acute and chronic renal failure. 4. Type 2 diabetes mellitus with multiple complications. 5. Staphylococcus aureus bacteremia. 6. Clostridium difficile colitis. 7. Poor nutritional status. 8. Multiple diabetic complications. PLAN: 1. Continuing diuresis with IV Bumex. 2. His scrotal and edema of the penis has slightly decreased today. 3. Continuing all his medications. 4. We will try to get him out of bed to the chair as much as possible. 5. Eventually, he will return to [facility].
[2016-08-12] MEDS: ONDANSETRON INJ 8 MG in DEXTROSE 5% 50ML 50 ML IV PRN (00:47)
[2016-08-12] MEDS: BUMETANIDE IV 1 MG in SYRINGE 0 ML IV SCH ×3 (00:47→18:03)
[2016-08-12] MEDS: LEVOTHYROXINE 100 MCG TAB PO SCH (05:35)
[2016-08-12 07:30] LABS: CREATININE 1.1 mg/dl (0.60-1.40)
[2016-08-12] MEDS: HYDROCODONE/ACETAMOPHEN 5/325MG TAB PO PRN (07:41)
[2016-08-12 07:55] VITALS: BP 119/76; PULSE 112; TEMP 36.6; O2SAT 97
[2016-08-12 08:39] VITALS: O2SAT 97
[2016-08-12] MEDS: ESCITALOPRAM OXALATE 10 MG TAB PO SCH (09:00)
[2016-08-12] MEDS: TAMSULOSIN HCL 0.4 MG CAP PO SCH (09:00)
[2016-08-12] MEDS: CARVEDILOL 25 MG TAB PO SCH ×2 (09:00→20:55)
[2016-08-12] MEDS: METRONIDAZOLE 500 MG TAB PO SCH ×3 (09:00→20:55)
[2016-08-12] MEDS: LACTOBACILLUS ACIDOPHILUS (FLORANEX) TAB PO SCH ×3 (09:00→20:55)
[2016-08-12] MEDS: CEROVITE ADV FORMULA TAB PO SCH (09:00)
[2016-08-12] MEDS: GABAPENTIN 300 MG CAP PO SCH ×3 (09:00→20:55)
[2016-08-12] MEDS: BOOST GLUCOSE CONTROL PO SCH ×2 (09:01→17:45)
[2016-08-12] MEDS: EUCERIN CR 120 GM JAR EXT SCH ×2 (09:01→20:55)
[2016-08-12 09:03] LABS: BASO % 0.1 %; BASO ABS # 0.01 K/uL (0-0.2); EOS % 0.4 %; HEMATOCRIT 28.8 % (42-52); IG% 0.3 %; LYMPH ABS # 1.47 K/uL (1.2-3.4); MEAN CELL VOLUME 75.6 fL (80-100); MEAN CORPUSCULAR HEMOGLOBIN 24.4 pg (25-34); MEAN CORPUSCULAR HGB CONC 32.3 g/dl (32-36); MEAN PLATELET VOLUME 9.5 fL (7.4-10.4); MONO % 6.4 %; NEUT % 83.8 %; PLATELET COUNT 462 K/uL (130-400); RED BLOOD COUNT 3.81 M/uL (4.7-6.1); WHITE BLOOD COUNT 16.29 K/uL (4.8-10.8)
[2016-08-12] MEDS: HEPARIN SOD 5000 UNIT/0.5 ML CARP SQ SCH ×2 (09:08→20:53)
[2016-08-12 09:33] LABS: ANISOCYTOSIS PRESENT; COMPLETE YES
[2016-08-12 09:37] LABS: CALCIUM 7.8 mg/dl (8.5-10.1)
[2016-08-12 09:38] LABS: BUN/CREATININE RATIO 36.5 (10-20); CREATININE 1.1 mg/dl (0.60-1.40); POTASSIUM 4.4 mmol/L (3.5-5.1)
[2016-08-12 09:41] LABS: ALB/GLOB RATIO 0.2 (0.9-2)
--- NOTE | 2016-08-12 11:24 | CARDIOLOGY PROGRESS NOTE ---
DATE: 08/12/2016 DATE: 08/12/2016. TIME: 10:57 a.m. SUBJECTIVE: Mr. Zapien says he is so-so. His breathing not significantly improved. He still has no appetite. He is refusing some of his oral medications due to nausea. He has taken carvedilol once over the past 8 scheduled doses and twice out of the last 10 scheduled doses. He denies palpitations, syncope or bleeding. OBJECTIVE: VITAL SIGNS: Temperature 36.6 degrees, heart rate 112 beats per minute, respiration rate 18, blood pressure 119/76 mmHg, oxygen saturation 97% on 2 liters per nasal cannula. I's and O's negative 1.4 liters yesterday. GENERAL: No acute distress. He is alert. NECK: No JVD. CARDIAC EXAMINATION: No ventricular heave, tachycardic in the low 100s, but overall regular. Normal S1, S2. No murmurs, rubs or gallops auscultated. LUNGS: Decreased breath sounds throughout the right, otherwise clear. ABDOMEN: Soft, nontender, nondistended, normoactive bowel sounds. EXTREMITIES: Trace to 1+ pitting edema at the flanks. 1+ pitting edema in the bilateral lower extremities in the dependent areas. Right AKA noted. No cyanosis. PSYCHIATRIC: Affect appears appropriate. MEDICATIONS: Include carvedilol 25 mg p.o. b.i.d.; however, he has been declining it, Bumex 1 mg IV q. 8 hours, heparin 5000 units subQ q. 12 hours, metronidazole 500 mg p.o. t.i.d. and he has been intermittently declining that medication as well, vancomycin IV discontinued. LABORATORY DATA: White blood cell count 16.29, hemoglobin 9.3, platelets 462, sodium 138, potassium 4.4, BUN 40, down from 56, creatinine 1.1, albumin 1.2. ASSESSMENT AND PLAN: 1. Chronic systolic congestive heart failure: He continues to improve from a volume standpoint daily. His renal function remains stable. Continue current dose of diuretics. Strict I's and O's. 2. Cardiomyopathy: He has declined ischemic evaluation. Continue beta sukhwinder if he is willing to take it. However, his nausea is causing him issues when he swallows medicines or food and therefore he has been declining many of his oral medications. Not on LEVON inhibitor or ARB due to hyperkalemia and renal insufficiency while taking lisinopril. 3. Hypertension: Blood pressure acceptable. It is mildly elevated at times, but he has not been taking his carvedilol regularly. 4. Atrial fibrillation/flutter: He is regular and a bit tachycardic and likely in atrial flutter based on his heart rate. Holding off on ECG as the plan is for comfort measures and it will not manager exchange at this time. We discussed the importance of beta sukhwinder if he is willing to take the medication. He prefers not to at this time due to nausea. Anticoagulation therapy has been discontinued due to heme positive stools, significant anemia, and plan for comfort measures. 5. Infectious disease: Treatment as per Dr. Whitney. 6. Disposition: Poor prognosis. Plan is for comfort measures as per Dr. Whitney. Mr. Zapien is okay with these decisions.
[2016-08-12 12:19] VITALS: BP 135/68; PULSE 112; TEMP 36.6; O2SAT 95
[2016-08-12 15:14] VITALS: BP 127/80; PULSE 114; TEMP 36.6; O2SAT 95
--- NOTE | 2016-08-12 20:06 | Pharmacy Progress Note ---
Pharmacy Abx Dose Short Note Date of Service Aug 12, 2016. Assessment & Plan Micro Results Date/Time Source Procedure Growth Status 08/01/16 14:10 Blood Blood Culture - Final Staphylococcus Aureus--> MRSA, Vancomycin MARIAJOSE = 1 Complete 08/01/16 14:05 Blood Blood Culture - Final NO GROWTH Complete 08/03/16 12:45 Stool C.difficile Toxin B Gene (PCR) - Final Positive for C. difficile toxin B gene Complete 08/01/16 16:38 Urine,Catheterized Urine Culture - Final Yeast Not Olivia Albicans Complete Assessment & Plan Assessment * 66 year old male receiving vancomycin IV for treatment of MRSA bacteremia, -[id number] -[id number] -[id number] -[id number]-, and metronidazole PO for C. difficile. * fluconazole stopped after 08/11 dose * patient is refusing metronidazole intermittently * Day # 9 of antiinfective therapy * Serum creatinine has returned to baseline * Remains afebrile Plan * Continue current treatment: Vancomycin IV * Levels are indicating q24 hour interval appropriate now that renal function at baseline * begin maintenance therapy of vancomycin 1250mg IV every 24 hours * assess trough level on 08/14 for appropriateness of dose/frequency * duration set for 14 days (therapy to end 08/17) Metronidazole PO * for C. difficile * refusing intermittent doses Pharmacy will continue to follow and will adjust dose/frequency as necessary. Thank you.
[2016-08-12] MEDS: VANCOMYCIN INJ 1,250 MG in SODIUM CHLORIDE 0.9% 250ML 250 ML IV SCH (20:54)
[2016-08-12] MEDS: HYDROmorphone INJ 1 MG/ML SYR IV PRN (22:43)
[2016-08-12 22:55] VITALS: BP 106/65; PULSE 106; TEMP 36.8; O2SAT 92
[2016-08-13] MEDS: BUMETANIDE IV 1 MG in SYRINGE 0 ML IV SCH ×3 (01:00→16:42)
--- NOTE | 2016-08-13 01:43 | PROGRESS NOTE ---
DATE: 08/12/2016 A 66-year-old male with extensive medical problems as previously noted. Overall, his condition has slightly improved. He is able to sit up in the chair. He denied any headache or dizziness. No chest pain, no shortness of breath. No abdominal pain. No nausea, no vomiting. He still has very poor appetite. Poor nutritional status. He has had multiple bowel movements. He does have a Padilla catheter in place. He continues to complain of pain in his back and extremities. PHYSICAL EXAMINATION: GENERAL: Well developed, in no distress. VITAL SIGNS: Blood pressure 119/76, pulse 112, respirations 18, temperature 36.6, oxygen saturation 97% on 2 L oxygen by nasal cannula. SKIN: Warm and dry. HEENT: Blindness in the right eye. Upper dentures. Edentulous lower gum. NECK: No JVD. No adenopathy. HEART: Irregular heart sounds consistent with atrial fibrillation. LUNGS: Absent breath sounds on the right side. He has a very large pleural effusion which has been chronic. ABDOMEN: Soft, nontender. EXTREMITIES: Status post right above the knee amputation. Dressing left foot and ankle. He does have an ulcer on his left heel. Also on his left foot, but that has improved. TODAY'S LABORATORY TESTS: WBC count 16,290, hemoglobin 9.3, hematocrit 28.8, platelet count 462,000. Sodium 138, potassium 4.4, chloride 103, CO2 27, BUN 40, creatinine 1.1, glucose 220, calcium 7.8. Total bilirubin 0.5, AST 23, ALT 18, alkaline phosphatase 264. Total protein 7.0, albumin 1.2, globulin 5.8. ASSESSMENT: 1. Large right pleural effusion. 2. Severe ischemic cardiomyopathy. 3. Coronary artery disease. 4. Atrial fibrillation. 5. Type 2 diabetes mellitus with multiple complications. 6. Status post right above the knee amputation. 7. Clostridium difficile colitis. 8. Bacteremia secondary to methicillin-resistant Staphylococcus aureus. PLAN: 1. His condition is slightly improved. His generalized edema is improved, but still persistent. 2. The plan at this time is to stabilize him enough for him to go back to [facility]. We will be arranging for hospice care.
[2016-08-13] MEDS: LEVOTHYROXINE 100 MCG TAB PO SCH (05:37)
[2016-08-13 08:02] VITALS: BP 174/80; PULSE 114; TEMP 36.4; O2SAT 93
[2016-08-13] MEDS: BOOST GLUCOSE CONTROL PO SCH ×2 (08:30→17:45)
[2016-08-13] MEDS: TAMSULOSIN HCL 0.4 MG CAP PO SCH (09:00)
[2016-08-13] MEDS: LACTOBACILLUS ACIDOPHILUS (FLORANEX) TAB PO SCH ×3 (09:00→21:43)
[2016-08-13] MEDS: CARVEDILOL 25 MG TAB PO SCH ×2 (09:00→21:43)
[2016-08-13] MEDS: GABAPENTIN 300 MG CAP PO SCH ×3 (09:00→21:43)
[2016-08-13] MEDS: ESCITALOPRAM OXALATE 10 MG TAB PO SCH (09:00)
[2016-08-13] MEDS: METRONIDAZOLE 500 MG TAB PO SCH ×3 (09:00→21:43)
[2016-08-13] MEDS: CEROVITE ADV FORMULA TAB PO SCH (09:00)
[2016-08-13] MEDS: HEPARIN SOD 5000 UNIT/0.5 ML CARP SQ SCH ×2 (09:15→21:41)
[2016-08-13] MEDS: EUCERIN CR 120 GM JAR EXT SCH ×2 (09:20→21:43)
[2016-08-13 09:53] VITALS: O2SAT 93
[2016-08-13 15:41] VITALS: BP 136/41; PULSE 136; TEMP 36.5; O2SAT 94
[2016-08-13 15:45] VITALS: O2SAT 94
[2016-08-13] MEDS: HYDROmorphone INJ 1 MG/ML SYR IV PRN ×2 (16:52→23:36)
[2016-08-13 18:24] VITALS: BP 122/77; PULSE 137; TEMP 36.9; O2SAT 93
[2016-08-13] MEDS: INSULIN ASPART 100 UNITS/ML 3 ML PEN SC SCH ×2 (18:28→21:43)
[2016-08-13] MEDS: VANCOMYCIN INJ 1,250 MG in SODIUM CHLORIDE 0.9% 250ML 250 ML IV SCH (21:39)
[2016-08-13 23:24] VITALS: BP 130/87; PULSE 112; TEMP 36.6; O2SAT 90
[2016-08-14] MEDS: BUMETANIDE IV 1 MG in SYRINGE 0 ML IV SCH ×2 (00:47→09:45)
--- NOTE | 2016-08-14 01:55 | PROGRESS NOTE ---
DATE: 08/13/2016 A 66-year-old male with multiple medical problems includin. Mental status changes. 2. Large right pleural effusion. 3. Ischemic cardiomyopathy. 4. Atrial fibrillation. 5. Acute and chronic congestive heart failure. 6. Acute and chronic renal failure. 7. Staphylococcus bacteremia. 8. Clostridium difficile colitis. 9. Urinary retention. 10. Type 2 diabetes mellitus with multiple complications. 11. History of [id number]-yli-wrll amputation on the right side. His condition has been deteriorating. He has been feeling weak. Very poor appetite. Markedly decreased protein and albumin levels. The patient is resting comfortably. Unfortunately, he has been refusing his oral medications on multiple occasions. He denied any headache. No dizziness. No chest pain. No shortness of breath. No abdominal pain, no nausea, no vomiting. No problem with his bowel movements. He has a Padilla catheter in place. He does have significant edema in his back and extremities. Also, severe edema of the scrotum and the penis. PHYSICAL EXAMINATION: GENERAL: Well developed, in no distress. VITAL SIGNS: Blood pressure 174/80, pulse 114, respirations 14, temperature 36.4, oxygen saturation 93% on room air. SKIN: Warm and dry. No rash. HEENT: Blindness in the right eye. Upper dentures. Edentulous lower gum. NECK: No JVD. No adenopathy. HEART: Irregular heart sounds, consistent with atrial fibrillation. LUNGS: Absent breath sounds on the right side. ABDOMEN: Soft, nontender. EXTREMITIES: Significant edema of his lower back and the buttocks area and upper hips. EXTREMITIES: Edema of both legs. Dressing, left foot, related to the ulcers, especially on his heel. ASSESSMENT: 1. Mental status changes. 2. Ischemic cardiomyopathy. 3. Acute and chronic congestive heart failure. 4. Large right pleural effusion. 5. Type 2 diabetes mellitus. 6. Clostridium difficile colitis. 7. Staphylococcus bacteremia. 8. Severe edema. 9. Urinary retention, has a Padilla catheter in place. PLAN: 1. We are working with him as much as possible. He is refusing many of his oral medications. 2. Continuing his medications as he agrees to take. 3. Getting him out of bed to a chair. 4. Planning on getting him to [facility] with hospice care.
[2016-08-14] MEDS: LEVOTHYROXINE 100 MCG TAB PO SCH (05:23)
[2016-08-14 07:11] VITALS: BP 125/80; PULSE 105; TEMP 36.5; O2SAT 95
[2016-08-14] MEDS ORDERED: ASPCH81X PO (07:14)
[2016-08-14] MEDS ORDERED: IPRA1AER2 INH (07:14)
[2016-08-14] MEDS ORDERED: FERR1TAB13 PO (07:14)
[2016-08-14] MEDS ORDERED: NVLG SC (07:14)
[2016-08-14] MEDS ORDERED: ACET-1311 PO (07:14)
[2016-08-14] MEDS ORDERED: SENN-65 PO (07:14)
[2016-08-14] MEDS ORDERED: CARV25TA PO (07:14)
[2016-08-14] MEDS ORDERED: FLM4 PO (07:14)
[2016-08-14] MEDS ORDERED: ESCI10TA17 PO (07:14)
[2016-08-14] MEDS ORDERED: MULT-513 PO (07:14)
[2016-08-14] MEDS ORDERED: NRN300 PO (07:14)
[2016-08-14] MEDS ORDERED: LACT1TAB4 PO (07:14)
[2016-08-14] MEDS ORDERED: ONDA4TAB46 PO (07:15)
[2016-08-14] MEDS ORDERED: PRNJ PO (07:15)
[2016-08-14] MEDS ORDERED: BUME2TAB3 PO (07:15)
[2016-08-14] MEDS ORDERED: NUTR-7 PO (07:15)
[2016-08-14] MEDS ORDERED: HYDR-5688 PO (07:15)
[2016-08-14] MEDS: HYDROmorphone INJ 1 MG/ML SYR IV PRN (07:20)
--- NOTE | 2016-08-14 07:27 | Discharge Instructions ---
Discharge Instructions Date of Service Aug 14, 2016. Admission Reason for Admission: MENTAL STATUS CHANGES ACUTE AND CHRONIC CONGESTIVE HEART FAILURE CORONARY ARTERY DISEASE CHRONIC ATRIAL FIBRILLATION LARGE RIGHT PLEURAL EFFUSION PERIPHERAL ARTERIAL DISEASE ULCERS LEFT FOOT AND HEEL DIABETES MELLITUS WITH MULTIPLE COMPLICATIONS URINARY RETENTION CLOSTRIDIUM DIFFICILE COLITIS BACTEREMIA WITH METHICILLIN RESISTANT STAPHYLOCOCCUS POST RIGHT AKA RESPIRATORY FAILURE ON OXYGEN BLINDNESS RIGHT EYE POOR NUTRITION Discharge Discharge Diagnosis / Problem: CORONARY ARTERY DISEASE. RIGHT PLEURAL EFFUSION. CONGESTIVE HEART FAILURE. Discharge Goals Goal(s): Decrease discomfort, Improve function, Increase independence, Improve disease control Activity Recommendations Activity Level: Assistance Required Therapies: Physical Therapy, Occupational Therapy . Additional Information Patient informed of condition: Yes Advance Directives: No DNR: Yes Level of Care: Other (HOSPICE CARE. CONFORT) Communicable Disease: Yes Prognosis: Deteriorating Oxygen at (LPM): 2 LITERS BY CANULA Padilla Catheter: Yes Instructions / Follow-Up Instructions / Follow-Up PATIENT IS FOR HOSPICE CARE. VERY POOR PROGNOSIS. COMFORT CARE. NO TRANSFER TO ACUTE CARE. Current Hospital Diet Patient's current hospital diet: Diabetes Type 2 Diet, AHA Diet (Heart Healthy) Discharge Diet Recommended Diet: Diabetes Type 1 Diet, Diabetes Type 2 Diet Pending Studies Studies pending at discharge: no Physician Orders On Transfer Dressing Changes: DAILY DRESSING CHANGE TO LEFT FOOT Laboratory Results Hemoglobin A1c Test 05/25/16 14:00 Range/Units Estimated Average Glucose 117 mg/dl Hemoglobin A1c 5.7 H 4.5-5.6 % Lipid Panel Test 05/25/16 14:00 Range/Units Triglycerides Level 46 0-150 mg/dl Cholesterol Level 95 0-200 mg/dl HDL Cholesterol 46 mg/dl LDL Cholesterol Direct 45 mg/dl Cholesterol/HDL Ratio 2.1 LDL Cholesterol, Calculated mg/dl Medical Emergencies . Who to Call and When: Medical Emergencies: If at any time you feel your situation is an emergency, please call 911 immediately. . Non-Emergent Contact Non-Emergency issues call your: Primary Care Provider . . "Provider Documentation" section prepared by Kd Whitney. . Core Measure Problem Core Measures: None
[2016-08-14] MEDS: BOOST GLUCOSE CONTROL PO SCH (07:54)
[2016-08-14] MEDS: INSULIN ASPART 100 UNITS/ML 3 ML PEN SC SCH (09:42)
[2016-08-14] MEDS: HEPARIN SOD 5000 UNIT/0.5 ML CARP SQ SCH (09:43)
[2016-08-14] MEDS: CARVEDILOL 25 MG TAB PO SCH (09:44)
[2016-08-14] MEDS: LACTOBACILLUS ACIDOPHILUS (FLORANEX) TAB PO SCH (09:44)
[2016-08-14] MEDS: ESCITALOPRAM OXALATE 10 MG TAB PO SCH (09:44)
[2016-08-14] MEDS: GABAPENTIN 300 MG CAP PO SCH (09:44)
[2016-08-14] MEDS: EUCERIN CR 120 GM JAR EXT SCH (09:44)
[2016-08-14] MEDS: METRONIDAZOLE 500 MG TAB PO SCH (09:44)
[2016-08-14] MEDS: TAMSULOSIN HCL 0.4 MG CAP PO SCH (09:44)
[2016-08-14] MEDS: CEROVITE ADV FORMULA TAB PO SCH (09:44)
[2016-08-14 10:10] VITALS: BP 125/80; PULSE 105; TEMP 36.5; O2SAT 95
[2016-08-14 11:26] LABS: CREATININE 1.2 mg/dl (0.60-1.40)
[2016-08-14] MEDS ORDERED: VANCOMYCIN TROUGH SCH (19:30)
--- NOTE | 2016-08-15 02:03 | PROGRESS NOTE ---
DATE: 08/14/2016 A 66-year-old male, with multiple problems includin. Mental status changes, resolved, back to his baseline. 2. Large right pleural effusion. 3. Acute and chronic congestive heart failure. 4. Coronary artery disease. 5. Chronic atrial fibrillation. 6. Peripheral arterial disease. 7. Ulcers of the left foot and heel. 8. Type 2 diabetes mellitus with multiple complications. 9. Urinary retention. 10. Clostridium difficile colitis. 11. Bacteremia secondary to methicillin resistant Staphylococcus. 12. Status post right [id number] amputation. 13. Respiratory failure, on oxygen. 14. Blindness in the right eye. Overall, his condition stabilized. His mental status is to his baseline. He continues to have recurrent effusion on the right side. He had a PleurX catheter in place, but it was removed. No further treatment was undertaken. After discussion with the patient and his family, the decision was made for mostly comfort care. No surgical intervention was undertaken. REVIEW OF SYSTEMS: He denied any headache or dizziness. No chest pain, no shortness of breath. He is on oxygen. No abdominal pain, no nausea, no vomiting. He does have edema of the abdominal wall. Has also edema of the scrotum and the penis. He has a Padilla catheter in place. He does have edema in both hips and upper thighs. PHYSICAL EXAMINATION: GENERAL: Well-developed, in no distress. VITAL SIGNS: Blood pressure 125/80, pulse 105, respirations 15 and temperature 36.5. SKIN: Warm and dry. No rash. HEENT: Blindness in the right eye. Has upper dentures, edentulous lower gum. NECK: No JVD. No adenopathy. HEART: Irregular heart sounds. LUNGS: Absent breath sounds on the right side. ABDOMEN: Soft and nontender. EXTREMITIES: Status post right above the knee amputation. Dressing on the left foot. ASSESSMENT: 1. Coronary artery disease. 2. Acute and chronic congestive heart failure. 3. Large right pleural effusion. 4. Type 2 diabetes mellitus. 5. Atrial fibrillation. 6. Urinary retention. 7. Clostridium difficile colitis. 8. Bacteremia, secondary to Staphylococcus. PLAN: 1. Overall, his condition has stabilized. 2. He continues to have very poor appetite and has very poor nutritional status. 3. Arrangements were made for him to go back to [facility] with hospice care. The goal is to make sure he is staying comfortable. No acute transfer to the hospital was decided. At this time, we will continue with hospice care and keep him comfortable.
--- NOTE | 2016-08-23 16:43 | DISCHARGE SUMMARY ---
DISCHARGE DIAGNOSES: 1. Mental status changes. 2. Acute and chronic congestive heart failure. 3. Coronary artery disease. 4. Chronic atrial fibrillation. 5. Large recurrent right pleural effusion. 6. Peripheral arterial disease. 7. Ulcers, left foot and heel. 8. Type 2 diabetes mellitus with multiple complications. 9. Chronic kidney disease. 10. Urinary retention. 11. Clostridium difficile colitis. 12. Bacteremia secondary to methicillin resistant Staphylococcus. 13. Status post right above the knee amputation. 14. Respiratory failure requiring oxygen. 15. Blindness in the right eye. 16. Urinary retention. DISCHARGE MEDICATIONS: Included: 1. Bumex 2 mg p.o. twice a day. 2. Hydrocodone/APAP 5/325 one tablet every 4 hours as needed for pain. 3. Boost 1 can twice a day. 4. Tylenol 650 mg every 6 hours as needed. 5. Aspirin 81 mg daily. 6. Lexapro 10 mg daily. 7. Ferrous sulfate 325 mg 3 times a day. 8. Gabapentin 300 mg 3 times a day. 9. NovoLog insulin, according to sliding scale. 10. Senokot-S 1 tablet daily. 11. Tamsulosin 0.4 mg daily. CONSULTATIONS: 1. Dr. Greyson Eldridge in thoracic surgery. 2. Dr. Clemente Boyer in cardiology. HISTORY OF PRESENT ILLNESS: A 66-year-old male admitted with multiple problems including mental status changes, lethargy and large right pleural effusion. The patient with extensive medical history including coronary artery disease, ischemic cardiomyopathy and decreased left ventricular ejection fraction between 20 and 25%, chronic atrial fibrillation, type 2 diabetes mellitus with multiple complications including retinopathy, blindness in the right eye, nephropathy, neuropathy, vasculopathy, has had right above the knee amputation. He also had recurrent large right pleural effusion required thoracentesis in the past and he had a PleurX catheter in place. The patient has been at [facility]. He was noted to be short of breath. Also, his mental status has changed and he was more lethargic. He does have chronic anemia. A few days prior to his admission, he received 1 unit of packed RBCs in the medical treatment unit. The patient was sent to the Emergency Room because of his complaints and findings. He was lethargic and was difficult to obtain any history from him. Initially, his 2 brothers were with him in the Emergency Room. They have noticed the mental status changes and that was the main concern. I saw the patient in the Emergency Room and he was admitted for further evaluation. PAST MEDICAL HISTORY, SOCIAL HISTORY AND FAMILY HISTORY: All as noted. ALLERGIES: None. MEDICATIONS ON ADMISSION: All as noted. PHYSICAL EXAMINATION AND ADMISSION LABORATORY TESTS: All as noted. HOSPITAL COURSE: The patient was admitted to medical bed. Resuscitation level 5. All his laboratory tests were ordered. Cultures were done. He had evidence of urinary tract infection thought to be related to yeast. He was started on IV Diflucan. He was noted to be markedly hypothyroid. He was started on IV levothyroxine. He had a PleurX catheter in place. He had recurrent right pleural effusion. Dr. Eldridge was consulted again. We were able to reestablish some drainage through the PleurX catheter, but the effusion continues to reoccur. His condition remained very difficult in the sense that he has lost his appetite and he was not eating. He was feeling weak. One of the blood cultures grew Staphylococcus, which was methicillin resistant. He was started on vancomycin initially then daptomycin. He was experiencing diarrhea. His stool tested positive for Clostridium difficile, and he was started on oral metronidazole. He did have urinary retention and a Padilla catheter was placed. At one time Dr. Eldridge considered taking him to the operating room for a thoracoscopy, but unfortunately his condition was very weak and he presented with a severe episode of hypoglycemia. Even though he was not receiving any insulin, he did present with hypoglycemia and he did require IV fluid with 5% dextrose. The surgery was canceled. I had a meeting with his brothers. Also, spoke with Mr. Zapien. Given his multiple medical problems, I did not think that the surgical procedure is something that he can tolerate. We agreed that we will make sure that he is comfortable. No new major interventions were to be undertaken. The patient was also seen during his hospitalization by Dr. Boyer when we were anticipating surgery. His condition remained very poor. His appetite was very poor. He had markedly decreased albumin level. He has generalized edema. He did diurese with Bumex, first was given IV. His condition stabilized. The agreement was to send him to [facility] with hospice care. This was arranged. The patient was transferred on the medications as noted above. The main goal is to make sure he is comfortable. No major interventions are to be undertaken.
== END 2016-08-14 10:59 | disposition hospice, inpatient (51) | DRG 291 ==
LOC: EDBD 13:46 → C.EDA 13:46 → C.MSW 17:52 → ENRESERV 18:16
PROVIDERS: ADMIT Internal Medicine; ATTEND Internal Medicine
DX: I13.0 Hypertensive heart and chronic kidney disease with heart failure and stage 1 through stage 4 chronic kidney disease, or unspecified chronic kidney disease (principal); I50.23 Acute on chronic systolic (congestive) heart failure; N17.9 Acute kidney failure, unspecified; A04.7 Enterocolitis due to Clostridium difficile; N39.0 Urinary tract infection, site not specified; J91.8 Pleural effusion in other conditions classified elsewhere; L97.429 Non-pressure chronic ulcer of left heel and midfoot with unspecified severity; R78.81 Bacteremia; B95.62 Methicillin resistant Staphylococcus aureus infection as the cause of diseases classified elsewhere; I25.10 Atherosclerotic heart disease of native coronary artery without angina pectoris; I48.91 Unspecified atrial fibrillation; I25.5 Ischemic cardiomyopathy; I73.9 Peripheral vascular disease, unspecified; N18.9 Chronic kidney disease, unspecified; E11.319 Type 2 diabetes mellitus with unspecified diabetic retinopathy without macular edema; E11.40 Type 2 diabetes mellitus with diabetic neuropathy, unspecified; E78.5 Hyperlipidemia, unspecified; E03.9 Hypothyroidism, unspecified; E11.622 Type 2 diabetes mellitus with other skin ulcer; E11.22 Type 2 diabetes mellitus with diabetic chronic kidney disease; Z79.01 Long term (current) use of anticoagulants; Z79.4 Long term (current) use of insulin; Z79.82 Long term (current) use of aspirin; Z79.899 Other long term (current) drug therapy; Z89.611 Acquired absence of right leg above knee; D64.9 Anemia, unspecified